=== PATIENT | female | born 1935 | race Caucasian/White ===

== ENCOUNTER → 2017-06-12 12:50 | Outpatient (CLI) | payer MEDICARE, SELFPAY ==
--- NOTE | 2017-06-12 12:57 | RAD_ITS ---
STUDY: X-RAY CHEST REASON FOR EXAM: Female, 81 years old. Right-sided chest pain TECHNIQUE: PA and lateral views of the chest. COMPARISON: 08/09/2016 FINDINGS: Stable hiatal hernia. There is hyperinflation of the lungs consistent with chronic obstructive lung disease (COPD). Scarring in the bases without change. There is no demonstrated pleural abnormality. Normal size heart. Normal mediastinum and jimmie. Normal visualized pulmonary arteries. There is atherosclerotic calcification of the aortic arch with tortuosity. There is demineralization of the osseous structures. There is degenerative osteoarthritis of the bilateral shoulders. There is no demonstrated abnormality of the visualized soft tissue structures of the upper abdomen. 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 No pulmonary edema, congestive heart failure or confluent pneumonia. Electronically Signed: Hawa Humphries MD at 7:58 EDT , Service support ,
[2017-06-12 15:46] LABS: Absolute Lymphocyte Count 2.13 X10^3/ul (0.83-4.51); Absolute Neutrophil Count 5.7 X10^3/uL (2.0-7.7); Basophil# 0.06 X10^3/uL; Basophil% 0.7 % (0-1); Eosinophil# 0.11 X10^3/uL; Eosinophils% 1.3 % (0-5); Hematocrit 41.4 % (37-47); Hemoglobin 13.7 g/dl (12.0-15.0); Lymphocyte # 2.13 X10^3/ul (4.0); Lymphocyte % 25.3 % (19-41); Mean Corp Hgb Conc 33.1 g/gl (32-36); Mean Corpuscular Hgb 28.4 pg (27.0-32.0); Mean Corpuscular Volume 85.9 fL (81-99); Mean Platelet Vol. 11.9 fl (6.2-12.0); Monocyte# 0.39 X10^3/uL; Monocyte% 4.6 % (0-10); Neutrophil # 5.72 X10^3/uL (2.7-7.7); Neutrophil % 67.9 % (47-70); Platelet Count 212 K/mm3 (150-450); RBC Distribution Width CV 13.3 % (11.6-14.6); RBC Distribution Width SD 41.6 fl (35.1-43.9); Red Blood Count 4.82 M/mm3 (4.2-5.4); White Blood Count 8.4 K/mm3 (4.4-11.0)
[2017-06-12 16:09] LABS: T4 Free Direct 1.17 ng/dL (0.76-1.46); Thyroid Stim Hormone (TSH) 0.83 uIU/mL (0.358-3.74)
[2017-06-12 16:12] LABS: POSITIVE COUNT NO; POSITIVE DIFFERENTIAL NO; POSITIVE MORPHOLOGY NO
[2017-06-12 16:13] LABS: D-Dimer Quantitative (DVT/PE) < 0.27 FEU/ug/m (0.27-0.49)
== END ==
PROVIDERS: Family Provider Family Medicine; PCP Family Medicine; Visit Provider Family Medicine
DX: E03.2 Hypothyroidism due to medicaments and other exogenous substances (principal); R07.9 Chest pain, unspecified
CPT/HCPCS: 36415; 71046; 84439; 84443; 85025; 85379

== ENCOUNTER → 2017-08-15 10:44 | Outpatient (CLI) | payer MEDICARE, SELFPAY ==
--- NOTE | 2017-08-15 10:44 | DT_ITS ---
This patient was seen during an EMR downtime August 13, 2017 - August 20, 2017. This patient may have a combination of paper and electronic documentation or all paper documentation. All documentation is viewable within the e-chart portion of [employer] for each patient visit.
--- NOTE | 2017-08-15 10:44 | DT_ITS ---
This patient was seen during an EMR downtime August 13, 2017 - August 20, 2017. This patient may have a combination of paper and electronic documentation or all paper documentation. All documentation is viewable within the e-chart portion of [facility] for each patient visit.
[2017-08-20 08:24] LABS: T4 Free Direct 1.09 ng/dL (0.76-1.46); Thyroid Stim Hormone (TSH) 1.26 uIU/mL (0.358-3.74)
== END ==
PROVIDERS: Family Provider Family Medicine; PCP Family Medicine; Visit Provider Family Medicine
DX: E03.2 Hypothyroidism due to medicaments and other exogenous substances (principal); Z85.850 Personal history of malignant neoplasm of thyroid
CPT/HCPCS: 36415; 84432; 84439; 84443; 86800

== ENCOUNTER → 2017-08-20 11:30 | Outpatient (CLI) | payer MEDICARE, SELFPAY ==
--- NOTE | 2017-08-20 11:30 | DT_ITS ---
This patient was seen during an EMR downtime August 13, 2017 - August 20, 2017. This patient may have a combination of paper and electronic documentation or all paper documentation. All documentation is viewable within the e-chart portion of [employer] for each patient visit.
--- NOTE | 2017-08-20 11:30 | DT_ITS ---
This patient was seen during an EMR downtime August 13, 2017 - August 20, 2017. This patient may have a combination of paper and electronic documentation or all paper documentation. All documentation is viewable within the e-chart portion of [facility] for each patient visit.
[2017-08-20 16:05] LABS: CPK Total, Creatine Kinase 38 U/L (26-192); CRP 5.71 mg/L (0.0-3.0)
[2017-08-20 16:07] LABS: Erythrocyte Sedimentation Rate 14 mm/hr (0-30)
[2017-08-20 16:08] LABS: Vitamin B12 329 pg/mL (211-911)
[2017-08-24 16:11] LABS: Anti-Centromere B Ab <0.2 AI (0.0-0.9); Anti-Chromatin <0.2 AI (0.0-0.9); Anti-Jo <0.2 AI (0.0-0.9); Anti-Scleroderma-70 AB 0.3 AI (0.0-0.9); RNP Ab <0.2 AI (0.0-0.9); SJOGREN'S Anti-SS-A test < 0.2 AI (0.0-0.9); SJOGREN'S Anti-SS-B test < 0.2 AI (0.0-0.9); Smith Ab <0.2 AI (0.0-0.9)
[2017-08-24 18:10] LABS: ANTINUCLEAR ANTIBODIES DIRECT Negative (Negative); Anti-dsDNA Ab <1 IU/mL (0-9)
== END ==
PROVIDERS: Family Provider Family Medicine; PCP Family Medicine; Visit Provider Family Medicine
DX: E03.2 Hypothyroidism due to medicaments and other exogenous substances (principal); R53.83 Other fatigue; M79.1 Myalgia; M19.90 Unspecified osteoarthritis, unspecified site; Z85.850 Personal history of malignant neoplasm of thyroid
CPT/HCPCS: 36415; 82550; 82607; 85652; 86038; 86140; 86225; 86235

== ENCOUNTER → 2018-01-29 15:48 | Outpatient (CLI) | payer MEDICARE, SELFPAY ==
[2018-01-29 14:20] VITALS: BMI 45.6
[2018-01-29 16:24] LABS: Bacteria 0 SEEN /hpf (None Seen); Mucous, Urine 0 SEEN /hpf (<or=2+); Red Blood Cells-Urine 0 SEEN /hpf (0-5)
[2018-01-29 17:46] LABS: Color, Urine Straw (Yellow); Glucose, Dipstick Normal (Normal); Ketone-Dipstick Negative (Negative); Leukocyte Esterase-Dipstick Negative /ul (Negative); Nitrite-Dipstick Negative (Negative); Occult Blood-Urine Negative /ul (Negative); Protein-Dipstick Negative (Negative); Urine Bilirubin Dipstick Negative (Negative); Urine Clarity Clear (Clear); Urine Urobilinogen Normal (Normal); Urine pH 6.5 (5.0 - 8.0)
[2018-01-29 18:31] LABS: Squamous Epithelial Cells - UA 0-5 SEEN /hpf (5-10)
[2018-01-29 18:32] LABS: Transitional Epithelial - Ur 0-5 SEEN /hpf (0-5)
[2018-01-29 18:33] LABS: White Blood Cells 0-5 SEEN /hpf (0-5)
== END ==
PROVIDERS: Family Provider Family Medicine; PCP Family Medicine; Referring Provider Physician Assistant Surgical; Visit Provider Physician Assistant Surgical
DX: R30.0 Dysuria (principal)
CPT/HCPCS: 81001; 87086; 87088

== ENCOUNTER → 2018-02-07 09:16 | Outpatient (CLI) | payer MEDICARE, SELFPAY ==
[2018-01-29 14:20] VITALS: BMI 45.6
[2018-02-07 12:00] LABS: Absolute Lymphocyte Count 2.65 X10^3/ul (0.83-4.51); Absolute Neutrophil Count 5.2 X10^3/uL (2.0-7.7); Basophil# 0.08 X10^3/uL; Basophil% 0.9 % (0-1); Eosinophil# 0.36 X10^3/uL; Eosinophils% 4.1 % (0-5); Hematocrit 41.9 % (37-47); Hemoglobin 13.6 g/dl (12.0-15.0); Lymphocyte # 2.65 X10^3/ul (4.0); Lymphocyte % 30.3 % (19-41); Mean Corp Hgb Conc 32.5 g/gl (32-36); Mean Corpuscular Hgb 28.3 pg (27.0-32.0); Mean Corpuscular Volume 87.3 fL (81-99); Mean Platelet Vol. 11.8 fl (6.2-12.0); Monocyte# 0.42 X10^3/uL; Monocyte% 4.8 % (0-10); Neutrophil # 5.21 X10^3/uL (2.7-7.7); Neutrophil % 59.7 % (47-70); Platelet Count 229 K/mm3 (150-450); RBC Distribution Width CV 14.1 % (11.6-14.6); RBC Distribution Width SD 44.7 fl (35.1-43.9); White Blood Count 8.7 K/mm3 (4.4-11.0)
[2018-02-07 12:01] LABS: POSITIVE COUNT NO; POSITIVE DIFFERENTIAL NO; POSITIVE MORPHOLOGY NO
[2018-02-07 12:15] LABS: Vitamin B12 675 pg/mL (211-911); Vitamin D,25 Hydroxy 21.4 ng/mL (29.95-100.01)
[2018-02-07 12:59] LABS: ALB/GLOB Ratio 0.8 RATIO (0.9-2.4); AST(SGOT) 14 U/L (15-37); Alanine Aminotransfer ALT/SGPT 22 U/L (13-56); Albumin, Serum 3.6 g/dL (3.2-5.0); Alkaline Phosphatase 95 U/L (45-117); Amylase 53 U/L (25-115); Anion Gap 8 (5-15); BUN 26 mg/dL (7-18); BUN/Creat Ratio 22.6 RATIO (10-20); CRP < 2.90 mg/L (0.0-3.0); Calcium,Total 9.3 mg/dL (8.5-10.1); Chloride 102 mmol/L (98-107); Creatinine, Serum 1.15 mg/dL (0.55-1.02); EST Glomerular Filtration Rate 48 mL/min (>60); Est Glom Filt Rate - Afr Amer 58 mL/min (>60); Globulin 4.5 g/dL (2.2-4.2); Glucose 84 mg/dL (74-106); Lipase 101 U/L (73-393); Potassium 4.6 mmol/L (3.5-5.1); Protein, Total 8.1 g/dL (6.4-8.2); Sodium Level 135 mmol/L (136-145); T4 Free Direct 1.02 ng/dL (0.76-1.46); Thyroid Stim Hormone (TSH) 1.79 uIU/mL (0.358-3.74)
[2018-02-09 09:21] LABS: Anti-Thyroglobulin AB < 1.0 IU/mL (0.0-0.9); Thyroglobulin, Serum Qt. < 0.1 ng/mL (1.5-38.5)
--- OUTSIDE RECORDS SUMMARY | 2018-04-04 10:16 | XMS RPT_ITS ---
:1935 Author Organization OHIP Support Name Relationship Address Phone SHANKAR WALI Unavailable [address] + [place] [address] R Unavailable Unavailable Unavailable RAIFSNIDER, MUSTAPHA Unavailable [address] + [place] [address] WALI SHANKAR Unavailable [address] + [place] [address] R Unavailable Unavailable Unavailable RAIFSNIDER, MUSTAPHA Unavailable [address] + [place] [address] WALI SHANKAR Unavailable [address] + [place] [address] R Unavailable Unavailable Unavailable RAIFSNIDER, MUSTAPHA Unavailable [address] + [place] [address] WALI SHANKAR Unavailable [address] + [place] [address] R Unavailable Unavailable Unavailable RAIFSNIDER, MUSTAPHA Unavailable [address] + [place] [address] WALI SHANKAR Unavailable [address] + [place] [address] R Unavailable Unavailable Unavailable RAIFSNIDER, MUSTAPHA Unavailable [address] + [place] [address] WALI SHANKAR Unavailable [address] + [place] [address] R Unavailable Unavailable Unavailable RAIFSNIDER, MUSTAPHA Unavailable [address] + [place] [address] WALI SHANKAR Unavailable [address] + [place] [address] R Unavailable Unavailable Unavailable RAIFSNIDER, MUSTAPHA Unavailable [address] + [place] [address] [facility] Unavailable [address] + [place] [address] R Unavailable Unavailable Unavailable RAIFSNIDER, MUSTAPHA Unavailable [address] + [place] [address] [facility] Unavailable [address] + [place] [address] R Unavailable Unavailable Unavailable RAIFSNIDER, MUSTAPHA Unavailable [address] + [place] [address] [facility] Unavailable [address] + [place] [address] R Unavailable Unavailable Unavailable RAIFSNIDER, MUSTAPHA Unavailable [address] + [place] [address] [facility] Unavailable [address] + [place] [address] R Unavailable Unavailable Unavailable RAIFSNIDER, MUSTAPHA Unavailable [address] + [place] [address] [facility] Unavailable [address] + [place] [address] R Unavailable Unavailable Unavailable RAIFSNIDER, MUSTAPHA Unavailable [address] + [place] [address] [facility] Unavailable [address] + [place] [address] R Unavailable Unavailable Unavailable RAIFSNIDER, MUSTAPHA Unavailable [address] + [place] [address] [facility] Unavailable [address] + [place] [address] R Unavailable Unavailable Unavailable RAIFSNIDER, MUSTAPHA Unavailable [address] + [place] [address] [facility] Unavailable [address] + [place] [address] R Unavailable Unavailable Unavailable RAIFSNIDER, MUSTAPHA Unavailable [address] + [place] [address] Care Team Providers Name Role Phone FOREST VILLANUEVA Referring Unavailable KAYFOREST MARTINEZ A Referring Unavailable Kay, Forest Attending Unavailable Kay, Forest Referring Unavailable Kay, Forest Primary Care Unavailable Kay, Forest Attending Unavailable Kay, Forest Referring Unavailable Kay, Forest Primary Care Unavailable Kay, Forest Attending Unavailable Kay, Forest Primary Care Unavailable Kay, Forest Referring Unavailable Kay, Forest Primary Care Unavailable Rinku Brito Attending Unavailable Grace Millan Attending Unavailable Vicky Jones Referring Unavailable Patricio, Isidro Hallman Attending Unavailable Kay, Forest Referring Unavailable Sienna Marshall Attending Unavailable Lorraine Gonzalez Attending Unavailable Patricio, Isidro H Attending Unavailable Kay, Forest Attending Unavailable Kay, Forest Primary Care Unavailable Kay, Forest Attending Unavailable Kay, Forest Referring Unavailable Kay, Forest Primary Care Unavailable Yana, Grace [place] Attending Unavailable Kay, Forest Referring Unavailable Kay, Forest Primary Care Unavailable Lavell Matthews Attending Unavailable Kay, Forest Referring Unavailable Lavell Matthews Attending Unavailable Lavell Matthews Referring Unavailable Kay, Forest Primary Care Unavailable Kay, Forest Attending Unavailable Kay, Forest Primary Care Unavailable PROBLEMS PROBLEMS DATE TYPE CONDITION / CODE ATTENDING STATUS SOURCE 02/07/2018 Unknown 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 / E03.2(ICD-10) 02/07/2018 Unknown R10.9 - Unspecified Forest Villanueva Active [place] abdominal pain / Community R10.9(ICD-10) Hospital Repository 02/07/2018 Unknown R11.0 - Nausea / Forest Villanueva Active [place] R11.0(ICD-10) Community Hospital Repository 02/07/2018 Unknown K57.90 - KayForest roth Active [place] Diverticulosis of Community intestine, part Hospital unspecified, without Repository perforation or abscess without bleeding / K57.90(ICD-10) 02/07/2018 Unknown Z85.850 - Personal Forest Villanueva Active [place] history of malignant Community neoplasm of thyroid Hospital / Z85.850(ICD-10) Repository 02/07/2018 Unknown E55.9 - Vitamin D Forest Villanueva Active [place] deficiency, Community unspecified / Hospital E55.9(ICD-10) Repository 02/07/2018 Unknown E53.8 - Deficiency Forest Villanueva Active [place] of other specified B Community group vitamins / Hospital E53.8(ICD-10) Repository 01/29/2018 Unknown R30.0 - Dysuria / Lavell Matthews Active [place] R30.0(ICD-10) Counts Include [facility] Hospital Repository 12/10/2017 [facility] / [facility] [place] Repository 06/12/2017 Unknown R07.9 - Chest pain, Forest Villanueva Active [place] unspecified / Community R07.9(ICD-10) Hospital Repository 03/14/2017 Unknown R42 - Dizziness and Lowe, Rinku Active [place] giddiness / Community R42(ICD-10) Hospital Repository PROCEDURES PROCEDURES No Procedure Records FoundRESULTS RESULTS BREAST LIMITED Observed: 02/25/2018 Status: F Source: [place] UNILATERAL 8:58 AM [facility] REPOSITORY [facility] Imaging Services [address] [place] [address] Breast Limited Unilateral MR#: [id number] Acct: [id number] Name: BALBINA KERN Rep #: [id number] : 1935 F 82 From: Andrei Vences MD PCP: Forest Villanueva DO Status: REG CLI Study: Breast Limited Unilateral Date of Exam: 02/25/18 Exam# [id number] Ordering Dr: Forest Villanueva DO STUDY: ULTRASOUND BREAST - LEFT REASON FOR EXAM: Female, 82 years old. Abnormal screening mammogram. TECHNIQUE: Axial and longitudinal images of the LEFT breast were performed with a high resolution ultrasound transducer. COMPARISON: Comparison is made with prior mammogram dated February 21, 2018. FINDINGS: LEFT Breast: The mammographic abnormality corresponds to a 2 mm x 3 mm x 2 mm cyst at the 4:00 position of breast 4 cm from nipple. US/Breast Limited Unilateral IMPRESSION: The mammographic findings corresponds to a 2 mm x 3 mm x 2 mm cyst. ASSESSMENT CATEGORY: BIRADS Category 2: Benign. A letter regarding these results will be sent to the patient by the facility within 30 days. Electronically Signed: Andrei Vences MD at 11:01 EST Tel [phone], Service support , CC: Forest Villanueva DO Scada Operator: Signed ABDOMEN/PELVIS WITH Observed: 02/21/2018 Status: F Source: [place] CONTRAST 1:00 PM [facility] REPOSITORY [facility] Imaging Services [address] [place] [address] Abdomen/Pelvis WITH Contrast MR#: [id number] Acct: [id number] Name: BALBINA KERN Rep #: [id number] : 1935 F 82 From: Mike Lake MD PCP: Forest Villanueva DO Status: REG CLI Study: Abdomen/Pelvis WITH Contrast Date of Exam: 02/21/18 Exam# [id number] Ordering Dr: Forest Villanueva DO STUDY: CT ABDOMEN AND PELVIS WITH CONTRAST REASON FOR EXAM: Female, 82 years old. Abdominal pain, weight loss, nausea. History of breast cancer and right mastectomy, diverticulitis treated with partial colectomy, JENNIFER/BSO, cholecystectomy, and bilateral hip replacements. RADIATION DOSAGE (If Supplied By Facility): CTDIvol = ( 32.93 ) mGy, DLP = ( 2429.91 ) mGycm TECHNIQUE: Transaxial images were obtained from the dome of the diaphragm to the symphysis pubis without oral contrast. 100mL ml of Isovue 300 contrast was administered. Sagittal and coronal images were reconstructed. Individualized dose optimization techniques were used for this CT. COMPARISON: CT abdomen and pelvis July 19, 2016. FINDINGS: Small calcified granuloma in the right lung base. The visualized portions of the heart are within normal limits. Normal liver. The patent portal vein diameter is 14 mm. There are surgical clips in the gallbladder fossa consistent with a prior cholecystectomy. The diameter of the common bile duct is 12 mm. There is borderline to mild splenomegaly, measuring 13.5 x 5.5 x 10.4 cm. Normal pancreas. Normal bilateral adrenal glands. 1.3 cm cortical cyst suggested in the anterolateral midpole right kidney. There is an exophytic 2.6 x 2.3 x 2.4 cm cortical cyst projecting from the posterolateral margin of the lower pole of the left kidney. Mildly prominent left extra renal pelvis. Borderline ectasia of the right ureter down to the pelvic inlet. There is a moderate to large hiatal hernia composed mostly of the fundus of the stomach, not fully included in the [id number]. There is a partially gas-filled 2.5 x 2.5 x 1.8 cm periampullary diverticulum of the second duodenum. Normal small intestine. There are multiple colonic diverticula consistent with diverticulosis. There is non-visualization of the appendix. There is fxre-gn-tgargemn diffuse atherosclerotic calcification of the abdominal aorta and proximal iliac arteries, without a demonstrated aneurysm. Normal inferior vena cava. Normal retroperitoneum. Pelvic detail degraded by artifact. Normal urinary bladder. There is absence of the uterus consistent with a prior hysterectomy. There is a healed midline incision of the anterior abdominal wall. There is a small umbilical hernia containing fat. There are multilevel degenerative changes of the visualized spine. There is minor rightward subluxation of L3 on L4, and a 17.5 degree levoscoliosis centered at L4. The patient has undergone prior bilateral total hip replacements CT/Abdomen/Pelvis WITH Contrast IMPRESSION: 1. Healed midline incision of the anterior abdominal wall with stable fat-containing umbilical hernia. 2. Stable moderate-sized hiatal hernia. 3. Colonic diverticulosis without acute diverticulitis. Stable periampullary duodenal diverticulum. No sign of bowel obstruction. The appendix is not visualized. 4. Stable bilateral renal cortical cysts. No hydronephrosis. 5. Prior cholecystectomy. Stable intrahepatic bile duct ectasia. 6. Borderline to mild splenomegaly. 7. Prior hysterectomy. 8. Aortoiliac atherosclerotic calcific plaquing again noted. No demonstrated aneurysm. 9. Prior bilateral total hip replacements. 10. Stable degenerative changes of the spine, including mild rightward subluxation of L3 on L4 and lower lumbar levoscoliosis. Electronically Signed: Roberto Lake MD at 16:58 EST , Service support , CC: Forest Villanueva DO Scada Operator: Signed UNILHORACE SCRN Observed: 02/21/2018 Status: F Source: [place] W/CAD 11:50 AM [facility] REPOSITORY [facility] Imaging Services [address] [place] [address] UNILAT SCRN W/CAD MR#: [id number] Acct: [id number] Name: BALBINA KERN Rep #: [id number] : 1935 F 82 From: Andrei Vences MD PCP: Forest Villanueva DO Status: REG CLI Study: UNILAT SCRN W/CAD Date of Exam: 02/21/18 Exam# [id number] Ordering Dr: Forest Villanueva DO ADDENDUM by Andrei Vences MD on 02/22/18 at 0816 ADDENDUM This is an abdomen report for laterality. The impression should read that there is a 5.7 mm x 6.7 mm well-defined nodule in the left breast as described. Electronically Signed: Andrei Vences MD at 8:16 EST Tel [phone], Service support , 02/22/18 0816 Date cc: Forest Kay DO * Signed ADDENDUM by Andrei Vences MD on 02/22/18 at 0816 BI/UNILAT LT SCRN W/CAD 02/22/18 0823 Date cc: Forest Villanueva DO * Signed MAMMOGRAPHY - UNILATERAL SCREENING: LEFT BREAST REASON FOR EXAM: Female, 82 years old. Routine annual screening examination (unilateral). PERTINENT HISTORY: Personal history of breast cancer. Prior right mastectomy and chemotherapy. Remote left stereotactic breast biopsy. TECHNIQUE: Digital unilateral breast rafi (3D mammographic acquisition) in the CC and MLO projections. 2-D mediolateral oblique (MLO) and craniocaudad (CC) views of both breasts were obtained. CAD: Full Field Digital Mammography with Computer Added Detection was performed. COMPARISON: Comparison is made with prior study dated December 16, 2016 and November 19, 2015. FINDINGS: Breast Composition: The breasts are almost entirely fatty. There are no dominant masses or suspicious calcifications. There is a new 5.7 mm x 6.6 mm well-defined nodular density in the central lateral portion of the left breast at approximately the 3:00 position. Correlation with ultrasound is recommended. No other significant abnormalities are identified. BI/UNILAT LT SCRN W/CAD IMPRESSION: 5.7 mm x 6.7 mm well-defined nodule in the right breast as described. Correlation with ultrasound is recommended. ASSESSMENT CATEGORY: BIRADS Category 0: Incomplete. Need additional imaging evaluation. A letter regarding these results will be sent to the patient by the facility within 30 days. Approximately 10% of breast cancers are not detected by mammography. A normal mammogram should not delay biopsy of a clinically suspicious abnormality. [id number] Electronically Signed: Andrei Vences MD at 13:17 EST Tel [phone], Service support , CC: Forest Villanueva DO Scada Operator: Signed CBC W/DIFF, AUTOMATED Collected: 02/07/2018 Status: F Source: [place] 9:23 AM [facility] REPOSITORY TYPE CODE TESTS RESULT OUT OF RANGE REFERENCE UNITS LAB L100.1000 4.4-11.0 K/mm3 Normal WBC 8.7 LAB L100.1200 4.2-5.4 M/mm3 Normal RBC 4.80 LAB L100.1300 12.0-15.0 g/dl Normal HGB 13.6 LAB L100.1400 37-47 % Normal HCT 41.9 LAB L100.1500 81-99 fL Normal MCV 87.3 LAB L100.1600 27.0-32.0 pg Normal MCH 28.3 LAB L100.1700 32-36 g/gl Normal MCHC 32.5 LAB L100.1810 11.6-14.6 % Normal RDW CV 14.1 LAB L100.1820 35.1-43.9 fl High RDW SD 44.7 LAB L100.1900 150-450 K/mm3 Normal PLT 229 LAB L100.2000 6.2-12.0 fl Normal MPV 11.8 LAB L100.2100 47-70 % Normal NEUT% 59.7 LAB L100.2200 19-41 % Normal LY% 30.3 LAB L100.2300 0-10 % Normal MONO% 4.8 LAB L100.2400 0-5 % Normal EO% 4.1 LAB L100.2500 0-1 % Normal BASO% 0.9 LAB L100.2550 0.0-0.9 % Normal IM GRAN % 0.200 Result Comment: IG% - Immature Granulocytes (promyelocytes, myelocytes and metamyelocytes) > 1% indicates that a LEFT SHIFT is Present. LAB L100.2620 2.0-7.7 X10 3/uL Normal Absolute Neut 5.2 LAB L100.2720 0.83-4.51 X10 3/ul Normal Absolute Lymph 2.65 Performed By: #### L100.0100 #### [place] [facility] [place], [address] VITAMIN B12 Collected: 02/07/2018 Status: F Source: [place] 9:23 AM [facility] REPOSITORY TYPE CODE TESTS RESULT OUT OF RANGE REFERENCE UNITS LAB L503.0105 211-911 pg/mL Normal Vitamin B12 675 Performed By: #### L503.0105, L506.1000 #### [facility] [address] [place], [address] VITAMIN D,25 HYDROXY Collected: 02/07/2018 Status: F Source: [place] 9:23 AM [facility] REPOSITORY TYPE CODE TESTS RESULT OUT OF REFERENCE UNITS RANGE LAB L506.1000 29.95-100.01 ng/mL Low Vitamin D 21.4 25-OH Result Comment: Vitamin D 25(OH) Status Range Deficiency <20 ng/mL (50nmol/L) Insuffciency 20 - 30 ng/mL (50 - 75 nmol/L) Sufficiency 30 - 100 ng/mL (75 - 250 nmol/L) Toxicity >100 ng/mL (>250 nmol/L) Performed By: #### L503.0105, L506.1000 #### [facility] [address] [place], [address] COMPREHENSIVE METABOLIC Collected: 02/07/2018 Status: F Source: [place] [facility] 9:23 AM [facility] REPOSITORY TYPE CODE TESTS RESULT OUT OF RANGE REFERENCE UNITS LAB L501.0100 74-106 mg/dL Normal GLU 84 Result Comment: Please note revised GLUCOSE reference range effective 2017. LAB L501.1000 7-18 mg/dL High BUN 26 LAB L501.1100 0.55-1.02 mg/dL High CREAT,SERUM 1.15 Result Comment: The validity of the calculated GFR AND GFRAA in patients over 70 years has not been determined. Clinical correlation is essential. LAB L501.1110 >60 mL/min Low EST GFR 48 Result Comment: Non- GFR Calc LAB L501.1115 >60 mL/min Low EST GFR - AA 58 Result Comment: GFR Calc LAB L501.1300 10-20 RATIO High BUN/CRE 22.6 LAB L501.1500 6.4-8.2 g/dL T Normal PROT 8.1 LAB L501.1800 3.2-5.0 g/dL Normal ALB 3.6 LAB L501.1950 2.2-4.2 g/dL High GLOB 4.5 LAB L501.2000 0.9-2.4 RATIO Low A/G 0.8 LAB L501.2200 8.5-10.1 mg/dL CA Normal 9.3 LAB L501.4100 15-37 U/L Low AST 14 LAB L501.4305 45-117 U/L Normal ALK P 95 LAB L501.4405 13-56 U/L Normal ALT 22 LAB L501.4600 0.20-1.00 mg/dL T Normal BILI 0.30 LAB L501.5300 136-145 mmol/L Low NA 135 LAB L501.5600 3.5-5.1 mmol/L K Normal 4.6 LAB L501.5900 98-107 mmol/L CL Normal 102 LAB L501.6100 21.0-32.0 mmol/L Normal CO2 25.0 LAB L501.6200 5-15 Normal GAP 8 Performed By: #### L500.4050, L501.2400, L501.2450, L501.6710, L501.9520, L506.0400 #### [facility] [address] [facility] [place], [place], [id number] AMYLASE Collected: 02/07/2018 Status: F Source: [place] 9:23 AM [facility] REPOSITORY TYPE CODE TESTS RESULT OUT OF RANGE REFERENCE UNITS LAB L501.2400 25-115 U/L Normal CLOVIS 53 Performed By: #### L500.4050, L501.2400, L501.2450, L501.6710, L501.9520, L506.0400 #### [facility] [address] [facility] [place], [place], [address] LIPASE Collected: 02/07/2018 Status: F Source: [place] 9:23 AM [facility] REPOSITORY TYPE CODE TESTS RESULT OUT OF RANGE REFERENCE UNITS LAB L501.2450 73-393 U/L Normal LIPASE 101 Performed By: #### L500.4050, L501.2400, L501.2450, L501.6710, L501.9520, L506.0400 #### [facility] [address] [place], [address] CRP Collected: 02/07/2018 Status: F Source: [place] 9:23 AM [facility] REPOSITORY TYPE CODE TESTS RESULT OUT OF RANGE REFERENCE UNITS LAB L501.6710 0.0-3.0 mg/L Normal < 2.90 C-REACTIVE PROT Result Comment: C-Reactive Protein (CRP) provides useful information for the diagnosis, therapy and monitoring of inflammatory processes and associated diseases. For the evaluation of Relative Risk for Cardiovascular Disease, a High Sensitivity CRP (HSCRP) should be ordered. Performed By: #### L500.4050, L501.2400, L501.2450, L501.6710, L501.9520, L506.0400 #### [facility] [address] [facility] [place], [address] THYROID STIM HORMONE Collected: 02/07/2018 Status: F Source: [place] (TSH) 9:23 AM [facility] REPOSITORY TYPE CODE TESTS RESULT OUT OF RANGE REFERENCE UNITS LAB L501.9520 0.358-3.74 uIU/mL Normal TSH 1.79 Performed By: #### L500.4050, L501.2400, L501.2450, L501.6710, L501.9520, L506.0400 #### [facility] [address] [place], [address] T4 FREE DIRECT Collected: 02/07/2018 Status: F Source: [place] 9:23 AM [facility] REPOSITORY TYPE CODE TESTS RESULT OUT OF RANGE REFERENCE UNITS LAB L506.0400 0.76-1.46 ng/dL Normal T4 FREE 1.02 DIRECT Performed By: #### L500.4050, L501.2400, L501.2450, L501.6710, L501.9520, L506.0400 #### [facility] [address] [place], [address] THYROGLOBULIN W/ANTI-TG Collected: 02/07/2018 Status: F Source: [place] AB 9:23 AM [facility] REPOSITORY TYPE CODE TESTS RESULT OUT OF RANGE REFERENCE UNITS LAB L3300.7025 0.0-0.9 IU/mL Normal ANTI-TG < 1.0 AB Result Comment: Thyroglobulin Antibody measured by [facility] [employer] LAB L3400.1030 1.5-38.5 ng/mL Low THYROGLOB < 0.1 Result Comment: According to the National Academy of Clinical Biochemistry, the reference interval for Thyroglobulin (TG) should be related to euthyroid patients and not for patients who underwent thyroidectomy. TG reference intervals for these patients depend on the residual mass of the thyroid tissue left after surgery. Establishing a post-operative baseline is recommended. The assay limit of quantitation is 0.1 ng/mL Thyroglobulin measured by [employer] Performed at: [facility] [address] [id number] Flight Controls Engineer: Bobby Sahu PhD, Phone: [phone] Performed By: #### L3300.6820 #### [facility] (refer to report for specific site) refer to report for address and phone number URGENT CARE VISIT Observed: 01/29/2018 Status: F Source: [place] REPORT 5:31 PM [facility] REPOSITORY [facility] [address] [place] [address] [address] [place] [address] OFFICE VISIT Date of Service: 01/29/18 MR#: [id number] Acct: [id number] Name: BALBINA KERN Rep #: [id number] : 1935 Provider: Lavell FERNANDEZ Age/Sex: 82/F Location: [facility] Status: Signed Intake Vital Signs01/29/18 Height 5 ft 4 in 01/29/18 Weight: 266 lb 01/29/18 Body Mass Index (BMI) 45.6 01/29/18 Blood Pressure 124/86 H Intake Visit Reasons: Urinary tract infection Allergies nitrofurantoin [From Macrobid] Allergy (Intermediate, Verified 01/29/18 14:22) hives latex Allergy (Verified 01/29/18 14:22) Rash Penicillins Allergy (Verified 01/29/18 14:22) Swelling Medications Sertraline HCl [Zoloft] 50 mg PO BID 01/08/13 [History Confirmed 01/29/18] Acetaminophen [Pain Reliever] 2 tab PO BID 08/15/13 [History Confirmed 01/29/18] Cholecalciferol (VIT D3) [Vitamin D] 1,000 unit PO DAILY 09/20/14 [History Confirmed 01/29/18] Levothyroxine [Synthroid] 100 mcg PO DAILY 09/20/14 [History Confirmed 01/29/18] Lorazepam [Ativan] 1 mg PO QHS 09/20/14 [History Confirmed 01/29/18] Senna/Docusate Sodium [Senokot-S, Court-Colace] 1 tab PO BID 09/20/14 [History Confirmed 01/29/18] Ropinirole HCl [Requip] 2 mg PO QHS 08/09/16 [History Confirmed 01/29/18] busPIRone [Buspar] 5 mg PO DAILY 08/09/16 [History Confirmed 01/29/18] traMADol [Ultram] 50 mg PO QHS 08/09/16 [History Confirmed 01/29/18] Meclizine HCl [Antivert] 25 mg PO 4X/DAY PRN PRN #20 tab 03/14/17 [Rx Confirmed 01/29/18] ondansetron 4 mg disintegrating tablet 4 mg PO BID-TID PRN 01/29/18 [History Confirmed 01/29/18] sulfamethoxazole 800 mg-trimethoprim 160 mg tablet 1 tab PO Q12H 7 Days #14 tab 01/29/18 [Rx Confirmed 01/29/18] PFSH Medical History H/O: hysterectomy (Resolved) Hyperlipidemia (Chronic) At risk for falls (Acute) Precordial chest pain (Acute) Restless legs (Acute) Shortness of breath (Acute) Surgical History H/O hemicolectomy (Resolved) H/O thyroidectomy (Resolved) H/O mastectomy (Resolved) History of knee replacement (Resolved) Hx of cholecystectomy (Resolved) H/O colonoscopy (Resolved) History of bladder suspension procedure (Resolved) History of carpal tunnel surgery of right wrist (Resolved) History of hip replacement, total (Resolved) History of tonsillectomy and adenoidectomy (Resolved) Family History Father , Age 89 CVA (cerebral vascular accident) Cancer Hypertension Myocardial infarction Mother , Age 90 Cancer Brother Hypertension Diabetes Brother Diabetes Brother Hypertension Social History Smoking Status: Former smoker how long ago did patient quit smoking: in the 's alcohol intake: current alcohol intake frequency: holidays/special occasions only Alcohol type: wine caffeine: Yes Type: tea HPI HPI Details: BALBINA KERN, is a 82 F who presents to the office today for dysuria, urinary urgency and increased frequency as well as pelvic discomfort. Patient is concerned for UTI as she has had multiple UTIs in the past. She denies loss of bowel or bladder control as well as hematuria. She has had no fever, chills, sweats. No nausea, vomiting, diarrhea. No other associated symptoms or alleviating/aggravating factors. ROS Const Constitutional: No body ache, chills or fever(s) Resp Respiratory: No shortness of breath Cardio Cardiology: No lightheadedness, palpitations or irregular heart rhythm Gastro GI: No abdominal pain Genitourinary-Female: Positive for burning urination, painful urination and urinary frequency; no pelvic pain, painful intercourse or blood in urine Neuro Neurology: No confusion or behavioral changes Psych Psychiatric: No confusion, No behavioral changes Exam Const General: cooperative, healthy appearing Resp Effort AND Inspection: normal respiratory effort Auscultation: Bilateral: Clear to Auscultation Cardio Rate: regular rate Rhythm: regular rhythm GI Auscultation: normal bowel sounds General: No CVA tenderness Psych Appearance: grossly normal Mental Status: mental status grossly normal Results [facility] Office Urine Color Yellow Last Edit by Ana M Thurston on 01/29/18 14:31 Office Urine Clarity Clear Last Edit by Ana M Thurston on 01/29/18 14:31 Assessment AND Plan 1. Dysuria R30.0 Status Acute Plan Bactrim as prescribed today. Encouraged to get plenty of rest, drink lots of clear liquids, and use Tylenol or Ibuprofen (unless contraindicated) for fever and comfort. Patient also educated on other symptomatic management techniques. To be seen in 7-10 days if no improvement; sooner if worsening of symptoms. Patient advised of potential red flags and when appropriate to report to the ED. Patient verbalized understanding and agreement with all the above. Orders Orders: Medications New: Coding Level of Care Code Off vis,est,level 3 Diagnoses Dysuria R30.0 01/29/18 0779 <Electronically signed by Lavell FERNANDEZ> Date Lavell Bonds Signature: Date (if applicable) CC: URINALYSIS, COMPLETE Collected: 01/29/2018 Status: F Source: [place] 2:30 PM [facility] REPOSITORY Order Comment: How was Urine Obtained? CLEAN CATCH TYPE CODE TESTS RESULT OUT OF REFERENCE UNITS RANGE LAB L400.3000 Yellow COLOR Normal Straw LAB L400.3050 Clear CLARITY Normal Clear LAB L400.3200 Normal mg/dl GLUCOSE, UR Normal Normal LAB L400.3300 Negative mg/dL BILIRUBIN Normal URINE Negative LAB L400.3400 Negative mg/dl KETONE UR Normal Negative LAB L400.3465 1.002-1.030 SP.GR. Normal DIPSTX 1.010 LAB L400.3550 5.0 - 8.0 pH UR Normal 6.5 LAB L400.3600 Negative mg/dl PROT DIPSTX Normal Negative LAB L400.3700 Normal mg/dl UROBILI Normal Normal LAB L400.3750 Negative NITRITE UR Normal Negative LAB L400.3780 Negative /ul OCCULT Normal BLOOD-UR Negative LAB L400.3800 Negative /ul LEUK Normal ESTERASE Negative LAB L400.4050 0-5 /hpf WBC Normal 0-5 SEEN LAB L400.4100 0-5 /hpf RBC-UA Normal 0 SEEN LAB L400.4150 5-10 /hpf SQUAM EPI Normal 0-5 SEEN LAB L400.4300 None Seen /hpf BACTERIA Normal 0 SEEN LAB L400.4350 <or=2+ /hpf MUCUS, Normal URINE 0 SEEN LAB L400.4200 0-5 /hpf Normal TRANSITIONAL EP 0-5 SEEN Performed By: #### L400.0001 #### [facility] [address] [place], [address] Observed: 01/29/2018 Status: F Source: [place] CULTURE, URINE 2:30 PM [facility] REPOSITORY Urine Culture ORGANISM 1: Mixed Gram Pos AND Gram Neg Org [place] Count <1000 MIX CULTURE Mixed contaminants. Submit a new specimen if indicated. Performed By: #### M100.0650 #### [facility] [place], [address] XR LUMBAR 2V AP/LAT Observed: 12/10/2017 Status: F Source: [place] 11:19 AM [facility] REPOSITORY * * *Final Report* * * DATE OF EXAM: Dec 10 2017 11:19AM WRX 5229 - XR LUMBAR 2V AP/LAT / PROCEDURE REASON: back pain * * * * Physician Interpretation * * * * EXAM: LUMBAR SPINE, 2 VIEWS CLINICAL: 81-year-old female with back pain TECHNIQUE: AP, lateral COMPARISON: None RESULTS: Counting reference: Anatomic Variant: None. L4-5 is considered the level of the iliac crest and assume there are 5 lumbar-type vertebrae. There is tilting of the lumbar spine to the right related to a long segment curvature of the thoracolumbar spine. Straightening of the normal lumbar lordosis. Severe narrowing of L2/L3 through L4/L5 and 6 moderate to severe narrowing of L5/S1 disc space. Osteophytes anteriorly at all lumbar levels. Vertebral bodies and pedicles are intact. 6.5 mm grade 1 anterolisthesis of L2 in relation L3. 4 mm grade 1 anterolisthesis of L4 relation L5. Facet degenerative changes throughout the lumbar spine with mild hypertrophic changes at L3/L4 through L5/S1. Abdominal aortic calcifications are present. Surgical clips in the right upper quadrant. IMPRESSION: DEXTROCURVATURE RELATED TO A THORACOLUMBAR CURVATURE. ADVANCED DEGENERATIVE DISC AND FACET DISEASE. Scada Operator: PSCB Transcribe Date/Time: Dec 11 2017 11:20A Dictated by : ROBERTO BARAJAS MD This examination was interpreted and the report reviewed and electronically signed by: ROBERTO BARAJAS MD on Dec 11 2017 11:25AM EST [id number] Observed: 12/10/2017 Status: COMPLETED Source: [place] 11:07 AM [facility] REPOSITORY HNO ID: [id number] Author: Galina Osullivan (Rt) Dedra Plascencia Service: (none) Author Type: University Extension Specialist Type: Progress Notes Filed: 12/10/2017 11:19 AM Note Text: Radiology Service Progress Note PATIENT NAME: Balbina Kern DATE OF SERVICE: December 10, 2017 TIME: 11:07 AM PATIENT IDENTITY VERIFICATION COMPLETED USING TWO (2) METHODS: Patient confirmed name verbally and Date of . PATIENT GENDER DATA: Female. status: : No status: NO. PATIENT RELEVANT IMPLANT DATA REVIEWED: Not Applicable RADIOLOGY DEPARTMENT: General X-ray: Exam(s) Completed: Spine X-Ray(s): Lumbar AP / LAT / L5-S1 PERIPHERAL IV DATA: Not applicable SIGNED BY: RT Weston December 10, 2017 11:07 AM CARDIOLOGY VISIT Observed: 10/24/2017 Status: F Source: [place] REPORT 11:48 AM [facility] REPOSITORY [facility] [address] [place] [address] OFFICE VISIT Date of Service: 10/23/17 MR#: [id number] Acct: [id number] Name: BALBINA KERN Rep #: [id number] : 1935 Provider: Grace Millan Age/Sex: 81/F Location: [facility] Status: Signed HPI HPI Details: BALBINA KERN, is a 81 F who presents to the office today for a cardiovascular follow-up. She has a history of mild coronary artery disease, hypertension which she is not on any medications for. Pt is concerned about her discoloration in her lower legs. She sts that this has been ongoing for several months. She discussed this with her PCP. She sts that she does occasionally have short lasting episodes of chest pain. She sts that this is not any different than before. She does have SOB but feels that this is related to age and weight. She does not feel that this is any worse than before. She has not had any palpitations. She does not have any lightheadedness/dizziness. She does have restlessleg. Intake Vital Signs10/23/17 Height 5 ft 4 in 10/23/17 Weight: 259 lb 10/23/17 Body Mass Index (BMI) 44.4 10/23/17 Blood Pressure 116/82 10/23/17 Blood Pressure Location Lt brachial Intake Visit Reasons: overdue for f/up, bilateral edema Derrick Boat Runner Required: No Accompanied by: none Is patient in pain?: No Allergies nitrofurantoin [From Macrobid] Allergy (Intermediate, Verified 10/23/17 10:11) hives latex Allergy (Verified 10/23/17 10:11) Rash Penicillins Allergy (Verified 10/23/17 10:11) Swelling Medications Sertraline HCl [Zoloft] 50 mg PO BID 01/08/13 [History Confirmed 05/29/17] Acetaminophen [Pain Reliever] 2 tab PO BID 08/15/13 [History Confirmed 03/14/17] Cholecalciferol (VIT D3) [Vitamin D] 1,000 unit PO DAILY 09/20/14 [History Confirmed 03/14/17] Levothyroxine [Synthroid] 100 mcg PO DAILY 09/20/14 [History Confirmed 05/29/17] Lorazepam [Ativan] 1 mg PO QHS 09/20/14 [History Confirmed 03/14/17] Senna/Docusate Sodium [Senokot-S, Court-Colace] 1 tab PO BID 09/20/14 [History Confirmed 03/14/17] Ropinirole HCl [Requip] 2 mg PO QHS 08/09/16 [History Confirmed 03/14/17] busPIRone [Buspar] 5 mg PO DAILY 08/09/16 [History Confirmed 03/14/17] traMADol [Ultram] 50 mg PO QHS 08/09/16 [History Confirmed 05/29/17] Meclizine HCl [Antivert] 25 mg PO 4X/DAY PRN PRN #20 tab 03/14/17 [Rx] Ejection fraction %: 60 to 64 PFSH Medical History Hyperlipidemia (Chronic) At risk for falls (Acute) Precordial chest pain (Acute) Restless legs (Acute) Shortness of breath (Acute) Surgical History H/O hemicolectomy (Resolved) H/O thyroidectomy (Resolved) H/O mastectomy (Resolved) History of knee replacement (Resolved) H/O: hysterectomy (Resolved) Hx of cholecystectomy (Resolved) H/O colonoscopy (Resolved) History of bladder suspension procedure (Resolved) History of carpal tunnel surgery of right wrist (Resolved) History of hip replacement, total (Resolved) History of tonsillectomy and adenoidectomy (Resolved) Family History Father , Age 89 CVA (cerebral vascular accident) Cancer Hypertension Myocardial infarction Mother , Age 90 Cancer Brother Hypertension Diabetes Brother Diabetes Brother Hypertension Social History Smoking Status: Former smoker how long ago did patient quit smoking: in the 80's alcohol intake: current alcohol intake frequency: holidays/special occasions only Alcohol type: wine caffeine: Yes Type: tea ROS Const Const: Negative for weakness, fatigue, fever(s) or headache(s) Eyes Eyes: Negative for blind spots, loss of peripheral vision or transient loss of vision ENT ENT: Negative for headache(s), dizziness, tinnitus or Nosebleed/epistaxis Cardio Chest Pain: Yes Palpitations: No Edema: Bilateral Muscle aches with walking: None Resp Respiratory: Negative for SOB with activity, SOB at rest, SOB orthopnea\SOB lying down or Cough GI GI: Negative nausea, vomiting, heartburn or vomiting blood/hematemesis : Negative for hematuria Musc Musc: Negative for muscle aches/ myalgia Neuro Neuro: Negative for weakness, headache(s), dizziness, near syncope, syncope, lightheadedness or orthostatic symptoms David Hematologic/Lymphatic: Negative for easy bleeding Endo Endo: Negative for fatigue Cardiology Exam Const Appearance: cooperative, no acute distress and well developed Orientation: alert, awake and oriented x3 Head Head: normocephalic and atraumatic Mouth: moist mucous membranes Eyes General: appearance normal, both eyes and all related structures Conjunctivae: conjunctivae normal Pupils: PERRL EOM: EOM intact bilaterally Neck Neck: normal visual inspection, no lymphadenopathy and no JVD Carotids: Negative bruit Neck Mass: Negative Neck mass Chest Chest inspection: normal inspection of the chest and symmetric chest movement Auscultation: Bilateral: Clear to Auscultation Cardio Palpation: normal PMI Rate: regular rate Rhythm: regular rhythm Heart sounds: S1 normal and S2 normal; negative rub, gallop or murmur GI GI: normal to inspection, soft, no hepatosplenomegaly and bowel sounds present; negative tender Neuro General: alert, awake, oriented x3, CN's II-XI intact bilaterally and moves all extremities Extremities Pulses: Normal: Right Posterior Tibial Pulse, Left Posterior Tibial Pulse, Right Radial Pulse, Left Radial Pulse Lower Extremity Edema: None: Bilateral, Color Changes: Bilateral Psych Psychological: normal affect Assessment AND Plan 1. Other chest pain R07.89; R07.8 Plan - REBECCA Mishra Patient's chest discomfort has not changed. It does not appear that she has any symptoms of coronary artery disease. We will continue to monitor. 2. Localized edema R60.0 Plan - REBECCA Mishra Patient is concerned about the discoloration and edema in her lower extremities. Her lower extremities are not edematous today. She does have some slight discoloration. Encouraged use of compression stocking and leg elevation as feel that this is likely related to venous insufficiency. Plan Detail Additional Comments - REBECCA Mishra The above patient was discussed with Dr. Hill, he agrees with plan of care. Thank you for allowing us to participate in patient's plan of care, if you have any questions please do not hesitate to call. This note was generated using a voice recognition system and there may be incorrect words, spelling or punctuation errors that were not noted when reviewing the office note prior to saving. 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) Coding Level of Care Code Off vis,est,level 3 Diagnoses Other chest pain R07.89; R07.8 Chest pain type: other chest pain Localized edema R60.0 Edema type: localized Coding Level of Care Code Off vis,est,level 3 Diagnoses Other chest pain R07.89; R07.8 Chest pain type: other chest pain Localized edema R60.0 Edema type: localized 10/23/17 1105 <Electronically signed by Grace FERNANDEZ> Date Grace FERNANDEZ 10/24/17 1148<Electronically signed by Rodriguez Hill MD> Cosigner Signature: Date (if applicable) Rodriguez Hill MD CC: Forest Villanueva DO XR CERVICAL 4V Observed: 09/05/2017 Status: F Source: [place] AP/LAT/OBL 10:14 AM [facility] * * *Final Report* * * DATE OF EXAM: Sep 05 2017 10:14AM WRX 5311 - XR CERVICAL 4V AP/LAT/OBL / PROCEDURE REASON: spine * * * * Physician Interpretation * * * * 2 studies discussed below: Cervical spine / thoracic spine HISTORY: 81 years old Clinical information: spine pain - patient fell onto cane TECHNIQUE: Images: XR THORACIC 2V AP/LAT, XR CERVICAL 4V AP/LAT/OBL Comparison: 08/17/2014. RESULT: Findings: Cervical spine: Marked disc space narrowing posteriorly at C3-4 C4-5 C5-C6 C6-7. Severe degenerative changes in the facet joints C2-C7. Marked narrowing of the C5-C6 C6-7 foramina on the RIGHT side due to bony spurring also noted. Narrowing of the C2-3 C3-4 C4-5 foramina on the LEFT side due to bony spurring No fractures or dislocations are seen. Thoracic spine: Marked disc space narrowing mid and upper thoracic vertebral levels. Mild S-shaped scoliosis. No fractures or dislocations are seen. IMPRESSION: Degenerative changes as discussed. Scada Operator: MELANIE Transcribe Date/Time: Sep 06 2017 1:35P Dictated by : RAYMUNDO DAVID DO This examination was interpreted and the report reviewed and electronically signed by: RAYMUNDO DAVID DO on Sep 06 2017 1:38PM EST [id number] XR THORACIC 2V AP/LAT Observed: 09/05/2017 Status: F Source: [place] 10:14 AM [facility] REPOSITORY * * *Final Report* * * DATE OF EXAM: Sep 05 2017 10:14AM WRX [id number] - XR THORACIC 2V AP/LAT / PROCEDURE REASON: spine * * * * Physician Interpretation * * * * 2 studies discussed below: Cervical spine / thoracic spine HISTORY: 81 years old Clinical information: spine pain - patient fell onto cane TECHNIQUE: Images: XR THORACIC 2V AP/LAT, XR CERVICAL 4V AP/LAT/OBL Comparison: 08/17/2014. RESULT: Findings: Cervical spine: Marked disc space narrowing posteriorly at C3-4 C4-5 C5-C6 C6-7. Severe degenerative changes in the facet joints C2-C7. Marked narrowing of the C5-C6 C6-7 foramina on the RIGHT side due to bony spurring also noted. Narrowing of the C2-3 C3-4 C4-5 foramina on the LEFT side due to bony spurring No fractures or dislocations are seen. Thoracic spine: Marked disc space narrowing mid and upper thoracic vertebral levels. Mild S-shaped scoliosis. No fractures or dislocations are seen. IMPRESSION: Degenerative changes as discussed. Scada Operator: MELANIE Transcribe Date/Time: Sep 06 2017 1:35P Dictated by : RAYMUNDO DAVID DO This examination was interpreted and the report reviewed and electronically signed by: RAYMUNDO DAVID DO on Sep 06 2017 1:38PM EST [id number] Observed: 09/05/2017 Status: COMPLETED Source: [place] 10:12 AM [facility] [place] REPOSITORY O ID: [id number] Author: Sol He) VIVIEN Rivera Service: (none) Author Type: Clinical University Extension Specialist Type: Progress Notes Filed: 09/05/2017 10:12 AM Note Text: Radiology Service Progress Note PATIENT NAME: Balbina Kenr DATE OF SERVICE: September 05, 2017 TIME: 10:12 AM PATIENT IDENTITY VERIFICATION COMPLETED USING TWO (2) METHODS: Patient confirmed name verbally and Date of . PATIENT GENDER DATA: Female. status: : No status: NO. PATIENT RELEVANT IMPLANT DATA REVIEWED: Not Applicable RADIOLOGY DEPARTMENT: General X-ray: Exam(s) Completed: Spine X-Ray(s): Cervical AP / LAT / OBL and Thoracic PERIPHERAL IV DATA: Not applicable SIGNED BY: VIVIEN Trinidad September 05, 2017 10:12 AM DOWNTIME REPORT Observed: 08/30/2017 Status: F Source: [place] 2:47 PM [facility] REPOSITORY [facility] Medical Records Department [address] [place] [address] Downtime Report MR#: [id number] Acct: [id number] Name: BALBINA KERN Rep #: [id number] : 1935 81 From: Pedro Damon PCP: Forest Villanueva DO Status: REG CLI This patient was seen during an EMR downtime August 13, 2017 - August 20, 2017. This patient may have a combination of paper and electronic documentation or all paper documentation. All documentation is viewable within the e-chart portion of [facility] for each patient visit. DOWNTIME REPORT Observed: 08/30/2017 Status: F Source: [place] 2:45 PM [facility] REPOSITORY [facility] Medical Records Department [address] [place] [address] Downtime Report MR#: [id number] Acct: [id number] Name: BALBINA KERN Rep #: [id number] : 1935 81 From: Pedro Damon PCP: Forest Villanueva DO Status: REG CLI This patient was seen during an EMR downtime August 13, 2017 - August 20, 2017. This patient may have a combination of paper and electronic documentation or all paper documentation. All documentation is viewable within the e-chart portion of [facility] for each patient visit. DOWNTIME REPORT Observed: 08/30/2017 Status: F Source: [place] 2:[address] [facility] Medical Records Department [address] [place] [address] Downtime Report MR#: [id number] Acct: [id number] Name: BALBINA KERN Rep #: [id number] : 1935 81 From: Pedro Damon PCP: Forest Villanueva DO Status: REG CLI This patient was seen during an EMR downtime August 13, 2017 - August 20, 2017. This patient may have a combination of paper and electronic documentation or all paper documentation. All documentation is viewable within the e-chart portion of [facility] for each patient visit. DOWNTIME REPORT Observed: 08/30/2017 Status: F Source: [place] 2:[address] [facility] Medical Records Department [address] [place] [address] Downtime Report MR#: [id number] Acct: [id number] Name: BALBINA KERN Rep #: [id number] : 1935 81 From: Pedro Damon PCP: Forest Villanueva DO Status: REG CLI This patient was seen during an EMR downtime August 13, 2017 - August 20, 2017. This patient may have a combination of paper and electronic documentation or all paper documentation. All documentation is viewable within the e-chart portion of [facility] for each patient visit. CPK TOTAL, CREATINE Collected: 08/20/2017 Status: F Source: [place]IN[place] 11:32 AM [facility] REPOSITORY TYPE CODE TESTS RESULT OUT OF RANGE REFERENCE UNITS LAB L501.3620 26-192 U/L Normal CPK TOTAL 38 Performed By: #### L501.3620, L501.6710 #### [facility] [address] [place], [address] CRP Collected: 08/20/2017 Status: F Source: [place] 11:32 AM [facility] REPOSITORY TYPE CODE TESTS RESULT OUT OF RANGE REFERENCE UNITS LAB L501.6710 0.0-3.0 mg/L High 5.71 C-REACTIVE PROT Result Comment: C-Reactive Protein (CRP) provides useful information for the diagnosis, therapy and monitoring of inflammatory processes and associated diseases. For the evaluation of Relative Risk for Cardiovascular Disease, a High Sensitivity CRP (HSCRP) should be ordered. Performed By: #### L501.3620, L501.6710 #### [facility] [address] [place], [address] ERYTHROCYTE SED RATE Collected: 08/20/2017 Status: F Source: [place] 11:32 AM [facility] REPOSITORY TYPE CODE TESTS RESULT OUT OF RANGE REFERENCE UNITS LAB L102.0000 0-30 mm/hr Normal SED RATE 14 Performed By: #### L101.9900 #### [facility] [address] [place], [address] VITAMIN B12 Collected: 08/20/2017 Status: F Source: [place] 11:32 AM [facility] REPOSITORY TYPE CODE TESTS RESULT OUT OF RANGE REFERENCE UNITS LAB L503.0105 211-911 pg/mL Normal Vitamin B12 329 Performed By: #### L503.0105 #### [facility] [address] [place], [address] JULIO W/ REFLEX MULT Collected: 08/20/2017 Status: F Source: [place] CONFIRM 11:32 AM [facility] REPOSITORY Order Comment: Specimen Comment: A duplicate report has been generated due to demographic Specimen Comment: updates. TYPE CODE TESTS RESULT OUT OF RANGE REFERENCE UNITS LAB L3100.5475 Negative Normal Negative JULIO-DIRECT Result Comment: Performed at: [address], [place], [place] [id number] Flight Controls Engineer: Bobby Sahu PhD, Phone: [phone] LAB L3100.5500 0-9 IU/mL Normal dsDNA AB <1 Result Comment: Negative <5 Equivocal 5 - 9 Positive >9 LAB L3100.9200 0.0-0.9 AI Anti-SS-A Normal < 0.2 LAB L3100.9300 0.0-0.9 AI Anti-SS-B Normal < 0.2 LAB L3410.0427 0.0-0.9 AI ANTICHROMATIN Normal <0.2 LAB L3410.0500 0.0-0.9 AI ANTI-WILLIE Normal <0.2 LAB L3410.0700 0.0-0.9 AI ANTISCLER Normal 0.3 LAB L3410.1200 0.0-0.9 AI WATER METER READER Ab Normal <0.2 LAB L3410.1300 0.0-0.9 AI DUPONT Ab Normal <0.2 LAB L3410.4010 0.0-0.9 AI ANTI-CENT B Normal <0.2 Performed By: #### L3100.5450 #### [facility] (refer to report for specific site) refer to report for address and phone number THYROID STIM HORMONE Collected: 08/15/2017 Status: F Source: [place] (TSH) 10:44 AM [facility] REPOSITORY Order Comment: RESULT(S) PREVIOUSLY REPORTED ON MANUAL REQUISITION DURING DOWNTIME. TYPE CODE TESTS RESULT OUT OF RANGE REFERENCE UNITS LAB L501.9520 0.358-3.74 uIU/mL Normal TSH 1.26 Performed By: #### L501.9520, L506.0400 #### [facility] [address] [place], [place], [address] T4 FREE DIRECT Collected: 08/15/2017 Status: F Source: [place] 10:44 AM [facility] REPOSITORY Order Comment: RESULT(S) PREVIOUSLY REPORTED ON MANUAL REQUISITION DURING DOWNTIME. TYPE CODE TESTS RESULT OUT OF RANGE REFERENCE UNITS LAB L506.0400 0.76-1.46 ng/dL Normal T4 FREE 1.09 DIRECT Performed By: #### L501.9520, L506.0400 #### [facility] [address] [place], [address] THYROGLOBULIN W/ANTI-TG Collected: 08/15/2017 Status: F Source: [place] AB 10:44 AM [facility] REPOSITORY TYPE CODE TESTS RESULT OUT OF RANGE REFERENCE UNITS LAB L3300.7025 Normal ANTI-TG AB Result Comment: TEST RESULT LIMITS TgAb+Thyroglobulin,LACHO or SANGITA Thyroglobulin Antibody <1.0 IU/mL 0.0 - 0.9 Thyroglobulin Antibody measured by Анна Shanell Methodology Thyroglobulin by LACHO <0.1 Low ng/mL 1.5 - 38.5 Comment: According to the National Academy of Clinical Biochemistry, the reference interval for Thyroglobulin (TG) should be related to euthyroid patients and not for patients who underwent thyroidectomy. TG reference intervals for these patients depend on the residual mass of the thyroid tissue left after surgery. Establishing a post-operative baseline is recommended. The assay limit of quantitation is 0.1 ng/mL Thyroglobulin measured by Анна Shanell Immunometric Assay [facility]. ORIGINAL REPORT ON FILE IN LAB CONTAINS ADDITIONAL TEST SITE INFORMATION. Performed By: #### L3300.6820 #### [facility] ([facility]er [facility] for specific [facility] refer to report for address and phone number THYROID STIM HORMONE Collected: 06/12/2017 Status: F Source: [place] (TSH) 12:57 PM [facility] REPOSITORY TYPE CODE TESTS RESULT OUT OF RANGE REFERENCE UNITS LAB L501.9520 0.358-3.74 uIU/mL Normal TSH 0.83 Performed By: #### L501.9520, L506.0400 #### [facility] [address] [place], [address] T4 FREE DIRECT Collected: 06/12/2017 Status: F Source: [place] 12:57 PM [facility] REPOSITORY TYPE CODE TESTS RESULT OUT OF RANGE REFERENCE UNITS LAB L506.0400 0.76-1.46 ng/dL Normal T4 FREE 1.17 DIRECT Performed By: #### L501.9520, L506.0400 #### [facility] Jeffery Rogers [place], [place], [id number] CBC W/DIFF, AUTOMATED Collected: 06/12/2017 Status: F Source: [place] 12:57 PM [facility] REPOSITORY TYPE CODE TESTS RESULT OUT OF RANGE REFERENCE UNITS LAB L100.1000 4.4-11.0 K/mm3 Normal WBC 8.4 LAB L100.1200 4.2-5.4 M/mm3 Normal RBC 4.82 LAB L100.1300 12.0-15.0 g/dl Normal HGB 13.7 LAB L100.1400 37-47 % Normal HCT 41.4 LAB L100.1500 81-99 fL Normal MCV 85.9 LAB L100.1600 27.0-32.0 pg Normal MCH 28.4 LAB L100.1700 32-36 g/gl Normal MCHC 33.1 LAB L100.1810 11.6-14.6 % Normal RDW CV 13.3 LAB L100.1820 35.1-43.9 fl Normal RDW SD 41.6 LAB L100.1900 150-450 K/mm3 Normal PLT 212 LAB L100.2000 6.2-12.0 fl Normal MPV 11.9 LAB L100.2100 47-70 % Normal NEUT% 67.9 LAB L100.2200 19-41 % Normal LY% 25.3 LAB L100.2300 0-10 % Normal MONO% 4.6 LAB L100.2400 0-5 % Normal EO% 1.3 LAB L100.2500 0-1 % Normal BASO% 0.7 LAB L100.2550 0.0-0.9 % Normal IM GRAN % 0.200 Result Comment: IG% - Immature Granulocytes (promyelocytes, myelocytes and metamyelocytes) > 1% indicates that a LEFT SHIFT is Present. LAB L100.2620 2.0-7.7 X10 3/uL Normal Absolute Neut 5.7 LAB L100.2720 0.83-4.51 X10 3/ul Normal Absolute Lymph 2.13 Performed By: #### L100.0100 #### [facility] [address] [place], [address] D-DIMER QUANTITATIVE Collected: 06/12/2017 Status: F Source: VANDALIA (DVT/PE) 12:57 PM [facility] REPOSITORY TYPE CODE TESTS RESULT OUT OF RANGE REFERENCE UNITS LAB L300.8000 0.27-0.49 FEU/ug/m Low D-DIMER < 0.27 QUANT Result Comment: NORMAL D-Dimer level (<0.50) indicates no DVT or PE. Performed By: #### L300.8000 #### [facility] [address] [place], [address] CHEST PA AND LATERAL Observed: 06/12/2017 Status: F Source: VANDALIA 12:57 PM [facility] REPOSITORY [facility] Imaging Services [address] [place] [address] [place] [address] Chest PA and Lateral MR#: [id number] Acct: [id number] Name: BALBINA KERN Rep #: [id number] : 1935 F 81 From: Hawa Humphries MD PCP: Forest Villanueva DO Status: REG CLI Study: Chest PA and Lateral Date of Exam: 06/12/17 Exam# [id number] Ordering Dr: Forest Villanueva DO STUDY: X-RAY CHEST REASON FOR EXAM: Female, 81 years old. Right-sided chest pain TECHNIQUE: PA and lateral views of the chest. COMPARISON: 08/09/2016 FINDINGS: Stable hiatal hernia. There is hyperinflation of the lungs consistent with chronic obstructive lung disease (COPD). Scarring in the bases without change. There is no demonstrated pleural abnormality. Normal size heart. Normal mediastinum and jimmie. Normal visualized pulmonary arteries. There is atherosclerotic calcification of the aortic arch with tortuosity. There is demineralization of the osseous structures. There is degenerative osteoarthritis of the bilateral shoulders. There is no demonstrated abnormality of the visualized soft tissue structures of the upper abdomen. 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 No pulmonary edema, congestive heart failure or confluent pneumonia. Electronically Signed: Hawa Humphries MD at 7:58 EDT , Service support , CC: Forest Villanueva DO Scada Operator: Signed 12 LEAD ELECTROCARDIOGRAM Observed: 03/16/2017 Status: F Source: [place] 11:50 AM [facility] REPOSITORY [facility] Cardiovascular Services [address] [place], [place] [address] [address] 12 Lead EKG 03/14/17 1214 MR#: [id number] Acct: [id number] Name: BALBINA KERN Rep #: [id number] : 1935 81 From: Rodriguez Hill MD Attending Dr: Status: DEP ER Ordering Dr: Rinku Brito MD Date: 03/14/17 Location: ED Sex: F C Admitted: Test Reason : DIZZINESS Blood Pressure : / mmHG Vent. Rate : 069 BPM Atrial Rate : 069 BPM P-R Int : 196 ms QRS Dur : 076 ms QT Int : 390 ms P-R-T Axes : -07 014 037 degrees QTc Int : 417 ms Normal sinus rhythm Normal ECG Confirmed by RODRIGUEZ HILL MD ([id number]), technical editor RIMA DAMON ([id number]) on 03/16/2017 11:50:08 AM Referred By: MARCE Confirmed By:RODRIGUEZ HILL MD 03/16/17 5400 Date Rodriguez Hill MD CC: Forest Villanueva DO Signed DISCHARGE INSTRUCTION Observed: 03/14/2017 Status: F Source: [place] 2:[address] [facility] Medical Records Department [address] [place] [address] Discharge Instruction 03/14/17 1432 MR#: [id number] Acct: [id number] Name: BALBINA KERN Rep #: [id number] : 1935 81 From: Rinku Brito MD PCP: Forest Villanueva DO Status: REG ER ED Disposition - Plan for ED Patient: Disposition: Home or Assisted Living Chief Complaint: Dizziness Instructions: ED BPV Vertigo Prescriptions: Meclizine HCl [Antivert] 25 mg PO 4X/DAY PRN PRN #20 tab PRN Reason: Dizziness Referrals: Forest Villanueva DO [Primary Care Provider] - What to do if you have Problems For any increased pain, shortness of breath, bleeding, nausea or vomiting, chest pain, or any unexpected problems, contact your Primary Care Provider. Call [facility] ([phone]) or report to the closest Emergency Room. Call 911 if necessary. 03/14/17 1433 <Electronically signed by Rinku Brito MD> Date Rinku Brito MD Cosigner Signature (If Indicated): Date CC: Forest Villanueva DO EMERGENCY DEPARTMENT Observed: 03/14/2017 Status: F Source: [place]ANDALIA SUMMARY 2:[address] [facility] Medical Records Department [address] [place] [address] Emergency Department Summary 03/14/17 1205 MR#: [id number] Acct: [id number] Name: BALBINA KERN Rep #: [id number] : 1935 81 From: Rinku Brito MD PCP: Forest Villanueva DO Status: REG ER - ER Visit Summary Date of Service: 03/14/17 Chief Complaint: Dizziness History of Present Illness: The patient is a 81 F who states that she has dizziness. It started this morning when she woke up. She describes as room spinning. Her brother brought her to Antivert tablets and she took it. This made her feel better. She did have nausea with vomiting. She did fall once and landed on her cane. She sustained a hematoma to the right thoracic area. She has a history of vertigo many years ago. She denies any head trauma. Physical Examination: Vital signs reviewed. HEENT exam is nystagmus to the left. Symptoms are worse with eye movement.. Heart is regular rate and rhythm without murmurs. Lungs are clear to auscultation. Abdomen is soft and nontender. Back exam reveals a hematoma to the right thoracic area. Extremities reveal no edema. Skin exam normal. Neurologic exam normal. Test Results: EKG is normal sinus rhythm. Thoracic x-rays reveal no fractures. CT scan of the head reveals chronic changes. Laboratory studies are normal except for glucose of 112. Urinalysis normal. Emergency Department Course and Treatment: Patient was hydrated with normal saline. She took some Antivert before she came in and was feeling better. Treatment Plan: Her symptoms are likely due to vertigo. She wants to go home. She ambulated on the bed. She states that she was mildly dizzy but does not want to stay in the hospital. I will give her Antivert for home. She will follow-up with her PCP Disposition: Discharge Impression: Vertigo, thoracic contusion This note was generated with Helixbind dictation software. It may contain incorrect words, spelling, and punctuation that were not noted in review of the chart prior to signing ED Disposition - Plan for ED Patient: Chief Complaint: Dizziness Referrals: Forest Villanueva, DO [Primary Care Provider] - What to do if you have Problems For any increased pain, shortness of breath, bleeding, nausea or vomiting, chest pain, or any unexpected problems, contact your Primary Care Provider. Call [facility] ([phone]) or report to the closest Emergency Room. Call 911 if necessary. 03/14/17 1432 <Electronically signed by Rinku Brito MD> Date Rinku Bonds Signature (If Indicated): Date CC: Forest Villanueva DO URINALYSIS, COMPLETE Collected: 03/14/2017 Status: F Source: [place] 1:35 PM [facility] REPOSITORY Order Comment: Order Date: 03/14/17 How was Urine Obtained? SEAMER ELASTIC BAND TO SPECIFY TYPE CODE TESTS RESULT OUT OF RANGE REFERENCE UNITS LAB L400.3000 Yellow COLOR Normal Yellow LAB L400.3050 Clear Normal CLARITY Clear LAB L400.3200 Normal mg/dl Normal GLUCOSE, UR Normal LAB L400.3300 Negative mg/dL Normal BILIRUBIN URINE Negative LAB L400.3400 Negative mg/dl Normal KETONE UR Negative LAB L400.3465 1.002-1.030 Normal SP.GR. DIPSTX 1.010 LAB L400.3550 5.0 - 8.0 pH UR Normal 7.0 LAB L400.3600 Negative mg/dl PROT Normal DIPSTX Negative LAB L400.3700 Normal mg/dl Normal UROBILI Normal LAB L400.3750 Negative Normal NITRITE UR Negative LAB L400.3780 Negative /ul Normal OCCULT BLOOD-UR Negative LAB L400.3800 Negative /ul LEUK Normal ESTERASE Negative LAB L400.4050 0-5 /hpf WBC 0 Normal SEEN LAB L400.4100 0-5 /hpf 0 Normal RBC-UA SEEN LAB L400.4150 5-10 /hpf SQUAM Normal EPI 0-5 SEEN LAB L400.4300 None Seen /hpf 0 Normal BACTERIA SEEN LAB L400.4350 <or=2+ /hpf 0 Normal MUCUS, URINE SEEN Performed By: #### L400.0001 #### [facility] [address] [place], [place], [address] CBC W/DIFF, AUTOMATED Collected: 03/14/2017 Status: F Source: [place] 12:35 PM [facility] REPOSITORY TYPE CODE TESTS RESULT OUT OF RANGE REFERENCE UNITS LAB L100.1000 4.4-11.0 K/mm3 Normal WBC 8.2 LAB L100.1200 4.2-5.4 M/mm3 Normal RBC 4.63 LAB L100.1300 12.0-15.0 g/dl Normal HGB 13.0 LAB L100.1400 37-47 % Normal HCT 40.0 LAB L100.1500 81-99 fL Normal MCV 86.4 LAB L100.1600 27.0-32.0 pg Normal MCH 28.1 LAB L100.1700 32-36 g/gl Normal MCHC 32.5 LAB L100.1810 11.6-14.6 % Normal RDW CV 13.6 LAB L100.1820 35.1-43.9 fl Normal RDW SD 42.7 LAB L100.1900 150-450 K/mm3 Normal PLT 163 LAB L100.2000 6.2-12.0 fl Normal MPV 10.5 LAB L100.2100 47-70 % High NEUT% 85.2 LAB L100.2200 19-41 % Low LY% 11.5 LAB L100.2300 0-10 % Normal MONO% 2.2 LAB L100.2400 0-5 % Normal EO% 0.4 LAB L100.2500 0-1 % Normal BASO% 0.5 LAB L100.2550 0.0-0.9 % Normal IM GRAN % 0.200 Result Comment: IG% - Immature Granulocytes (promyelocytes, myelocytes and metamyelocytes) > 1% indicates that a LEFT SHIFT is Present. LAB L100.2620 2.0-7.7 X10 3/uL Normal Absolute Neut 7.0 LAB L100.2720 0.83-4.51 X10 3/ul Normal Absolute Lymph 0.94 Performed By: #### L100.0100 #### [facility] [address] [place], [address] BASIC METABOLIC Collected: 03/14/2017 Status: F Source: [place] PROFILE ([facility]) 12:35 PM [facility] REPOSITORY Order Comment: 'TROP' Serial specimen #1, #2, #3, or #4: 1 TYPE CODE TESTS RESULT OUT OF RANGE REFERENCE UNITS LAB L501.0100 70-110 mg/dL High GLU 112 Result Comment: Fasting Glucose result from 110 to <126 mg/dL suggests IMPAIRED HOMEOSTASIS per A.D.A. criteria. LAB L501.1000 7-18 mg/dL High BUN 20 LAB L501.1100 0.55-1.02 mg/dL Normal CREAT,SERUM 0.91 Result Comment: The validity of the calculated GFR AND GFRAA in patients over 70 years has not been determined. Clinical correlation is essential. LAB L501.1110 >60 mL/min Normal EST GFR 63 Result Comment: Non- GFR Calc LAB L501.1115 >60 mL/min Normal EST GFR - AA 77 Result Comment: GFR Calc LAB L501.1255 ml/min Normal Estimated CRCL 42.58 LAB L501.1300 10-20 RATIO High BUN/CRE 22.1 LAB L501.2200 8.5-10 mg/dL Normal .1 CA 9.1 LAB L501.5300 136-14 mmol/L Normal 5 NA 138 LAB L501.5600 3.5-5. mmol/L Normal 1 K 4.1 LAB L501.5900 98-107 mmol/L Normal CL 104 LAB L501.6100 21.0-3 mmol/L Normal 2.0 CO2 29.0 LAB L501.6200 5-15 Normal GAP 5 Performed By: #### L500.2500, L501.4010 #### [facility] [address] [facility] [place], [place], [address] TROPONIN-I Collected: 03/14/2017 Status: F Source: [place] 12:35 PM [facility] REPOSITORY Order Comment: 'TROP' Serial specimen #1, #2, #3, or #4: 1 TYPE CODE TESTS RESULT OUT OF RANGE REFERENCE UNITS LAB L501.4010 <0.06 ng/mL Normal < 0.02 TROPONIN-I Result Comment: TROPONIN-I EXPECTED VALUES <0.05 NEGATIVE 0.06 - 0.59 AT RISK OF WA > OR = 0.60 SUGGEST WA Performed By: #### L500.2500, L501.4010 #### [facility] [address] [facility] [place], [place], [address] THORACIC SPINE 2 Observed: 03/14/2017 Status: F Source: [facility] 12:06 PM [facility] REPOSITORY [facility] Imaging Services [address] [place] [address] Thoracic Spine 2 Views MR#: [id number] Acct: [id number] Name: BALBINA KERN Rep #: [id number] : 1935 F 81 From: Donald King MD PCP: Forest Villanueva DO Status: REG ER Study: Thoracic Spine 2 Views Date of Exam: 03/14/17 Exam# [id number] Ordering Dr: Rinku Brito MD STUDY: X-RAY - THORACIC SPINE REASON FOR EXAM: Female, 81 years old. Fall. Mid back pain and bruising. TECHNIQUE: 3 view(s) of the thoracic spine were obtained. COMPARISON: None. FINDINGS: Normal kyphosis of the thoracic spine. There is no substantial scoliosis. No suspicious acute fractures of the thoracic spine. Anterior marginal spurs at T4-T5, T5-T6, T6-T7, T8-T9, T10 and T11, T11-T12 disc levels. No lytic or blastic lesions. Normal disc space heights. The soft tissue structures are unremarkable. RAD/Thoracic Spine 2 Views IMPRESSION: No suspicious acute fracture or malalignment of the thoracic spine. COMMENT: MRI of the thoracic spine will be very helpful in detecting subtle bone edema related to bone contusion if patient has debilitating back pain and kyphoplasty is a therapeutic consideration. Electronically Signed: Donald King MD at 13:55 EST , Service support , CC: Rinku Brito MD; Forest Villanueva DO Scada Operator: Signed BRAIN/HEAD WITHOUT Observed: 03/14/2017 Status: F Source: [place] CONTRAST 12:04 PM [facility] REPOSITORY [facility] Imaging Services [facility] [place] [address] Brain/Head without Contrast MR#: [id number] Acct: [id number] Name: BALBINA KERN Rep #: [id number] : 1935 F 81 From: Andrei Vences MD PCP: Forest Villanueva DO Status: REG ER Study: Brain/Head without Contrast Date of Exam: 03/14/17 Exam# [id number] Ordering Dr: Rinku Brito MD STUDY: CT BRAIN WITHOUT CONTRAST REASON FOR EXAM: Female, 81 years old. Dizziness following a fall. History of breast cancer. RADIATION DOSAGE (If Supplied By Facility): CTDIvol = ( 44.99 ) mGy, DLP = ( 779.24 ) mGycm TECHNIQUE: Transaxial CT imaging of the brain was performed without administration of intravenous contrast material. Individualized dose optimization techniques were used for this CT. COMPARISON: Comparison is made with prior study dated August 05, 2012. FINDINGS: Normal soft tissue structures. There is hyperostosis frontalis internus. There is mild cerebral atrophy with widening of the extra- axial spaces and ventricular dilatation. Normal white matter tracts of the cerebral hemispheres. Normal basal ganglia and thalami. Normal brainstem. Normal cerebellum. There is no intracranial hemorrhage. There are no findings of an acute ischemic infarction. Atherosclerotic calcification of the cavernous portions of the internal carotid arteries bilaterally. Normal visualized paranasal sinuses. Nasal septal deviation towards the right side of the midline. CT/Brain/Head without Contrast IMPRESSION: Chronic involutional changes of the brain. Electronically Signed: Andrei Vences MD at 13:10 EST Tel [phone], Service support , CC: Rinku Brito MD; Forest Villanueva DO Scada Operator: Signed ALLERGIES ALLERGIES DATE TYPE / CODE NAME / CODE REACTION SEVERITY SOURCE Drug Penicillins/D80157 Swelling Unknown [place] 8 Allergy/805542724 0476(RXNORM) Counts Include [facility] (SNOMED CT) Hospital Repository Drug nitrofurantoin/F00 Hives MO [place] 8 Allergy/377616713 8880230(RXNORM) Counts Include [facility] (SNOMED CT) Hospital Repository Drug latex/G740033194(R Rash Unknown [place] 8 Allergy/048214268 XNORM) Counts Include [facility] (SNOMED CT) Hospital Repository Miscellaneous sulfites Anaphylaxis SV [place] 8 Allergy/755804167 Counts Include [facility] (SNOMED CT) Hospital Repository Drug nitrofurantoin Hives Unknown [place] 8 Allergy/006042219 macrocrystalline/F Counts Include [facility] (SNOMED CT) 472517512(RXNORM) Hospital Repository DRUG LANSOPRAZOLE DIARRHEA D[place] 5 INGREDI/624865400 [facility] (SNOMED CT) [place] Repository DRUG PANTOPRAZOLE OTHER: SEE C Doss 4 INGREDI/603343319 [facility] (SNOMED CT) [place] Repository DRUG NAPROXEN GI UPSET Capac 1 INGREDI/922124705 [facility] (SNOMED CT) [place] Rep[facility] DRUG LATEX RASH Doss 1 INGREDI/747731540 [facility] (SNOMED CT) [place] Repository DRUG/604420212(SN NITROFURANTOIN RASH Capac [address]) MONOHYD/M-CRYST [facility] [place] Repository Drug PENICILLINS SWELLING Capac 6 Class/481050803(S [facility] Main NOMED CT) [place] Repository ENCOUNTERS ENCOUNTERS ADMIT/DISCHARGE ACCOUNT ADMITTING ENCOUNTER LOCATION SOURCE NUMBER CLASS 02/25/2018 [id number] [facility] ing:OPUS Repository 02/21/2018 [id number] Ambulatory [facility] ing:OPBI Repository 02/07/2018 [id number] Ambulatory [facility] ing:BFHLAB Repository 01/29/2018 [id number] Ambulatory [facility] ing:LABSPEC Repository 01/29/2018/01/30/20 [id number] Ambulatory BMSBuilding:Mavis [place] [facility] Repository 12/10/2017/12/11/19 [id number] Ambulatory [place] [facility] [place] Repository 10/23/2017/10/24/19 [id number] Ambulatory BMSBuilding:B [place] [facility] Repository 09/05/2017/09/06/19 [id number] Ambulatory [address] Repository 08/20/2017 [id number] Ambulatory [facility] ing:LAB.FUTUR Repository E 08/15/2017 [id number] Ambulatory [facility] ing:BFHLAB Repository 07/24/2017 [id number] Ambulatory BMSBuilding:B [place] [facility] Repository 07/18/2017 [id number] Ambulatory [facility] Repository 07/12/2017 [id number] Ambulatory BMSBuilding:B [place] [facility] Repository 07/11/2017 [id number] Ambulatory BMSBuilding:B [place] [facility] Repository 06/12/2017 [id number] Ambulatory [facility] ing:LAB.FUTUR Repository E 06/01/2017 [id number] Ambulatory BMSBuilding:B [place]yer [facility] Repository 03/14/2017/03/14/19 [id number] Emergency [address] ing:ED Repository PAYERS PAYERS ENCOUNTER GUARANTOR PAYER SUBSCRIBER SOURCE 02/25/2018 BALBINA Med Primary Insurance:MMO BALBINA Med [place] [id number] MEDICAREPolicy RAIFSNIDERDOB: Critical access hospital DRAPT Number: [id number] [id number] Repository [address]: 330) Date:9207-85-13XI [phone] (HG) [address] [address]WW: 02/25/2018 Secondary NOT GIVENUNK [place] Insurance:SELF PAY [facility] Number: Effective Repository Date:2018-02-22 02/21/2018 BALBINA F Primary Insurance:MMO BALBINA Med [place] [id number] MEDICAREPolicy RAIFSNIDERDOB: Critical access hospital DRAPT Number: [id number] [id number] Repository [address]Wmp: (330) Date:8941-51-39IM [phone] (HP) [address], [place] [address]RJ: 02/21/2018 Secondary NOT GIVENUNK [place] Insurance:SELF PAY Counts Include [facility] Effective Repository Date:2018-01-08 02/07/2018 BALBINA Jovel Primary Insurance:MMO BALBINA Jovel [place] [id number] MEDICAREPolicy RAIFSNIDERDOB: Community STEF DRAPT Number: [id number] [id number] Repository [address]Ysh: (330) Date:0324-90-95SG [phone] (HP) [address] [place] [phone]: 02/07/2018 Secondary NOT GIVENUNK [place] Insurance:SELF PAY Counts Include [facility] Number: Effective Repository Date:2018-02-07 01/29/2018 BALBINA F Primary Insurance:MMO BALBINA Jovel [place] [id number] MEDICAREPolicy RAIFSNIDERDOB: Community STEF DRAPT Number: [id number] [id number] Repository [address]Cdb: (330) Date:4513-26-35HN [phone] (HP) [address] [address]JN: 01/29/2018 Secondary NOT GIVENUNK [place] Insurance:SELF PAY Counts Include [facility] Number: Effective Repository Date:2018-01-29 01/29/2018 BALBINA Primary Insurance:MMO BALBINA Nievesoster [id number] MEDICAREPolicy RAIFSNIDERDOB: Community STEF DRAPT Number: [id number] [id number] Repository [address]Stt: (330) Date:2018-05-21LN [phone] (HP) [address] [address]PE: 01/29/2018 Secondary NOT GIVENUNK [place] Insurance:SELF PAY [facility] Number: Effective Repository Date:2018-01-29 10/23/2017 BALBINA Primary Insurance:MMO BALBINA [place]cia [id number] MEDICAREPolicy RAIFSNIDERDOB: Community STEF DRAPT Number: [id number] [id number] Repository [address]Vyb: (330) Date:4729-40-27UV [phone] () [address] [phone]: 10/23/2017 Secondary NOT GIVENUNK [place] Insurance:SELF PAY Counts Include [facility] Number: Effective Repository Date:2017-10-23 08/20/2017 Balbina Primary Insurance:MMO Balbina Lu[place]cia [id number] MEDICAREPolicy RaifsniderDOB: Community [address] Number: [id number] [id number] Repository [address]Mpd: (330) Date:4554-84-98MJ [phone] (HP) [address] [phone]: 08/20/2017 Secondary NOT GIVENUNK [place] Insurance:SELF PAY Counts Include [facility] Number: Effective Repository Date:2017-08-17 08/15/2017 Balbina Primary Insurance:MMO Balbina [place]cia [id number] MEDICAREPolicy RaifsniderDOB: Community Ste[address] Number: [id number] [id number] Repository [address]Vmt: (330) Date:9858-08-96CV [phone] (HP) [address] [address]OU: 08/15/2017 Secondary NOT GIVENUNK [place] Insurance:SELF PAY Counts Include [facility] Number: Effective Repository Date:2017-08-15 07/24/2017 Balbina Primary Insurance:MMO Balbina Dyer [id number] MEDICAREPolicy RaifsniderDOB: Community [address] Number: [id number] [id number] Repository [address]Ece: (330) Date:0381-74-06KC [phone] (HP) [address] [place] [address]OV: 07/24/2017 Secondary NOT GIVENUNK D[place] Insurance:SELF PAY Counts Include [facility] Number: Effective Repository Date:2017-06-26 07/18/2017 Balbina Primary Insurance:MMO Balbina Dyer [id number] MEDICAREPolicy RaifsniderDOB: Community [address] Number: [id number] [id number] Repository [address]Sbx: (330) Date:7790-32-94QN [phone] (HP) [address] [place] [address]ZA: 07/18/2017 Secondary NOT GIVENUNK [place] Insurance:SELF PAY Counts Include [facility] [facility] Number: Effective Repository Date:2017-07-18 07/12/2017 [place] Primary Insurance:MMO Balbina Dyer [id number] MEDICAREPolicy RaifsniderDOB: Community Dingess DrApt Number: [id number] [id number] Repository [address]350[address]Qxu: ([phone]) Date:5709-22-14TH [id number] (HP) [address] [place] [phone]: 07/12/2017 Secondary NOT GIVENUNK Lucrecia Insurance:SELF PAY Counts Include [facility] Number: Effective Repository Date:2017-06-13 07/11/2017 Balb[place] Primary Insurance:MMO Balbina Lucrecia [id number] MEDICAREPolicy RaifsniderDOB: Community Stef DrApt Number: [id number] [id number] Repository [address]Yki: ([phone]) Date:[id number] [address] (HP) [address] [place] [phone]: 07/11/2017 Secondary NOT GIVENUNK Dyer Insurance:SELF PAY Counts Include [facility] Number: Effective Repository Date:2017-07-11 06/12/2017 Balb[place] Primary Insurance:MMO Balbina Dyer [id number] MEDICAREPolicy RaifsniderDOB: Community Dingess DrApt Number: [id number] [id number] Repository [address]Hfz: ([phone]) Date:[id number] [id number] (HP) [address] [place] [phone]: 06/12/2017 Secondary NOT GIVENUNK Lucrecia Insurance:SELF PAY Counts Include 234 [facility] Number: Effective Repository Date:2017-02-21 06/01/2017 Balb[place] Primary Insurance:MMO Balbina Lucrecia [id number] MEDICAREPolicy RaifsniderDOB: Community Dingess DrApt Number: [id number] [id number] Repository [address]Rfz: ([phone]) Date:8503-83-53SD [phone] (HP) [address] [place] [phone]: 06/01/2017 Secondary NOT GIVENUNK Lu[place]cia Insurance:SELF PAY Counts Include 234 Beds [facility] Effective Rep[facility] Date:2017-02-16 03/14/2017 Balb[place] Primary Insurance:MMO Balbina Dyer [id number] MEDICAREPolicy RaifsniderDOB: Community Dingess DrApt Number: [id number] [id number] Repository [address]Fqb: ([phone]) Date:[id number] [id number] (HP) [address] [place] [phone]: 03/14/2017 Secondary NOT GIVENUNK Lucrecia Insurance:SELF PAY Counts Include 234 Beds [facility] Number: Effective Repository Date:2017-03-14
== END ==
PROVIDERS: Family Provider Family Medicine; PCP Family Medicine; Visit Provider Family Medicine
DX: R10.9 Unspecified abdominal pain (principal); R11.0 Nausea; K57.90 Diverticulosis of intestine, part unspecified, without perforation or abscess without bleeding; E03.2 Hypothyroidism due to medicaments and other exogenous substances; E55.9 Vitamin D deficiency, unspecified; E53.8 Deficiency of other specified B group vitamins; Z85.850 Personal history of malignant neoplasm of thyroid
CPT/HCPCS: 36415; 80053; 82150; 82306; 82607; 83690; 84432; 84439; 84443; 85025; 86140; 86800

== ENCOUNTER → 2018-02-21 11:48 | Outpatient (CLI) | payer MEDICARE, SELFPAY ==
[2018-01-29 14:20] VITALS: BMI 45.6
--- NOTE | 2018-02-21 11:50 | BI_ITS ---
MAMMOGRAPHY - UNILATERAL SCREENING: LEFT BREAST REASON FOR EXAM: Female, 82 years old. Routine annual screening examination (unilateral). PERTINENT HISTORY: Personal history of breast cancer. Prior right mastectomy and chemotherapy. Remote left stereotactic breast biopsy. TECHNIQUE: Digital unilateral breast rafi (3D mammographic acquisition) in the CC and MLO projections. 2-D mediolateral oblique (MLO) and craniocaudad (CC) views of both breasts were obtained. CAD: Full Field Digital Mammography with Computer Added Detection was performed. COMPARISON: Comparison is made with prior study dated December 16, 2016 and November 19, 2015. FINDINGS: Breast Composition: The breasts are almost entirely fatty. There are no dominant masses or suspicious calcifications. There is a new 5.7 mm x 6.6 mm well-defined nodular density in the central lateral portion of the left breast at approximately the 3:00 position. Correlation with ultrasound is recommended. No other significant abnormalities are identified. BI/UNILAT LT SCRN W/CAD IMPRESSION: 5.7 mm x 6.7 mm well-defined nodule in the right breast as described. Correlation with ultrasound is recommended. ASSESSMENT CATEGORY: BIRADS Category 0: Incomplete. Need additional imaging evaluation. A letter regarding these results will be sent to the patient by the facility within 30 days. Approximately 10% of breast cancers are not detected by mammography. A normal mammogram should not delay biopsy of a clinically suspicious abnormality. [id number] Electronically Signed: Andrei Vences MD at 13:17 EST Tel [phone], Service support ,
--- NOTE | 2018-02-21 13:00 | CT_ITS ---
STUDY: CT ABDOMEN AND PELVIS WITH CONTRAST REASON FOR EXAM: Female, 82 years old. Abdominal pain, weight loss, nausea. History of breast cancer and right mastectomy, diverticulitis treated with partial colectomy, JENNIFER/BSO, cholecystectomy, and bilateral hip replacements. RADIATION DOSAGE (If Supplied By Facility): CTDIvol = ( 32.93 ) mGy, DLP = ( 2429.91 ) mGycm TECHNIQUE: Transaxial images were obtained from the dome of the diaphragm to the symphysis pubis without oral contrast. 100mL ml of Isovue 300 contrast was administered. Sagittal and coronal images were reconstructed. Individualized dose optimization techniques were used for this CT. COMPARISON: CT abdomen and pelvis July 19, 2016. FINDINGS: Small calcified granuloma in the right lung base. The visualized portions of the heart are within normal limits. Normal liver. The patent portal vein diameter is 14 mm. There are surgical clips in the gallbladder fossa consistent with a prior cholecystectomy. The diameter of the common bile duct is 12 mm. There is borderline to mild splenomegaly, measuring 13.5 x 5.5 x 10.4 cm. Normal pancreas. Normal bilateral adrenal glands. 1.3 cm cortical cyst suggested in the anterolateral midpole right kidney. There is an exophytic 2.6 x 2.3 x 2.4 cm cortical cyst projecting from the posterolateral margin of the lower pole of the left kidney. Mildly prominent left extra renal pelvis. Borderline ectasia of the right ureter down to the pelvic inlet. There is a moderate to large hiatal hernia composed mostly of the fundus of the stomach, not fully included in the [id number]. There is a partially gas-filled 2.5 x 2.5 x 1.8 cm periampullary diverticulum of the second duodenum. Normal small intestine. There are multiple colonic diverticula consistent with diverticulosis. There is non-visualization of the appendix. There is [id number] diffuse atherosclerotic calcification of the abdominal aorta and proximal iliac arteries, without a demonstrated aneurysm. Normal inferior vena cava. Normal retroperitoneum. Pelvic detail degraded by artifact. Normal urinary bladder. There is absence of the uterus consistent with a prior hysterectomy. There is a healed midline incision of the anterior abdominal wall. There is a small umbilical hernia containing fat. There are multilevel degenerative changes of the visualized spine. There is minor rightward subluxation of L3 on L4, and a 17.5 degree levoscoliosis centered at L4. The patient has undergone prior bilateral total hip replacements CT/Abdomen/Pelvis WITH Contrast IMPRESSION: 1. Healed midline incision of the anterior abdominal wall with stable fat-containing umbilical hernia. 2. Stable moderate-sized hiatal hernia. 3. Colonic diverticulosis without acute diverticulitis. Stable periampullary duodenal diverticulum. No sign of bowel obstruction. The appendix is not visualized. 4. Stable bilateral renal cortical cysts. No hydronephrosis. 5. Prior cholecystectomy. Stable intrahepatic bile duct ectasia. 6. Borderline to mild splenomegaly. 7. Prior hysterectomy. 8. Aortoiliac atherosclerotic calcific plaquing again noted. No demonstrated aneurysm. 9. Prior bilateral total hip replacements. 10. Stable degenerative changes of the spine, including mild rightward subluxation of L3 on L4 and lower lumbar levoscoliosis. Electronically Signed: [place] MD at 16:58 EST , Service support ,
--- OUTSIDE RECORDS SUMMARY | 2018-04-09 07:10 | XMS RPT_ITS ---
:1935 Author Organization [place] Support Name Relationship Address Phone WALI SHANKAR Unavailable [address] + [place] [address] R Unavailable Unavailable Unavailable RAIFSNIDER, MUSTAPHA Unavailable [address] + [place] [address] WALI SHANKAR Unavailable [address] + [place] [address] R Unavailable Unavailable Unavailable RAIFSNIDER, MUSTAPHA Unavailable [address] + [place] [address] WALI SHANKAR Unavailable [address] + [place] [address] R Unavailable Unavailable Unavailable RAIFSNIDER, MUSTAPHA Unavailable [address] + [place] [address] WALI SHANKAR Unavailable [address] + [place] [address] R Unavailable Unavailable Unavailable RAIFSNIDER, MUSTAPHA Unavailable [address] + [place] [address] WALI SHANKAR Unavailable [address] + [place] [address] R Unavailable Unavailable Unavailable RAIFSNIDER, MUSTAPHA Unavailable [address] + [place] [address] WALI SHANKAR Unavailable [address] + [place] [address] R Unavailable Unavailable Unavailable RAIFSNIDER, MUSTAPHA Unavailable [address] + [place] [address] WALI SHANKAR Unavailable [address] + [place] [address] R Unavailable Unavailable Unavailable RAIFSNIDER, MUSTAPHA Unavailable [address] + [place] [address] RANDOLPH, WALI Unavailable [address] + [place] [address] R Unavailable Unavailable Unavailable RAIFSNIDER, MUSTAPHA Unavailable [address] + [place] [address] RANDOLPH, WALI Unavailable [address] + [place] [address] R Unavailable Unavailable Unavailable RAIFSNIDER, MUSTAPHA Unavailable [address] + [place] [address] [facility] WALI Unavailable [address] + [place] [address] R Unavailable Unavailable Unavailable RAIFSNIDER, MUSTAPHA Unavailable [address] + [place] [address] [facility] Unavailable [address] + [place] [address] R Unavailable Unavailable Unavailable RAIFSNIDER, MUSTAPHA Unavailable [address] + [place] [address] [facility] Unavailable [address] + [place] [address] R Unavailable Unavailable Unavailable RAIFSNIDER, MUSTAPHA Unavailable [address] + [place] [address] [facility] Unavailable [address] + [place] [address] R Unavailable Unavailable Unavailable RAIFSNIDER, MUSTAPHA Unavailable [address] + [place] [address] [facility] Unavailable [address] + [place] [address] R Unavailable Unavailable Unavailable RAIFSNIDER, MUSTAPHA Unavailable [address] + [place] [address] Care Team Providers Name Role Phone FOREST VILLANUEVA Referring Unavailable FOREST VILLANUEVA Referring Unavailable Forest Villanueva Attending Unavailable Forest Villanueva Referring Unavailable Forest Villanueva Primary Care Unavailable Forest Villanueva Attending Unavailable Forest Villanueva Referring Unavailable Kay, Forest Primary Care Unavailable Kay, Forest Attending Unavailable Kay, Forest Primary Care Unavailable Kay, Forest Referring Unavailable Grace Millan Attending Unavailable Vicky Jones Referring Unavailable Roof, Isidro H Attending Unavailable Kay, Forest Referring Unavailable Sienna Marshall Attending Unavailable Lorraine Gonzalez Attending Unavailable Roof, Isidro H Attending Unavailable Kay, Forest Attending Unavailable Kay, Forest Primary Care Unavailable Kay, Forest Attending Unavailable Kay, Forest Referring Unavailable Kay, Forest Primary Care Unavailable Grace Millan Attending Unavailable Kay, Forest Referring Unavailable Kay, Forest Primary Care Unavailable Byron, Lavell Attending Unavailable Kay, Forest Referring Unavailable Byron, Lavell Attending Unavailable Byron, Lavell Referring Unavailable Kay, Forest Primary Care Unavailable Kay, Forest Attending Unavailable Kay, Forest Primary Care Unavailable PROBLEMS PROBLEMS DATE TYPE CONDITION / CODE ATTENDING STATUS SOURCE 02/07/2018 Unknown 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 [place] 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 / E03.2(ICD-10) 02/07/2018 Unknown R10.9 - Unspecified Forest Villanueva Active [facility] abdominal pain / Community R10.9(ICD-10) Hospital Repository 02/07/2018 Unknown R11.0 - Nausea / Forest Villanueva Active [place] R11.0(ICD-10) [facility] Hospital Repository 02/07/2018 Unknown K57.90 - Forest Villanueva Active [place] Diverticulosis of Community intestine, part Hospital unspecified, without Repository perforation or abscess without bleeding / K57.90(ICD-10) 02/07/2018 Unknown Z85.850 - Personal Forest Villanueva Active [facility] history of malignant Community neoplasm of thyroid Hospital / Z85.850(ICD-10) Repository 02/07/2018 Unknown E55.9 - Vitamin D Forest Villanueva Active [place] deficiency, Community unspecified / Hospital E55.9(ICD-10) Repository 02/07/2018 Unknown E53.8 - Deficiency Forest Villanueva Active [place] of other specified B Community group vitamins / Hospital E53.8(ICD-10) Repository 01/29/2018 Unknown R30.0 - Dysuria / Lavell Matthwes Active [facility] R30.0(ICD-10) [facility] Hospital Repository 12/10/2017 Active Unknown / NA Active [facility](Unknown[facility] [place] Repository 06/12/2017 Unknown R07.9 - Chest pain, Forest Villanueva Active [place] unspecified / Community R07.9(ICD-10) Hospital Repository PROCEDURES PROCEDURES No Procedure Records FoundRESULTS RESULTS BREAST LIMITED Observed: 02/25/2018 Status: F Source: [place] UNILATERAL 8:[address] [facility] REPOSITORY [facility] Imaging Services [address] [place] [address] Breast Limited Unilateral MR#: [id number] Acct: [id number] Name: BALBINA KERN Rep #: [id number] : 1935 F 82 From: Andrei Vences MD PCP: Forest Villanueva DO Status: REG CLI Study: Breast Limited Unilateral Date of Exam: 02/25/18 Exam# [id number] Ordering Dr: Forest Villanueva DO STUDY: ULTRASOUND [...] Andrei Vences MD at 11:01 EST Tel [phone], Service support , CC: Forest Villanueva DO Lockstitch Zipper Setter: Signed ABDOMEN/PELVIS WITH Observed: 02/21/2018 Status: F Source: [place] CONTRAST 1:[address] [facility] REPOSITORY [facility] Imaging Services [address] [place] [address] Abdomen/Pelvis WITH Contrast MR#: [id number] Acct: [id number] Name: BALBINA KERN Rep #: [id number] : 1935 F 82 From: Mike Lake MD PCP: Forest Villanueva DO Status: REG CLI Study: Abdomen/Pelvis WITH Contrast Date of Exam: 02/21/18 Exam# [id number] Ordering Dr: Forest Villanueva DO STUDY: CT [...] the stomach, not fully included in the [id number]-ew-cgvv. There is a partially gas-filled 2.5 x 2.5 x 1.8 cm periampullary diverticulum of the second duodenum. Normal small intestine. There are multiple colonic diverticula consistent with diverticulosis. There is non-visualization of the appendix. There is esja-nx-jxtwefqg diffuse atherosclerotic calcification of the abdominal aorta [...] Service support , CC: Forest Villanueva DO Lockstitch Zipper Setter: Signed UNILAT LT SCRN Observed: 02/21/2018 Status: F Source: [place] W/CAD 11:[address] [facility] REPOSITORY [facility] Imaging Services [address] [place] [address] UNILAT LT SCRN W/CAD MR#: [id number] Acct: [id number] Name: BALBINA KERN Rep #: [id number] : 1935 F 82 From: Andrei Vences MD PCP: Forest Villanueva DO Status: REG CLI Study: UNILAT LT SCRN W/CAD Date of Exam: 02/21/18 Exam# [id number] Ordering Dr: Forest Villanueva DO ADDENDUM by Andrei Vences MD on 02/22/18 at 0816 ADDENDUM This is an abdomen report for laterality. The impression should read that there is a 5.7 mm x 6.7 mm well-defined nodule in the left breast as described. Electronically Signed: Andrei Vences MD at 8:16 EST Tel [phone], Service support , 02/22/18 08 Date cc: Forest Villanueva DO * Signed ADDENDUM by Andrei Vences MD on 02/22/18 at 0816 BI/UNILAT LT SCRN W/CAD 02/22/18 08 Date cc: Forest Villanueva DO * Signed [...] delay biopsy of a clinically suspicious abnormality. [id number] Electronically Signed: Andrei Vences MD at 13:17 EST Tel [phone], Service support , CC: Forest Villanueva DO Lockstitch Zipper Setter: Signed CBC W/DIFF, AUTOMATED Collected: 02/07/2018 Status: F Source: [place] 9:[address] [facility] REPOSITORY TYPE CODE TESTS RESULT OUT OF [...] Lymph 2.65 Performed By: #### L100.0100 #### [facility] [address] [place], [address] VITAMIN B12 Collected: 02/07/2018 Status: F Source: [place] 9:[address] [facility] REPOSITORY TYPE CODE TESTS RESULT OUT OF RANGE REFERENCE UNITS LAB L503.0105 211-911 pg/mL Normal Vitamin B12 675 Performed By: #### L503.0105, L506.1000 #### [facility] [address] [place], [address] VITAMIN D,25 HYDROXY Collected: 02/07/2018 Status: F Source: [place] 9:[address] [facility] REPOSITORY TYPE CODE TESTS RESULT OUT OF REFERENCE UNITS RANGE LAB L506.1000 29.95-100.01 ng/mL Low Vitamin D 21.4 25-OH Result Comment: Vitamin D 25(OH) Status Range Deficiency <20 ng/mL (50nmol/L) Insuffciency 20 - 30 ng/mL (50 - 75 nmol/L) Sufficiency 30 - 100 ng/mL (75 - 250 nmol/L) Toxicity >100 ng/mL (>250 nmol/L) Performed By: #### L503.0105, L506.1000 #### [facility] [address] [place], [place], [id number] COMPREHENSIVE METABOLIC Collected: 02/07/2018 Status: F Source: [place] [facility] 9:[address] [facility] REPOSITORY TYPE CODE TESTS RESULT OUT OF [...] L500.4050, L501.2400, L501.2450, L501.6710, L501.9520, L506.0400 #### [facility] [address] [place], [place], [address] AMYLASE Collected: 02/07/2018 Status: F Source: [place] 9:[address] [facility] REPOSITORY TYPE CODE TESTS RESULT OUT OF RANGE REFERENCE UNITS LAB L501.2400 25-115 U/L Normal CLOVIS 53 Performed By: #### L500.4050, L501.2400, L501.2450, L501.6710, L501.9520, L506.0400 #### [facility] [address] [place], [place], [address] LIPASE Collected: 02/07/2018 Status: F Source: [place] 9:[address] [facility] REPOSITORY TYPE CODE TESTS RESULT OUT OF RANGE REFERENCE UNITS LAB L501.2450 73-393 U/L Normal LIPASE 101 Performed By: #### L500.4050, L501.2400, L501.2450, L501.6710, L501.9520, L506.0400 #### [facility] [address] [place], [place], [address] CRP Collected: 02/07/2018 Status: F Source: [place] 9:[address] [facility] REPOSITORY TYPE CODE TESTS RESULT OUT OF [...] L500.4050, L501.2400, L501.2450, L501.6710, L501.9520, L506.0400 #### [facility] [address] [place], [address] THYROID STIM HORMONE Collected: 02/07/2018 Status: F Source: [place] (TSH) 9:[address] [facility] REPOSITORY TYPE CODE TESTS RESULT OUT OF RANGE REFERENCE UNITS LAB L501.9520 0.358-3.74 uIU/mL Normal TSH 1.79 Performed By: #### L500.4050, L501.2400, L501.2450, L501.6710, L501.9520, L506.0400 #### [facility] [address] [place], [address] T4 FREE DIRECT Collected: 02/07/2018 Status: F Source: [place] 9:[address] [facility] REPOSITORY TYPE CODE TESTS RESULT OUT OF RANGE REFERENCE UNITS LAB L506.0400 0.76-1.46 ng/dL Normal T4 FREE 1.02 DIRECT Performed By: #### L500.4050, L501.2400, L501.2450, L501.6710, L501.9520, L506.0400 #### [facility] [address] [place], [place], [address] THYROGLOBULIN W/ANTI-TG Collected: 02/07/2018 Status: F Source: [place] AB 9:[address] [facility] REPOSITORY TYPE CODE TESTS RESULT OUT OF [...] is 0.1 ng/mL Thyroglobulin measured by Анна [place] Immunometric Assay Performed at: - [facility] [address] [id number] Field Crew Chief: Bobby Sahu PhD, Phone: [phone] Performed By: #### L3300.6820 #### [facility] (refer to report for specific site) refer to report for address and phone number URGENT CARE VISIT Observed: 01/29/2018 Status: F Source: [place] REPORT 5:[address] [facility] REPOSITORY [facility] [place] [address] OFFICE VISIT Date of Service: 01/29/18 MR#: [id number] Acct: [id number] Name: BALBINA KERN Rep #: [id number] : 1935 Provider: Lavell FERNANDEZ Age/Sex: 82/F Location: [facility] Status: Signed Intake Vital Signs01/29/18 Height 5 [...] Off vis,est,level 3 Diagnoses Dysuria R30.0 01/29/18 6869 <Electronically signed by Lavell FERNANDEZ> Date Lavell FERNANDEZ Cosigner Signature: Date (if applicable) CC: URINALYSIS, COMPLETE Collected: 01/29/2018 Status: F Source: [place] 2:[address] [facility] REPOSITORY Order Comment: How was Urine Obtained? [...] 0-5 SEEN Performed By: #### L400.0001 #### [facility] [address] [place], [place], [address] Observed: 01/29/2018 Status: F Source: [place] CULTURE, URINE 2:[address] [facility] REPOSITORY Urine Culture ORGANISM 1: Mixed Gram Pos AND Gram Neg Org Alvin Count <1000 MIX CULTURE Mixed contaminants. Submit a new specimen if indicated. Performed By: #### M100.0650 #### [facility] [address] [place], [address] XR LUMBAR 2V AP/LAT Observed: 12/10/2017 Status: F Source: [place] 11:19 AM [facility] REPOSITORY * * *Final Report* [...] CURVATURE. ADVANCED DEGENERATIVE DISC AND FACET DISEASE. Lockstitch Zipper Setter: PSCB Transcribe Date/Time: Dec 11 2017 11:20A Dictated by : ROBERTO BARAJAS MD This examination was interpreted and the report reviewed and electronically signed by: ROBERTO BARAJAS MD on Dec 11 2017 11:25AM EST [id number] Observed: 12/10/2017 Status: COMPLETED Source: [place] 11:07 AM [facility] REPOSITORY O ID: [id number] Author: Galina Osullivan (Rt) Dedra Plascencia Service: (none) Author Type: Tax Appraiser Type: Progress Notes Filed: 12/10/2017 11:19 AM [...] CARDIOLOGY VISIT Observed: 10/24/2017 Status: F Source: [place] REPORT 11:[address] [facility] REPOSITORY [facility] [address] [place] [address] OFFICE VISIT Date of Service: 10/23/17 MR#: [id number] Acct: [id number] Name: BALBINA KERN Rep #: [id number] : 1935 Provider: Grace Millan Age/Sex: 81/F Location: [facility] Status: Signed HPI HPI Details: BALBINA KERN, [...] Visit Reasons: overdue for f/up, bilateral edema First Aid Instructor Required: No Accompanied by: none Is patient in pain?: No Allergies nitrofurantoin [From Macrobid] Allergy (Intermediate, Verified 10/23/17 10:11) hives latex Allergy (Verified 10/23/17 10:11) Rash Penicillins Allergy (Verified 10/23/17 10:11) Swelling Medications Sertraline HCl [Zoloft] 50 mg PO BID 01/08/13 [History Confirmed 05/29/17] Acetaminophen [Pain Reliever] 2 tab PO BID 06/06/14 [History Confirmed 03/14/17] Cholecalciferol (VIT D3) [Vitamin [...] prior to saving. 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) Coding Level of Care Code Off vis,est,level 3 Diagnoses Other chest pain R07.89; R07.8 Chest pain type: other chest pain Localized edema R60.0 Edema type: localized Coding Level of Care Code Off vis,est,level 3 Diagnoses Other chest pain R07.89; R07.8 Chest pain type: other chest pain Localized edema R60.0 Edema type: localized 10/23/17 1105 <Electronically signed by Grace Millan PA> Date Grace FERNANDEZ 10/24/17 1148<Electronically signed by Rodriguez Hill MD> Cosigner Signature: Date (if applicable) Rodriguez Hill MD CC: Forest Villanueva DO XR CERVICAL 4V Observed: 09/05/2017 Status: F Source: [place] AP/LAT/OBL 10:14 AM [facility] REPOSITORY * * *Final Report* * [...] are seen. IMPRESSION: Degenerative changes as discussed. Lockstitch Zipper Setter: MELANIE Transcribe Date/Time: Sep 06 2017 1:35P Dictated by : RAYMUNDO DAVID DO This examination was interpreted and the report reviewed and electronically signed by: RAYMUNDO DAVID DO on Sep 06 2017 1:38PM EST [id number] XR THORACIC 2V AP/LAT Observed: 09/05/2017 Status: F Source: [place] 10:14 AM [facility] REPOSITORY * * *Final Report* * [...] are seen. IMPRESSION: Degenerative changes as discussed. Lockstitch Zipper Setter: My Ad Box Transcribe Date/Time: Sep 06 2017 1:35P Dictated by : RAYMUNDO DAVID DO This examination was interpreted and the report reviewed and electronically signed by: RAYMUNDO DAVID DO on Sep 06 2017 1:38PM EST [id number] Observed: 09/05/2017 Status: COMPLETED Source: [place] 10:12 AM [facility] REPOSITORY O ID: [id number] Author: VIVIEN Trinidad (Ct) Service: (none) Author Type: Clinical Tax Appraiser Type: Progress Notes Filed: 09/05/2017 10:12 AM [...] DOWNTIME REPORT Observed: 08/30/2017 Status: F Source: [place] 2:47 PM [facility] Medical Records Department [address] [place] [address] Downtime Report MR#: [id number] Acct: [id number] Name: BALBINA KERN Rep #: [id number] : 1935 81 From: Pedro Steiner PCP: Forest Villanueva DO Status: REG CLI This patient was seen during an EMR downtime August 13, 2017 - August 20, 2017. This patient may have a combination of paper and electronic documentation or all paper documentation. All documentation is viewable within the e-chart portion of [facility] for each patient visit. DOWNTIME REPORT Observed: 08/30/2017 Status: F Source: [place] 2:45 PM [facility] Medical Records Department [address] [place] [address] Downtime Report MR#: [id number] Acct: [id number] Name: BALBINA KERN Rep #: [id number] : 1935 81 From: Pedro Steiner PCP: Forest Villanueva DO Status: REG CLI This patient was seen during an EMR downtime August 13, 2017 - August 20, 2017. This patient may have a combination of paper and electronic documentation or all paper documentation. All documentation is viewable within the e-chart portion of [facility] for each patient visit. DOWNTIME REPORT Observed: 08/30/2017 Status: F Source: [place] 2:41 PM [facility] Medical Records Department [address] [place] [address] Downtime Report MR#: [id number] Acct: [id number] Name: BALBINA KERN Rep #: [id number] : 1935 81 From: Pedro Steiner PCP: Forest Villanueva DO Status: REG CLI This patient was seen during an EMR downtime August 13, 2017 - August 20, 2017. This patient may have a combination of paper and electronic documentation or all paper documentation. All documentation is viewable within the e-chart portion of [facility] for each patient visit. DOWNTIME REPORT Observed: 08/30/2017 Status: F Source: [place] 2:31 PM [facility] Medical Records Department [address] [facility] [address] Downtime Report MR#: [id number] Acct: [id number] Name: BALBINA KERN Rep #: [id number] : 1935 81 From: Pedro Steiner PCP: Forest Villanueva DO Status: REG CLI This patient was seen during an EMR downtime August 13, 2017 - August 20, 2017. This patient may have a combination of paper and electronic documentation or all paper documentation. All documentation is viewable within the e-chart portion of [facility] for each patient visit. CPK TOTAL, CREATINE Collected: 08/20/2017 Status: F Source: [place] KINASE 11:[address] [facility] REPOSITORY TYPE CODE TESTS RESULT OUT OF RANGE REFERENCE UNITS LAB L501.3620 26-192 U/L Normal CPK TOTAL 38 Performed By: #### L501.3620, L501.6710 #### [facility] [address] [place], [address] CRP Collected: 08/20/2017 Status: F Source: [place] 11:[address] [facility] REPOSITORY TYPE CODE TESTS RESULT OUT OF RANGE REFERENCE UNITS LAB L501.6710 0.0-3.0 mg/L High 5.71 C-REACTIVE PROT Result Comment: C-Reactive Protein (CRP) provides useful information for the diagnosis, therapy and monitoring of inflammatory processes and associated diseases. For the evaluation of Relative Risk for Cardiovascular Disease, a High Sensitivity CRP (HSCRP) should be ordered. Performed By: #### L501.3620, L501.6710 #### [facility] [address] [place], [address] ERYTHROCYTE SED RATE Collected: 08/20/2017 Status: F Source: [place] 11:[address] [facility] REPOSITORY TYPE CODE TESTS RESULT OUT OF RANGE REFERENCE UNITS LAB L102.0000 0-30 mm/hr Normal SED RATE 14 Performed By: #### L101.9900 #### [facility] [address] [place], [address] VITAMIN B12 Collected: 08/20/2017 Status: F Source: [place] 11:[address] [facility] REPOSITORY TYPE CODE TESTS RESULT OUT OF RANGE REFERENCE UNITS LAB L503.0105 211-911 pg/mL Normal Vitamin B12 329 Performed By: #### L503.0105 #### [facility] [address] [place], [address] JULIO W/ REFLEX MULT Collected: 08/20/2017 Status: F Source: [facility] 11:[address] [facility] REPOSITORY Order Comment: Specimen Comment: A duplicate report has been generated due to demographic Specimen Comment: updates. TYPE CODE TESTS RESULT OUT OF RANGE REFERENCE UNITS LAB L3100.5475 Negative Normal Negative JULIO-DIRECT Result Comment: Performed at: [facility] Lab[address] [id number] Field Crew Chief: Bobby Sahu PhD, Phone: [phone] LAB L3100.5500 0-9 IU/mL Normal dsDNA AB <1 Result Comment: Negative <5 Equivocal 5 - 9 Positive >9 LAB L3100.9200 0.0-0.9 AI Anti-SS-A Normal < 0.2 LAB L3100.9300 0.0-0.9 AI Anti-SS-B Normal < 0.2 LAB L3410.0427 0.0-0.9 AI ANTICHROMATIN Normal <0.2 LAB L3410.0500 0.0-0.9 AI ANTI-WILLIE Normal <0.2 LAB L3410.0700 0.0-0.9 AI ANTISCLER Normal 0.3 LAB L3410.1200 0.0-0.9 AI GAS COMPRESSOR TURBINE OPERATOR Ab Normal <0.2 LAB L3410.1300 0.0-0.9 AI DUPONT Ab Normal <0.2 LAB L3410.4010 0.0-0.9 AI ANTI-CENT B Normal <0.2 Performed By: #### L3100.5450 #### [facility] (refer to report for specific site) refer to report for address and phone number THYROID STIM HORMONE Collected: 08/15/2017 Status: F Source: [place] (TSH) 10:[address] [facility] REPOSITORY Order Comment: RESULT(S) PREVIOUSLY REPORTED ON MANUAL REQUISITION DURING DOWNTIME. TYPE CODE TESTS RESULT OUT OF RANGE REFERENCE UNITS LAB L501.9520 0.358-3.74 uIU/mL Normal TSH 1.26 Performed By: #### L501.9520, L506.0400 #### [facility] [address] [place], [place], [address] T4 FREE DIRECT Collected: 08/15/2017 Status: F Source: [place] 10:[address] [facility] REPOSITORY Order Comment: RESULT(S) PREVIOUSLY REPORTED ON MANUAL REQUISITION DURING DOWNTIME. TYPE CODE TESTS RESULT OUT OF RANGE REFERENCE UNITS LAB L506.0400 0.76-1.46 ng/dL Normal T4 FREE 1.09 DIRECT Performed By: #### L501.9520, L506.0400 #### [facility] [address] [place], [place], [address] THYROGLOBULIN W/ANTI-TG Collected: 08/15/2017 Status: F Source: [place] 10:[address] [facility] REPOSITORY TYPE CODE TESTS RESULT OUT OF RANGE REFERENCE UNITS LAB L3300.7025 Normal ANTI-TG AB Result Comment: TEST RESULT LIMITS TgAb+Thyroglobulin,[place]ACH[place] or [place] Thyroglobulin Antibody <1.0 IU/mL 0.0 - 0.9 [...] Анна Shanell Immunometric Assay [facility] AT [facility]. ORIGINAL REPORT ON FILE IN LAB CONTAINS ADDITIONAL TEST SITE INFORMATION. Performed By: #### L3300.6820 #### [facility] (refer to report for specific site) refer to report for address and phone number THYROID STIM HORMONE Collected: 06/12/2017 Status: F Source: [place] (TSH) 12:[address] [facility] REPOSITORY TYPE CODE TESTS RESULT OUT OF RANGE REFERENCE UNITS LAB L501.9520 0.358-3.74 uIU/mL Normal TSH 0.83 Performed By: #### L501.9520, L506.0400 #### [facility] [address] [place], [place], [address] T4 FREE DIRECT Collected: 06/12/2017 Status: F Source: [place] 12:[address] [facility] REPOSITORY TYPE CODE TESTS RESULT OUT OF RANGE REFERENCE UNITS LAB L506.0400 0.76-1.46 ng/dL Normal T4 FREE 1.17 DIRECT Performed By: #### L501.9520, L506.0400 #### [facility] [address] [place], [place], [address] CBC W/DIFF, AUTOMATED Collected: 06/12/2017 Status: F Source: [place] 12:[address] [facility] REPOSITORY TYPE CODE TESTS RESULT OUT OF [...] Lymph 2.13 Performed By: #### L100.0100 #### [facility] [place], [address] D-DIMER QUANTITATIVE Collected: 06/12/2017 Status: F Source: [place] (DVT/PE) 12:[address] [facility] REPOSITORY TYPE CODE TESTS RESULT OUT OF RANGE REFERENCE UNITS LAB L300.8000 0.27-0.49 FEU/ug/m Low D-DIMER < 0.27 QUANT Result Comment: NORMAL D-Dimer level (<0.50) indicates no DVT or PE. Performed By: #### L300.8000 #### [facility] [address] [place], [address] CHEST PA AND LATERAL Observed: 06/12/2017 Status: F Source: [place] [facility] 12:[address] [facility] REPOSITORY [facility] Imaging Services [address] [place] [address] Chest PA and Lateral MR#: [id number] Acct: [id number] Name: BALBINA KERN Rep #: [id number] : 1935 F 81 From: Hawa Humphries MD PCP: Forest Villanueva DO Status: REG CLI Study: Chest PA and Lateral Date of Exam: 06/12/17 Exam# [id number] Ordering Dr: Forest Villanueva DO STUDY: X-RAY [...] Service support , CC: Forest Villanueva DO Lockstitch Zipper Setter: Signed ALLERGIES ALLERGIES DATE TYPE / CODE NAME / CODE REACTION SEVERITY SOURCE Drug Penicillins/Z18341 Swelling Unknown [place] 8 Allergy/097544565 0476(RXNORM) [facility] (SNOMED CT) Hospital Repository Drug nitrofurantoin/F00 Hives [place] 8 Allergy/268332159 4573016(RXNORM) [facility] (SNOMED CT) Hospital Repository Drug latex/P548558415(R Rash Unknown [place] 8 Allergy/850044318 XNORM) [facility] (SNOMED CT) Hospital Repository Miscellaneous sulfites Anaphylaxis [place] 8 Allergy/817094275 [facility] (SNOMED CT) Hospital Repository Drug nitrofurantoin Hives Unknown [place] 8 Allergy/888675083 macrocrystalline/F [facility] (SNOMED CT) 940819933(RXNORM) Hospital Repository DRUG LANSOPRAZOLE DIARRHEA [place] 5 INGREDI/321913509 [facility] (SNOMED CT) [place] Repository DRUG PANTOPRAZOLE OTHER: SEE C [place] 4 INGREDI/806308420 [facility] (SNOMED CT) [place] Repository DRUG NAPROXEN GI UPSET [place] 1 INGREDI/859545287 [facility] (SNOMED CT) [place] Repository DRUG LATEX RASH [place] 1 INGREDI/526178140 [facility] (SNOMED CT) [place] Repository DRUG/561975699(SN NITROFURANTOIN RASH [place] [address]) MONOHYD/M-CRYST [facility] [place] Repository Drug PENICILLINS SWELLING [place] 6 Class/849654708(S [facility] NOMED CT) [place] Repository ENCOUNTERS ENCOUNTERS ADMIT/DISCHARGE ACCOUNT ADMITTING ENCOUNTER LOCATION SOURCE NUMBER CLASS 02/25/2018 [id number] [facility] ing:OPUS Repository 02/21/2018 [id number] [facility] ing:OPBI Repository 02/07/2018 [id number] [facility] ing:BFHLAB Repository 01/29/2018 [id number] [facility] ing:LABSPEC Repository 01/29/2018/01/30/20 [id number] Ambulatory BMSBuilding:B [place] 18 MS.[facility] Repository 12/10/2017/12/11/19 [id number] Ambulatory [address] Repository 10/23/2017/10/24/19 [id number] Ambulatory BMSBuilding:B [place] [address] [facility] Repository 09/05/2017/09/06/19 [id number] Ambulatory [address] Repository 08/20/2017 [id number] [facility]ulatory [facility] ing:LAB.FUTUR Repository E 08/15/2017 [id number] [facility] ing:BFHLAB Repository 07/24/2017 [id number] Ambulatory BMSBuilding:B [place] [facility] Repository 07/18/[id number] [facility] Repository 07/12/2017 [id number] Ambulatory BMSBuilding:[place] [facility] Repository 07/11/2017 [id number] Ambulatory BMSBuilding:B [place] [facility] Repository 06/12/2017 [id number] [facility] ing:LAB.FUTUR Repository E 06/01/2017 [id number] Ambulatory BMSBuilding:B [place] [facility] Repository PAYERS PAYERS ENCOUNTER GUARANTOR PAYER SUBSCRIBER SOURCE 02/25/2018 BALBINA Jovel Primary Insurance:MMO BALBINA F [place] [id number] MEDICAREPolicy RAIFSNIDERDOB: Critical access hospital DRAPT Number: [id number] [id number] Repository [address]Kpz: 330 Date:3944-91-28UQ [phone] () [address], [place] [address]VJ: 02/25/2018 Secondary NOT GIVENUNK [place] Insurance:SELF PAY [facility]: Effective Repository Date:2018-02-22 02/21/2018 BALBINA Jovel Primary Insurance:MMO BALBINA Jovel [place] [id number] MEDICAREPolicy RAIFSNIDERDOB: Community [address]EF [address]APT Number: [id number] [id number] Repository [address]Iax: (330) Date:1013-93-33JO [phone] () [address] [place] [address]AA: 02/21/2018 Secondary NOT GIVENUNK [place] Insurance:SELF PAY [facility] Number: Effective Repository Date:2018-01-08 02/07/2018 BALBINA F Primary Insurance:MMO BALBINA Jovel [place] [id number] MEDICAREPolicy RAIFSNIDERDOB: Community [address]EF [address]APT Number: [id number] [id number] Repository [address]Vvs: (330) Date:7117-03-94NU [phone] (HP) [address] [place], [place] [phone]: 02/07/2018 Secondary NOT GIVENUNK [place] Insurance:SELF PAY [facility] Number: Effective Repository Date:2018-02-07 01/29/2018 BALBINA F Primary Insurance:MMO BALBINA Jovel [place] [id number] MEDICAREPolicy RAIFSNIDERDOB: Community [address]EF [address]APT Number: [id number] [id number] Repository [address]Wbl: (330) Date:3054-76-92NB [phone] (HP) [address] [place], [place] [phone]: 01/29/2018 Secondary NOT GIVENUNK [place] Insurance:SELF PAY [facility] Number: Effective Repository Date:2018-01-29 01/29/2018 BALBINA Primary Insurance:MMO BALBINA [place] [id number] MEDICAREPolicy RAIFSNIDERDOB: Community [address]EF [address] Number: [id number] [id number] Repository [address]Lhi: (330) Date:5400-98-74EL [phone] () [address] [place] [address]AL: 01/29/2018 Secondary NOT GIVENUNK [place] Insurance:SELF PAY [facility] Number: Effective Repository Date:2018-01-29 10/23/2017 BALBINA Primary Insurance:MMO BALBINA [place] [id number] MEDICAREPolicy RAIFSNIDERDOB: Community [address]EF [address] Number: [id number] [id number] Repository [address]Amt: (330) Date:7928-51-77VQ [phone] (HP) [address] [place] [address]SG: 10/23/2017 Secondary NOT GIVENUNK [place] Insurance:SELF PAY [facility] Number: Effective Repository Date:2017-10-23 08/20/2017 Balbina Primary Insurance:MMO Bal[place] [id number] MEDICAREPolicy RaifsniderDOB: Community Ste[address] Number: [id number] [id number] Repository [address]Zve: (330) Date:9952-29-70VT [phone] (HP) [address] [place] [address]NP: 08/20/2017 Secondary NOT GIVENUNK [place] Insurance:SELF PAY [facility] Number: Effective Repository Date:2017-08-17 08/15/2017 Balbina Primary Insurance:MMO Balbina [place] [id number] MEDICAREPolicy RaifsniderDOB: Community Ste[address] Number: [id number] [id number] Repository [address]Epa: (330) Date:3052-17-58NC [phone] (HP) [address] [place] [address]YS: 08/15/2017 Secondary NOT GIVENUNK [place] Insurance:SELF PAY [facility] Number: Effective Repository Date:2017-08-15 07/24/2017 Balbina Primary Insurance:MMO Balbina [place] [id number] MEDICAREPolicy RaifsniderDOB: Community [address] Number: [id number] [id number] Repository [address]Ivq: (330) Date:5413-57-50AW [phone] (HP) [address] [place] [address]TB: 07/24/2017 Secondary NOT GIVENUNK [place] Insurance:SELF PAY [facility] Effective Repository Date:2017-06-26 07/18/2017 Balbina Primary Insurance:MMO Balbina [place] [id number] MEDICAREPolicy RaifsniderDOB: Community [address] Number: [id number] [id number] Repository [address]Ayn: (330) Date:1695-06-54KD [phone] () [address] [place] [address]GA: 07/18/2017 Secondary NOT GIVENUNK [place] Insurance:SELF PAY [facility] Number: Effective Repository Date:2017-07-18 07/12/2017 Balbina Primary Insurance:MMO Balbina [place] [id number] MEDICAREPolicy RaifsniderDOB: Community [address] Number: [id number] [id number] Repository [address]Qhy: (330) Date:7633-86-85BJ [phone] () [address] [place] [address]WV: 07/12/2017 Secondary NOT GIVENUNK [place] Insurance:SELF PAY [facility] Number: Effective Repository Date:2017-06-13 07/11/2017 Balbina Primary Insurance:MMO Bal[place]ina [place] [id number] MEDICAREPolicy RaifsniderDOB: Community Ste[address] DrA[address] Number: [id number] [id number] Repository [address]Ftr: (330) Date:1803-92-10WI [phone] (HP) [address] [place] [address]RZ: 07/11/2017 Secondary NOT GIVENUNK [place] Insurance:SELF PAY [facility] Number: Effective Repository Date:2017-07-11 06/12/2017 Balbina Primary Insurance:MMO Balbina [place]leoster [id number] MEDICAREPolicy RaifsniderDOB: Community [address] Number: [id number] [id number] Repository [address]Iln: (330) Date:2561-91-12JM [phone] () [address] [place], [place] [address]WP: 06/12/2017 Secondary NOT GIVENUNK [place] Insurance:SELF PAY [facility] Number: Effective Repository Date:2017-02-21 06/01/2017 Balbina Primary Insurance:MMO Balbina Singer [id number] MEDICAREPolicy RaifsniderDOB: Community Stef DrA[address] Number: [id number] [id number] Repository [address]Jvv: (330) Date:8303-53-19DS [phone] (HP) [address] [place] [address]UM: 06/01/2017 Secondary NOT GIVENUNK [place] Insurance:SELF PAY [facility] Number: Effective Repository Date:2017-02-16
== END ==
PROVIDERS: Family Provider Family Medicine; PCP Family Medicine; Referring Provider Family Medicine; Visit Provider Family Medicine
DX: Z12.31 Encounter for screening mammogram for malignant neoplasm of breast (principal); N63.20 Unspecified lump in the left breast, unspecified quadrant; R10.9 Unspecified abdominal pain; R63.4 Abnormal weight loss; R11.0 Nausea
CPT/HCPCS: 74177; 77061; 77067; Q9967; G0279

== ENCOUNTER → 2018-02-25 08:57 | Outpatient (CLI) | payer MEDICARE, SELFPAY ==
[2018-01-29 14:20] VITALS: BMI 45.6
--- NOTE | 2018-02-25 08:58 | US_ITS ---
STUDY: ULTRASOUND BREAST - LEFT REASON FOR EXAM: Female, 82 years old. Abnormal screening mammogram. TECHNIQUE: Axial and longitudinal images of the LEFT breast were performed with a high resolution ultrasound transducer. COMPARISON: Comparison is made with prior mammogram dated February 21, 2018. FINDINGS: LEFT Breast: The mammographic abnormality corresponds to a 2 mm x 3 mm x 2 mm cyst at the 4:00 position of breast 4 cm from nipple. US/Breast Limited Unilateral IMPRESSION: The mammographic findings corresponds to a 2 mm x 3 mm x 2 mm cyst. ASSESSMENT CATEGORY: BIRADS Category 2: Benign. A letter regarding these results will be sent to the patient by the facility within 30 days. Electronically Signed: Andrei Vences MD at 11:01 EST Tel [phone], Service support ,
--- OUTSIDE RECORDS SUMMARY | 2018-05-29 20:12 | XMS RPT_ITS ---
:1935 Author Organization [place] Support Name Relationship Address Phone WALI SHANKAR Unavailable [address] + [place] [address] R Unavailable Unavailable Unavailable RAIFSNIDER, MUSTAPHA Unavailable [address] + [place] [address] WALI SHANKAR Unavailable [address] + [place] [address] R Unavailable Unavailable Unavailable RAIFSNIDER, MUSTAPHA Unavailable [address] + [place] [address] WALI SHANKAR Unavailable [address] + [place] [address] R Unavailable Unavailable Unavailable RAIFSNIDER, MUSTAPHA Unavailable [address] + [place] [address] WALI SHANKAR Unavailable [address] + [place] [address] R Unavailable Unavailable Unavailable RAIFSNIDER, MUSTAPHA Unavailable [address] + [place] [address] WALI SHANKAR Unavailable [address] + [place] [address] R Unavailable Unavailable Unavailable RAIFSNIDER, MUSTAPHA Unavailable [address] + [place] [address] WALI SHANKAR Unavailable [address] + [place] [address] R Unavailable Unavailable Unavailable RAIFSNIDER, MUSTAPHA Unavailable [address] + [place] [address] WALI SHANKAR Unavailable [address] + [place] [address] R Unavailable Unavailable Unavailable RAIFSNIDER, MUSTAPHA Unavailable [address] + [place] [address] ARIMO, WALI Unavailable [address] + [place] [address] R Unavailable Unavailable Unavailable RAIFSNIDER, MUSTAPHA Unavailable [address] + [place] [address] ARIMO, WALI Unavailable [address] + [place] [address] R Unavailable Unavailable Unavailable RAIFSNIDER, MUSTAPHA Unavailable [address] + [place] [address] [facility] WALI Unavailable [address] + [place] [address] R Unavailable Unavailable Unavailable RAIFSNIDER, MUSTAPHA Unavailable [address] + [place] [address] [facility] Unavailable [address] + [place] [address] R Unavailable Unavailable Unavailable RAIFSNIDER, MUSTAPHA Unavailable [address] + [place] [address] [facility] Unavailable [address] + [place] [address] R Unavailable Unavailable Unavailable RAIFSNIDER, MUSTAPHA Unavailable [address] + [place] [address] [facility] Unavailable [address] + [place] [address] R Unavailable Unavailable Unavailable RAIFSNIDER, MUSTAPHA Unavailable [address] + [place] [address] [facility] Unavailable [address] + [place] [address] R Unavailable Unavailable Unavailable RAIFSNIDER, MUSTAPHA Unavailable [address] + [place] [address] Care Team Providers Name Role Phone FOREST [...] 02/07/2018 Unknown 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 [place] 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 / E03.2(ICD-10) 02/07/2018 Unknown R10.9 - Unspecified Forest Villanueva Active [place] abdominal pain / Community R10.9(ICD-10) Hospital Repository 02/07/2018 Unknown R11.0 - Nausea / Forest Villanueva Active [place] R11.0(ICD-10) [facility] Hospital Repository 02/07/2018 Unknown K57.90 - Forest Villanueva Active [place] Diverticulosis of Community intestine, part Hospital unspecified, [...] R30.0 - Dysuria / Lavell Matthews Active [place] R30.0(ICD-10) [facility] Hospital Repository 12/10/2017 Active Unknown / NA Active [facility](Unknown[facility] [place] Repository 06/12/2017 Unknown R07.9 - Chest pain, Forest Villanueva Active [place] unspecified / Community R07.9(ICD-10) Hospital Repository PROCEDURES PROCEDURES No Procedure Records FoundRESULTS RESULTS BREAST LIMITED Observed: 02/25/2018 Status: F Source: [place] UNILATERAL 8:58 AM [facility] Imaging Services [address] [place] [address] Breast Limited Unilateral MR#: [id number] Acct: [id number] Name: BALBINA KERN Rep #: [id number] : 1935 F 82 From: Andrei Vences MD PCP: Forest Villanueva DO Status: REG CLI Study: Breast Limited Unilateral Date of Exam: 02/25/18 Exam# [id number] Ordering Dr: Forest Villanueva DO STUDY: ULTRASOUND [...] Andrei Vences MD at 11:01 EST Tel [phone], Service support , CC: Forest Villanueva DO Electroencephalograph Technologist: Signed ABDOMEN/PELVIS WITH Observed: 02/21/2018 Status: F Source: [place] CONTRAST 1:00 PM [facility] Imaging Services [address] [place] [address] Abdomen/Pelvis WITH Contrast MR#: [id number] Acct: [id number] Name: BALBINA KERN Rep #: [id number] : 1935 F 82 From: Mike Lake MD PCP: Forest Villanueva DO Status: REG CLI Study: Abdomen/Pelvis WITH Contrast Date of Exam: 02/21/18 Exam# [id number] Ordering Dr: Forest Villanueva DO STUDY: CT [...] the stomach, not fully included in the hcahf-uj-ggie. There is a partially gas-filled 2.5 x 2.5 x 1.8 cm periampullary diverticulum of the second duodenum. Normal small intestine. There are multiple colonic diverticula consistent with diverticulosis. There is non-visualization of the appendix. There is gpbx-wf-hvshgtzq diffuse atherosclerotic calcification of the abdominal aorta [...] Service support , CC: Forest Villanueva DO Electroencephalograph Technologist: Signed UNILAT LT SCRN Observed: 02/21/2018 Status: F Source: [place] W/CAD 11:50 AM [facility] Imaging Services [address] [place] [address] UNILAT LT SCRN W/CAD MR#: [id number] Acct: [id number] Name: BALBINA KERN Rep #: [id number] : 1935 F 82 From: Andrei Vences MD PCP: Forest Villanueva DO Status: REG CLI Study: UNILAT LT SCRN W/CAD Date of Exam: 02/21/18 Exam# [id number] Ordering Dr: Forest Villanueva DO ADDENDUM by Andrei Vences MD on 02/22/18 at 0816 ADDENDUM This is an abdomen report for laterality. The impression should read that there is a 5.7 mm x 6.7 mm well-defined nodule in the left breast as described. Electronically Signed: Andrei Vences MD at 8:16 EST Tel [phone], Service support , 02/22/18 08 Date cc: [...] delay biopsy of a clinically suspicious abnormality. [id number] Electronically Signed: Andrei Vences MD at 13:17 EST Tel [phone], Service support , CC: Forest Villanueva DO Electroencephalograph Technologist: Signed CBC W/DIFF, AUTOMATED Collected: 02/07/2018 Status: F Source: [place] 9:23 AM [facility] TYPE CODE TESTS RESULT OUT OF [...] Lymph 2.65 Performed By: #### L100.0100 #### [facility] [address], [address] VITAMIN B12 Collected: 02/07/2018 Status: F Source: [place] 9:23 AM [facility] TYPE CODE TESTS RESULT OUT OF RANGE REFERENCE UNITS LAB L503.0105 211-911 pg/mL Normal Vitamin B12 675 Performed By: #### L503.0105, L506.1000 #### [facility] [address] [place], [address] VITAMIN D,25 HYDROXY Collected: 02/07/2018 Status: F Source: [place] 9:23 AM [facility] TYPE CODE TESTS RESULT OUT OF REFERENCE UNITS RANGE LAB L506.1000 29.95-100.01 ng/mL Low Vitamin D 21.4 25-[place] Result Comment: Vitamin D 25(OH) Status Range Deficiency <20 ng/mL (50nmol/L) Insuffciency 20 - 30 ng/mL (50 - 75 nmol/L) Sufficiency 30 - 100 ng/mL (75 - 250 nmol/L) Toxicity >100 ng/mL (>250 nmol/L) Performed By: #### L503.0105, L506.1000 #### [facility] [address] [place], [place], [address] COMPREHENSIVE METABOLIC Collected: 02/07/2018 Status: F Source: [place] [facility] 9:23 AM [facility] TYPE CODE TESTS RESULT OUT OF [...] L500.4050, L501.2400, L501.2450, L501.6710, L501.9520, L506.0400 #### [facility] [address] [place], [place], [address] AMYLASE Collected: 02/07/2018 Status: F Source: [place] 9:23 AM [facility] TYPE CODE TESTS RESULT OUT OF RANGE REFERENCE UNITS LAB L501.2400 25-115 U/L Normal [place]OV[place] 53 Performed By: #### L500.4050, L501.2400, L501.2450, L501.6710, L501.9520, L506.0400 #### [facility] [address] [place], [place], [address] LIPASE Collected: 02/07/2018 Status: F Source: [place] 9:23 AM [facility] TYPE CODE TESTS RESULT OUT OF RANGE REFERENCE UNITS LAB L501.2450 73-393 U/L Normal LIPASE 101 Performed By: #### L500.4050, L501.2400, L501.2450, L501.6710, L501.9520, L506.0400 #### [facility] [address] [place], [place], [address] CRP Collected: 02/07/2018 Status: F Source: [place] 9:23 AM [facility] TYPE CODE TESTS RESULT OUT OF [...] L500.4050, L501.2400, L501.2450, L501.6710, L501.9520, L506.0400 #### [facility] [address] [place], [address] THYROID STIM HORMONE Collected: 02/07/2018 Status: F Source: [place] (TSH) 9:23 AM [facility] TYPE CODE TESTS RESULT OUT OF RANGE REFERENCE UNITS LAB L501.9520 0.358-3.74 uIU/mL Normal TSH 1.79 Performed By: #### L500.4050, L501.2400, L501.2450, L501.6710, L501.9520, L506.0400 #### [facility] [address] [place], [address] T4 FREE DIRECT Collected: 02/07/2018 Status: F Source: [place] 9:23 AM [facility] TYPE CODE TESTS RESULT OUT OF RANGE REFERENCE UNITS LAB L506.0400 0.76-1.46 ng/dL Normal T4 FREE 1.02 DIRECT Performed By: #### L500.4050, L501.2400, L501.2450, L501.6710, L501.9520, L506.0400 #### [facility] [address] [place], [place], [address] THYROGLOBULIN W/ANTI-TG Collected: 02/07/2018 Status: F Source: [place] AB 9:23 AM [facility] TYPE CODE TESTS RESULT OUT OF [...] is 0.1 ng/mL Thyroglobulin measured by Анна Ledger Immunometric Assay Performed at: - [facility] [address] [id number] Military Cook: Bobby Sahu PhD, Phone: [phone] Performed By: #### L3300.6820 #### [facility] (refer to report for specific site) refer to report for address and phone number URGENT CARE VISIT Observed: 01/29/2018 Status: F Source: [place] REPORT 5:31 PM [facility] [facility] [address] [place] [address] OFFICE VISIT Date of Service: 01/29/18 MR#: [id number] Acct: [id number] Name: BALBINA KERN Rep #: [id number] : 1935 Provider: Lavell FERNANDEZ Age/Sex: 82/F Location: [facility] Status: Signed Intake Vital Signs01/29/18 Height 5 [...] Off vis,est,level 3 Diagnoses Dysuria R30.0 01/29/18 [id number] <Electronically signed by Lavell FERNANDEZ> Date Lavell FERNANDEZ Cosigner Signature: Date (if applicable) CC: URINALYSIS, COMPLETE Collected: 01/29/2018 Status: F Source: [place] 2:30 PM [facility] Order Comment: How was Urine Obtained? [...] 0-5 SEEN Performed By: #### L400.0001 #### [facility] [address] [place], [place], [address] Observed: 01/29/2018 Status: F Source: [place] CULTURE, URINE 2:30 PM [facility] Urine Culture ORGANISM 1: Mixed Gram Pos AND Gram Neg Org [place] Count <1000 MIX CULTURE Mixed contaminants. Submit a new specimen if indicated. Performed By: #### M100.0650 #### [facility] [address] [place], [address] XR LUMBAR 2V AP/LAT Observed: 12/10/2017 Status: F Source: [place] 11:19 AM [facility] REPOSITORY * * *Final Report* [...] CURVATURE. ADVANCED DEGENERATIVE DISC AND FACET DISEASE. Electroencephalograph Technologist: PSCB Transcribe Date/Time: Dec 11 2017 11:20A Dictated by : ROBERTO BARAJAS MD This examination was interpreted and the report reviewed and electronically signed by: ROBERTO BARAJAS MD on Dec 11 2017 11:25AM EST [id number] Observed: 12/10/2017 Status: COMPLETED Source: [place] 11:07 AM [facility] REPOSITORY O ID: [id number] Author: Galina Osullivan (Rt) Dedra Plascencia Service: (none) Author Type: Call Center Director Type: Progress Notes Filed: 12/10/2017 11:19 AM [...] Status: F Source: [place] REPORT 11:48 AM [facility] 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 IMPRESSION: Degenerative changes as discussed. Electroencephalograph Technologist: MELANIE Transcribe Date/Time: Sep 06 2017 1:35P Dictated by : RAYMUNDO DAVID DO This examination was interpreted and the report reviewed and electronically signed by: RAYMUNDO DAVID DO on Sep 06 2017 1:38PM EST [id number] XR THORACIC 2V AP/LAT Observed: 09/05/2017 Status: F Source: [place] 10:14 AM [facility] REPOSITORY * * *Final Report* * [...] are seen. IMPRESSION: Degenerative changes as discussed. Electroencephalograph Technologist: [employer] Transcribe Date/Time: Sep 06 2017 1:35P Dictated by : RAYMUNDO DAVID DO This examination was interpreted and the report reviewed and electronically signed by: RAYMUNDO DAVID DO on Sep 06 2017 1:38PM EST [id number] Observed: 09/05/2017 Status: COMPLETED Source: [place] 10:12 AM [facility] REPOSITORY O ID: [id number] Author: VIVIEN Trinidad (Ct) Service: (none) Author Type: Clinical Call Center Director Type: Progress Notes Filed: 09/05/2017 10:12 AM Note Text: Radiology Service Progress Note PATIENT NAME: Balbina Kern DATE OF SERVICE: September 05, 2017 TIME: [...] DOWNTIME REPORT Observed: 08/30/2017 Status: F Source: [place] 2:47 PM [facility] Medical Records Department [address] [place] [address] Downtime Report MR#: [id number] Acct: [id number] Name: BALBINA KERN Rep #: [id number] : 1935 81 From: Pedro Steiner PCP: Forest Villanueva DO Status: REG CLI This patient was seen during an EMR downtime August 13, 2017 - August 20, 2017. This patient may have a combination of paper and electronic documentation or all paper documentation. All documentation is viewable within the e-chart portion of [facility] for each patient visit. DOWNTIME REPORT Observed: 08/30/2017 Status: F Source: [place] 2:45 PM [facility] Medical Records Department [address] [place] [address] Downtime Report MR#: [id number] Acct: [id number] Name: BALBINA KERN Rep #: [id number] : 1935 81 From: Pedro Steiner PCP: Forest Villanueva DO Status: REG CLI This patient was seen during an EMR downtime August 13, 2017 - August 20, 2017. This patient may have a combination of paper and electronic documentation or all paper documentation. All documentation is viewable within the e-chart portion of [facility] for each patient visit. DOWNTIME REPORT Observed: 08/30/2017 Status: F Source: [place] 2:41 PM [facility] Medical Records Department [address] [place] [address] Downtime Report MR#: [id number] Acct: [id number] Name: BALBINA KERN Rep #: [id number] : 1935 81 From: Pedro Steiner PCP: Forest Villanueva DO Status: REG CLI This patient was seen during an EMR downtime August 13, 2017 - August 20, 2017. This patient may have a combination of paper and electronic documentation or all paper documentation. All documentation is viewable within the e-chart portion of [facility] for each patient visit. DOWNTIME REPORT Observed: 08/30/2017 Status: F Source: [place] 2:31 PM [facility] Medical Records Department [address] [facility] [place] [address] Downtime Report MR#: [id number] Acct: [id number] Name: BALBINA KERN Rep #: [id number] : 1935 81 From: Pedro Steiner PCP: Forest Villanueva DO Status: REG CLI This patient was seen during an EMR downtime August 13, 2017 - August 20, 2017. This patient may have a combination of paper and electronic documentation or all paper documentation. All documentation is viewable within the e-chart portion of [facility] for each patient visit. CPK TOTAL, CREATINE Collected: 08/20/2017 Status: F Source: [place]IN[place] 11:32 AM [facility] TYPE CODE TESTS RESULT OUT OF RANGE REFERENCE UNITS LAB L501.3620 26-192 U/L Normal CPK TOTAL 38 Performed By: #### L501.3620, L501.6710 #### [facility] [address] [place], [address] CRP Collected: 08/20/2017 Status: F Source: [place] 11:32 AM [facility] TYPE CODE TESTS RESULT OUT OF RANGE REFERENCE UNITS LAB L501.6710 0.0-3.0 mg/L High 5.71 C-REACTIVE PROT Result Comment: C-Reactive Protein (CRP) provides useful information for the diagnosis, therapy and monitoring of inflammatory processes and associated diseases. For the evaluation of Relative Risk for Cardiovascular Disease, a High Sensitivity CRP (HSCRP) should be ordered. Performed By: #### L501.3620, L501.6710 #### [facility] [address] [place], [address] ERYTHROCYTE SED RATE Collected: 08/20/2017 Status: F Source: [place] 11:32 AM [facility] TYPE CODE TESTS RESULT OUT OF RANGE REFERENCE UNITS LAB L102.0000 0-30 mm/hr Normal SED RATE 14 Performed By: #### L101.9900 #### [facility] [address] [place], [address] VITAMIN B12 Collected: 08/20/2017 Status: F Source: [place] 11:32 AM [facility] TYPE CODE TESTS RESULT OUT OF RANGE REFERENCE UNITS LAB L503.0105 211-911 pg/mL Normal Vitamin B12 329 Performed By: #### L503.0105 #### [facility] [address] [place], [address] JULIO W/ REFLEX MULT Collected: 08/20/2017 Status: F Source: [facility] 11:32 AM [facility] Order Comment: Specimen Comment: A duplicate report has been generated due to demographic Specimen Comment: updates. TYPE CODE TESTS RESULT OUT OF RANGE REFERENCE UNITS LAB L3100.5475 Negative Normal Negative JULIO-DIRECT Result Comment: Performed at: [facility] Lab[address] [id number] Military Cook: Bobby Sahu PhD, Phone: [phone] LAB L3100.5500 0-9 IU/mL Normal dsDNA AB <1 Result Comment: Negative <5 Equivocal 5 - 9 Positive >9 LAB L3100.9200 0.0-0.9 AI Anti-SS-A Normal < 0.2 LAB L3100.9300 0.0-0.9 AI Anti-SS-B Normal < 0.2 LAB L3410.0427 0.0-0.9 AI ANTICHROMATIN Normal <0.2 LAB L3410.0500 0.0-0.9 AI ANTI-WILLIE Normal <0.2 LAB L3410.0700 0.0-0.9 AI ANTISCLER Normal 0.3 LAB L3410.1200 0.0-0.9 AI LEVEL VIAL MARKER Ab Normal <0.2 LAB L3410.1300 0.0-0.9 AI DUPONT Ab Normal <0.2 LAB L3410.4010 0.0-0.9 AI ANTI-CENT B Normal <0.2 Performed By: #### L3100.5450 #### [facility] (refer to report for specific site) refer to report for address and phone number THYROID STIM HORMONE Collected: 08/15/2017 Status: F Source: [place] (TSH) 10:44 AM [facility] Order Comment: RESULT(S) PREVIOUSLY REPORTED ON MANUAL REQUISITION DURING DOWNTIME. TYPE CODE TESTS RESULT OUT OF RANGE REFERENCE UNITS LAB L501.9520 0.358-3.74 uIU/mL Normal TSH 1.26 Performed By: #### L501.9520, L506.0400 #### [facility] [address] [place], [place], [id number] T4 FREE DIRECT Collected: 08/15/2017 Status: F Source: [place] 10:44 AM [facility] Order Comment: RESULT(S) PREVIOUSLY REPORTED ON MANUAL REQUISITION DURING DOWNTIME. TYPE CODE TESTS RESULT OUT OF RANGE REFERENCE UNITS LAB L506.0400 0.76-1.46 ng/dL Normal T4 FREE 1.09 DIRECT Performed By: #### L501.9520, L506.0400 #### [facility] [address] [place], [place], [address] THYROGLOBULIN W/ANTI-TG Collected: 08/15/2017 Status: F Source: [place] AB 10:44 AM [facility] TYPE CODE TESTS RESULT OUT OF [...] Анна Shanell Immunometric Assay [facility]. ORIGINAL REPORT ON FILE IN LAB CONTAINS ADDITIONAL TEST SITE INFORMATION. Performed By: #### L3300.6820 #### [facility] (refer to report for specific site) refer to report for address and phone number THYROID STIM HORMONE Collected: 06/12/2017 Status: F Source: [place] (TSH) 12:57 PM [facility] TYPE CODE TESTS RESULT OUT OF RANGE REFERENCE UNITS LAB L501.9520 0.358-3.74 uIU/mL Normal TSH 0.83 Performed By: #### L501.9520, L506.0400 #### [facility] [address] [place], [place], [address] T4 FREE DIRECT Collected: 06/12/2017 Status: F Source: [place] 12:57 PM [facility] TYPE CODE TESTS RESULT OUT OF RANGE REFERENCE UNITS LAB L506.0400 0.76-1.46 ng/dL Normal T4 FREE 1.17 DIRECT Performed By: #### L501.9520, L506.0400 #### [facility] [address] [place], [place], [address] CBC W/DIFF, AUTOMATED Collected: 06/12/2017 Status: F Source: [place] 12:57 PM [facility] TYPE CODE TESTS RESULT OUT OF [...] Lymph 2.13 Performed By: #### L100.0100 #### [facility] [place], [address] D-DIMER QUANTITATIVE Collected: 06/12/2017 Status: F Source: [place] (DVT/PE) 12:57 PM [facility] TYPE CODE TESTS RESULT OUT OF RANGE REFERENCE UNITS LAB L300.8000 0.27-0.49 FEU/ug/m Low D-DIMER < 0.27 QUANT Result Comment: NORMAL D-Dimer level (<0.50) indicates no DVT or PE. Performed By: #### L300.8000 #### [facility] [address] [place], [address] CHEST PA AND LATERAL Observed: 06/12/2017 Status: F Source: [place] 12:57 PM [facility] Imaging Services [address] [place] [address] Chest PA and Lateral MR#: [id number] Acct: [id number] Name: BALBINA KERN Rep #: [id number] : 1935 F 81 From: Hawa Humphries MD PCP: Forest Villanueva DO Status: REG CLI Study: Chest PA and Lateral Date of Exam: 06/12/17 Exam# [id number] Ordering Dr: Forest Villanueva DO STUDY: X-RAY [...] Service support , CC: Forest Villanueva DO Electroencephalograph Technologist: Signed ALLERGIES ALLERGIES DATE TYPE / CODE NAME / CODE REACTION SEVERITY SOURCE Drug Penicillins/[id number] Swelling Unknown [place] 8 Allergy/[id number] 0476(RXNORM) [facility] (SNOMED CT) Hospital Repository Drug nitrofurantoin/F00 Hives [place] 8 Allergy/[id number](RXNORM) [facility] (SNOMED CT) Hospital Repository Drug latex/[id number](R Rash Unknown [place] 8 Allergy/[id number] XNORM) [facility] [facility] Repository Miscellaneous sulfites Anaphylaxis SV [place] 8 Allergy/[id number] [facility] (SNOMED CT) Hospital Repository Drug nitrofurantoin Hives Unknown [place] 8 Allergy/[id number] macrocrystalline/F [facility] (SNOMED CT) [id number](RXNORM) Hospital Repository DRUG LANSOPRAZOLE DIARRHEA [place] 5 INGREDI/[id number] Clinic Main (SNOMED CT) [place] Repository DRUG PANTOPRAZOLE OTHER: SEE C [place] 4 INGREDI/[id number] Clinic Main (SNOMED CT) [place] Repository DRUG NAPROXEN GI UPSET [place] 1 INGREDI/[id number] [facility] Main (SNOMED CT) [place] Repository DRUG LATEX RASH [place] 1 INGREDI/[id number] [facility] (SNOMED CT) [place] Repository DRUG/[id number](SN NITROFURANTOIN RASH [place] [address]) MONOHYD/M-CRYST Clinic Main [place] Repository Drug PENICILLINS SWELLING [place] 6 Class/[id number](S Clinic Main NOMED CT) [place] Repository ENCOUNTERS ENCOUNTERS ADMIT/DISCHARGE ACCOUNT ADMITTING ENCOUNTER LOCATION SOURCE NUMBER CLASS 02/25/2018 [id number] [facility] ing:OPUS Repository 02/21/2018 [id number] [facility] ing:OPBI Repository 02/07/2018 [id number] Ambulatory [facility] Hospital ing:BFHLAB Repository 01/29/2018 [id number] Ambulatory [facility] Hospital ing:LABSPEC Repository 01/29/2018/01/30/20 [id number] Ambulatory BMSBuilding:B [place] 18 [facility] Repository 12/10/2017/12/11/19 [id number] Ambulatory [address] Repository 10/23/2017/10/24/19 [id number] Ambulatory BMSBuilding:B [place] 18 [facility] Repository 09/05/2017/09/06/19 [id number] Ambulatory [address] Repository 08/20/2017 [id number] Ambulatory [facility] Hospital ing:LAB.FUTUR Repository E 08/15/2017 [id number] Ambulatory [facility] Hospital ing:BFHLAB Repository 07/24/2017 [id number] Ambulatory BMSBuilding:B [place] Repository 07/18/2017 [id number] Ambulatory [facility] Repository 07/12/2017 [id number] Ambulatory BMSBuilding:B [place] Repository 07/11/2017 [id number] Ambulatory BMSBuilding:B [place] [facility] Repository 06/12/2017 [id number] Ambulatory [facility] Hospital ing:LAB.FUTUR Repository E 06/01/2017 [id number] Ambulatory BMSBuilding:B [place] [facility] Repository PAYERS PAYERS ENCOUNTER GUARANTOR PAYER SUBSCRIBER SOURCE 02/25/2018 BALBINA Jovel Primary Insurance:MMO BALBINA F [place] [id number] MEDICAREPolicy RAIFSNIDERDOB: [facility] DRAPT Number: [id number] [id number] Repository [address]Oxr: 330 Date:9612-06-19CW [phone] () [address] [address]JL: 02/25/2018 Secondary NOT GIVENUNK [place] Insurance:SELF PAY [facility] Number: Effective Repository Date:2018-02-22 02/21/2018 BALBINA Jovel Primary Insurance:MMO BALBINA Jovel [place] [id number] MEDICAREPolicy RAIFSNIDERDOB: Community STEF DRAPT Number: [id number] [id number] Repository [address]Kof: (330) Date:4041-39-67NI [phone] () [address] [place] [phone]: 02/21/2018 Secondary NOT GIVENUNK [place] Insurance:SELF PAY [facility] Number: Effective Repository Date:2018-01-08 02/07/2018 BALBINA F Primary Insurance:MMO BALBINA Jovel [place] [id number] MEDICAREPolicy RAIFSNIDERDOB: Community [address] Number: [id number] [id number] Repository [address]Xfs: (330) Date:0596-34-67XX [phone] (HP) [address] [place], [place] [phone]: 02/07/2018 Secondary NOT GIVENUNK [place] Insurance:SELF PAY [facility] Number: Effective Repository Date:2018-02-07 01/29/2018 BALBINA F Primary Insurance:MMO BALBINA Jovel [place] [id number] MEDICAREPolicy RAIFSNIDERDOB: Community [address] Number: [id number] [id number] Repository [address]Zrk: (330) Date:0908-96-34WP [phone] (HP) [address] [place], [place] [phone]: 01/29/2018 Secondary NOT GIVENUNK [place] Insurance:SELF PAY [facility] Number: Effective Repository Date:2018-01-29 01/29/2018 BALBINA Primary Insurance:MMO BALBINA [place] [id number] MEDICAREPolicy RAIFSNIDERDOB: Community [address] Number: [id number] [id number] Repository [address]64[address]Zve: (330) Date:2528-01-79RC [phone] () [address] [place] [phone]: 01/29/2018 Secondary NOT GIVENUNK [place] Insurance:SELF PAY [facility] Number: Effective Repository Date:2018-01-29 10/23/2017 BALB[place] Primary Insurance:MMO BALBINA [place] [id number] MEDICAREPolicy RAIFSNIDERDOB: Community [address] Number: [id number] [id number] Repository [address]Mcw: (330) Date:0114-88-29BB [phone] (HP) [address] [place] [phone]: 10/23/2017 Secondary NOT GIVENUNK [place] Insurance:SELF PAY [facility] Number: Effective Repository Date:2017-10-23 08/20/2017 Balb[place] Primary Insurance:MMO Balbina [place] [id number] MEDICAREPolicy RaifsniderDOB: Community [address] Number: [id number] [id number] Repository [address]Apx: (330) Date:0037-19-86DT [phone] (HP) [address] [place] [phone]: 08/20/2017 Secondary NOT GIVENUNK [place] Insurance:SELF PAY [facility] Number: Effective Repository Date:2017-08-17 08/15/2017 Balb[place] Primary Insurance:MMO Balbina [place] [id number] MEDICAREPolicy RaifsniderDOB: Community [address] Number: [id number] [id number] Repository [address]Btl: (330) Date:3709-47-46ZC [phone] (HP) [address] [place] [phone]: 08/15/2017 Secondary NOT GIVENUNK [place] Insurance:SELF PAY [facility] Number: Effective Repository Date:2017-08-15 07/24/2017 Balbina Primary Insurance:MMO Balbina [place] [id number] MEDICAREPolicy RaifsniderDOB: Community [address] Number: [id number] [id number] Repository [address]Kda: (330) Date:2911-06-57GG [phone] (HP) [address] [place] [phone]: 07/24/2017 Secondary NOT GIVENUNK [place] Insurance:SELF PAY [facility]: Effective Repository Date:2017-06-26 07/18/2017 Balbina Primary Insurance:MMO Balbina [place] [id number] MEDICAREPolicy RaifsniderDOB: Community [address] Number: [id number] [id number] Repository [address]Sef: (330) Date:8132-11-38YZ [phone] () [address] [place] [phone]: 07/18/2017 Secondary NOT GIVENUNK [place] Insurance:SELF PAY [facility] Number: Effective Repository Date:2017-07-18 07/12/2017 Balbina Primary Insurance:MMO Balbina [place] [id number] MEDICAREPolicy RaifsniderDOB: Community [address] Number: [id number] [id number] Repository [address]Rrn: (330) Date:7953-75-10AH [phone] () [address] [place] [phone]: 07/12/2017 Secondary NOT GIVENUNK [place] Insurance:SELF PAY [facility] Number: Effective Repository Date:2017-06-13 07/11/2017 Balbina Primary Insurance:MMO Balbina [place] [id number] MEDICAREPolicy RaifsniderDOB: Community [address] Number: [id number] [id number] Repository [address]Yel: (330) Date:4878-17-43VI [phone] (HP) [address] [place] [phone]: 07/11/2017 Secondary NOT GIVENUNK [place] Insurance:SELF PAY [facility] Number: Effective Repository Date:2017-07-11 06/12/2017 Balbina Primary Insurance:MMO Balbina Daigleoster [id number] MEDICAREPolicy RaifsniderDOB: Community [address] Number: [id number] [id number] Repository [address]Fcq: (330) Date:8269-25-89AF [phone] () [address] [place], [place] [phone]: 06/12/2017 Secondary NOT GIVENUNK [place] Insurance:SELF PAY [facility] Number: Effective Repository Date:2017-02-21 06/01/2017 Balb[place] Primary Insurance:MMO Balbina [place] [id number] MEDICAREPolicy RaifsniderDOB: Community [address] Number: [id number] [id number] Repository [address]Juk: (330) Date:6142-46-70GF [phone] (HP) [address] [place] [phone]: 06/01/2017 Secondary NOT GIVENUNK [place] Insurance:SELF PAY [facility] Number: Effective Repository Date:2017-02-16
== END ==
PROVIDERS: Family Provider Family Medicine; PCP Family Medicine; Referring Provider Family Medicine; Visit Provider Family Medicine
DX: R92.2 Inconclusive mammogram (principal); R92.8 Other abnormal and inconclusive findings on diagnostic imaging of breast
CPT/HCPCS: 76642

== ENCOUNTER → 2018-05-24 14:23 | Outpatient (CLI) | payer MEDICARE, SELFPAY ==
[2018-01-29 14:20] VITALS: BMI 45.6
[2018-05-24 15:26] LABS: Absolute Lymphocyte Count 1.93 X10^3/ul (0.83-4.51); Absolute Neutrophil Count 4.4 X10^3/uL (2.0-7.7); Basophil# 0.04 X10^3/uL; Basophil% 0.6 % (0-1); Eosinophil# 0.15 X10^3/uL; Eosinophils% 2.2 % (0-5); Hematocrit 40.2 % (37-47); Hemoglobin 12.9 g/dl (12.0-15.0); Lymphocyte # 1.93 X10^3/ul (4.0); Lymphocyte % 28.7 % (19-41); Mean Corp Hgb Conc 32.1 g/gl (32-36); Mean Corpuscular Hgb 28.2 pg (27.0-32.0); Mean Platelet Vol. 11.6 fl (6.2-12.0); Monocyte# 0.19 X10^3/uL; Monocyte% 2.8 % (0-10); Neutrophil # 4.39 X10^3/uL (2.7-7.7); Neutrophil % 65.4 % (47-70); Platelet Count 203 K/mm3 (150-450); RBC Distribution Width CV 13.8 % (11.6-14.6); RBC Distribution Width SD 44.2 fl (35.1-43.9); Red Blood Count 4.57 M/mm3 (4.2-5.4); White Blood Count 6.7 K/mm3 (4.4-11.0)
[2018-05-24 15:32] LABS: POSITIVE COUNT NO; POSITIVE DIFFERENTIAL NO; POSITIVE MORPHOLOGY NO
[2018-05-24 15:44] LABS: Hemoglobin A1c 5.7 % (4.2-6.3)
[2018-05-24 15:50] LABS: D-Dimer Quantitative (DVT/PE) < 0.27 FEU/ug/m (0.27-0.49)
[2018-05-24 16:05] LABS: ALB/GLOB Ratio 0.9 RATIO (0.9-2.4); AST(SGOT) 10 U/L (15-37); Alanine Aminotransfer ALT/SGPT 17 U/L (13-56); Albumin, Serum 3.5 g/dL (3.2-5.0); Alkaline Phosphatase 88 U/L (45-117); Anion Gap 4 (5-15); BUN 20 mg/dL (7-18); BUN/Creat Ratio 20.9 RATIO (10-20); Calcium,Total 8.4 mg/dL (8.5-10.1); Chloride 106 mmol/L (98-107); Creatinine, Serum 0.96 mg/dL (0.55-1.02); EST Glomerular Filtration Rate 59 mL/min (>60); Est Glom Filt Rate - Afr Amer 72 mL/min (>60); Globulin 3.8 g/dL (2.2-4.2); Glucose 137 mg/dL (74-106); Potassium 3.9 mmol/L (3.5-5.1); Protein, Total 7.3 g/dL (6.4-8.2); Sodium Level 137 mmol/L (136-145); T4 Free Direct 1.01 ng/dL (0.76-1.46); Thyroid Stim Hormone (TSH) 0.66 uIU/mL (0.358-3.74)
[2018-05-24 16:06] LABS: BNP,B-Type NATRIURETIC PEPTIDE 34.5 pg/mL (0-100)
== END ==
PROVIDERS: Family Provider Family Medicine; PCP Family Medicine; Visit Provider Family Medicine
DX: R07.9 Chest pain, unspecified (principal); I50.9 Heart failure, unspecified; E03.2 Hypothyroidism due to medicaments and other exogenous substances; R63.5 Abnormal weight gain; R73.01 Impaired fasting glucose; R06.09 Other forms of dyspnea
CPT/HCPCS: 36415; 80053; 82533; 83036; 83880; 84439; 84443; 85025; 85379

== ENCOUNTER → 2018-08-08 14:34 | Outpatient (CLI) | payer MEDICARE, SELFPAY ==
[2018-01-29 14:20] VITALS: BMI 45.6
== END ==
PROVIDERS: Family Provider Family Medicine; PCP Family Medicine; Referring Provider Family Medicine; Visit Provider Family Medicine
DX: G47.33 Obstructive sleep apnea (adult) (pediatric) (principal)
CPT/HCPCS: 98960; G0463

== ENCOUNTER → 2018-08-15 09:37 | Outpatient (CLI) | payer MEDICARE, SELFPAY ==
[2018-01-29 14:20] VITALS: BMI 45.6
--- NOTE | 2018-08-15 13:34 | PFT ---
INTRODUCTION: The patient is an 82-year-old female that presents for pulmonary function studies secondary to a diagnosis of dyspnea on exertion. Respiratory therapy reports good patient effort. Bronchodilators were used during testing. INTERPRETATION: Forced expiration spirometry demonstrates no evidence of a large airways obstructive ventilatory defect. There was no significant response to aerosolized bronchodilators, based upon strict ATS criteria. Spirograms are of good quality and plateau normally. Body plethysmography was performed and reveals lung volumes to be within normal limits. Diffusing capacity by single breath CO is moderately reduced at 58% of predicted. IMPRESSION: Isolated moderate reduction in diffusing capacity, which could be related to an underlying pulmonary vascular disorder such as pulmonary hypertension.
== END ==
PROVIDERS: Family Provider Family Medicine; PCP Family Medicine; Referring Provider Family Medicine; Visit Provider Family Medicine
DX: R06.09 Other forms of dyspnea (principal); R06.2 Wheezing
CPT/HCPCS: 94060; 94726; 94729

== ENCOUNTER → 2018-08-21 11:03 | Outpatient (CLI) | payer MEDICARE, SELFPAY ==
[2018-01-29 14:20] VITALS: BMI 45.6
[2018-08-21 13:46] VITALS: PULSE 76; PULSE 82; PULSE 96; PULSE 97; PULSE 98; PULSE 99; O2SAT 95; O2SAT 96; O2SAT 97; O2SAT 98
--- NOTE | 2018-08-21 15:06 | PCM.PSN.6M ---
PSN 6 Minute Walk Test - 6 Minute Walk Test 6 Minute Walk Test: 6 Minute Walk Test PSN:6-Minute Walk Test Start: 08/21/18 13:46 Freq: Status: Active Protocol: RESP.6MINW Document 08/21/18 13:46 SMB (Rec: 08/21/18 13:49 SMB [id number]) 6 Minute Walk Test Date Performed 08/21/18 Time Performed 11:33 Height 5 ft 4 in Weight: 119.295 kg Weight in Pounds 263.[address]: Terrell Villanueva Assistive device used: Walker Pre-test Oxygen Delivery Method Room Air Pulse Ox (%) 95 Pulse Rate (60-100 beats/min) 76 Dyspnea Trish Scale (0-10) 0 Exertion Trish Scale (6-20) 11 1st minute Oxygen Delivery Method Room Air Pulse Ox (%) 97 Pulse Rate (60-100 beats/min) 96 2nd minute Oxygen Delivery Method Room Air Pulse Ox (%) 95 Pulse Rate (60-100 beats/min) 98 3rd minute Oxygen Delivery Method Room Air Pulse Ox (%) 97 Pulse Rate (60-100 beats/min) 97 4th minute Oxygen Delivery Method Room Air Pulse Ox (%) 96 Pulse Rate (60-100 beats/min) 98 5th minute Oxygen Delivery Method Room Air Pulse Ox (%) 96 Pulse Rate (60-100 beats/min) 99 6th minute Oxygen Delivery Method Room Air Pulse Ox (%) 97 Pulse Rate (60-100 beats/min) 99 Post-test Oxygen Delivery Method Room Air Pulse Ox (%) 98 Pulse Rate (60-100 beats/min) 82 Dyspnea Trish Scale (0-10) 4 Exertion Trish Scale (6-20) 13 Full Laps Walked 10 Partial Lap, Number of Tiles Walked 8 Total Distance Walked (ft) 598 - Interpretation Interpretation: The patient was able to ambulate only 598 feet over the course of 6 minutes on room air with the assistance of a cane and walker and no breaks. The patient experienced no significant desaturation or tachycardia. These findings are consistent with a musculoskeletal limitation exercise tolerance. - Recommendations Recommendations: No supplemental oxygen is indicated at this time.
== END ==
PROVIDERS: Family Provider Family Medicine; PCP Family Medicine; Referring Provider Family Medicine; Visit Provider Family Medicine
DX: R06.09 Other forms of dyspnea (principal)
CPT/HCPCS: 94618

== ENCOUNTER → 2018-10-09 20:19 | Outpatient (CLI) | payer MEDICARE, SELFPAY ==
[2018-01-29 14:20] VITALS: BMI 45.6
== END ==
PROVIDERS: Family Provider Family Medicine; PCP Family Medicine; Referring Provider Family Medicine; Visit Provider Family Medicine
DX: G47.33 Obstructive sleep apnea (adult) (pediatric) (principal)
CPT/HCPCS: 95811

== ENCOUNTER → 2018-11-12 13:35 | Outpatient (CLI) | payer MEDICARE, SELFPAY ==
[2018-01-29 14:20] VITALS: BMI 45.6
--- NOTE | 2018-11-12 13:38 | ART_ITS ---
Reason For Study: Claudication Procedure A bilateral lower extremity continuous wave Doppler with analog waveform analysis and ankle brachial indexes. Left Segmental Pressures Left brachial= 131mmHg. Left posterior tibial artery = 137mmHg. Left dorsalis pedis artery = 136mmHg. The left dorsalis pedis waveforms are triphasic. The left posterior tibial artery waveforms are triphasic. Right Segmental Pressures Right brachial= 134mmHg. Right posterior tibial artery = 137mmHg. Right dorsalis pedis artery = 136mmHg. The right dorsalis pedis waveforms are triphasic. The right posterior tibial artery waveforms are triphasic. Indices The right ankle brachial index by the dorsalis pedis is 1.01. The right ankle brachial index by the posterior tibial artery is 1.02. The left ankle brachial index by the dorsalis pedis is 1.01. The left ankle brachial index by the posterior tibial artery is 1.02. Interpretation Summary Triphasic Doppler waveforms are noted at ankle level bilaterally. Resting ankle-brachial indices are normal bilaterally. There is no evidence of significant arterial occlusive disease in the lower extremities bilaterally. Ordering Physician: Terrell Villanueva Referring Physician: Terrell Villanueva Performed By: Linda Kc RVT
== END ==
PROVIDERS: Family Provider Family Medicine; PCP Family Medicine; Referring Provider Family Medicine; Visit Provider Family Medicine
DX: I73.9 Peripheral vascular disease, unspecified (principal)
CPT/HCPCS: 93922

== ENCOUNTER → 2019-03-27 11:23 | Outpatient (CLI) | payer BC, SELFPAY ==
[2019-02-27 15:04] VITALS: BMI 45.1
[2019-03-27 15:38] LABS: Absolute Lymphocyte Count 1.91 X10^3/uL (0.83-4.51); Absolute Neutrophil Count 4.9 X10^3/uL (2.0-7.7); Basophil# 0.05 X10^3/uL; Basophil% 0.7 % (0-1); Eosinophil# 0.11 X10^3/uL; Eosinophils% 1.5 % (0-5); Hematocrit 40.7 % (37-47); Hemoglobin 12.7 g/dL (12.0-15.0); Lymphocyte # 1.91 X10^3/ul (4.0); Lymphocyte % 25.9 % (19-41); Mean Corp Hgb Conc 31.2 g/dL (32-36); Mean Corpuscular Hgb 27.1 pg (27.0-32.0); Mean Corpuscular Volume 86.8 fL (81-99); Mean Platelet Vol. 12.2 fl (6.2-12.0); Monocyte# 0.39 X10^3/uL; Monocyte% 5.3 % (0-10); NRBC Flagged by Analyzer 0 % (0-5); Neutrophil # 4.89 X10^3/uL (2.7-7.7); Neutrophil % 66.2 % (47-70); Platelet Count 205 K/mm3 (150-450); RBC Distribution Width CV 13.2 % (11.6-14.6); RBC Distribution Width SD 41.7 fl (35.1-43.9); Red Blood Count 4.69 M/mm3 (4.2-5.4); White Blood Count 7.4 K/mm3 (4.4-11.0)
[2019-03-27 16:00] LABS: Vitamin B12 414 pg/mL (211-911); Vitamin D,25 Hydroxy 29.7 ng/mL (29.95-100.01)
[2019-03-27 16:01] LABS: Ferritin 78 ng/mL (8-252); Iron 83 ug/dL (50-170); T4 Free Direct 1.28 ng/dL (0.76-1.46); Thyroid Stim Hormone (TSH) 0.73 uIU/mL (0.358-3.74)
[2019-04-01 16:18] LABS: Anti-Thyroglobulin AB < 1.0 IU/mL (0.0-0.9); Thyroglobulin, Serum Qt. < 0.1 ng/mL (1.5-38.5)
== END ==
PROVIDERS: PCP Family Medicine; Visit Provider Family Medicine
DX: E03.2 Hypothyroidism due to medicaments and other exogenous substances (principal); E55.9 Vitamin D deficiency, unspecified; D64.9 Anemia, unspecified; Z85.850 Personal history of malignant neoplasm of thyroid
CPT/HCPCS: 36415; 82306; 82533; 82607; 82728; 83540; 84432; 84439; 84443; 85025; 86800

== ENCOUNTER → 2019-04-09 08:34 | Outpatient (CLI) | payer BC, SELFPAY ==
[2019-02-27 15:04] VITALS: BMI 45.1
[2019-04-09 08:55] VITALS: BP 126/66; PULSE 77; RESP 18; TEMP 36.5; O2SAT 93; BMI 42.3
[2019-04-09] MEDS: Cosyntropin 0.25 MG Vial IM (09:13)
== END ==
LOC: MEDOUTP 08:38
PROVIDERS: PCP Family Medicine; Referring Provider Family Medicine; Visit Provider Family Medicine
DX: R53.83 Other fatigue (principal); E27.40 Unspecified adrenocortical insufficiency
CPT/HCPCS: 36415; 82533; 96372; J0834

== ENCOUNTER → 2019-05-01 11:26 | Outpatient (CLI) | payer BC, SELFPAY ==
[2019-04-09 08:55] VITALS: BMI 42.3
[2019-05-01 11:29] LABS: Bacteria 0 SEEN /hpf (None Seen); Mucous, Urine 0 SEEN /hpf (<or=2+)
[2019-05-01 12:20] LABS: Color, Urine Yellow (Yellow); Glucose, Dipstick Normal (Normal); Ketone-Dipstick Negative (Negative); Leukocyte Esterase-Dipstick 500 /ul (Negative); Nitrite-Dipstick Negative (Negative); Occult Blood-Urine 25 /ul (Negative); Protein-Dipstick Negative (Negative); Urine Bilirubin Dipstick Negative (Negative); Urine Clarity Sl. Cloudy (Clear); Urine Urobilinogen Normal (Normal)
[2019-05-01 12:33] LABS: Red Blood Cells-Urine 0-5 SEEN /hpf (0-5); Squamous Epithelial Cells - UA 0-5 SEEN /hpf (5-10); White Blood Cells 25-50 SEEN /hpf (0-5)
== END ==
PROVIDERS: PCP Family Medicine; Visit Provider Family Medicine
DX: R30.0 Dysuria (principal)
CPT/HCPCS: 36415; 81001; 87077; 87086; 87088; 87186

== ENCOUNTER 2019-07-07 11:28 | Emergency (ER) | payer MEDICARE, SELFPAY ==
[2019-07-07 11:02] VITALS: BMI 42.3
[2019-07-07 11:30] VITALS: BP 149/88; PULSE 76; RESP 18; TEMP 36.6; O2SAT 93; BMI 37.9
--- NOTE | 2019-07-07 11:49 | RAD_ITS ---
STUDY: X-RAY CHEST REASON FOR EXAM: Female, 83 years old. SOB TECHNIQUE: Single AP portable view of the chest. COMPARISON: Comparison is made with prior examination June 12, 2017. FINDINGS: EKG electrodes are seen. The lungs are clear and expanded. There is no demonstrated pleural abnormality. There is borderline cardiomegaly. Normal mediastinum and jimmie. Normal visualized pulmonary arteries. Normal visualized aortic arch and descending thoracic aorta. Normal visualized thoracic spine. There is degenerative osteoarthritis of the bilateral shoulders. Moderate sized hiatal hernia. RAD/Chest 1 View (Portable) IMPRESSION: Borderline cardiomegaly. Moderate sized hiatal hernia. Electronically Signed: Andrei Vences, at 13:29 EDT , Service support ,
--- NOTE | 2019-07-07 11:57 | EKG12_ITS ---
Test Reason : Blood Pressure : / mmHG Vent. Rate : 071 BPM Atrial Rate : 071 BPM P-R Int : 202 ms QRS Dur : 074 ms QT Int : 388 ms P-R-T Axes : -01 027 039 degrees QTc Int : 421 ms Normal sinus rhythm Normal ECG Confirmed by VIKY WEAVER ([id number]), slot editor RIMA DAMON ([id number]) on 07/14/2019 2:55:25 PM Referred By: YURI Confirmed By:VIKY WEAVER
--- NOTE | 2019-07-07 11:58 | CT_ITS ---
STUDY: CT ABDOMEN AND PELVIS WITHOUT CONTRAST REASON FOR EXAM: Female, 83 years old. ABD PAIN, CHILLS, NAUSEA, SHORTNESS OF BREATH W/ BILAT LE EDEMA X3 WKS -- SURG-GB,APPY, RIGHT mastectomy D/T CA -- THYROID CA RADIATION DOSAGE (If Supplied By Facility): CTDIvol = ( 34.10 ) mGy, DLP = ( 1533.46 ) mGycm TECHNIQUE: Transaxial images were obtained from the dome of the diaphragm to the symphysis pubis without oral contrast, and without intravenous contrast. Sagittal and coronal images were reconstructed. Individualized dose optimization techniques were used for this CT. COMPARISON: Comparison is made with prior examination dated February 21, 2018. FINDINGS: Prior right mastectomy. Calcified granuloma at the right lung base. The visualized portions of the heart are within normal limits. Normal liver. There are surgical clips in the gallbladder fossa consistent with a prior cholecystectomy. Normal spleen. Normal pancreas. Normal bilateral adrenal glands. 1.3 cm cyst in the anterior midportion of the right kidney. 2.3 cm cyst in the lateral inferior aspect of the left kidney. Minimal fullness of the left renal pelvis. There is a moderate-sized hiatal hernia. Stable diverticulum in the second portion of the duodenum. Normal colon. The appendix is visualized and appears normal. There is diffuse atherosclerotic calcification of the abdominal aorta and the major visceral branches., without a demonstrated aneurysm. Normal inferior vena cava. Normal retroperitoneum. Normal urinary bladder. There is absence of the uterus consistent with a prior hysterectomy. There is a small umbilical hernia containing fat. There are diffuse degenerative changes of the visualized lumbar spine. Levoscoliosis. The patient is status post bilateral hip replacement causing beam hardening artifact in the pelvis. CT/Abdomen/Pelvis without Cont IMPRESSION: Status post cholecystectomy. Stable diverticulum in the second portion of the duodenum. Stable bilateral renal cysts. Electronically Signed: Andrei Vences, at 13:26 EDT , Service support ,
--- NOTE | 2019-07-07 12:08 | ED.VIS.GEN ---
History of Present Illness Chief Complaint: General Illness Informant: Patient Current Severity: Moderate Maximum Severity: Moderate Narrative: Presents with 3-week history of abdominal pain in the left lower quadrant and suprapubic regions, she has seen her physician and was placed on antibiotics for presumed diverticulitis, she has a history of diverticulitis and this feels similar. She tells me her pain is no better. She also has some slight dyspnea since she has not been able to use her CPAP machine over the past 2 nights, since she has had to sleep in a recliner she also has increased lower extremity edema. She has no fevers, the chief complaints as chills, however the patient denies any chills at this time. There is no cough or congestion. She denies dysuria or pressure with urination. She has no flank pain. She has no back pain or tearing sensation she has no pleuritic component. Past Medical History - Allergies and Home Meds Allergies/Adverse Reactions: Allergies nitrofurantoin [From Macrobid] Allergy (Intermediate, Verified 07/07/19 11:30) hives latex Allergy (Verified 07/07/19 11:30) Rash Penicillins Allergy (Verified 07/07/19 11:30) Swelling Primary Care Physician: Terrell Villanueva DO [Primary Care Provider] - Past Medical History: - - Patient has multiple medical problems which were reviewed by me, hypertension hypercholesterolemia, morbid obesity Surgical History: appendectomy, cholecystectomy, colectomy - for diverticulosis, hysterectomy, mastectomy, total hip arthroplasty, total knee arthroplasty, - - Patient tells me that she has had her vagina sewed shut because of vaginal prolapse Smoking Status: Former smoker Review of Systems All systems negative except as indicated General: Denies: Fever ENT: Denies: Rhinorrhea Cardiovascular: Denies: Chest pain, Palpitations Respiratory: Reports: Dyspnea. Denies: Cough, Sputum Gastrointestinal: Reports: Abdominal pain, Nausea. Denies: Vomiting, Diarrhea, Constipation Genitourinary: Denies: Dysuria Musculoskeletal: Reports: Swelling Skin: Denies: Rash, Abrasions Neurological: Denies: Headache, Weakness Endocrine: Denies: Polyuria Physical Exam Vital Signs/Narrative: Vital Signs Temp Pulse Resp BP Pulse Ox 07/07/19 11:30 97.8 F 76 18 149/88 H 93 General: Well nourished, Obese Head: Normocephalic Eyes: Negative for: Pale conjunctiva, Scleral icterus ENT: Moist mucous membranes Neck: Supple Cardiovascular: Regular rate, Regular rhythm, No murmurs Respiratory: No distress, CTA bilaterally, - - Speaks in full sentences Abdomen: Soft, - - There is suprapubic and some left lower quadrant abdominal pain. No guarding or rebound. Rectal: Deferred Back: Nontender. Negative for: CVA tenderness Extremities: - - Bilateral lower extremity edema which is symmetric, slight erythema but no calor, the erythema disappears when I elevate the leg. Skin: Normal color, - - As above Neurological: Normal Strength, Normal Sensation Psychological: Normal affect Diagnostic/Tx/Re-eval - Rhythm Strip Rhythm Strip: Sinus Rhythm Rate: 71 Ectopy: None - EKG Initial EKG Interpretation: Sinus Rhythm - Normal sinus rhythm with a rate of 71. Normal NC and QTc intervals. No ischemic changes. Interpreted by emergency doctor. - Medical Decision Making She has an unremarkable emergency department work-up. She has an unremarkable CAT scan, normal urinalysis and blood work. I did specifically tell her she needs a GI referral if she will need an outpatient colonoscopy. She agrees she will follow-up for this and she will be referred I asked her she does not want any analgesia for home I told her if her pain worsens in any way she needs to return. As far as her lower extremity edema, this is dependent edema since she was sleeping in a recliner the last 2 nights she will get her CPAP fixed and sleep in her regular bed. She also has stockings but she has not been using them I encouraged her to do so. At this time there is no sign of cellulitis. Patient was seen by me during peak influenza as well as the coronavirus outbreak. It is an epidemic. It is in National state of emergency. There is quite a bit of a risk in all patients presenting to the emergency department. However per [facility] protocol all attempts were made by myself as well as the staff to keep the contamination level down. I was fully mask and gloved the entire time in the patient's presence. Patient may benefit from more testing however at this time it would be riskier to either get more testing or to get admitted to the hospital. The patient has normal vital signs appears well and can get the rest of the testing done in the outpatient environment which would be much safer for the patient. ED Disposition - Plan for ED Patient: Disposition: Home or Assisted Living Diagnosis: Abdominal pain, Edema Instructions: ED Acute Pain [facility], ED Lymphedema Referrals: Terrell Villanueva DO [Primary Care Provider] - 3-5 Days Bobby Ecehverria MD [NON-STAFF] - 1 Week
[2019-07-07 12:26] LABS: Absolute Lymphocyte Count 1.63 X10^3/uL (0.83-4.51); Absolute Neutrophil Count 4.2 X10^3/uL (2.0-7.7); Basophil# 0.06 X10^3/uL; Basophil% 0.9 % (0-1); Eosinophils% 3.1 % (0-5); Hematocrit 39.2 % (37-47); Hemoglobin 12.8 g/dL (12.0-15.0); Lymphocyte # 1.63 X10^3/ul (4.0); Lymphocyte % 25.3 % (19-41); Mean Corp Hgb Conc 32.7 g/dL (32-36); Mean Corpuscular Hgb 27.9 pg (27.0-32.0); Mean Corpuscular Volume 85.6 fL (81-99); Mean Platelet Vol. 10.2 fl (6.2-12.0); Monocyte# 0.37 X10^3/uL; Monocyte% 5.7 % (0-10); NRBC Flagged by Analyzer 0 % (0-5); Neutrophil # 4.17 X10^3/uL (2.7-7.7); Neutrophil % 64.7 % (47-70); Platelet Count 161 K/mm3 (150-450); RBC Distribution Width CV 14.3 % (11.6-14.6); RBC Distribution Width SD 44.1 fl (35.1-43.9); Red Blood Count 4.58 M/mm3 (4.2-5.4); White Blood Count 6.5 K/mm3 (4.4-11.0)
[2019-07-07 12:43] LABS: ALB/GLOB Ratio 0.8 RATIO (0.9-2.4); AST(SGOT) 15 U/L (15-37); Alanine Aminotransfer ALT/SGPT 21 U/L (13-56); Albumin, Serum 3.4 g/dL (3.2-5.0); Alkaline Phosphatase 80 U/L (45-117); Anion Gap 5 (5-15); BUN 12 mg/dL (7-18); BUN/Creat Ratio 15.5 RATIO (10-20); Calcium,Total 9.1 mg/dL (8.5-10.1); Chloride 106 mmol/L (98-107); Creatinine, Serum 0.78 mg/dL (0.55-1.02); EST Glomerular Filtration Rate 76 mL/min (>60); Est Glom Filt Rate - Afr Amer 91 mL/min (>60); Estimated Creatinine Clearance 42.18 ml/min; Glucose 93 mg/dL (74-106); Potassium 3.9 mmol/L (3.5-5.1); Protein, Total 7.4 g/dL (6.4-8.2); Sodium Level 140 mmol/L (136-145)
[2019-07-07 12:44] LABS: BNP,B-Type NATRIURETIC PEPTIDE 124.4 pg/mL (0-100)
[2019-07-07 13:09] LABS: Bacteria 0 SEEN /hpf (None Seen); Mucous, Urine 0 SEEN /hpf (<or=2+); Red Blood Cells-Urine 0 SEEN /hpf (0-5); White Blood Cells 0 SEEN /hpf (0-5)
[2019-07-07 13:11] LABS: Color, Urine Yellow (Yellow); Glucose, Dipstick Normal (Normal); Ketone-Dipstick Negative (Negative); Leukocyte Esterase-Dipstick Negative /ul (Negative); Nitrite-Dipstick Negative (Negative); Occult Blood-Urine Negative /ul (Negative); Protein-Dipstick Negative (Negative); Specific Gravity, Urine 1.005 (1.002-1.030); Urine Bilirubin Dipstick Negative (Negative); Urine Clarity Sl. Cloudy (Clear); Urine Urobilinogen Normal (Normal)
[2019-07-07 13:12] VITALS: BP 166/72; PULSE 72; RESP 15; O2SAT 99
[2019-07-07 13:17] LABS: Squamous Epithelial Cells - UA 0-5 SEEN /hpf (5-10)
[2019-07-07 14:16] VITALS: BP 166/72; PULSE 72; RESP 20; O2SAT 96
== END 2019-07-07 14:16 | disposition home or self-care (01) ==
PROVIDERS: Emergency Provider Emergency Medicine; PCP Family Medicine
DX: R10.32 Left lower quadrant pain (principal); R60.0 Localized edema; R06.00 Dyspnea, unspecified; I10 Essential (primary) hypertension; E78.00 Pure hypercholesterolemia, unspecified; E66.01 Morbid (severe) obesity due to excess calories; Z79.899 Other long term (current) drug therapy; Z88.0 Allergy status to penicillin; Z88.1 Allergy status to other antibiotic agents; Z91.040 Latex allergy status; Z87.19 Personal history of other diseases of the digestive system; Z87.891 Personal history of nicotine dependence; Z90.710 Acquired absence of both cervix and uterus; Z90.49 Acquired absence of other specified parts of digestive tract; Z90.11 Acquired absence of right breast and nipple
CPT/HCPCS: 71045; 74176; 80053; 81001; 83880; 84484; 85025; 93005; 99284; A4216

== ENCOUNTER → 2019-07-22 12:32 | Outpatient (CLI) | payer MEDICARE, SELFPAY ==
[2019-07-15 13:40] VITALS: BMI 41.5
[2019-07-22 15:21] LABS: Anion Gap 8 (5-15); BUN 26 mg/dL (7-18); BUN/Creat Ratio 28.4 RATIO (10-20); Calcium,Total 9.5 mg/dL (8.5-10.1); Chloride 96 mmol/L (98-107); Creatinine, Serum 0.92 mg/dL (0.55-1.02); EST Glomerular Filtration Rate 62 mL/min (>60); Est Glom Filt Rate - Afr Amer 75 mL/min (>60); Glucose 103 mg/dL (74-106); Potassium 4.6 mmol/L (3.5-5.1); Sodium Level 128 mmol/L (136-145)
== END ==
PROVIDERS: PCP Family Medicine; Referring Provider Internal Medicine Cardiovascular Disease; Visit Provider Internal Medicine Cardiovascular Disease
DX: I10 Essential (primary) hypertension (principal); C50.919 Malignant neoplasm of unspecified site of unspecified female breast; E78.5 Hyperlipidemia, unspecified; R00.2 Palpitations; R06.09 Other forms of dyspnea; R53.83 Other fatigue; R60.9 Edema, unspecified
CPT/HCPCS: 36415; 80048

== ENCOUNTER 2019-07-28 06:13 | Day surgery (SDC) | payer MEDICARE, SELFPAY ==
[2019-07-15 13:40] VITALS: BMI 41.5
[2019-07-28 06:41] VITALS: BP 147/57; PULSE 97; RESP 16; TEMP 36.1; O2SAT 99; BMI 44.7
[2019-07-28] MEDS: Lactated Ringers 1,000 ML 100 ML IV (06:48)
--- NOTE | 2019-07-28 07:45 | HP.PCM_ITS ---
History and Physical Date of Admission: 07/28/19 [facility] [address] [place] [address] OFFICE VISIT Date of Service: 07/14/19 MR#: [id number] Acct: [id number] Name: AMILCAR KERN Rep #: [id number] : 1935 Provider: Kirill humphreys MD Age/Sex: 83/F Location: [facility] Status: Signed Intake Vital Signs 07/14/19 BMI 37.9 07/14/19 Height 5 ft 4 in 07/14/19 Weight: 242 lb 07/14/19 BMI 41.5 07/14/19 BP 158/87 H 07/14/19 Blood Pressure Location Lt brachial 07/14/19 Position Sitting 07/14/19 Respiration 20 H 07/14/19 Pulse 77 07/14/19 Pulse Source Monitor 07/14/19 Temp 98.2 F 07/14/19 Temp Source Oral 07/14/19 Pulse Oximetry (%) 98 07/14/19 Oxygen Delivery Method room air Intake Visit Reasons: ER F/U 07/06 Abdominal Pain Chief Complaint: abdominal pain [employer] Required: No Is patient in pain?: Yes Allergies nitrofurantoin [From Macrobid] Allergy (Intermediate, Verified 07/14/19 13:00) hives latex Allergy (Verified 07/14/19 13:00) Rash Penicillins Allergy (Verified 07/14/19 13:00) Swelling Medications Sertraline HCl [Zoloft] 50 mg PO BID 01/08/13 [History Confirmed 07/14/19] Acetaminophen [Pain Reliever] 1 tab PO BID 08/15/13 [History Confirmed 07/14/19] Lorazepam [Ativan] 1 mg PO BID 09/20/14 [History Confirmed 07/14/19] Melatonin 10 mg PO QHS 04/09/19 [History Confirmed 07/14/19] Lactobacillus Acidophilus [Probiotic] 1 ea PO DAILY 07/07/19 [History Confirmed 07/14/19] Ropinirole HCl [Requip] 2 mg PO TID 07/07/19 [History Confirmed 07/14/19] cholecalciferol (vitamin D3) 1,250 mcg (50,000 unit) capsule 50,000 unit PO .twice/month cap 07/14/19 [History Confirmed 07/14/19] cyanocobalamin (vitamin B-12) 2,500 mcg tablet 1,000 mcg PO DAILY tab 07/14/19 [History Confirmed 07/14/19] levothyroxine 100 mcg capsule 100 mcg PO DAILY 07/14/19 [History] [facility] Medical History (Updated 07/14/19 @ 21:28 by Iman Johnson) Fatigue (Acute) Hyperlipidemia (Chronic) Breast cancer (Chronic) Abdominal pain (Chronic) At risk for falls (Chronic) Back pain (Chronic) Chronic low back pain (Chronic) Chronic osteoarthritis (Chronic) Difficulty balancing (Chronic) History of diverticulitis (Chronic) History of gout (Chronic) Knee pain (Chronic) Limb weakness (Chronic) Lower extremity edema (Chronic) Neck pain (Chronic) Obesity (Chronic) Obstructive sleep apnea (Chronic) Restless legs (Chronic) Shoulder pain (Chronic) Thyroid disease (Chronic) Precordial chest pain (Resolved) Shortness of breath (Resolved) SOB (shortness of breath) (Inactive) Surgical History H/O colonoscopy (Resolved) H/O hemicolectomy (Resolved) H/O mastectomy (Resolved) H/O thyroidectomy (Resolved) H/O: hysterectomy (Resolved) History of bladder suspension procedure (Resolved) History of carpal tunnel surgery of right wrist (Resolved) History of hip replacement, total (Resolved) History of knee replacement (Resolved) History of left heart catheterization (Resolved 06/2006) History of tonsillectomy and adenoidectomy (Resolved) Hx of cholecystectomy (Resolved) Family History Father , Age 89 CVA (cerebral vascular accident) Cancer Hypertension Myocardial infarction Mother , Age 90 Cancer Brother Hypertension Diabetes Brother Diabetes Brother Hypertension Social History (Updated 07/15/19 @ 10:[address] Kirill Nguyen MD) Smoking Status: Former smoker how long ago did patient quit smoking: in the 80's alcohol intake: current alcohol intake frequency: holidays/special occasions only Alcohol type: wine caffeine: Yes Type: tea HPI HPI HPI: AMILCAR KERN, is a 83 F who presents to the office today for Evaluation of abdominal pain. Patient was seen at [facility] emergency department on 07/07/2019. She had been complaining of some lower abdominal discomfort in the suprapubic region. She has it both on the left and right side. A CAT scan was obtained of her abdomen and pelvis which did not show any obvious pathology. She had been placed on antibiotics for presumptive diverticulitis and she states that this discomfort is similar to that. In addition the patient had difficulties and has had difficulties with lower extremity edema which has been increasing in nature over the last month. She has not been complaining of any cough she denies any dysuria with urination she has had no back or flank pain. Patient has had a sigmoid colon resection by me in 2005 and her most recent colonoscopy was in 2014 which showed a polyp on the left side of her colon. Patient has not noticed any dark or bloody stools. She states that she has been significantly constipated and is recently started MiraLAX. This is been ongoing for the last 2 weeks with the MiraLAX and she is just now noticing that her bowels are starting to move all slight bit better. ROS General General: Yes weight change, fatigue and breast cancer; no appetite, colon cancer or weakness HEENT HEENT: No difficulty swallowing, eye injury, eye surgery, swollen glands or hoarseness Endo Endocrine: Yes thyroid disease and thyroid cancer; no diabetes mellitus, Hair loss, heat intolerance or cold intolerance Skin Skin: Yes rash and changing moles Breast Breast: No left breast lump, right breast lump, nipple discharge, breast pain, abnormal mammogram, abnormal US or breast enlargement Musc Musculoskeletal: Yes back problems and arthritis; no rheumatoid arthritis, gout or joint pain Cardio Cardiovascular: Yes shortness of breat with exertion; no murmur, pacemaker, heart disease, atrial fibrillation, high blood pressure, heart attack, heart stent, palpitations or chest pain Additional Details: lower extremity edema Psych Psychiatric: Yes depression and anxiety; no hearing voices Resp Respiratory: Yes shortness of breath, Yes sleep apnea, No cough, No COPD, No asthma, No emphysema, No wheezing Gastro Gastrointestinal: Yes abdominal pain, Yes nausea or vomiting, Yes diarrhea, Yes constipation, No blood in stool, Yes acid reflux, Yes hemorrhoids, No ulcers, No gallbladder problem, No black,tarry stools David Hematologic: No blood thinners, No blood disorders, No bleeding, No anemia, No blood clots Neuro Neurologic: No system reviewed and no additional complaints, except as docu, No as per HPI, No abnormal walking, No abnormal hearing, No abnormal movements, No abnormal speech, No behavioral changes, No burning sensations, No confusion, No seizure-like activity, No unsteadiness, No dizziness, No localized weakness, No frequent falls, No headache(s), No lack of coordination, No loss of vision, No memory loss, Yes numbness, No other visual disturbances, No radiating pain, No restless legs, No sensory deficit, No fainting, Yes tingling, No tremor(s), No weakness, No other Exam Const General: no acute distress, well developed, well hydrated Orientation: oriented to person, oriented to place, oriented to time [facility] Head: normocephalic, atraumatic Ears: external ears normal Mouth: moist mucous membranes Eyes Sclera: sclerae normal Pupils: normal by confrontation Neck Neck: no lymphadenopathy noted Neck mass: No Thyroid: thyroid normal, symmetrical Chest Chest palpation & inspection: normal inspection of the chest Breast Palpation: No nipple discharge Resp Effort & Inspection: normal respiratory effort Auscultation: clear to auscultation bilaterally Percussion: percussion normal Cardio Rate: regular rate Rhythm: regular rhythm Heart Sounds: no murmurs GI Inspection: obesity Palpation: soft, no hepatosplenomegaly, no guarding, no masses, nontender Rectal Exam: other Other: Rectal exam deferred. Extrem General: normal to inspection, edema Other: Patient has some pitting edema and some beginnings of brawny edema. Assessment & Plan Problems 1. Lower abdominal pain R10.30 2. Personal history of colonic polyps Z86.010 Plan Going to first have this patient go and see Dr. Kearney to see if she needs to be started on any medication. I am worried that she may have the beginnings of some slight form of congestive heart failure. When she has been worked up by Dr. Kearney I would like to see her back and more likely we will do another colonoscopy on her. Coding Level of Care Code Off vis,new,level 3 Diagnoses Lower abdominal pain R10.30 ??Abdominal location: lower abdomen, unspecified Personal history of colonic polyps Z86.010 07/15/19 1059 <Electronically signed by Kriill crisostomo MD> Date _ Kirill Bonds Signature: Date (if applicable) CC: Rodriguez Hill MD; Terrell Villanueva DO ~ I have re-examined the patient. There are no clinical changes since date of exam.
[2019-07-28 08:01] VITALS: BP 147/57; BP 93/48; PULSE 75; RESP 16; TEMP 36.3; O2SAT 95
--- NOTE | 2019-07-28 08:03 | OP.COLON_ITS ---
Patient Name: Balbina Carmona Procedure Date: 07/28/2019 7:41 AM Date of : 1935 Age: 83 Procedure: Colonoscopy Indications: Abdominal pain in the left lower quadrant Providers: Kirill Nguyen MD Referring MD: Terrell Villanueva Medicines: See the Anesthesia note for documentation of the administered medications Patient Profile: This is an 83 year old female. Refer to note in patient chart for documentation of history and physical. Last Colonoscopy: 2014. Complications: No immediate complications. Procedure: Pre-Anesthesia Assessment: - Prior to the procedure, a History and Physical was performed, and patient medications and allergies were reviewed. The patient's tolerance of previous anesthesia was also reviewed. The risks and benefits of the procedure and the sedation options and risks were discussed with the patient. All questions were answered, and informed consent was obtained. Prior Anticoagulants: The patient has taken no previous anticoagulant or antiplatelet agents. ASA Grade Assessment: III - A patient with severe systemic disease. After reviewing the risks and benefits, the patient was deemed in satisfactory condition to undergo the procedure. After I obtained informed consent, the scope was passed under direct vision. Throughout the procedure, the patient's blood pressure, pulse, and oxygen saturations were monitored continuously. The adult colonoscope was introduced through the anus and advanced to the cecum, identified by appendiceal orifice and ileocecal valve. The colonoscopy was performed without difficulty. The patient tolerated the procedure well. The quality of the bowel preparation was good. Scope In: 7:50:15 AM Scope Withdrawal Time 0 hours 6 minutes 21 seconds Scope Out: 7:58:13 AM Total Procedure Duration Time 0 hours 7 minutes 58 seconds Findings: Multiple small and large-mouthed diverticula were found in the sigmoid colon and descending colon. No biopsies or other specimens were collected for this exam. Non-bleeding internal hemorrhoids were found during retroflexion. The hemorrhoids were mild and small. No biopsies or other specimens were collected for this exam. The exam was otherwise without abnormality. Impression: - Diverticulosis in the sigmoid colon and in the descending colon. No specimens collected. - Non-bleeding internal hemorrhoids. No specimens collected. - The examination was otherwise normal. Recommendation: - Discharge patient to home. - Resume previous diet. - Continue present medications. - Repeat colonoscopy in 10 years for screening purposes. - Return to primary care physician in 1 week. Procedure Code(s): --- Professional --- 43780, Colonoscopy, flexible; diagnostic, including collection of specimen(s) by brushing or washing, when performed (separate procedure) Diagnosis Code(s): --- Professional --- K64.8, Other hemorrhoids R10.32, Left lower quadrant pain K57.30, Diverticulosis of large intestine without perforation or abscess without bleeding CPT copyright 2017 [employer]. All rights reserved. The codes documented in this report are preliminary and upon counter tender review may be revised to meet current compliance requirements. MD Kirill Mahajan MD 07/28/2019 8:03:17 AM This report has been signed electronically. Number of Addenda: 0 Note Initiated On: 07/28/2019 7:41 AM
--- NOTE | 2019-07-28 08:04 | OP.CCLET_ITS ---
07/28/2019 Terrell Villanueva [address] [place] [address] Re : Colonoscopy procedure for Balbina Carmona Dear Dr. Villanueva This procedure was performed on Sunday, July 28, 2019. My impressions and recommendations are as follows: Impressions : - Diverticulosis in the sigmoid colon and in the descending colon. No specimens collected. - Non-bleeding internal hemorrhoids. No specimens collected. - The examination was otherwise normal. Recommendations : - Discharge patient to home. - Resume previous diet. - Continue present medications. - Repeat colonoscopy in 10 years for screening purposes. - Return to primary care physician in 1 week. My findings are described in the full procedure note, which is enclosed. If I can be of further assistance, please feel free to contact me at Doctor phone number(s): , Fax: [phone], Work: . Sincerely, MD Kirill Mahajan MD 07/28/2019 8:03:17 AM This report has been signed electronically.
[2019-07-28 08:05] VITALS: BP 119/71; BP 147/57; PULSE 75; RESP 18; O2SAT 94
[2019-07-28 08:10] VITALS: BP 108/65; BP 147/57; PULSE 73; RESP 18; O2SAT 95
[2019-07-28 08:15] VITALS: BP 117/78; BP 147/57; PULSE 74; RESP 18; TEMP 36.5; O2SAT 96
[2019-07-28 09:01] VITALS: BP 147/57
== END 2019-07-28 09:02 | disposition home or self-care (01) ==
LOC: EN 06:15 → AC 06:16
PROVIDERS: PCP Family Medicine; Referring Provider Family Medicine; Visit Provider Surgery
PROC: 0DJD8ZZ Inspection of Lower Intestinal Tract, Via Natural or Artificial Opening Endoscopic (ICD-10-PCS; CPT 45378; principal; 2019-07-28 07:25)
DX: K57.30 Diverticulosis of large intestine without perforation or abscess without bleeding (principal); R10.32 Left lower quadrant pain; K59.00 Constipation, unspecified; K64.8 Other hemorrhoids; K21.9 Gastro-esophageal reflux disease without esophagitis; I10 Essential (primary) hypertension; E78.5 Hyperlipidemia, unspecified; E07.9 Disorder of thyroid, unspecified; G47.33 Obstructive sleep apnea (adult) (pediatric); F32.9 Major depressive disorder, single episode, unspecified; F41.9 Anxiety disorder, unspecified; E66.9 Obesity, unspecified; Z68.41 Body mass index [BMI] 40.0-44.9, adult; Z78.0 Asymptomatic menopausal state; Z91.040 Latex allergy status; Z88.1 Allergy status to other antibiotic agents; Z88.0 Allergy status to penicillin; Z79.899 Other long term (current) drug therapy; Z87.19 Personal history of other diseases of the digestive system; Z87.891 Personal history of nicotine dependence; Z90.49 Acquired absence of other specified parts of digestive tract; Z86.010 Personal history of colon polyps; Z11.59 Encounter for screening for other viral diseases
CPT/HCPCS: 45378; 87635; G2023; J7120; U0002

== ENCOUNTER 2019-10-22 11:06 | Observation (INO) | payer MEDICARE, SELFPAY ==
[2019-10-22] VITALS (8 sets, daily range): BP systolic 112–136; BP diastolic 51–65; PULSE 71–85; RESP 13–19; TEMP 36.6–37.3; O2SAT 97–98; BMI 45.1; BMI 45.3
--- NOTE | 2019-10-22 11:22 | EKG12_ITS ---
Test Reason : CHEST PRESSURE Blood Pressure : / mmHG Vent. Rate : 083 BPM Atrial Rate : 083 BPM P-R Int : 188 ms QRS Dur : 074 ms QT Int : 352 ms P-R-T Axes : 000 042 030 degrees QTc Int : 413 ms Normal sinus rhythm Normal ECG Confirmed by VIKY WEAVER ([id number]), supervising editor trailer PANTERA HERNANDES ([id number]) on 10/27/2019 2:20:27 PM Referred By: PHU/ABY Confirmed By:VIKY WEAVER
--- NOTE | 2019-10-22 11:23 | ED.VISSUMM ---
- ER Visit Summary Date of Service: 10/22/19 Chief Complaint: [Chest pain] History of Present Illness: The patient is a 83 F [presents to the emergency department with complaint of chest discomfort that started initially yesterday around noon and described the pain as a deep ache underneath her right shoulder blade which caused her nausea. Patient states that the pain lasted for many hours and still had it before she went to bed. Today patient developed pressure and to both armpits and across her chest. The discomfort is currently resolved. She is not had symptoms like that before. She has no heart history. Patient states that her last heart catheterization was maybe about 15 years ago and was normal. Patient has history of high cholesterol and hypothyroidism. She denies recent travel or surgery. She has no history of PE or DVT.] Physical Examination: [HEENT-PERRLA, EOMI. Cranial nerves II through XII grossly intact. TMs clear. Mucous membranes moist. No adenopathy. Cardiovascular-regular rate and rhythm without murmur or ectopy Lungs-clear to auscultation, chest wall stable without crepitus or subcu emphysema Abdomen-normoactive bowel sounds, soft, nontender, no rebound or rigidity, no peritoneal signs. Extremities-intact ?4, normal range of motion, normal pulses, atraumatic. Patient has +1 edema both lower extremities that is symmetric.] Test Results: [EKG obtained arrival shows sinus rhythm with a ventricular rate of 83 bpm with no acute ST segment changes.] CBC with differential obtained showed a white count of 9.5, hemoglobin 12.9, hematocrit 39, placed 204. Chemistries unremarkable. Troponin was less than 0.015. D-dimer was 0.35. Chest x-ray showed some increased markings in the lingula lower segment consistent with lingular atelectasis. Emergency Department Course and Treatment: [ IV established on arrival. Patient placed on security monitor. Patient given 4 baby aspirin.] Treatment Plan: [Admit for further work-up and evaluation of her chest pain. Patient's heart score is a 4.] Disposition: [Admit] Impression: [Chest pain-rule out acute coronary syndrome] This note was generated with [employer] dictation software. It may contain incorrect words, spelling, and punctuation that were not noted in review of the chart prior to signing ED Disposition - Plan for ED Patient: Referrals: Terrell Villanueva DO [Primary Care Provider] -
[2019-10-22 11:28] LABS: Absolute Lymphocyte Count 2.63 X10^3/uL (0.83-4.51); Absolute Neutrophil Count 6.2 X10^3/uL (2.0-7.7); Basophil# 0.06 X10^3/uL; Basophil% 0.6 % (0-1); Eosinophil# 0.16 X10^3/uL; Eosinophils% 1.7 % (0-5); Hematocrit 39.1 % (37-47); Hemoglobin 12.9 g/dL (12.0-15.0); Lymphocyte # 2.63 X10^3/ul (4.0); Lymphocyte % 27.7 % (19-41); Mean Corpuscular Hgb 27.9 pg (27.0-32.0); Mean Corpuscular Volume 84.6 fL (81-99); Mean Platelet Vol. 10.7 fl (6.2-12.0); Monocyte% 4.2 % (0-10); NRBC Flagged by Analyzer 0 % (0-5); Neutrophil # 6.21 X10^3/uL (2.7-7.7); Neutrophil % 65.3 % (47-70); Platelet Count 204 K/mm3 (150-450); RBC Distribution Width CV 13.3 % (11.6-14.6); Red Blood Count 4.62 M/mm3 (4.2-5.4); White Blood Count 9.5 K/mm3 (4.4-11.0)
--- NOTE | 2019-10-22 11:35 | RAD_ITS ---
STUDY: X-RAY CHEST REASON FOR EXAM: Female, 83 years old. Chest pain TECHNIQUE: Single AP portable view of the chest. COMPARISON: Comparison is made with prior study dated 07/07/2019. FINDINGS: EKG electrodes are seen. A battery pack is seen overlying the right humeral head. Minimal increased markings at the left lung base suggestive of linear atelectasis. There is no demonstrated pleural abnormality. Normal size heart. Normal mediastinum and jimmie. Normal visualized pulmonary arteries. There is atherosclerotic calcification of the aortic arch with tortuosity. There are diffuse degenerative changes of the visualized thoracic spine. Normal visualized ribs, clavicles, and shoulders. Moderate sized hiatal hernia. RAD/Chest 1 View (Portable) IMPRESSION: Mild increased markings at the left lung base suggestive of lingular atelectasis. Electronically Signed: Andrei Vences, at 12:03 EDT , Service support ,
[2019-10-22 11:38] LABS: D-Dimer Quantitative (DVT/PE) 0.35 FEU/ug/m (0.27-0.49)
[2019-10-22 11:49] LABS: Anion Gap 6 (5-15); BUN 26 mg/dL (7-18); BUN/Creat Ratio 23.6 RATIO (10-20); Calcium,Total 9.2 mg/dL (8.5-10.1); Chloride 96 mmol/L (98-107); EST Glomerular Filtration Rate 50 mL/min (>60); Est Glom Filt Rate - Afr Amer 61 mL/min (>60); Estimated Creatinine Clearance 34.05 ml/min; Glucose 96 mg/dL (74-106); Potassium 4.2 mmol/L (3.5-5.1); Sodium Level 130 mmol/L (136-145)
[2019-10-22] MEDS: Aspirin 81 MG TAB.CHEW 324 MG PO (12:16)
[2019-10-22] MEDS: 0.9% Normal Saline 1,000 ML 150 ML IV (12:16)
--- NOTE | 2019-10-22 15:00 | HP.PCM_ITS ---
Problem List (1) Chest pain Status: Acute Qualifiers: Chest pain type: precordial pain Qualified Code(s): R07.2 - Precordial pain History of Present Illness Date of Admission: 10/22/19 Chief Complaint: Chest pain, mid upper back pain The patient is a 83 year old F seen in the emergency room at [facility] with a chief complaint of precordial chest pain which occurred this morning and moved across her chest causing chest tightness. She described the discomfort as dull in nature. Yesterday patient had pain in her upper thoracic back area between her shoulder blades and this pain ran across her entire upper back. She stated this morning, she also had the chest discomfort and she became concerned and went to the [facility] after talking with her doctor's office, the [facility] sent the patient to the ER for evaluation. Patient's chest discomfort was resolved by the time she was seen in the emergency room, patient stated that she had several episodes of the chest discomfort this morning each lasting approximately 30 to 45 minutes. Patient denied any radiation into her jaw or down her arms. Work-up in the emergency room included an EKG which showed a normal sinus rhythm without evidence of ischemic changes, troponin was less than 0.015, d-dimer was 0.35, chest x-ray showed no acute process and some increased markings in the left lung consistent with atelectasis. Patient CBC was unremarkable, patient's chemistry panel showed an elevated creatinine at 1.1 and an elevated BUN at 26, sodium was 130. Patient will be placed into observation status on PCU, serial isoenzymes will be obtained and if these remain normal she will undergo a resting pharmacological nuclear stress test tomorrow. Patient states she had a heart catheterization many years ago (? 15 years ago) that did not show any evidence of significant heart disease, she is also had a stress test since that time, again, several years ago that was negative-she does not know exactly when her last stress test was performed. Past Medical History Past Medical History (Chronic Problems): Chronic Problems (Last Reviewed 07/15/19 @ 15:[address] Rodriguez Hill MD) Elevated blood pressure reading in office with diagnosis of hypertension (Chronic) Edema (Chronic) Hyperlipidemia (Chronic) Breast cancer (Chronic) Medical History: Medical History (Last Reviewed 07/15/19 @ 15:[address] Rodriguez Hill MD) Fatigue (Inactive) R53.83 Hyperlipidemia (Chronic) E78.5 Breast cancer (Chronic) C50.919 Abdominal pain R10.9 At risk for falls Z91.81 Back pain M54.9 Chronic low back pain M54.5, G89.29 Chronic osteoarthritis M19.90 Difficulty balancing R29.818 History of diverticulitis Z87.19 History of gout Z87.39 Knee pain M25.569 Limb weakness R29.898 Lower extremity edema R60.0 Neck pain M54.2 Obesity E66.9 Obstructive sleep apnea G47.33 Restless legs G25.81 Shoulder pain M25.519 Thyroid disease E07.9 Precordial chest pain R07.2 Shortness of breath R06.02 SOB (shortness of breath) (Inactive) R06.02 Allergies nitrofurantoin [From Macrobid] Allergy (Intermediate, Verified 10/22/19 11:07) hives latex Allergy (Verified 10/22/19 11:07) Rash Penicillins Allergy (Verified 10/22/19 11:07) Swelling Home Medications: Ambulatory Orders Medication Instructions Recorded Sertraline HCl [Zoloft] 50 mg PO BID 01/08/13 Acetaminophen [Pain Reliever] 1 tab PO BID 08/15/13 Lorazepam [Ativan] 1 mg PO BID 09/20/14 Melatonin 10 mg PO QHS 04/09/19 Lactobacillus Acidophilus 1 ea PO DAILY 07/07/19 [Probiotic] Ropinirole HCl [Requip] 2 mg PO TID 07/07/19 cholecalciferol (vitamin D3) 1,250 50,000 unit PO .twice/month cap 07/14/19 mcg (50,000 unit) capsule cyanocobalamin (vitamin B-12) 1,000 mcg PO DAILY tab 07/14/19 2,500 mcg tablet levothyroxine 100 mcg capsule 100 mcg PO DAILY 07/14/19 hydrochlorothiazide 12.5 mg tablet 12.5 mg PO DAILY PRN #30 tab 09/23/19 Surgical History: Surgical History (Last Reviewed 07/15/19 @ 15:[address] Rodriguez Hill MD) H/O colonoscopy Z98.890 H/O hemicolectomy Z90.49 H/O mastectomy Z90.10 H/O thyroidectomy E89.0 H/O: hysterectomy Z90.710 History of bladder suspension procedure Z98.890, Z87.448 History of carpal tunnel surgery of right wrist Z98.890 History of hip replacement, total Z96.649 bilateral History of knee replacement Z96.659 History of left heart catheterization Onset Date: 06/2006 Z98.890 History of tonsillectomy and adenoidectomy Z98.890 Hx of cholecystectomy Z90.49 Surgical History: appendectomy, cholecystectomy, colectomy - for diverticulosis, hysterectomy, mastectomy - Right, total hip arthroplasty, total knee arthroplasty, - - Patient tells me that she has had her vagina sewed shut because of vaginal prolapse, thyroidectomy secondary to thyroid cancer Psychiatric History: Anxiety 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 Rodriguez Hill MD) Father CVA (cerebral vascular accident) Cancer Hypertension Myocardial infarction Mother Cancer Brother Hypertension Diabetes Brother Diabetes Brother Hypertension History Items: Hypertension, - - Leukemia Paternal Family History: Family History (Last Reviewed 07/15/19 @ 15:[address] Rodriguez Hill MD) Father CVA (cerebral vascular accident) Cancer Hypertension Myocardial infarction Mother Cancer Brother Hypertension Diabetes Brother Diabetes Brother Hypertension History Items: Hypertension Review of Systems Constitutional: Denies: Anorexia, Chills, Fever, Night Sweats, Malaise, Weakness, Weight Change, Fatigue Eyes: Denies: Conjunctivae Inflammation, Double vision, Drainage HEENT: Denies: Difficulty Swallowing, Dysphasia, Ear Pain, Eye Pain, Hearing Changes, Nasal bleeding, Nasal Congestion, Post Nasal Drip Cardiovascular: Reports: Chest Pain, Chest Tightness. Denies: Claudication, Chest Pressure, Orthopnea, Palpitations, Paroxysmal Noc. Dyspnea, Syncope Respiratory: Denies: Cough, Hemoptysis, Pleuritic Pain, Shortness of Breath, Shortness of breath at rest, Shortness of breath upon exertion, Sputum production Gastrointestinal: Denies: Abdominal Pain, Constipation, Diarrhea, Hematemesis, Hematochezia, Nausea, Melena, Vomiting Genitourinary: Denies: Dysuria, Frequency, Hematuria, Hesitancy, Urgency Musculoskeletal: Reports: Joint Pain - Bilateral knee pain, Joint stiffness - Bilateral knee stiffness. Denies: Foot Pain, Joint swelling, Joint Tenderness Skin: Denies: Dryness, Pruritis, Rash Neurological: Denies: Blurred vision, Double vision, Slurred speech, Difficulty swallowing, Focal weakness, Headaches, Numbness, Tingling Psychiatric: Denies: Anxiety, Depression, Homicidal Ideations, Suicidal Ideations Endocrine: Denies: Change in Body Habitus, Heat/ Cold Intolerance, Polydipsia, Polyuria Hematologic/ Lymphatic: Denies: Adenopathy, Anemia, Easy Bruising, Easy Bleeding, Petechiae, Purpura VTE Information - Inpt Only VTE Present on Admission: No VTE Mechan Device Prophylaxis: None VTE Pharm Prophylaxis ordered?: Yes Patient Problems: Active and Suspected Problems (Last Updated 10/22/19 @ 15:[address] Terrell Danielson, DO) Chest pain (Acute) - Physical Exam Vitals/I&O's: Vital Signs Temp Pulse Resp BP Pulse Ox 98.4 F 81 18 135/56 H 97 10/22/19 13:41 10/22/19 14:56 10/22/19 13:41 10/22/19 13:41 10/22/19 13:41 Oxygen Delivery Method Room Air Weight: 119.7 kg Body Mass Index (BMI) 45.3 Intake and Output for Last 24 Hours 10/20/19 10/21/19 10/22/19 23:59 23:59 23:59 Intake Total 225 / 225 Balance 225 / 225 General: Alert, Oriented x3, Cooperative, No apparent distress, Well developed, Well nourished HEENT: Atraumatic, PERRLA, EOMI, Normocephalic Oral: Moist Mucosa Neck: Supple, No JVD, Negative Carotid Bruits, Trachea Midline, Thyroid Normal Size and Texture Lungs: Clear to auscultation, Normal air movement, No rhonchi, No wheeze, No rales Cardiovascular: Regular rate, Regular Rhythm, Normal S1, Normal S2, No murmurs, PMI Normal, No rub noted, No Gallop Abdomen: Bowel Sounds Present, Soft, Non Tender, Non-Distended, Obese Extremities: No clubbing, No cyanosis, Capillary Refill Less than 3 Seconds, Edema - Mild lower leg edema is noted bilaterally Skin: No rashes, No breakdown Musculoskeletal: No Tenderness to Palpation of Joints or Extremities Neurological: Cranial nerves II-XII grossly intact, Neuro grossly intact, Sensory exam intact to light touch and pain Psych/Mental Status: Normal Affect, Appropriate, Alert and oriented to time, place, person, mood and affect Laboratory Results 10/22/19 11:18: WBC 9.5, RBC 4.62, Hgb 12.9, Hct 39.1, MCV 84.6, MCH 27.9, MCHC 33.0, RDW Std Deviation 41.0, RDW Coeff of Ania 13.3, Plt Count 204, MPV 10.7, Immature Gran % (Auto) 0.500, Neut % (Auto) 65.3, Lymph % (Auto) 27.7, Bartholomew % (Auto) 4.2, Eos % (Auto) 1.7, Baso % (Auto) 0.6, Absolute Neuts (auto) 6.2, Absolute Lymphs (auto) 2.63, Nucleated RBC % 0 10/22/19 11:18: D-Dimer Quant (PE/DVT) 0.35 10/22/19 11:18: Sodium 130 L, Potassium 4.2, Chloride 96 L, Carbon Dioxide 28.0, Anion Gap 6, BUN 26 H, Creatinine 1.10 H, Estim Creat Clear Calc 34.05, Est GFR (MDRD) Af Amer 61, Est GFR (MDRD) Non-Af 50 L, BUN/Creatinine Ratio 23.6 H, Glucose 96, Calcium 9.2, Troponin I < 0.015 10/22/19 14:45: Troponin I Pending Current Medications Acetaminophen (Tylenol) 500 mg PO BID [facility] Acetaminophen (Tylenol) 650 mg PO Q6H PRN PRN PRN Reason: Pain Score 1-10/Temp > 100.7 F Heparin Sodium (Porcine) (Heparin Na) 5,000 unit SC Q12 [facility] Hydrochlorothiazide () 12.5 mg PO DAILY PRN PRN Reason: edema Levothyroxine Sodium (Synthroid) 100 mcg PO DAILY@0600 [facility] Lorazepam (Ativan) 1 mg PO BID [facility] Melatonin (Melatonin) 10 mg PO QHS [facility] Morphine Sulfate () 2 mg IV Q3H PRN PRN PRN Reason: Pain Score 6-10/10 Pramipexole Dihydrochloride (Mirapex) 1 mg PO TID CASE Sertraline HCl (Zoloft) 50 mg PO BID CASE Sodium Chloride () 10 - 40 ml IV UD PRN PRN Reason: SALINE FLUSH Assessment/Plan All Active Problems (Last Updated 10/22/19 @ 15:[address] Terrell Danielson, DO) Chest pain (Acute) Rapid palpitations (Resolved) Dyspnea on exertion (Resolved) Chest pain (Resolved) Dysuria (Resolved) History of UTI (Resolved) History of nausea and vomiting (Resolved) #1 precordial chest pain-atypical for angina-patient will be placed in observation status on PCU, cardiac isoenzymes will be cycled, if these remain negative she will undergo a resting pharmacological nuclear stress test. #2 essential hypertension-patient will remain on her current medications #3 chronic anxiety-patient takes Ativan #4 morbid obesity #5 past history of breast cancer with right mastectomy #6 hypothyroidism secondary to thyroidectomy for thyroid cancer #7 hyponatremia probably secondary to diuretic usage #8 elevated creatinine-secondary to diuretic usage OBSV E&M: 72982 Initial observation care L3
[2019-10-22] MEDS: Pramipexole Di-HCl 1 MG Tablet PO ×2 (15:03→22:22)
[2019-10-22] MEDS: Sertraline 50 MG Tablet PO ×2 (15:03→22:23)
[2019-10-22] MEDS: LORazepam 1 MG Tablet PO ×2 (15:08→22:20)
[2019-10-22] MEDS: Mag Hydrox/Al Hydrox/Simeth 30 ML UDC 15 ML PO (20:04)
[2019-10-22] MEDS: Acetaminophen 500 MG Tablet PO (22:22)
[2019-10-22] MEDS: MELATONIN 10 MG TABLET PO (22:22)
[2019-10-22] MEDS: Nystatin Powder 15gm Bottle 1 APPLIC TOPICAL (22:22)
[2019-10-22] MEDS: Heparin Injection (Vial) 5,000 UNIT/ML VIAL 5000 UNIT SC (22:23)
[2019-10-23] MEDS: 0.9% Saline Lock 10 ML Syringe IV (02:29)
[2019-10-23 02:31] VITALS: BP 114/59; PULSE 68; RESP 16; TEMP 36.5; O2SAT 96
[2019-10-23 03:57] VITALS: PULSE 65
--- NOTE | 2019-10-23 04:42 | EKG12_ITS ---
Test Reason : AM EKG Blood Pressure : / mmHG Vent. Rate : 072 BPM Atrial Rate : 072 BPM P-R Int : 220 ms QRS Dur : 078 ms QT Int : 380 ms P-R-T Axes : -09 044 054 degrees QTc Int : 416 ms Sinus rhythm with 1st degree A-V block Otherwise normal ECG When compared with ECG of 22-OCT-2019 14:30, MANUAL COMPARISON REQUIRED, DATA IS UNCONFIRMED Confirmed by VIKY WEAVER ([id number]), television news video editor RIMA DAMON ([id number]) on 10/27/2019 4:06:09 PM Referred By: MONI Confirmed By:VIKY WEAVER
[2019-10-23] MEDS: Levothyroxine 100 MCG Tablet PO (05:25)
[2019-10-23] MEDS: Pramipexole Di-HCl 1 MG Tablet PO (05:26)
--- NOTE | 2019-10-23 05:55 | EKG12_ITS ---
Test Reason : CP Blood Pressure : / mmHG Vent. Rate : 073 BPM Atrial Rate : 073 BPM P-R Int : 190 ms QRS Dur : 072 ms QT Int : 378 ms P-R-T Axes : -15 026 056 degrees QTc Int : 416 ms Normal sinus rhythm Normal ECG When compared with ECG of 22-OCT-2019 11:15, MANUAL COMPARISON REQUIRED, DATA IS UNCONFIRMED Confirmed by VIKY WEAVER ([id number]), editorial writer PANTERA HERNANDES ([id number]) on 10/27/2019 2:24:56 PM Referred By: MONI Confirmed By:VIKY WEAVER
[2019-10-23 06:48] VITALS: PULSE 66
[2019-10-23 07:21] VITALS: BP 115/61; PULSE 66; RESP 16; TEMP 36.5; O2SAT 99
[2019-10-23] MEDS: LORazepam 1 MG Tablet PO (10:49)
[2019-10-23] MEDS: Acetaminophen 500 MG Tablet PO (10:49)
[2019-10-23] MEDS: Sertraline 50 MG Tablet PO (10:50)
[2019-10-23] MEDS: Nystatin Powder 15gm Bottle 1 APPLIC TOPICAL (10:51)
[2019-10-23 11:02] VITALS: PULSE 71
--- NOTE | 2019-10-23 11:54 | DCINST_ITS ---
- Discharge Diagnoses Current Active Problems: Current Active and Chronic Problems (Last Updated 10/22/19 @ 15:[address] Terrell Danielson DO) Chest pain (Acute) You will use the following diet at home:: No restrictions Your food should be the consistency of: Regular Your liquids should be the consistency of: Regular/Thin Discharge Activity: Return to Normal Activity Weight Bearing Status: Full weight bearing Allergies/Adverse Reactions: Allergies nitrofurantoin [From Macrobid] Allergy (Intermediate, Verified 10/22/19 11:07) hives latex Allergy (Verified 10/22/19 11:07) Rash Penicillins Allergy (Verified 10/22/19 11:07) Swelling Medications to take at Discharge Sertraline HCl [Zoloft] 50 mg PO BID 01/08/13 Acetaminophen [Pain Reliever] 1 tab PO BID 08/15/13 Lorazepam [Ativan] 1 mg PO BID 09/20/14 Melatonin 10 mg PO QHS 04/09/19 Lactobacillus Acidophilus [Probiotic] 1 ea PO DAILY 07/07/19 Ropinirole HCl [Requip] 2 mg PO TID 07/07/19 cholecalciferol (vitamin D3) 1,250 mcg (50,000 unit) capsule 50,000 unit PO .twice/month cap 07/14/19 cyanocobalamin (vitamin B-12) 2,500 mcg tablet 1,000 mcg PO DAILY tab 07/14/19 levothyroxine 100 mcg capsule 100 mcg PO DAILY 07/14/19 hydrochlorothiazide 12.5 mg tablet 12.5 mg PO DAILY PRN #30 tab 09/23/19 Primary Care Physician: Terrell Villanueva DO [Primary Care Provider] - Please follow up with your Primary Care Physician in: SCHEDULED Test Results: Test results from this visit will be discussed in further detail at your follow- up appointment, if applicable.
--- NOTE | 2019-10-23 11:55 | STRESSREP ---
Stress Test Report Pharmacologic myocardial perfusion stress test. 83-year-old lady with a history of chest pain. Stress protocol: Resting EKG demonstrates normal sinus rhythm with a rate of 69 bpm normal intervals are noted resting blood pressure is 140/84 mmHg. 0.4 mg of regadenoson was infused per usual protocol followed by rapid intravenous saline flush injection continuous EKG monitoring was performed. The maximum heart rate attained was 99 bpm. At rest there were no ST or T wave changes noted to suggest abnormal flow reserve at peak infusion nonspecific ST-T wave changes were noted with no meet the criteria for ischemia. No clinical angina was noted. Myocardial perfusion protocol. 14.8 mCi of technetium 99m sestamibi was injected at rest. 0.4 mg of regadenoson was infused per usual protocol. At peak infusion 44.7 mCi of technetium 99m sestamibi was injected stress images were obtained stress and rest images were reconstructed and compared in the short axis vertical long horizontal long axis. Gated images were also obtained per Perfusion SPECT analysis: Review of the stress images demonstrate normal uptake of tracer noted in all areas of the myocardium the resting images similarly demonstrate normal uptake of tracer noted in all areas of the myocardium. No reversibility is noted suggest ischemia no previous infarct is noted. Gated SPECT analysis: The gated ejection fraction is noted to be 82%. Conclusion: Normal pharmacologic myocardial perfusion stress test. Preserved ejection fraction.
--- NOTE | 2019-10-23 12:32 | PHA.DC.COU ---
Pharmacy Services has performed discharge medication counseling for this patient. The patient was counseled on the following discharge medications and changes in medications for homegoing review. The Reason for Use, instructions for use, and potential side effects were reviewed for all new medications. The patient's questions regarding all of their medications were answered. The patient was able to verbally demonstrate an understanding of their discharge medications. The patient demonstrated some understanding but would benefit from further education and reinforcement. The patient was not able to adequately demonstrate understanding.
--- NOTE | 2019-10-23 15:28 | DS.PCM_ITS ---
Discharge Date and Diagnosis Date of Admission: 10/22/19 Date of Discharge: 10/23/19 - Primary Discharge Diagnosis Acute Problems: #1 musculoskeletal chest pain #2 essential hypertension #3 chronic anxiety #4 morbid obesity - Secondary Discharge Diagnosis Chronic Problems: Chronic Problems (Last Updated 10/22/19 @ 15:[address] Terrell Danielson, DO) Elevated blood pressure reading in office with diagnosis of hypertension (Chronic) Edema (Chronic) Hyperlipidemia (Chronic) Breast cancer (Chronic) Hospital Course and Treatment Operations: None Procedures: Nuclear stress test Summary of Care Provided: The patient is a 83 year old F seen in the emergency room at [facility] with a chief complaint of chest pain with associated pain across her upper back area. Work-up in the emergency room included an EKG which showed no acute ischemic changes, chest x-ray was unremarkable, cardiac enzymes were normal. Patient was placed into observation status on PCU, serial cardiac enzymes were obtained and these remain normal, patient underwent a resting pharmacological nuclear stress test on 10/23/2019 which was negative for reversible ischemia. On 10/23/2019, patient was seen and examined: On examination she appeared in good health and spirits, she does not appear to be in any distress. Vital signs as documented. Skin warm and dry and without overt rashes. Neck without JVD, thyroid appears normal, trachea is midline, neck is supple. Lungs clear, normal air movement was noted. Heart exam notable for regular rhythm, normal sounds and absence of murmurs, rubs or gallops. Abdomen unremarkable and without evidence of organomegaly, masses, or abdominal aortic enlargement, bowel sounds are present in all 4 quadrants, no abdominal tenderness was noted. Extremities nonedematous, no cyanosis was noted, no clubbing was noted. Neuro: Cranial nerves II through XII are grossly intact, no focal motor deficits were noted, sensation to light touch and pinprick is intact, motor exam 5/5 throughout. Psych: Patient is alert and oriented x3, she does not appear anxious or depressed, she does not appear agitated. On 10/23/2019, patient appeared stable for discharge home. - Physical Exam Vitals/I&O's: Vital Signs Temp Pulse Resp BP Pulse Ox 97.7 F L 71 16 115/61 99 10/23/19 07:21 10/23/19 11:02 10/23/19 07:21 10/23/19 07:21 10/23/19 07:21 Oxygen Delivery Method Room Air Weight: 119.7 kg Body Mass Index (BMI) 45.3 Intake and Output for Last 24 Hours 10/21/19 10/22/19 10/23/19 23:59 23:59 23:59 Intake Total 625 / 625 Balance 625 / 625 Laboratory Results 10/22/19 17:10: Troponin I < 0.015 Discharge Activity: Return to Normal Activity Weight Bearing Status: Full weight bearing Home Medications: Medications to take at Discharge Sertraline HCl [Zoloft] 50 mg PO BID 01/08/13 Acetaminophen [Pain Reliever] 1 tab PO BID 08/15/13 Lorazepam [Ativan] 1 mg PO BID 09/20/14 Melatonin 10 mg PO QHS 04/09/19 Lactobacillus Acidophilus [Probiotic] 1 ea PO DAILY 07/07/19 Ropinirole HCl [Requip] 2 mg PO TID 07/07/19 cholecalciferol (vitamin D3) 1,250 mcg (50,000 unit) capsule 50,000 unit PO .twice/month cap 07/14/19 cyanocobalamin (vitamin B-12) 2,500 mcg tablet 1,000 mcg PO DAILY tab 07/14/19 levothyroxine 100 mcg capsule 100 mcg PO DAILY 07/14/19 hydrochlorothiazide 12.5 mg tablet 12.5 mg PO DAILY PRN #30 tab 09/23/19 Primary Care Physician: Terrell Villanueva DO [Primary Care Provider] - Please follow up with your Primary Care Physician in: SCHEDULED Disposition: Home Minutes spent on discharge:: 30 Patient Condition:: Stable Medical Necessity - Tobacco Use Smoking Status: Former smoker Tobacco Use: Non-smoker Meaningful Use Info Meaningful Use Diagnoses (Choose all that apply): None applicable OBSV E&M: 54314 Observation care discharge
== END 2019-10-23 11:55 | disposition home or self-care (01) ==
LOC: ED 11:48 → PCU 12:40
PROVIDERS: Admitting Provider Internal Medicine; Emergency Provider Emergency Medicine; PCP Family Medicine; Visit Provider Internal Medicine
DX: R07.89 Other chest pain (principal); E89.0 Postprocedural hypothyroidism; M54.6 Pain in thoracic spine; E78.5 Hyperlipidemia, unspecified; G25.81 Restless legs syndrome; G47.33 Obstructive sleep apnea (adult) (pediatric); M19.90 Unspecified osteoarthritis, unspecified site; F41.9 Anxiety disorder, unspecified; Z87.891 Personal history of nicotine dependence; Z85.3 Personal history of malignant neoplasm of breast; Z79.899 Other long term (current) drug therapy; I10 Essential (primary) hypertension; E66.01 Morbid (severe) obesity due to excess calories; Z68.42 Body mass index [BMI] 45.0-49.9, adult; R79.89 Other specified abnormal findings of blood chemistry; E87.1 Hypo-osmolality and hyponatremia; Z85.850 Personal history of malignant neoplasm of thyroid
CPT/HCPCS: 36415; 71045; 78452; 80048; 84484; 85025; 85379; 93005; 93017; 96360; 96372; 99218; 99284; A9500; J7030; A4216; G0378; J2785

== ENCOUNTER 2019-10-28 13:14 | Observation (INO) | payer MEDICARE, SELFPAY ==
[2019-10-22 13:24] VITALS: BMI 45.3
[2019-10-28] VITALS (9 sets, daily range): BP systolic 101–133; BP diastolic 55–99; PULSE 65–74; RESP 12–18; TEMP 36.4–37.1; O2SAT 93–100; BMI 45.1; BMI 44.6; BMI 44.7
--- NOTE | 2019-10-28 14:19 | CT_ITS ---
STUDY: CT BRAIN WITHOUT CONTRAST REASON FOR EXAM: Female, 83 years old. ACUTE NEURO DEFICIT, RLE WEAKNESS/NUMBNESS RADIATION DOSAGE (If Supplied By Facility): CTDIvol = ( 44.99 ) mGy, DLP = ( 812.98 ) mGycm TECHNIQUE: Transaxial CT imaging of the brain was performed without administration of intravenous contrast material. Individualized dose optimization techniques were used for this CT. COMPARISON: No relevant priors. FINDINGS: Normal soft tissue structures. Normal calvarium. Normal size ventricles and extra-axial spaces for the patient''s age. There are areas of decreased attenuation within the white matter tracts of the supratentorial brain, consistent with microvascular disease changes. Normal basal ganglia and thalami. Normal brainstem. Normal cerebellum. There is no intracranial hemorrhage. There are no findings of an acute ischemic infarction. Normal visualized paranasal sinuses. CT/Brain/Head without Contrast IMPRESSION: Chronic involutional changes of the brain. Electronically Signed: Sharyn Maya, at 15:15 EDT Tel , Service support ,
--- NOTE | 2019-10-28 14:19 | EKG12_ITS ---
Test Reason : NEURO SX Blood Pressure : / mmHG Vent. Rate : 070 BPM Atrial Rate : 070 BPM P-R Int : 202 ms QRS Dur : 074 ms QT Int : 390 ms P-R-T Axes : -25 028 042 degrees QTc Int : 421 ms Normal sinus rhythm Normal ECG Confirmed by VIKY WEAVER ([id number]), subeditor PANTERA HERNANDES ([id number]) on 11/03/2019 9:53:41 AM Referred By: WERNER Confirmed By:VIKY WEAVER
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
[2019-10-28 14:40] LABS: Absolute Lymphocyte Count 1.92 X10^3/uL (0.83-4.51); Absolute Neutrophil Count 5.7 X10^3/uL (2.0-7.7); Basophil# 0.07 X10^3/uL; Basophil% 0.8 % (0-1); Eosinophil# 0.11 X10^3/uL; Eosinophils% 1.3 % (0-5); Hematocrit 37.4 % (37-47); Hemoglobin 12.5 g/dL (12.0-15.0); Lymphocyte # 1.92 X10^3/ul (4.0); Lymphocyte % 23.2 % (19-41); Mean Corp Hgb Conc 33.4 g/dL (32-36); Mean Corpuscular Hgb 28.5 pg (27.0-32.0); Mean Corpuscular Volume 85.2 fL (81-99); Mean Platelet Vol. 11.4 fl (6.2-12.0); Monocyte# 0.48 X10^3/uL; Monocyte% 5.8 % (0-10); NRBC Flagged by Analyzer 0 % (0-5); Neutrophil # 5.67 X10^3/uL (2.7-7.7); Neutrophil % 68.5 % (47-70); Platelet Count 196 K/mm3 (150-450); RBC Distribution Width CV 13.4 % (11.6-14.6); RBC Distribution Width SD 42.1 fl (35.1-43.9); Red Blood Count 4.39 M/mm3 (4.2-5.4); White Blood Count 8.3 K/mm3 (4.4-11.0)
[2019-10-28 14:48] LABS: Partial Thromboplast Time 25.3 Seconds (24.1-36.2)
[2019-10-28 14:51] LABS: Bedside Glucose 81 mg/dL (70-110)
[2019-10-28 14:56] LABS: Anion Gap 3 (5-15); BUN 29 mg/dL (7-18); BUN/Creat Ratio 28.2 RATIO (10-20); Calcium,Total 9.2 mg/dL (8.5-10.1); Chloride 99 mmol/L (98-107); Creatinine, Serum 1.03 mg/dL (0.55-1.02); EST Glomerular Filtration Rate 54 mL/min (>60); Est Glom Filt Rate - Afr Amer 66 mL/min (>60); Estimated Creatinine Clearance 36.36 ml/min; Glucose 96 mg/dL (74-106); Potassium 4.4 mmol/L (3.5-5.1); Sodium Level 131 mmol/L (136-145)
--- NOTE | 2019-10-28 15:00 | RAD_ITS ---
STUDY: X-RAY CHEST REASON FOR EXAM: Female, 83 years old. mediastinal eval, foot keeps falling asleep TECHNIQUE: Frontal and lateral views of the chest. COMPARISON: None. FINDINGS: There is an ill-defined nodule in the left leg upper lobe measures 2 cm was not present on the previous study may represent a neoplastic process. Further evaluation by CT scan would be helpful. There is no demonstrated pleural abnormality. Normal size heart. Normal mediastinum and jimmie. Normal visualized pulmonary arteries. Normal visualized aortic arch and descending thoracic aorta. Normal visualized thoracic spine. There is degenerative osteoarthritis of the bilateral shoulders. There is small hiatal hernia. RAD/Chest 1 View IMPRESSION: There is an ill-defined nodule in the left leg upper lobe measures 2 cm was not present on the previous study may represent a neoplastic process. Further evaluation by CT scan would be helpful. Electronically Signed: Sharyn Maya, at 15:47 EDT Tel , Service support ,
--- NOTE | 2019-10-28 15:39 | NURSING ---
DR ELLIS FOR DR KUO
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
--- NOTE | 2019-10-28 16:22 | CT_ITS ---
STUDY: CT CHEST WITH CONTRAST REASON FOR EXAM: Female, 83 years old. Left upper lobe nodule. History of breast cancer. History of thyroid cancer. RADIATION DOSAGE (If Supplied By Facility): CTDIvol = ( 13.93 ) mGy, DLP = ( 479.45 ) mGycm TECHNIQUE: Transaxial imaging was performed following intravenous administration of ml of 100mL Isovue-370 contrast material. Coronal and sagittal reformatted images were created. Individualized dose optimization techniques were used for this CT. COMPARISON: None FINDINGS: There is dependent atelectasis noted in the lungs. There are no pulmonary infiltrates or pleural effusions. There is a 1 cm nodule in the lingula. There is no pneumothorax. The heart and pericardium are within normal limits. There is no thoracic lymphadenopathy. There is no evidence of thoracic aortic aneurysm. Images through the upper abdomen demonstrate a large hiatal hernia.. There are no destructive osseous lesions. CT/Chest WITH Contrast IMPRESSION: 1 cm nodule in the lingula. Further evaluation with PET/CT is recommended. Dependent atelectasis. No pulmonary infiltrates or pleural effusions. Large hiatal hernia. Electronically Signed: Lexa Ferrer, at 17:42 EDT Tel , Service support ,
--- NOTE | 2019-10-28 16:22 | CDU_ITS ---
Reason For Study: TIA Rt. Velocities/BP Lt. Velocities/BP Prox CCA 196/17 cm/sec. Prox CCA 98/15 cm/sec. Mid CCA 101/153 cm/sec. Mid CCA 96/16 cm/sec. Dist CCA 94/19 cm/sec. Dist CCA 91/14 cm/sec. Prox ICA 71/7 cm/sec. Prox ICA 72/20 cm/sec. Mid ICA 61/13 cm/sec. Mid ICA 82/19 cm/sec. Dist ICA 56/15 cm/sec. Dist ICA 72/17 cm/sec. Rt. ICA/CCA = .7. Lt. ICA/CCA = .9. Prox ECA 85/0 cm/sec. Prox ECA 71/8 cm/sec. Rt. Vert. 37/11 cm/sec. Lt. Vert. 61/16 cm/sec. Right Extracranial There is homogeneous, smooth atherosclerotic plaque noted in the right common carotid artery. There is heterogeneous, irregular atherosclerotic plaque noted in the right internal carotid artery. There is homogeneous, smooth atherosclerotic plaque noted in the right external carotid artery. Antegrade flow is noted in the right vertebral artery. Left Extracranial There is homogeneous, smooth atherosclerotic plaque noted in the left common carotid artery. There is heterogeneous, irregular atherosclerotic plaque noted in the left internal carotid artery. There is homogeneous, smooth atherosclerotic plaque noted in the left external carotid artery. Antegrade flow is noted in the left vertebral artery. Procedure Carotid Duplex 85404. Exam performed portable in patient room. Interpretation Summary Irregular calcific plaque at the proximal right internal carotid artery with less than 50% stenosis. <50% stenosis right external carotid Minimal irregular calcific plaque at the proximal left internal carotid artery with less than 50% stenosis <50% stenosis left external carotid Patent and antegrade vertebrals bilaterally Ordering Physician: Raul Patricia Referring Physician: FOREST ZAMORA Performed By: Rocio Bravo, RDCS, RVT
--- NOTE | 2019-10-28 16:22 | ECHOD_ITS ---
Reason For Study: TIA/CVA Procedure This was a 2D Doppler, Color Flow transthoracic echocardiogram. Exam performed portable in patient room. Left Ventricle Normal size and thickness. The estimated ejection fraction is 65 %. Stage 1 diastolic dysfunction. No regional wall motion abnormalities noted. Right Ventricle Normal size and thickness. Normal systolic function. Atria Normal left atrium. Normal right atrium. Normal atrial septum. Bubble contrast study negative for right to left interatrial shunt. Mitral Valve The mitral valve is structurally normal. No prolapse or stenosis seen. Tricuspid Valve Normal tricuspid valve. Trivial tricuspid valve insufficiency. Right ventricular systolic pressure estimated to be 47 mmHg. Moderate pulmonary hypertension. Aortic Valve Normal aortic valve. Trisinus/trileaflet aortic valve. Pulmonic Valve Normal pulmonic valve. Great Vessels Normal aortic root. Normal arch. Pericardium/Pleural No pericardial effusion. Medication Performed a rapid injection of agitated mix of 9 cc saline and 1cc air to assess for atrial septal defect. MMode/2D Measurements & Calculations LVIDd: 3.7 cm IVSd: 1.3 cm Ao root diam: 2.9 cm LVIDs: 2.3 cm LVPWd: 1.2 cm RVDd: 3.4 cm FS: 37.5 % LAV(MOD-bp): 48.5 ml LVAd ap4: 27.2 cm2 SV(MOD-sp4): 54.3 ml LAV(MOD-bp) Indexed: 22.2 ml/m2 EDV(MOD-sp4): 73.4 ml LAV(MOD-sp2): 34.5 ml EDV(sp4-el): 77.1 ml LAV(MOD-sp4): 62.4 ml LVAs ap4: 11.9 cm2 ESV(MOD-sp4): 19.1 ml ESV(sp4-el): 19.7 ml EF(MOD-sp4): 74.0 % EF(sp4-el): 74.4 % SV(sp4-el): 57.4 ml LA A4 area: 21.9 cm2 LA dimension(2D): 4.0 cm RA A4 area: 11.5 cm2 Doppler Measurements & Calculations MV E max azam: 79.2 cm/sec Lat Peak E' Azam: 10.5 cm/sec Med Peak E' Azam: 5.5 cm/sec MV A max azam: 107.8 cm/sec E/E' lat: 7.6 E/E' med: 14.4 MV E/A: 0.74 Ao V2 max: 149.8 cm/sec LV V1 max: 114.3 cm/sec PA V2 max: 93.6 cm/sec Ao max P.0 mmHg LV V1 max P.2 mmHg Ao V2 mean: 105.9 cm/sec Ao mean P.9 mmHg Ao V2 VTI: 30.2 cm TR max azam: 324.1 cm/sec TR max P.0 mmHg Interpretation Summary The estimated ejection fraction is 65 %. Stage 1 diastolic dysfunction. Trivial tricuspid valve insufficiency. Right ventricular systolic pressure estimated to be 47 mmHg. Moderate pulmonary hypertension. Bubble contrast study negative for right to left interatrial shunt. Compared to echo report dated 07/21/2013, LV function has remained the same. RVSP not noted at that time. Ordering Physician: Raul Patricia Referring Physician: Terrell Villanueva Performed By: Nori Curry, KAITY, RVT
--- NOTE | 2019-10-28 16:22 | MRI_ITS ---
STUDY: MRI BRAIN WITHOUT CONTRAST REASON FOR EXAM: Female, 83 years old. RIGHT leg weakness, right foot numbness TECHNIQUE: Standardized multiplanar fat and water weighted pulse sequences were obtained. COMPARISON: CT same day FINDINGS: Normal size of the ventricles and extra-axial spaces for the patient''s age. There are a limited number of small white matter hyperintensities, distributed throughout the deep white matter tracts of the cerebral hemispheres, consistent with mild chronic white matter ischemic changes. Normal bilateral basal ganglia. Normal thalami. There is no extra-axial fluid accumulation. Normal flow voids within the major intracranial circulation suggesting patency by spin echo criteria. Normal sella turcica, pituitary gland, infundibular stalk, optic chiasm and hypothalamus. Normal tectal plate and pineal gland. Normal midbrain, lyudmila and medulla. Normal cerebellum. Normal basal cisterns. Normal bilateral temporal bones. Normal bilateral internal auditory canals. No demonstrated orbital abnormality, within the constraints of a routine brain study. Normal visualized paranasal sinuses. Hyperostosis frontalis interna. Normal visualized soft tissue structures. Normal visualized upper cervical spine. MRI/Brain without Contrast IMPRESSION: No evidence of acute infarct or hemorrhage. Electronically Signed: Husam Brooke MD at 21:08 EDT Tel , Service support ,
[2019-10-28 17:36] LABS: Cholesterol 174 mg/dL (200); High Density Lipoprotein 51 mg/dL; Triglycerides 115 mg/dL; Very Low Density Lipoprotein 23 mg/dL (5-40)
[2019-10-28] MEDS: 0.9% Normal Saline 1,000 ML 75 ML IV (18:14)
[2019-10-28] MEDS: 0.9% Saline Lock 10 ML Syringe IV ×2 (18:14→21:11)
[2019-10-28] MEDS: MELATONIN 10 MG TABLET PO (21:01)
[2019-10-28] MEDS: LORazepam 1 MG Tablet PO (21:01)
[2019-10-28] MEDS: Pramipexole Di-HCl 1 MG Tablet PO (21:02)
[2019-10-28] MEDS: Sertraline 50 MG Tablet PO (21:02)
[2019-10-28] MEDS: Acetaminophen 500 MG Tablet PO (21:02)
[2019-10-28] MEDS: Acetylcysteine (Mucomyst Oral) 20% SOLN 1200 MG PO (21:09)
[2019-10-29 02:43] VITALS: BP 116/55; PULSE 71; RESP 21; TEMP 36.4; O2SAT 96
[2019-10-29 03:00] VITALS: PULSE 70
[2019-10-29] MEDS: Levothyroxine 100 MCG Tablet PO (05:10)
[2019-10-29] MEDS: Pramipexole Di-HCl 1 MG Tablet PO (05:10)
[2019-10-29 06:05] LABS: Absolute Lymphocyte Count 1.97 X10^3/uL (0.83-4.51); Absolute Neutrophil Count 4.4 X10^3/uL (2.0-7.7); Basophil# 0.05 X10^3/uL; Basophil% 0.7 % (0-1); Eosinophil# 0.17 X10^3/uL; Eosinophils% 2.4 % (0-5); Hematocrit 33.8 % (37-47); Hemoglobin 11.2 g/dL (12.0-15.0); Lymphocyte # 1.97 X10^3/ul (4.0); Lymphocyte % 28.3 % (19-41); Mean Corp Hgb Conc 33.1 g/dL (32-36); Mean Corpuscular Hgb 28.5 pg (27.0-32.0); Mean Platelet Vol. 11.3 fl (6.2-12.0); Monocyte# 0.38 X10^3/uL; Monocyte% 5.5 % (0-10); NRBC Flagged by Analyzer 0 % (0-5); Neutrophil # 4.37 X10^3/uL (2.7-7.7); Neutrophil % 62.8 % (47-70); Platelet Count 161 K/mm3 (150-450); RBC Distribution Width CV 13.2 % (11.6-14.6); RBC Distribution Width SD 41.9 fl (35.1-43.9); Red Blood Count 3.93 M/mm3 (4.2-5.4)
[2019-10-29 06:33] LABS: Anion Gap 4 (5-15); BUN 24 mg/dL (7-18); BUN/Creat Ratio 28.7 RATIO (10-20); Calcium,Total 7.8 mg/dL (8.5-10.1); Chloride 102 mmol/L (98-107); Creatinine, Serum 0.84 mg/dL (0.55-1.02); EST Glomerular Filtration Rate 69 mL/min (>60); Est Glom Filt Rate - Afr Amer 84 mL/min (>60); Estimated Creatinine Clearance 44.59 ml/min; Glucose 83 mg/dL (74-106); Potassium 3.9 mmol/L (3.5-5.1); Sodium Level 131 mmol/L (136-145)
[2019-10-29 06:37] VITALS: O2SAT 98
[2019-10-29 07:02] VITALS: PULSE 67
[2019-10-29 09:17] VITALS: BP 122/61; PULSE 69; RESP 18; TEMP 36.7; O2SAT 98
[2019-10-29] MEDS: Enoxaparin 30 MG/0.3 ML Syringe SC (09:26)
[2019-10-29] MEDS: Acetaminophen 500 MG Tablet PO (09:26)
[2019-10-29] MEDS: Sertraline 50 MG Tablet PO (09:26)
[2019-10-29] MEDS: Aspirin 81 MG TAB.CHEW PO (09:26)
[2019-10-29] MEDS: Acetylcysteine (Mucomyst Oral) 20% SOLN 1200 MG PO (09:30)
[2019-10-29] MEDS: LORazepam 1 MG Tablet PO (09:30)
[2019-10-29 09:40] VITALS: BMI 44.6
[2019-10-29 09:58] LABS: AST(SGOT) 11 U/L (15-37); Alanine Aminotransfer ALT/SGPT 14 U/L (13-56); Albumin, Serum 2.7 g/dL (3.2-5.0); Alkaline Phosphatase 68 U/L (45-117); Bilirubin, Direct 0.13 mg/dL (0.00-0.30); Globulin 3.6 g/dL (2.2-4.2); Protein, Total 6.3 g/dL (6.4-8.2)
--- NOTE | 2019-10-29 10:22 | VDLE_ITS ---
Reason For Study: PAIN RIGHT GSV is normal. CFV is compressible, spontaneous, phasic, competent and demonstrates normal augmentation. FV is compressible, spontaneous, phasic, competent and demonstrates normal augmentation. POP V is compressible, spontaneous, phasic, competent and demonstrates normal augmentation. T/P Trunk is compressible. PTV is compressible. RT PerV is compressible. Procedure Exam performed portable in patient room. A preliminary report was called and/or faxed to [facility]. Interpretation Summary There is no evidence of right lower extremity deep vein thrombosis. Right great saphenous vein appears patent and compressible segmentally. Ordering Physician: Leana Olivia Referring Physician: FOREST ZAMORA Performed By: Rocio Bravo, MARYCS, RVT
--- NOTE | 2019-10-29 12:00 | DCINST_ITS ---
- Discharge Diagnoses Current Active Problems: Current Active and Chronic Problems (Last Updated 10/28/19 @ 15:[address] Raul Patricia MD) Left upper lobe pulmonary nodule (Acute) Anxiety and depression (Chronic) Restless leg syndrome (Chronic) History of thyroid cancer (Chronic) Status post thyroidectomy. You will use the following diet at home:: No restrictions Discharge Activity: Return to Normal Activity Call your doctor if you observe: Shortness of breath, Dizziness, Fainting spells, Chest pain Allergies/Adverse Reactions: Allergies nitrofurantoin [From Macrobid] Allergy (Intermediate, Verified 10/28/19 13:15) hives latex Allergy (Verified 10/28/19 13:15) Rash Penicillins Allergy (Verified 10/28/19 13:15) Swelling Medications to take at Discharge Sertraline HCl [Zoloft] 50 mg PO BID 01/08/13 Acetaminophen [Pain Reliever] 1 tab PO BID 08/15/13 Lorazepam [Ativan] 1 mg PO BID 09/20/14 Melatonin 10 mg PO QHS 04/09/19 Lactobacillus Acidophilus [Probiotic] 1 ea PO DAILY 07/07/19 Ropinirole HCl [Requip] 2 mg PO TID 07/07/19 cholecalciferol (vitamin D3) 1,250 mcg (50,000 unit) capsule 50,000 unit PO .twice/month cap 07/14/19 cyanocobalamin (vitamin B-12) 2,500 mcg tablet 1,000 mcg PO DAILY tab 07/14/19 levothyroxine 100 mcg capsule 100 mcg PO DAILY 07/14/19 hydrochlorothiazide 12.5 mg tablet 12.5 mg PO DAILY PRN #30 tab 09/23/19 Primary Care Physician: Terrell Villanueva DO [Primary Care Provider] - Please follow up with your Primary Care Physician in: 1 Week Test Results: Test results from this visit will be discussed in further detail at your follow- up appointment, if applicable. Please Follow Up With: David Rodney DO When: Call for follow up for lung nodule Proposed Discharge Date: 10/29/19
--- NOTE | 2019-10-29 12:01 | DS.PCM_ITS ---
<Leana Olivia - Last Filed: 10/29/19 13:25> Discharge Date and Diagnosis Date of Admission: 10/28/19 Date of Discharge: 10/29/19 - Primary Discharge Diagnosis Acute Problems: Active Problems (Last Updated 10/28/19 @ 15:[address] Raul Patricia MD) 1. Right lower extremity weakness/heaviness-CVA/TIA ruled out. 2. Left upper lung nodule 3. Mild dehydration with hyponatremia 4. Hyperlipidemia 5. History of breast cancer/thyroid cancer 6. Anxiety/depression 7. Restless leg syndrome - Secondary Discharge Diagnosis Chronic Problems: Chronic Problems (Last Updated 10/28/19 @ 15:[address] Raul Patricia MD) Anxiety and depression (Chronic) Restless leg syndrome (Chronic) History of thyroid cancer (Chronic) Status post thyroidectomy. Hyperlipidemia (Chronic) Breast cancer (Chronic) Status post right mastectomy. Hospital Course and Treatment Imaging Results: Diagnostic Data Brain CT 10/28/19 14:19 IMPRESSION: Chronic involutional changes of the brain. Electronically Signed: Sharyn Maya, at 15:15 EDT Tel , Service support , Chest X-Ray 10/28/19 15:00 IMPRESSION: There is an ill-defined nodule in the left leg upper lobe measures 2 cm was not present on the previous study may represent a neoplastic process. Further evaluation by CT scan would be helpful. Electronically Signed: Sharyn Maya at 15:47 EDT Tel , Service support , Brain MRI 10/28/19 16:22 IMPRESSION: No evidence of acute infarct or hemorrhage. Electronically Signed: Husam Brooke MD at 21:08 EDT Tel , Service support , Chest CT 10/28/19 16:22 IMPRESSION: 1 cm nodule in the lingula. Further evaluation with PET/CT is recommended. Dependent atelectasis. No pulmonary infiltrates or pleural effusions. Large hiatal hernia. Electronically Signed: Lexa Ferrer, at 17:42 EDT Tel , Service support , Operations: None Procedures: None Summary of Care Provided: The patient is a 83 year old F admitted 10/28/2019 due to right leg weakness and heaviness. 1. Right lower extremity weakness/heaviness-CVA/TIA ruled out. MRI of brain without acute process. Echocardiogram demonstrates an EF of 65%, stage I diastolic dysfunction, RVSP estimated to be 47 mmHg. Patient denies hip or back pain. PT recommending outpatient therapy. Right lower extremity duplex ultrasound due to right calf pain which was negative for DVT. Follow-up with primary care physician in 1 week. 2. Left upper lung nodule-chest CT demonstrates 1 cm nodule in the lingula. Referred to pulmonary medicine for further outpatient evaluation. Concern for malignancy given history of breast cancer and thyroid cancer. 3. Mild dehydration with hyponatremia-improved. Suspect secondary to HCTZ. 4. Hyperlipidemia-continue statin. 5. History of breast cancer/thyroid cancer 6. Anxiety/depression-continue Zoloft, Ativan. 7. Restless leg syndrome-continue Requip. Patient seen and examined prior to discharge. Physical assessment as noted below. Patient is stable for discharge with follow up recommendations as noted above. This patient was seen by NATALIYA Goncalves under the supervision of Dr. Hurtado. - Physical Exam Vitals/I&O's: Vital Signs Temp Pulse Resp BP Pulse Ox 98.1 F 69 18 122/61 H 98 10/29/19 09:17 10/29/19 09:17 10/29/19 09:17 10/29/19 09:17 10/29/19 09:17 Oxygen Delivery Method Room Air Weight: 260 lb 2.327 oz Body Mass Index (BMI) 44.6 Finger Stick Blood Glucose 81 Intake and Output for Last 24 Hours 10/27/19 10/28/19 10/29/19 23:59 23:59 23:59 Intake Total 326.25 / 326.25 1303.75 / 1303.75 Balance 326.25 / 326.25 1303.75 / 1303.75 General: Alert, Oriented x3, Cooperative HEENT: Atraumatic, PERRLA, EOMI, Normocephalic Neck: Supple, No JVD, Negative Carotid Bruits Lungs: Clear to auscultation, Normal air movement Cardiovascular: Regular rate, No murmurs Abdomen: Bowel Sounds Present, Soft, Non Tender, Non-Distended, Obese Extremities: No clubbing, No cyanosis, No edema, Capillary Refill Less than 3 Seconds Skin: No rashes, No breakdown Musculoskeletal: No Tenderness to Palpation of Joints or Extremities Neurological: Cranial nerves II-XII grossly intact, Neuro grossly intact Psych/Mental Status: Normal Affect, Appropriate Laboratory Results 10/28/19 14:31: WBC 8.3, RBC 4.39, Hgb 12.5, Hct 37.4, MCV 85.2, MCH 28.5, MCHC 33.4, RDW Std Deviation 42.1, RDW Coeff of Ania 13.4, Plt Count 196, MPV 11.4, Immature Gran % (Auto) 0.400, Neut % (Auto) 68.5, Lymph % (Auto) 23.2, [place] % (Auto) 5.8, Eos % (Auto) 1.3, Baso % (Auto) 0.8, Absolute Neuts (auto) 5.7, Absolute Lymphs (auto) 1.92, Nucleated RBC % 0 10/28/19 14:31: PT 13.0, INR 1.0, APTT 25.3 10/28/19 14:31: Sodium 131 L, Potassium 4.4, Chloride 99, Carbon Dioxide 29.0, Anion Gap 3 L, BUN 29 H, Creatinine 1.03 H, Estim Creat Clear Calc 36.36, Est GFR (MDRD) Af Amer 66, Est GFR (MDRD) Non-Af 54 L, BUN/Creatinine Ratio 28.2 H, Glucose 96, Calcium 9.2, Troponin I < 0.015 10/28/19 14:31: Triglycerides 115, Cholesterol 174, LDL Cholesterol 100, VLDL Cholesterol 23, HDL Cholesterol 51 10/28/19 14:42: POC Glucose 81 10/29/19 05:38: Sodium 131 L, Potassium 3.9, Chloride 102, Carbon Dioxide 25.0, Anion Gap 4 L, BUN 24 H, Creatinine 0.84, Estim Creat Clear Calc 44.59, Est GFR (MDRD) Af Amer 84, Est GFR (MDRD) Non-Af 69, BUN/Creatinine Ratio 28.7 H, Glucose 83, Calcium 7.8 L 10/29/19 05:38: WBC 7.0, RBC 3.93 L, Hgb 11.2 L, Hct 33.8 L, MCV 86.0, MCH 28.5, MCHC 33.1, RDW Std Deviation 41.9, RDW Coeff of Ania 13.2, Plt Count 161, MPV 11.3, Immature Gran % (Auto) 0.300, Neut % (Auto) 62.8, Lymph % (Auto) 28.3, [place] % (Auto) 5.5, Eos % (Auto) 2.4, Baso % (Auto) 0.7, Absolute Neuts (auto) 4.4, Absolute Lymphs (auto) 1.97, Nucleated RBC % 0 10/29/19 05:38: Total Bilirubin 0.30, Direct Bilirubin 0.13, AST 11 L, ALT 14, Alkaline Phosphatase 68, Total Protein 6.3 L, Albumin 2.7 L, Globulin 3.6 Current Medications Acetaminophen (Tylenol) 500 mg PO BID [facility] Last Admin: 10/29/19 09:26 Dose: 500 mg Documented by: Acetylcysteine (Mucomyst) 1,200 mg PO BID [facility] Stop: 10/30/19 10:01 Last Admin: 10/29/19 09:30 Dose: 1,200 mg Documented by: Aspirin (Aspirin, Baby) 81 mg PO DAILY@0800 [facility] Last Admin: 10/29/19 09:26 Dose: 81 mg Documented by: Atorvastatin Calcium (Lipitor) 80 mg PO QHS [facility] Last Admin: 10/28/19 21:01 Dose: Not Given Documented by: Enoxaparin Sodium (Lovenox) 30 mg SC DAILY [facility] Last Admin: 10/29/19 09:26 Dose: 30 mg Documented by: Sodium Chloride () 250 mls @ 15 mls/hr IV .[id number] PRN PRN Reason: Saline Flush Sodium Chloride () 250 mls @ 15 mls/hr IV .[id number] PRN PRN Reason: Additional IVPB Infusion Labetalol HCl (Trandate) 20 mg IV X1 PRN PRN Reason: Blood Pressure Levothyroxine Sodium (Synthroid) 100 mcg PO DAILY@0600 [facility] Last Admin: 10/29/19 05:10 Dose: 100 mcg Documented by: Lorazepam (Ativan) 1 mg PO BID [facility] Last Admin: 10/29/19 09:30 Dose: 1 mg Documented by: Magnesium Hydroxide (Milk Of Magnesia) 30 ml PO DAILY PRN PRN PRN Reason: Constipation Melatonin (Melatonin) 10 mg PO QHS [facility] Last Admin: 10/28/19 21:01 Dose: 10 mg Documented by: Ondansetron HCl (Zofran) 4 mg IV Q8H PRN PRN PRN Reason: NAUSEA/VOMITING Pramipexole Dihydrochloride (Mirapex) 1 mg PO TID [facility] Last Admin: 10/29/19 05:10 Dose: 1 mg Documented by: Senna/Docusate Sodium (Senokot-S, Court-Colace) 2 tablet PO BID PRN PRN PRN Reason: Constipation Sertraline HCl (Zoloft) 50 mg PO BID [facility] Last Admin: 10/29/19 09:26 Dose: 50 mg Documented by: Sodium Chloride () 10 - 40 ml IV UD PRN PRN Reason: SALINE FLUSH Last Admin: 10/28/19 21:11 Dose: 10 ml Documented by: Discharge Diet: No Restrictions Discharge Activity: Return to Normal Activity Call your doctor if you observe: Shortness of breath, Dizziness, Fainting spells, Chest pain Home Medications: Medications to take at Discharge Sertraline HCl [Zoloft] 50 mg PO BID 01/08/13 Acetaminophen [Pain Reliever] 1 tab PO BID 08/15/13 Lorazepam [Ativan] 1 mg PO BID 09/20/14 Melatonin 10 mg PO QHS 04/09/19 Lactobacillus Acidophilus [Probiotic] 1 ea PO DAILY 07/07/19 Ropinirole HCl [Requip] 2 mg PO TID 07/07/19 cholecalciferol (vitamin D3) 1,250 mcg (50,000 unit) capsule 50,000 unit PO .twice/month cap 07/14/19 cyanocobalamin (vitamin B-12) 2,500 mcg tablet 1,000 mcg PO DAILY tab 07/14/19 levothyroxine 100 mcg capsule 100 mcg PO DAILY 07/14/19 hydrochlorothiazide 12.5 mg tablet 12.5 mg PO DAILY PRN #30 tab 09/23/19 Primary Care Physician: Terrell Villanueva DO [Primary Care Provider] - Please follow up with your Primary Care Physician in: 1 Week Please Follow Up With: David Rodney DO When: Call for follow up for lung nodule Disposition: Home Minutes spent on discharge:: 35 Patient Condition:: Stable Medical Necessity - Tobacco Use Smoking Status: Former smoker Tobacco Use: Non-smoker Meaningful Use Info Meaningful Use Diagnoses (Choose all that apply): None applicable <Paintsil,Cabazon - Last Filed: 10/30/19 16:25> Discharge Date and Diagnosis - Secondary Discharge Diagnosis Chronic Problems: Chronic Problems (Last Updated 10/28/19 @ 15:[address] Raul Patricia MD) Anxiety and depression (Chronic) Restless leg syndrome (Chronic) History of thyroid cancer (Chronic) Status post thyroidectomy. Hyperlipidemia (Chronic) Breast cancer (Chronic) Status post right mastectomy. Hospital Course and Treatment Summary of Care Provided: This patient was seen in conjunction with Leana Olivia NP. I have independently interviewed and examined the patient and reviewed pertinent historical, laboratory, and other data. Please refer to her note for patient's presentation, findings, and recommendations. 83-year-old female with past medical history of anxiety/depression, restless syndrome presented with right leg weakness and heaviness that started in the morning of admission. Patient was driving and pulling to a parking space but could not lift her right foot from the stretcher. This was a still some numbness. Her symptoms continued for about 2 hours and started to improve gradually. At the time of being seen the ED, her weakness was resolved. CT of the head was unremarkable. She was admitted to the telemetry floor for work-up for possible acute stroke. All work-up was negative. Patient was seen by PT and OT and outpatient therapy recommended. Right lower extremity Dopplers was also negative for acute DVT. She has admitting CT scan showed a left upper lobe lung nodule, patient stated that she had a chronic lung nodule. Advised patient to follow-up with her primary care doctor in the outpatient on the lung nodule. On the day of discharge, patient was seen and examined. Denied any new complaints. No acute events overnight. Physical Exam: Gen: Morbidly obese, comfortable, not pale, not jaundiced, alert oriented x3 CVS:HS I +II, regular, no murmurs RESP: Clinically clear to auscultation GI: BS present and normal, nontender, no palpable organs EXT:No edema - Physical Exam Vitals/I&O's: Vital Signs Temp Pulse Resp BP Pulse Ox 98.1 F 69 18 122/61 H 98 10/29/19 09:17 10/29/19 09:17 10/29/19 09:17 10/29/19 09:17 10/29/19 09:17 Oxygen Delivery Method Room Air Weight: 118 kg Body Mass Index (BMI) 44.6 Finger Stick Blood Glucose 81 Intake and Output for Last 24 Hours 10/27/19 10/28/19 10/29/19 23:59 23:59 23:59 Intake Total 326.25 / 326.25 1303.75 / 1303.75 Balance 326.25 / 326.25 1303.75 / 1303.75 Laboratory Results 10/28/19 14:31: WBC 8.3, RBC 4.39, Hgb 12.5, Hct 37.4, MCV 85.2, MCH 28.5, MCHC 33.4, RDW Std Deviation 42.1, RDW Coeff of Ania 13.4, Plt Count 196, MPV 11.4, Immature Gran % (Auto) 0.400, Neut % (Auto) 68.5, Lymph % (Auto) 23.2, [place] % (Auto) 5.8, Eos % (Auto) 1.3, Baso % (Auto) 0.8, Absolute Neuts (auto) 5.7, Absolute Lymphs (auto) 1.92, Nucleated RBC % 0 10/28/19 14:31: PT 13.0, INR 1.0, APTT 25.3 10/28/19 14:31: Sodium 131 L, Potassium 4.4, Chloride 99, Carbon Dioxide 29.0, Anion Gap 3 L, BUN 29 H, Creatinine 1.03 H, Estim Creat Clear Calc 36.36, Est GFR (MDRD) Af Amer 66, Est GFR (MDRD) Non-Af 54 L, BUN/Creatinine Ratio 28.2 H, Glucose 96, Calcium 9.2, Troponin I < 0.015 10/28/19 14:31: Triglycerides 115, Cholesterol 174, LDL Cholesterol 100, VLDL Cholesterol 23, HDL Cholesterol 51 10/28/19 14:42: POC Glucose 81 10/29/19 05:38: Sodium 131 L, Potassium 3.9, Chloride 102, Carbon Dioxide 25.0, Anion Gap 4 L, BUN 24 H, Creatinine 0.84, Estim Creat Clear Calc 44.59, Est GFR (MDRD) Af Amer 84, Est GFR (MDRD) Non-Af 69, BUN/Creatinine Ratio 28.7 H, Glucose 83, Calcium 7.8 L 10/29/19 05:38: WBC 7.0, RBC 3.93 L, Hgb 11.2 L, Hct 33.8 L, MCV 86.0, MCH 28.5, MCHC 33.1, RDW Std Deviation 41.9, RDW Coeff of Ania 13.2, Plt Count 161, MPV 11.3, Immature Gran % (Auto) 0.300, Neut % (Auto) 62.8, Lymph % (Auto) 28.3, [place] % (Auto) 5.5, Eos % (Auto) 2.4, Baso % (Auto) 0.7, Absolute Neuts (auto) 4.4, Absolute Lymphs (auto) 1.97, Nucleated RBC % 0 10/29/19 05:38: Total Bilirubin 0.30, Direct Bilirubin 0.13, AST 11 L, ALT 14, Alkaline Phosphatase 68, Total Protein 6.3 L, Albumin 2.7 L, Globulin 3.6 Current Medications Acetaminophen (Tylenol) 500 mg PO BID [facility] Last Admin: 10/29/19 09:26 Dose: 500 mg Documented by: Acetylcysteine (Mucomyst) 1,200 mg PO BID [facility] Stop: 10/30/19 10:01 Last Admin: 10/29/19 09:30 Dose: 1,200 mg Documented by: Aspirin (Aspirin, Baby) 81 mg PO DAILY@0800 [facility] Last Admin: 10/29/19 09:26 Dose: 81 mg Documented by: Atorvastatin Calcium (Lipitor) 80 mg PO QHS [facility] Last Admin: 10/28/19 21:01 Dose: Not Given Documented by: Enoxaparin Sodium (Lovenox) 30 mg SC DAILY [facility] Last Admin: 10/29/19 09:26 Dose: 30 mg Documented by: Sodium Chloride () 250 mls @ 15 mls/hr IV .[id number] PRN PRN Reason: Saline Flush Sodium Chloride () 250 mls @ 15 mls/hr IV .[id number] PRN PRN Reason: Additional IVPB Infusion Labetalol HCl (Trandate) 20 mg IV X1 PRN PRN Reason: Blood Pressure Levothyroxine Sodium (Synthroid) 100 mcg PO DAILY@0600 [facility] Last Admin: 10/29/19 05:10 Dose: 100 mcg Documented by: Lorazepam (Ativan) 1 mg PO BID [facility] Last Admin: 10/29/19 09:30 Dose: 1 mg Documented by: Magnesium Hydroxide (Milk Of Magnesia) 30 ml PO DAILY PRN PRN PRN Reason: Constipation Melatonin (Melatonin) 10 mg PO QHS [facility] Last Admin: 10/28/19 21:01 Dose: 10 mg Documented by: Ondansetron HCl (Zofran) 4 mg IV Q8H PRN PRN PRN Reason: NAUSEA/VOMITING Pramipexole Dihydrochloride (Mirapex) 1 mg PO TID [facility] Last Admin: 10/29/19 05:10 Dose: 1 mg Documented by: Senna/Docusate Sodium (Senokot-S, Court-Colace) 2 tablet PO BID PRN PRN PRN Reason: Constipation Sertraline HCl (Zoloft) 50 mg PO BID [facility] Last Admin: 10/29/19 09:26 Dose: 50 mg Documented by: Sodium Chloride () 10 - 40 ml IV UD PRN PRN Reason: SALINE FLUSH Last Admin: 10/28/19 21:11 Dose: 10 ml Documented by: OBSV E&M: [id number] Observation care discharge
--- NOTE | 2019-10-29 12:59 | CASEMGMT ---
Addendum entered by Linda Herring 10/29/19 14:17: Per therapy verbally, pt does not need any further therapy at discharge. Pt states no need for any further resources at this time. Jessica GILBERT CM Original Note: OFELIA SANCHEZ assessment: Face to Face with patient for initial transition planning/care coordination assessment. OFELIA SANCHEZ introduced self and role at [facility], pt voices understanding and consents to assessment at this time. Pt is sitting up in chair in no distress at this time. Pt is A/Ox4 at this time and answers all questions appropriately at this time. Care providers, pharmacy, and demographics verified at this time. Presentation: Right foot feels 'asleep' for the past hour and a half; has had the same sx's before but resolved, this time not resolving Admitting dx: Right leg weakness/heaviness/TIA PCP: Kay Specialists: Sergio cardio Preferred Pharmacy: [facility] Insurance: [facility] Prescription Benefit: [facility] Living Will/HPOA: Pt states has LW/HPOA and states she brought in and copies were put on chart. Pt states her son, Sundeep Carmona, is HPOA. LNOK: Sundeep Carmona, son/HPOA; Maura Carmona, [id number] Living Arrangements: Pt states lives alone in 1 story apartment and states no concerns at home at this time. Pt states is independent with ADL's. Transportation: Pt states drives self and states no transportation concerns at this time. DME/HHC: Pt has the following DME: cane, walker, rollator, grab bars, and tub bench. Pt states no need for any further DME. Pt states no hx of HHC but has been to [facility] in the past. Pt states was active with [facility] but has not had contact with them for over 2 months as she did not want to sign up for Medicaid. Pt states no concerns with going home at time of discharge. Pt is retired. Pt states does not smoke or drink ETOH. Pt states no further concerns/needs at this time. CM to follow for any further discharge planning/needs. Advised pt to ask for CM if any further questions/concerns/needs arise, voices understanding. Pt Goal: Home Plan: Home Jessica GILBERT CM
--- NOTE | 2019-10-29 14:24 | CASEMGMT ---
SW did not complete a PHQ 9 as per physician patient did not have a Stroke or TIA. Roxy ULLOA MSW
--- NOTE | 2019-10-29 14:35 | CASEMGMT ---
Patient brought in copies of her Healthcare Power of Weight Engineer and Healthcare Living Will. Her son Sundeep is her Healthcare Power of Weight Engineer. Roxy ULLOA MSW
[2019-10-29 15:06] VITALS: BP 133/73; PULSE 77; RESP 16; TEMP 36.7; O2SAT 96
== END 2019-10-29 14:48 | disposition home or self-care (01) ==
LOC: ED 15:13 → PCU 10-29 07:14
PROVIDERS: Internal Medicine; Admitting Provider Hospitalist; Emergency Provider Emergency Medicine; PCP Family Medicine; Visit Provider Hospitalist
DX: R53.1 Weakness (principal); R91.1 Solitary pulmonary nodule; E86.0 Dehydration; E87.1 Hypo-osmolality and hyponatremia; E78.5 Hyperlipidemia, unspecified; F41.9 Anxiety disorder, unspecified; F32.9 Major depressive disorder, single episode, unspecified; G25.81 Restless legs syndrome; R20.0 Anesthesia of skin; R29.700 NIHSS score 0; E66.9 Obesity, unspecified; G47.33 Obstructive sleep apnea (adult) (pediatric); R60.0 Localized edema; E89.0 Postprocedural hypothyroidism; Z79.899 Other long term (current) drug therapy; Z87.891 Personal history of nicotine dependence; Z68.42 Body mass index [BMI] 45.0-49.9, adult; Z85.850 Personal history of malignant neoplasm of thyroid; Z85.3 Personal history of malignant neoplasm of breast
CPT/HCPCS: 36415; 70450; 70551; 71045; 71260; 80048; 80061; 80076; 82962; 84484; 85025; 85610; 85730; 93005; 93306; 93880; 93971; 96360; 96361; 96372; 97162; 97166; 99218; 99251; 99285; J7030; Q9957; Q9967; A4216; G0378; G0463

== ENCOUNTER 2019-12-26 07:15 | Emergency (ER) | payer MEDICARE, SELFPAY ==
[2019-11-04 05:41] VITALS: BMI 45.1
[2019-12-26 07:16] VITALS: BP 153/60; PULSE 81; RESP 16; TEMP 36.3; O2SAT 96; BMI 45.1
--- NOTE | 2019-12-26 07:43 | RAD_ITS ---
STUDY: X-RAY CHEST REASON FOR EXAM: Female, 84 years old. Intermittent SOB x couple months, worse this morning TECHNIQUE: Single AP portable view of the chest. COMPARISON: Comparison is made with prior examination dated 10/28/2019. FINDINGS: EKG electrodes are seen. Hyperinflation. Mild increased markings at the left lung base suggestive of linear atelectasis and/or scarring. The previously seen nodule in the left mid lung is not seen at this time. There is no demonstrated pleural abnormality. Normal size heart. Normal mediastinum and jimmie. Normal visualized pulmonary arteries. There is atherosclerotic tortuosity of the aortic arch and descending thoracic aorta. Normal visualized thoracic spine. Normal visualized ribs, clavicles, and shoulders. Moderate sized hiatal hernia. RAD/Chest 1 View (Portable) IMPRESSION: Mild increased markings at the left lung base suggestive of linear atelectasis and/or scarring. Electronically Signed: Andrei Vences, at 9:07 EDT , Service support ,
--- NOTE | 2019-12-26 07:43 | EKG12_ITS ---
Test Reason : SOB Blood Pressure : / mmHG Vent. Rate : 072 BPM Atrial Rate : 072 BPM P-R Int : 212 ms QRS Dur : 074 ms QT Int : 392 ms P-R-T Axes : -15 039 045 degrees QTc Int : 429 ms Sinus rhythm with 1st degree A-V block Otherwise normal ECG Confirmed by AJ SPAIN, AXEL ([id number]), editor magazine PONCE PATRICK ([id number]) on 01/08/2020 9:40:47 A M Referred By: NEFTALI Confirmed By:AMRIK ROCHA MD
--- NOTE | 2019-12-26 07:57 | ED.VISSUMM ---
- ER Visit Summary Date of Service: 12/26/19 Chief Complaint: Shortness of breath History of Present Illness: The patient is a [address] Saldana and Dr. Villanueva. She reports that she has had intermittent shortness of breath the past 2 months. Is much worse since yesterday. States that severe when she walks around. It is relieved by rest. She denies any shortness of breath now. She denies any chest pain, pressure, or tightness. No cough. No fever or chills. She reports this morning when she was very short of breath she was lightheaded. She did not pass out. She denies any palpitations. Patient denies sick contacts. She does wear a mask when she goes out. Patient reports that she had bilateral lower extremity edema for approximately 1 year. She was placed on hydrochlorothiazide without much relief. She was changed to Lasix twice a day a month ago and reports that she has had relief with this since then. Physical Examination: Vitals: Stable. Afebrile. General: Well-nourished and well-developed. Head: Normocephalic atraumatic. Neck: Supple, no lymphadenopathy. No JVD. Nontender. Cardiovascular: Regular rate and rhythm. No murmurs. Respiratory: No respiratory distress. Clear to auscultation bilaterally. Abdominal: Soft, nontender, nondistended, normal bowel sounds. No guarding, rebound, or peritoneal signs. Back: Nontender. Extremities: Nontender, 2+ pitting edema lower extremities bilaterally. Skin: Normal color, no rash. Neurologic: Alert and oriented ?3. Cranial nerves II through XII are intact. Normal strength and sensation. Psych: Normal affect. Test Results: EKG is sinus at 72 with first-degree AV block nonspecific ST changes. Troponin is negative. BNP is 61. Chem-7 shows sodium 133, BUN 25, creatinine 1.12, glucose 136. CBC shows an H&H 11.6 and 35.9, eosinophils of 6. COVID-19 is negative. Clinical Impression(s) from Imaging Studies Chest X-Ray 12/26/19 07:43 IMPRESSION: Mild increased markings at the left lung base suggestive of linear atelectasis and/or scarring. Electronically Signed: Andrei Vences, at 9:07 EDT , Service support , Emergency Department Course and Treatment: Patient is resting comfortably. She is ambulated to the bathroom without any difficulty. She feels well and would like to go home. Treatment Plan: I had a prolonged scratch the patient at this time I do not have an explanation for her shortness of breath. She has not used an inhaler in the past, but reports I wish somebody would give me one. Patient will be discharged with albuterol MDI and instructed to follow-up with her primary care physician in 1 to 2 days if not improving. Return to the emergency department for any worsening symptoms. Disposition: To home in improved and stable condition. Impression: 1 1. Dyspnea, uncertain cause. This note was generated with [employer] dictation software. It may contain incorrect words, spelling, and punctuation that were not noted in review of the chart prior to signing ED Disposition - Plan for ED Patient: Instructions: ED Dyspnea Prescriptions: Albuterol Inhaler [Ventolin Hfa] 2 puff INHALATION Q4H PRN PRN #1 inhaler PRN Reason: Wheezing Referrals: Terrell Villanueva DO [Primary Care Provider] - 1-2 Days if not improving
[2019-12-26 08:14] LABS: Absolute Lymphocyte Count 1.63 X10^3/uL (0.83-4.51); Absolute Neutrophil Count 5.5 X10^3/uL (2.0-7.7); Basophil# 0.07 X10^3/uL; Basophil% 0.9 % (0-1); Eosinophil# 0.46 X10^3/uL; Eosinophils% 5.7 % (0-5); Hematocrit 35.9 % (37-47); Hemoglobin 11.6 g/dL (12.0-15.0); Lymphocyte # 1.63 X10^3/ul (4.0); Mean Corp Hgb Conc 32.3 g/dL (32-36); Mean Corpuscular Hgb 27.9 pg (27.0-32.0); Mean Corpuscular Volume 86.3 fL (81-99); Mean Platelet Vol. 10.2 fl (6.2-12.0); Monocyte# 0.44 X10^3/uL; Monocyte% 5.4 % (0-10); NRBC Flagged by Analyzer 0 % (0-5); Neutrophil # 5.49 X10^3/uL (2.7-7.7); Neutrophil % 67.5 % (47-70); Platelet Count 247 K/mm3 (150-450); RBC Distribution Width CV 13.2 % (11.6-14.6); RBC Distribution Width SD 41.4 fl (35.1-43.9); Red Blood Count 4.16 M/mm3 (4.2-5.4); White Blood Count 8.1 K/mm3 (4.4-11.0)
[2019-12-26 08:34] LABS: Anion Gap 5 (5-15); BUN 25 mg/dL (7-18); BUN/Creat Ratio 22.3 RATIO (10-20); Calcium,Total 9.3 mg/dL (8.5-10.1); Chloride 101 mmol/L (98-107); Creatinine, Serum 1.12 mg/dL (0.55-1.02); EST Glomerular Filtration Rate 49 mL/min (>60); Est Glom Filt Rate - Afr Amer 60 mL/min (>60); Estimated Creatinine Clearance 32.86 ml/min; Glucose 136 mg/dL (74-106); Potassium 4.2 mmol/L (3.5-5.1); Sodium Level 133 mmol/L (136-145)
[2019-12-26 09:13] LABS: BNP,B-Type NATRIURETIC PEPTIDE 61.1 pg/mL (0-100)
[2019-12-26 10:04] VITALS: BP 114/63; PULSE 72; RESP 15; O2SAT 98
--- NOTE | 2019-12-26 11:06 | CM.ED ---
SOCIAL WORK Reason for Consult: Assistance with discharge Met with patient in room. Patient's ride from [employer] arrived. Coordinated time for discharge and ride as patient was not discharged at this time. Material Controller to return in 10-15 minutes. Staff marisol. Harleen Schaeffer MSW, PRODUCTION POSTING CLERK
[2019-12-26 11:11] VITALS: BP 115/74; PULSE 71; RESP 16; O2SAT 96
== END 2019-12-26 11:12 | disposition home or self-care (01) ==
PROVIDERS: Emergency Provider Emergency Medicine; PCP Family Medicine
DX: R60.0 Localized edema (principal); R06.00 Dyspnea, unspecified; E03.9 Hypothyroidism, unspecified; F32.9 Major depressive disorder, single episode, unspecified; F41.9 Anxiety disorder, unspecified; Z79.899 Other long term (current) drug therapy; Z87.891 Personal history of nicotine dependence
CPT/HCPCS: 71045; 80048; 83880; 84484; 85025; 87635; 93005; 94760; 99281; 99285; A4216; U0003

== ENCOUNTER → 2020-04-07 12:26 | Outpatient (CLI) | payer MEDICARE, MEDICAID, SELFPAY ==
--- NOTE | 2020-04-07 12:32 | CT_ITS ---
STUDY: CT CHEST WITH T WITHOUT CONTRAST REASON FOR EXAM: Female, 84 years old. LUNG NODULE AND AXILLARY LYMPH NODES. RIGHT MASTECTOMY. ? LYMPH NODES IN RIGHT AXILLARY RADIATION DOSAGE (If Supplied By Facility): CTDIvol = ( 25.33 ) mGy, DLP = ( 1322.18 ) mGycm TECHNIQUE: Transaxial imaging was performed pre-and post contrast administration of 100 ML ISOVUE 300. Multiplanar coronal and sagittal images were reformatted. Individualized dose optimization techniques were used for this CT. COMPARISON: Comparison is made with prior examination dated 10/28/2019. FINDINGS: Small benign-appearing bilateral axillary lymph nodes. Status post right mastectomy. Stable 1.3 cm lobulated nodule in the anterior lateral aspect of the left upper lobe. Mild degree of increased interstitial markings at the lung bases suggestive of scarring. There is no demonstrated pleural abnormality. There are calcifications of the coronary arteries. There are multiple small lymph nodes within the mediastinum, which are normal in size and morphology most compatible with reactive lymph hyperplasia. Normal hilar regions. Normal enhanced and unenhanced pulmonary arteries. There is atherosclerotic calcification of the aortic arch with tortuosity and elongation of the aortic arch and descending thoracic aorta. There are multi-level degenerative changes of the thoracic spine. 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 Increased kyphosis. Moderate sized hiatal hernia. CT/Chest W/WO Contrast IMPRESSION: Stable examination. Electronically Signed: Andrei Vences MD at 13:11 EST , Service support ,
[2020-04-07 12:46] LABS: CREATININE FINGERSTICK 0.9 mg/dL (0.55-1.02); EGFR FINGERSTICK > 60.0000 mL/min (>60)
== END ==
PROVIDERS: PCP Family Medicine; Referring Provider Internal Medicine Critical Care Medicine; Visit Provider Internal Medicine Critical Care Medicine
DX: R91.1 Solitary pulmonary nodule (principal)
CPT/HCPCS: 71270; Q9967

== ENCOUNTER → 2020-06-02 08:52 | Outpatient (CLI) | payer MEDICARE, MEDICAID, SELFPAY ==
--- NOTE | 2020-06-02 08:57 | RAD_ITS ---
STUDY: X-RAY - UNILATERAL RIBS ( RIGHT ) WITH CHEST REASON FOR EXAM: Female, 84 years old. RIB PAIN TECHNIQUE - RIBS: 4 view(s) of the ribs. TECHNIQUE - CHEST: Single AP portable view of the chest. COMPARISON: 12/26/2019. FINDINGS - RIBS: Normal visualized ribs without a demonstrated fracture. FINDINGS - CHEST: The lungs are clear and expanded. There is no demonstrated pleural abnormality. Normal size heart. Normal mediastinum and jimmie. Normal visualized pulmonary arteries. Normal visualized aortic arch and descending thoracic aorta. Moderate hiatal hernia. There are diffuse degenerative changes of the visualized thoracic spine. There is degenerative osteoarthritis of the bilateral shoulders. There is no demonstrated abnormality of the visualized soft tissue structures of the upper abdomen. RAD/Ribs Uni Min 3V w/PA Chest IMPRESSION: RIBS: Normal x-ray examination of the ribs. CHEST: No definite acute or significant abnormality seen. Electronically Signed: Bolivar Sheriff MD at 16:27 EDT , Service support ,
== END ==
PROVIDERS: PCP Family Medicine; Referring Provider Family Medicine; Visit Provider Family Medicine
DX: R07.9 Chest pain, unspecified (principal)
CPT/HCPCS: 71101

== ENCOUNTER → 2020-06-10 13:36 | Outpatient (CLI) | payer MEDICARE, MEDICAID, SELFPAY | PROVIDERS: Visit Provider Family Medicine | DX: Z20.828 Contact with and (suspected) exposure to other viral communicable diseases (principal) | CPT/HCPCS: 87635; U0002 ==

== ENCOUNTER 2020-08-03 14:00 | Outpatient (RCR) | payer MEDICARE, MEDICAID, SELFPAY ==
--- NOTE | 2020-06-23 11:21 | HP.PTEVAL ---
Patient's Visit Information AMILCAR KERN is a 84 year old F referred to Physical Therapy by Dr. Terrell Villanueva DO with a diagnosis of Repeated Falls. Date of Evaluation: 06/23/20 Physical Therapist: Regan Littlejohn, DPT, OCS, CSCS - Visit Plan Frequency: 2x /Week Duration: 4-6 Weeks Plan: 2x/week for 4-6 weeks for... 1. Nustep adn manageable LE machine/core machines in gym to progress to I silver sneakers program as tolerated and safety allows. 2. Balance ex working on weight shifts and gait progressing to I. 3. core strength on mat and progressing to HEP adn LB AROM. Pt sounds like she has been through all options with her back pain but does not describe pain management int he last 4years and may benefit fromt hat or a prescription for home TENS unit to help manage pain. - Subjective Has LBP worse when walking 8/10 with distance. Doctor thought surgery ws necessary but patient did not want it at her age. Uses rolaltor walker. Doctor sent because she has fallen a couple times. Fell on the ribs 05/26 ad had to cancel PT. At that time she had a new rug laid down and tripped on it at night. Had to call squad to get up off ground. Has had other falls due to moving quickly to get something off stove, fell when she turned and rubber on her shoe caught on the floor. 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 Gets injections for pain now and then from pain management. Takes tylenol 2x/day now. Was on morphine for long time but taken off by doctor. On oxycontin for rib pain since fall. Sleep is not great as she wears a cpap and that keeps her up. Legs can also hurt. Live alone, has no stairs, Needs cart to grocery shop and stepping up curb. Drives herself. Spends day with small house duties, has aid that helps her sweep and laundry. Dtr and law helps her shop. Exercise...are you kidding me. Uses rollator walker to get around out adn cane at home due to small house. Hobbies include housework , charcoal drawign adn coloring.Euchre. - Pain LBP Pain Intensity (Out of 10): 8 Pain Intensity Range: 2, 9 - Objective Waks with rollator safe but slow and hunched over, painful after 250 feet. Trasfners needing UE mod I. Steps unable today. LB AROM ext max limited, SB min limited, flexion is min limited. Pain with all motions. reflexes 0/3 patella and achilles B. Sensation LE at deficit in knees down B to gross light touch. Strength LE hips 3, knees 4- adn ankles 4- with good motor control distally. coordination ankles reciprocal is good. FGA is unable without walker today. Stance without support ec is 10 seconds adn tends posterio despite hunching FW. - slump test. - SLR. Flexibility adn ROM in hips and knees and ankles is WFL, pt is obese and core weakness makes it hard to move around. and trasnfers challening but able. - Balance Scores Functional Gait Assessment Score: 11 % Disability: 63.3400 - Goals Goal 1:: FGA to minimize fallr isk Goal Time Frame: 4-6 Weeks Goal 2:: Pt I in strengtha and balance ex in gym for silver sneakers without increasing back pain. Goal Time Frame: 4-6 Weeks Goal 3:: Pt feel 505 better overall energy adn pain and balance Goal Time Frame: 4-6 Weeks Goal 4:: LEFS 40/80 to show improved mobility. Goal Time Frame: 4-6 Weeks - Rehabilitation Potential Physical Therapy Diagnosis: Repeated falls from neuroapthy , sedentarism, weakness. Rehabilitation Potential: Fair - Anticipated Interventions Patient/Client Instruction: Educate patient on: Plan of Care For the Purpose of:: To decrease pain, To improve muscle performance and motor function, To improve ability of physical actions for home/community/work/leisure, To improve gait and locomotor functions Therapeutic Exercise to Include: Strength training, Balance training, Postural training, Gait and locomotor training, Passive ROM, Active ROM, Dynamic Lumbar Stabilization For the Purpose of:: To decrease pain, To improve nutrient delivery to tissue, To improve muscle performance and motor function, To increase tolerance to activity/condition/position, To improve gait and locomotor functions, To improve health of tissue, To improve balance Thank you for the opportunity to evaluate your patient. For Medicare and Medicare HMO plans, please review the plan of care and approve it. It will need to be FAXED BACK to us at [phone] for Medicare purposes. For Medicare only, by signing this I certify the plan of care. Please let me know if there are questions or concerns regarding this plan of care. Physician Signature: Date:
--- NOTE | 2020-07-19 15:49 | HP.PTREVAL_ITS ---
Dr. Terrell Villanueva, DO, It has been my pleasure to treat AMILCAR KERN over the last 5 visits for Repeated Falls. Please see the progress note below for an update on the physical therapy plan of care! Subjective: Tired but feeling better after that. No falls lately. Balance is feeling better. No f/u with doctor. Doing exercises at home with band and balance at counter. Objective/Function: FGA is +3 and patient doing better getting around. Safe without wha walker on firm flat surface but back hurts too much. Wants to finish learning set up of machines in gym for [employer] membership prior to thinking about getting in pool. Not yet I with gym ex. +19 on LEFS. Gols appropriate adn fair prognosis Plan Plan: 2x/week for 3-4 weeks to cotninue toward I with gym based strengthening adn progression of home based balance ex. Consider pool after I with gym if necessary(back pain) Goals Goal 1:: FGA to minimize fallr isk Goal Time Frame: 4-6 Weeks Goal Progress: Progressing Goal 2:: Pt I in strengtha and balance ex in gym for [employer] without increasing back pain. Goal Time Frame: 4-6 Weeks Goal Progress: home, not gym Goal 3:: Pt feel 505 better overall energy adn pain and balance Goal Time Frame: 4-6 Weeks Goal Progress: Goal Met Goal 4:: LEFS 40/80 to show improved mobility. Goal Time Frame: 4-6 Weeks Goal Progress: Progressing Anticipated Interventions Patient/Client Instruction: Educate patient on: Plan of Care For the Purpose of:: To decrease pain, To improve muscle performance and motor function, To improve ability of physical actions for home/community/work/leisure, To improve gait and locomotor functions Therapeutic Exercise to Include: Strength training, Balance training, Postural training, Gait and locomotor training, Passive ROM, Active ROM, Dynamic Lumbar Stabilization For the Purpose of:: To decrease pain, To improve nutrient delivery to tissue, To improve muscle performance and motor function, To increase tolerance to activity/condition/position, To improve gait and locomotor functions, To improve health of tissue, To improve balance Please do not hesitate to contact me at [phone] by phone or if you have questions or concerns regarding this new plan of care! Sincerely, Regan Littlejohn, DPT, OCS, CSCS
--- NOTE | 2020-10-05 12:18 | HP.PT.NRP ---
AMILCAR KERN was seen in my office for initial evaluation on 06/23/20. The following Plan of Care was established for this patient: Initial Frequency: 2x /Week Initial Duration: 4-6 Weeks Patient/Client Instruction: Educate patient on: Plan of Care For the Purpose of:: To decrease pain, To improve muscle performance and motor function, To improve ability of physical actions for home/community/work/leisure, To improve gait and locomotor functions Therapeutic Exercise to Include: Strength training, Balance training, Postural training, Gait and locomotor training, Passive ROM, Active ROM, Dynamic Lumbar Stabilization For the Purpose of:: To decrease pain, To improve nutrient delivery to tissue, To improve muscle performance and motor function, To increase tolerance to activity/condition/position, To improve gait and locomotor functions, To improve health of tissue, To improve balance This patient was last seen in our office 08/03/20. Pertinent comments regarding their Physical therapy will appear below: Pt seen for 7 visits of POC and was 50% better. she cancelled the last visit and neglected to schedule or attend any further visits. At this point, it has been over two months and I will discontinue from my care. At this point I will be discontinuing this patient from physical therapy. I would be happy to see this patient again in the future if found appropriate by the physician. Thank you! Regan Littlejohn, DPT, OCS, CSCS Balance/Gait/Functional tests - Balance/Special Test Scores Functional Gait Assessment Score: 14 % Disability: 53.3400
== END 2020-08-03 19:00 | disposition home or self-care (01) ==
LOC: PT 14:00
PROVIDERS: PCP Family Medicine; Referring Provider Family Medicine; Visit Provider Family Medicine
DX: R29.6 Repeated falls (principal)
CPT/HCPCS: 97110; 97162; 97164

== ENCOUNTER → 2020-09-14 13:00 | Outpatient (CLI) | payer MEDICARE, MEDICAID, SELFPAY | PROVIDERS: PCP Family Medicine; Visit Provider Family Medicine | DX: G47.33 Obstructive sleep apnea (adult) (pediatric) (principal) | CPT/HCPCS: 98960; G0463 ==

== ENCOUNTER → 2020-10-13 10:41 | Outpatient (CLI) | payer MEDICARE, MEDICAID, SELFPAY ==
[2020-10-08 08:32] VITALS: BMI 46.1
--- NOTE | 2020-10-13 10:46 | RAD_ITS ---
STUDY: X-RAY - ABDOMEN/PELVIS REASON FOR EXAM: Female, 84 years old. DIFFUSE ABD DISCOMFORT TECHNIQUE: 3 frontal images of the abdomen were obtained. COMPARISON: None. FINDINGS: Normal visualized lung bases. There are surgical clips within the right upper quadrant system with prior cholecystectomy. There is an unremarkable bowel gas pattern. There is no demonstrated free abdominal air. Normal soft tissue structures. There are diffuse degenerative changes of the visualized lumbar spine. There are bilateral hip arthroplasties that appear grossly anatomic alignment. RAD/Abdomen Single View IMPRESSION: Nonspecific bowel gas pattern. Electronically Signed: Erika Jolly MD at 12:43 EDT Tel , Service support ,
== END ==
PROVIDERS: PCP Family Medicine; Referring Provider Family Medicine; Visit Provider Family Medicine
DX: R10.9 Unspecified abdominal pain (principal)
CPT/HCPCS: 74018

== ENCOUNTER → 2020-10-15 13:50 | Outpatient (CLI) | payer MEDICARE, MEDICAID, SELFPAY ==
[2020-10-08 08:32] VITALS: BMI 46.1
[2020-10-15 15:35] LABS: Absolute Lymphocyte Count 2.48 X10^3/uL (0.83-4.51); Absolute Neutrophil Count 4.9 X10^3/uL (2.0-7.7); Basophil# 0.06 X10^3/uL; Basophil% 0.7 % (0-1); Eosinophil# 0.16 X10^3/uL; Hematocrit 38.7 % (37-47); Hemoglobin 12.2 g/dL (12.0-15.0); Lymphocyte # 2.48 X10^3/ul (0.83-4.51); Lymphocyte % 30.7 % (19-41); Mean Corp Hgb Conc 31.5 g/dL (32-36); Mean Corpuscular Hgb 27.6 pg (27.0-32.0); Mean Corpuscular Volume 87.6 fL (81-99); Mean Platelet Vol. 11.3 fl (6.2-12.0); Monocyte# 0.39 X10^3/uL; Monocyte% 4.8 % (0-10); NRBC Flagged by Analyzer 0 % (0-5); Neutrophil # 4.94 X10^3/uL (2.7-7.7); Neutrophil % 61.3 % (47-70); Platelet Count 215 K/mm3 (150-450); RBC Distribution Width CV 13.8 % (11.6-14.6); RBC Distribution Width SD 44.7 fl (35.1-43.9); Red Blood Count 4.42 M/mm3 (4.2-5.4); White Blood Count 8.1 K/mm3 (4.4-11.0)
[2020-10-15 15:36] LABS: ALB/GLOB Ratio 0.8 RATIO (0.9-2.4); AST(SGOT) 13 U/L (15-37); Alanine Aminotransfer ALT/SGPT 19 U/L (13-56); Albumin, Serum 3.6 g/dL (3.2-5.0); Alkaline Phosphatase 99 U/L (45-117); Anion Gap 5 (5-15); BUN 25 mg/dL (7-18); BUN/Creat Ratio 23.8 RATIO (10-20); Calcium,Total 9.1 mg/dL (8.5-10.1); Chloride 101 mmol/L (98-107); Creatinine, Serum 1.05 mg/dL (0.55-1.02); EST Glomerular Filtration Rate 53 mL/min (>60); Est Glom Filt Rate - Afr Amer 64 mL/min (>60); Globulin 4.3 g/dL (2.2-4.2); Glucose 112 mg/dL (74-106); Potassium 3.9 mmol/L (3.5-5.1); Protein, Total 7.9 g/dL (6.4-8.2); Sodium Level 134 mmol/L (136-145)
[2020-10-17 10:01] LABS: CA 15-3 13.8 U/mL (0.0-25.0); CA 27.29 18.7 U/mL (0.0-38.6); Carcinoembryonic Antigen 3.2 ng/mL (0.0-4.7)
== END ==
PROVIDERS: PCP Family Medicine; Referring Provider Family Medicine; Visit Provider Family Medicine
DX: R10.9 Unspecified abdominal pain (principal); R07.81 Pleurodynia; Z85.3 Personal history of malignant neoplasm of breast
CPT/HCPCS: 36415; 80053; 82378; 85025; 86300

== ENCOUNTER → 2021-01-03 | Outpatient (CLI) | payer MEDICARE, MEDICAID, SELFPAY | END | disposition home or self-care (01) | PROVIDERS: PCP Family Medicine; Referring Provider Family Medicine; Visit Provider Family Medicine | DX: Z20.822 Contact with and (suspected) exposure to COVID-19 (principal) | CPT/HCPCS: 87635; U0005; U0003 ==

== ENCOUNTER → 2021-01-24 07:44 | Outpatient (CLI) | payer MEDICARE, MEDICAID, SELFPAY ==
--- NOTE | 2021-01-24 07:47 | NM_ITS ---
CLINICAL: 85-year-old female with history of carcinoma of the breast and prior history of traumatic fall. WHOLE BODY 99m Tc MDP RADIONUCLIDE BONE SCINTIGRAPHY COMPARISON: Whole body bone scintigraphy report 01/23/2011 FINDINGS: Following the intravenous administration of 26.0 mCi of 99m Tc MDP, whole body bone images reveal: 1. Intense increased radiopharmaceutical concentration is defined in the distribution of the second-fourth thoracic vertebra. 2. An increase in tracer distribution is defined in the 10th thoracic vertebra posteriorly on the left, 12th thoracic vertebra posteriorly on the right, the acromioclavicular compartment of the right shoulder, glenohumeral compartment of the left shoulder, patellofemoral compartments of both knees, the left ankle, midfoot bilaterally, mid cervical spine posteriorly on the left, third lumbar vertebra posteriorly on the right. 3. The remaining skeletal structures are scintigraphically unremarkable with normal-appearing renal images and urinary bladder activity identified. Bilateral knee presumably asymptomatic arthroplasties are defined without evidence of significant increased tracer uptake. Right and left hip arthroplasties demonstrate mild increased tracer uptake in the distal femoral components most consistent with normal postsurgical change in the absence of pain-discomfort. Enhanced tracer uptake appears evident in the left zygoma which may be secondary to an inflammatory process-sinusitis or trauma fracture. Plain film x-ray correlation may be of benefit. NM/Bone Scan Whole Body IMPRESSION: 1. The increase in radiopharmaceutical concentration identified in the second-fourth thoracic vertebra warrants further investigation with plain film radiography in the setting of known breast carcinoma. 2. Degenerative arthritis appears expressed in the cervical, thoracic and lumbar spine, bilateral shoulders, patellofemoral compartments of both knees (in the absence of patellar hardware placement), left ankle, right and left midfoot. Electronically Signed: Miguel Shepherd DO at 23:10 EST Tel , Service support ,
== END ==
PROVIDERS: PCP Family Medicine; Referring Provider Family Medicine; Visit Provider Family Medicine
DX: R07.81 Pleurodynia (principal); Z85.3 Personal history of malignant neoplasm of breast
CPT/HCPCS: 78306; A9503

== ENCOUNTER → 2021-01-26 14:19 | Outpatient (CLI) | payer MEDICARE, MEDICAID, SELFPAY ==
--- NOTE | 2021-01-26 14:24 | RAD_ITS ---
EXAM: XR THORACIC SPINE, 3 VIEWS CLINICAL INDICATION: ABNORMAL BONE SCAN Technologist Notes ABNORMAL BONE SCAN. HX OF ca X 2 TIMES PER PATIENT. PAIN IN RIGHT SIDE INTO THORACIC SPINE. RECENT BONE SCAN DONE HERE A COUPLE OF DAYS AGO. TECHNIQUE: Frontal, lateral and swimmer''s views of the thoracic spine. This report was created using [employer] report generation technology. COMPARISON: Jan 24 2021 11:22am NM and CT chest 1 3721 FINDINGS: VERTEBRAE: Sclerotic lesion visualized the level of T3 and T12. This is concerning for metastatic focus. This was previously described. If of concern repeat CT chest or CT T-spine can evaluate. There is endplate spondylosis of the vertebral body. Loss of intervertebral disc height. Preserved vertebral body height. No fracture. Preservation of the normal thoracic kyphosis. No significant facet arthropathy. DISC SPACES: Unremarkable. Disc spaces are maintained. SOFT TISSUES: There are multiple metallic clips in the right upper quadrant. This is consistent for a cholecystectomy. RAD/Thoracic Spine 3 Views IMPRESSION: Sclerotic lesion visualized the level of T3 and T12. This is concerning for metastatic focus. This was previously described. If of concern repeat CT chest or CT T-spine can evaluate. Electronically Signed: Alonso Clark MD at 17:28 EST , Service support ,
== END ==
LOC: RAD.FUTURE 14:21 → MTRAD 14:22
PROVIDERS: PCP Family Medicine; Referring Provider Family Medicine; Visit Provider Family Medicine
DX: M54.9 Dorsalgia, unspecified (principal); R93.7 Abnormal findings on diagnostic imaging of other parts of musculoskeletal system
CPT/HCPCS: 72072

== ENCOUNTER 2021-02-06 09:08 | Emergency (ER) | payer MEDICARE, MEDICAID, SELFPAY ==
[2021-02-06 09:09] VITALS: BP 121/62; PULSE 74; RESP 14; TEMP 36.6; O2SAT 93; BMI 21.3
[2021-02-06 09:12] VITALS: BP 121/62; PULSE 74; RESP 14; TEMP 36.6; O2SAT 93
--- NOTE | 2021-02-06 09:47 | EKG12_ITS ---
Test Reason : Blood Pressure : / mmHG Vent. Rate : 067 BPM Atrial Rate : 067 BPM P-R Int : 216 ms QRS Dur : 076 ms QT Int : 392 ms P-R-T Axes : -23 043 048 degrees QTc Int : 414 ms Sinus rhythm with 1st degree A-V block Otherwise normal ECG Confirmed by RENA SPAIN, PRASHANT ([id number]), story editor PONCE PATRICK ([id number]) on 02/08/2021 9:14:54 AM Referred By: BRADEN Confirmed By:PRASHANT CHASE MD
--- NOTE | 2021-02-06 09:52 | CT_ITS ---
EXAM: CT THORACIC SPINE WITHOUT INTRAVENOUS CONTRAST : 1936 CLINICAL INDICATION: pain, ? mets TECHNIQUE: Helically acquired images were obtained of the thoracic spine without intravenous contrast. 2D reformats were reviewed. This CT exam was performed using one or more of the following dose reduction techniques: automated exposure control, adjustment of the mA and/or kV according to patient size, and/or use of iterative reconstruction technique. This report was created using [employer] report generation technology. COMPARISON: None. FINDINGS: VERTEBRAE: There are mixed lytic and blastic lesions at T2 and T3 as well as a sclerotic lesion in the anterior aspect of T12 compatible with metastatic disease. There is involvement of the posterior elements of T2 and T3 on the right. There are no fractures identified. No traumatic subluxation. DISCS/SPINAL CANAL/NEURAL FORAMINA: There is no bony central canal stenosis. There is multilevel degenerative change with disc space narrowing. VASCULATURE: Visualized thoracic aorta is not dilated. LYMPH NODES: Unremarkable. No retroperitoneal adenopathy. LUNGS AND PLEURAL SPACES: Unremarkable as visualized. No mass. No consolidation or edema. No pleural effusion or thickening. No pneumothorax. CT/Spine Thoracic without Contras IMPRESSION: Mixed lytic and blastic lesions in T2 and T3 with a blastic lesion in T12 compatible with metastatic disease. There is involvement of the posterior elements of T2 and 3. There are no fractures identified. If indicated further evaluation with MRI may be beneficial. Individualized dose optimization techniques were used for this CT. at 1108 Reported and signed by: Jose Garner MD Electronically Signed: Jose Garner MD at 11:07 EST Tel , Service support ,
--- NOTE | 2021-02-06 10:04 | EX.ED.DYSGE1 ---
HPI History of Present Illness Chief Complaint: Chest Other Informant: patient and family Narrative Narrative: History is somewhat limited by the patient. She seems very medicated at this time. She actually fell asleep and spilled her water on her blanket as we were talking initially. Patient came in by EMS due to pain in the right greater than left axilla. She states she has had these pains off and on for 25 years. She had breast cancer with surgery many years ago. She has had this exact same pain since then. It is increased over the last weeks. A bone scan was done about 2 weeks ago that was suspicious for metastatic disease to the spine. She then had x-rays that I looked at the results that were also suspicious. She states she got up this morning went to the bathroom. She was hurting which would be her typical. She took her codeine but she is only taking about a three-quarter dose and she is trying to stretch it out because she wants the meds to last. She states she took the medicine and it did not work for the pain but she took it just before calling EMS. She was also about to Lorazepam but dropped it on the floor at home. I cannot get a definitive answer from her if she was able to take this or not. She tells me she has no pain whatsoever at this time. [facility] Medical History (Updated 02/06/21 @ 11:[address] Adam Null MD) Breast cancer Chronic osteoarthritis Hyperlipidemia Obesity Obstructive sleep apnea Home Medications sertraline 50 mg PO BID 01/08/13 [History Last Taken 10/21/19 12:00] acetaminophen 1 tab PO BID 08/15/13 [History Last Taken 10/21/19 22:00] lorazepam 1 mg PO BID 09/20/14 [History Last Taken 10/21/19 22:00] melatonin 10 mg PO QHS 04/09/19 [History Last Taken 10/21/19 22:00] Lactobacillus acidophilus 1 ea PO DAILY 07/07/19 [History Last Taken 10/22/19 09:00] Ropinirole Hcl [Requip] 2 mg PO TID 07/07/19 [History Last Taken 10/22/19 08:00] cholecalciferol (vitamin D3) 1,250 mcg (50,000 unit) capsule 50,000 unit PO .twice/month cap 07/14/19 [History Last Taken Unknown] cyanocobalamin (vitamin B-12) 2,500 mcg tablet 1,000 mcg PO DAILY tab 07/14/19 [History Last Taken 10/22/19 09:00] levothyroxine 100 mcg capsule 100 mcg PO DAILY 07/14/19 [History Last Taken 10/22/19 06:00] hydrochlorothiazide 12.5 mg tablet 12.5 mg PO DAILY PRN #30 tab 09/23/19 [Rx Last Taken 10/22/19 09:00] furosemide 30 mg PO DAILY PRN PRN 12/26/19 [History Last Taken Unknown] metoclopramide HCl 10 mg PO DAILY PRN PRN 12/26/19 [History Last Taken Unknown] sulfamethoxazole-trimethoprim 1 tab PO DAILY 12/26/19 [History Last Taken Unknown] albuterol sulfate 90 mcg/actuation aerosol inhaler 2 puff INHALATION Q4H PRN PRN #1 inhaler 10/08/20 [Rx Last Taken Unknown] Allergy/AdvReac Type Severity Reaction Status Date / Time nitrofurantoin Allergy Intermediate hives Verified 02/06/21 09:16 [From Macrobid] latex Allergy Rash Verified 02/06/21 09:16 Penicillins Allergy Swelling Verified 02/06/21 09:16 Family History Father , Age 89 CVA (cerebral vascular accident) Cancer Hypertension Myocardial infarction Mother , Age 90 Cancer Brother Hypertension Diabetes Brother Diabetes Brother Hypertension Surgical History H/O colonoscopy H/O hemicolectomy H/O mastectomy H/O thyroidectomy H/O: hysterectomy History of bladder suspension procedure History of carpal tunnel surgery of right wrist History of hip replacement, total History of knee replacement History of left heart catheterization (06/2006) History of tonsillectomy and adenoidectomy Hx of cholecystectomy Social History Smoking Status: Former smoker how long ago did patient quit smoking: in the 's alcohol intake: current alcohol intake frequency: holidays/special occasions only Alcohol type: wine caffeine: Yes Type: tea ROS ROS ED Constitutional Constitutional ED: Denies chills or fever(s) Eyes Eyes: Denies blurry vision ENT ENT ED: Denies rhinorrhea Cardiovascular Cardiovascular: Reports chest pain and other Details: The pain she describes in her chest is what she has had for 25 years. It is not different or new. ; Denies palpitations Respiratory/Chest Respiratory/Chest: Denies cough or dyspnea Gastrointestinal Gastrointestinal: Denies abdominal pain, nausea or vomiting Genitourinary Genitourinary ED: Denies dysuria Musculoskeletal Musculoskeletal: Reports arthralgias, back pain and other Details: See history of present illness. ; Denies myalgias or neck pain Integumentary Denies rash Neurologic Neurologic: Denies headache(s) or weakness Psychiatric Psychiatric: Reports anxiety; Denies depression Endocrine Endocrinology: Denies polyuria Allergic/Immunologic Allergic/Immunologic ED: Denies mouth swelling or urticaria EXAM Physical Exam Const Vital Signs: 02/06/21 09:09 02/06/21 09:12 02/06/21 09:13 Temperature 97.9 F 97.9 F Temperature Source Oral Oral Pulse Rate 74 74 Respiratory Rate 14 14 Respiratory Effort Normal Non-Labored Respiratory Pattern Normal Blood Pressure 121/62 H 121/62 H Blood Pressure Mean 81 81 Pulse Ox 93 93 Oxygen Delivery Method Room Air Room Air 02/06/21 09:47 02/06/21 11:40 Temperature Temperature Source Pulse Rate 87 Respiratory Rate 18 Respiratory Effort Respiratory Pattern Blood Pressure 123/74 H Blood Pressure Mean 90 Pulse Ox 97 Oxygen Delivery Method Room Air Patient actually seems almost overmedicated at this time. She will doze off. Her eyes droop. She reaches up and scratches the upper portion of her nose and glabella area. She was holding a cup of water and just relaxed and spilled it. Positive well nourished, well developed and obese General Appearance ED: well developed and NAD Nutritional Appearance: obese HEENT Negative for tenderness Eyes General Eye ED: Negative for pale conjunctiva or scleral icterus Neck No no JVD Chest Wall inspection of chest normal Resp normal respiratory effort and clear to auscultation bilaterally Resp Narrative: I look in both axillas. I do not see any erythema or mass or local tenderness. I am not finding the source of her discomfort on exam. Effort and Inspection: Negative for pain with movement Cardio regular rate and regular rhythm GI normal to inspection, nondistended, normoactive bowel sounds and non-tender Palpation: soft Back/Spine no CVA tenderness Back/Spine Narrative: Patient has some mild nonspecific lumbar soreness but she states that is chronic and no different. I do not get any percussion tenderness in the central spine lumbar or thoracic. Extremity normal to inspection General Extremety ED: Negative for tenderness Psych mental status grossly normal Skin no rashes or lesions noted MDM MDM MDM Narrative Medical decision making narrative: Of note, while I am talking to the patient her family member type something into her phone and holds it up behind the patient's head. The word is hypochondriac. However, I am still going to pursue work-up on this patient with her age and past medical history. Patient's recheck. She is much more awake alert and conversant now. I think some of her pain meds are wearing off but she still has well-controlled pain. She needs nothing at this time. Her blood work showed no acute process. Troponin is negative. CT shows lytic and blastic lesions in teeth 2, T3 and T12. Patient evidently has an appointment with oncology by phone on Sunday and in the office on Sunday. She states she is comfortable going home. She has a cane. She has a Rollator walker. I did talk to her [id number] separately. She is concerned that this patient is sometimes overmedicating. I think we saw that when she came in. We will reaffirm with the patient to take minimal medication to control the pain. Do not mix the benzodiazepines with the opiates. Lab Data Attestation: I reviewed the patient's lab results. Labs: Laboratory Results - last 24 hr 02/06/21 02/06/21 10:03 10:03 WBC 7.2 RBC 4.59 Hgb 12.6 Hct 39.1 MCV 85.2 MCH 27.5 MCHC 32.2 RDW Std Deviation 42.7 RDW Coeff of Ania 13.7 Plt Count 194 MPV 10.7 Immature Gran % (Auto) 0.300 Neut % (Auto) 69.3 Lymph % (Auto) 22.8 [place] % (Auto) 4.6 Eos % (Auto) 2.2 Baso % (Auto) 0.8 Absolute Neuts (auto) 5.0 Absolute Lymphs (auto) 1.64 Nucleated RBC % 0 Sodium 138 Potassium 4.2 Chloride 105 Carbon Dioxide 29.0 Anion Gap 4 L BUN 15 Creatinine 0.89 Estim Creat Clear Calc 40.63 Est GFR (MDRD) Af Amer 78 Est GFR (MDRD) Non-Af 64 BUN/Creatinine Ratio 16.9 Glucose 110 H Calcium 9.7 Troponin I High Sens 7 Radiography Diagnostic Testing: Clinical Impression(s) from Imaging Studies Thoracic Spine CT 02/06/21 09:52 IMPRESSION: Mixed lytic and blastic lesions in T2 and T3 with a blastic lesion in T12 compatible with metastatic disease. There is involvement of the posterior elements of T2 and 3. There are no fractures identified. If indicated further evaluation with MRI may be beneficial. Individualized dose optimization techniques were used for this CT. at 1108 Reported and signed by: Jose Garner MD Electronically Signed: Jose Garner MD at 11:07 EST Tel , Service support , Chest X-Ray 02/06/21 10:25 IMPRESSION: Stable cardiomegaly, scarring and small hiatal hernia. No acute superimposed finding. Electronically Signed: Nando De La Cruz MD at 10:42 EST , Service support , Discharge Plan Triage Chief Complaint: Chest Other ED Provider: Adam Null Dx/Rx/DC Orders Clinical Impression: Bone metastasis Instructions: Understanding Bone Metastasis Prescriptions: No Action cholecalciferol (vitamin D3) 1,250 mcg (50,000 unit) capsule 50,000 unit PO .twice/month RF: 0 levothyroxine 100 mcg capsule 100 mcg capsule 100 mcg PO DAILY RF: 0 albuterol sulfate 90 mcg/actuation HFA aerosol inhaler 2 puff INHALATION Q4H PRN PRN (Reason: Wheezing) Qty: 1 RF: 2 sertraline 50 MG tablet 50 mg PO BID RF: 0 acetaminophen 500 MG tablet 1 tab PO BID RF: 0 lorazepam 1 MG tablet 1 mg PO BID RF: 0 melatonin 10 MG tablet 10 mg PO QHS RF: 0 cyanocobalamin (vitamin B-12) 2,500 mcg tablet 1,000 mcg PO DAILY RF: 0 Lactobacillus acidophilus 1 EACH capsule 1 ea PO DAILY RF: 0 Ropinirole Hcl [Requip] 2 MG tablet 2 mg PO TID RF: 0 furosemide 40 MG tablet 30 mg PO DAILY PRN PRN (Reason: edema) RF: 0 sulfamethoxazole-trimethoprim 1 TABLET tablet 1 tab PO DAILY RF: 0 metoclopramide HCl 10 MG tablet 10 mg PO DAILY PRN PRN (Reason: Nausea) RF: 0 hydrochlorothiazide 12.5 mg tablet 12.5 mg PO DAILY PRN (Reason: edema) Qty: 30 RF: 12 Primary Care Provider: Terrell Villanueva Referrals: Terrell Villanueva DO [Primary Care Provider] - As soon as possible Disposition Disposition: Home, Self Care
[2021-02-06 10:10] LABS: Absolute Lymphocyte Count 1.64 X10^3/uL (0.83-4.51); Basophil# 0.06 X10^3/uL; Basophil% 0.8 % (0-1); Eosinophil# 0.16 X10^3/uL; Eosinophils% 2.2 % (0-5); Hematocrit 39.1 % (37-47); Hemoglobin 12.6 g/dL (12.0-15.0); Lymphocyte # 1.64 X10^3/ul (0.83-4.51); Lymphocyte % 22.8 % (19-41); Mean Corp Hgb Conc 32.2 g/dL (32-36); Mean Corpuscular Hgb 27.5 pg (27.0-32.0); Mean Corpuscular Volume 85.2 fL (81-99); Mean Platelet Vol. 10.7 fl (6.2-12.0); Monocyte# 0.33 X10^3/uL; Monocyte% 4.6 % (0-10); NRBC Flagged by Analyzer 0 % (0-5); Neutrophil # 4.98 X10^3/uL (2.7-7.7); Neutrophil % 69.3 % (47-70); Platelet Count 194 K/mm3 (150-450); RBC Distribution Width CV 13.7 % (11.6-14.6); RBC Distribution Width SD 42.7 fl (35.1-43.9); Red Blood Count 4.59 M/mm3 (4.2-5.4); White Blood Count 7.2 K/mm3 (4.4-11.0)
--- NOTE | 2021-02-06 10:25 | RAD_ITS ---
STUDY: X-RAY CHEST REASON FOR EXAM: Female, 85 years old. Chest pain. TECHNIQUE: Single frontal view of the chest. COMPARISON: Chest CT dated 04/07/2020 and chest x-ray dated 12/26/2019. FINDINGS: Mild hyperexpansion with stable scarring at both bases. Stable cardiomegaly with aortic tortuosity. Small hiatal hernia unchanged. There is no demonstrated abnormality of the visualized soft tissue structures of the upper abdomen. RAD/Chest 1 View (Portable) IMPRESSION: Stable cardiomegaly, scarring and small hiatal hernia. No acute superimposed finding. Electronically Signed: Nando De La Cruz MD at 10:42 EST , Service support ,
[2021-02-06 10:27] LABS: Anion Gap 4 (5-15); BUN 15 mg/dL (7-18); BUN/Creat Ratio 16.9 RATIO (10-20); Calcium,Total 9.7 mg/dL (8.5-10.1); Chloride 105 mmol/L (98-107); Creatinine, Serum 0.89 mg/dL (0.55-1.02); EST Glomerular Filtration Rate 64 mL/min (>60); Est Glom Filt Rate - Afr Amer 78 mL/min (>60); Estimated Creatinine Clearance 40.63 ml/min; Glucose 110 mg/dL (74-106); Potassium 4.2 mmol/L (3.5-5.1); Sodium Level 138 mmol/L (136-145); Troponin-I HS 7 pg/mL (3.0-54.0)
[2021-02-06] MEDS: Aspirin 81 MG TAB.CHEW 324 MG PO (10:45)
[2021-02-06 11:40] VITALS: BP 123/74; PULSE 87; RESP 18; O2SAT 97
== END 2021-02-06 12:21 | disposition home or self-care (01) ==
PROVIDERS: Emergency Provider Emergency Medicine; PCP Family Medicine
DX: C79.51 Secondary malignant neoplasm of bone (principal); C80.1 Malignant (primary) neoplasm, unspecified; Z87.891 Personal history of nicotine dependence
CPT/HCPCS: 71045; 72128; 80048; 84484; 85025; 93005; 99285; A4216

== ENCOUNTER 2021-02-08 10:03 | Emergency (ER) | payer MEDICARE, MEDICAID, SELFPAY ==
[2021-02-08 10:08] VITALS: BP 157/69; PULSE 87; RESP 13; TEMP 36.4; O2SAT 96; BMI 46.5
--- NOTE | 2021-02-08 10:21 | EKG12_ITS ---
Test Reason : CP Blood Pressure : / mmHG Vent. Rate : 071 BPM Atrial Rate : 071 BPM P-R Int : 212 ms QRS Dur : 072 ms QT Int : 380 ms P-R-T Axes : -28 033 030 degrees QTc Int : 412 ms Sinus rhythm with 1st degree A-V block Low voltage QRS (Limb Leads) Confirmed by CHERIE SPAIN, MATT ([id number]), social media editor PONCE PATRICK ([id number]) on 02/10/2021 8:21:54 AM Referred By: Ruben Moon Confirmed By:MATT CRESPO MD
--- NOTE | 2021-02-08 10:57 | EDS_ITS ---
HPI History of Present Illness Chief Complaint: Chest Pain Onset/Context/Timing Quality: ache Location: back, chest Current Severity: Mild Maximum Severity: Severe Worsened by: movement. no worse w/ deep breathing. Relieved by: codeine. Associated Symptoms Associated Symptoms: none Narrative Narrative: chronic upper back and bilat axillary chest/ribs discomfort as well as in her sternum; same as visit 2d ago. hx metastatic dz in her spine. Seeing her oncologist tomorrow. In pain this AM that was severe, but took codeine 15mg 1.5 hrs ago and now is feeling much better although pain still present. 2d ago, seen for same but she was lethargic; can't remember what meds she took when then, but Rx'd codeine 30mg 2x/day. she has been taking 15mg x 4 spread over entire day since then without lethargy. [facility] Medical History (Updated 02/08/21 @ 11:[address] Rivas George MD) Breast cancer Chronic osteoarthritis Hyperlipidemia Obesity Obstructive sleep apnea Home Medications sertraline 50 mg PO BID 01/08/13 [History Last Taken 10/21/19 12:00] acetaminophen 1 tab PO BID 08/15/13 [History Last Taken 10/21/19 22:00] melatonin 10 mg PO QHS 04/09/19 [History Last Taken 10/21/19 22:00] Lactobacillus acidophilus 1 ea PO DAILY 07/07/19 [History Last Taken 10/22/19 09:00] Ropinirole Hcl [Requip] 2 mg PO TID 07/07/19 [History Last Taken 10/22/19 08:00] cholecalciferol (vitamin D3) 1,250 mcg (50,000 unit) capsule 50,000 unit PO .twice/month cap 07/14/19 [History Last Taken Unknown] cyanocobalamin (vitamin B-12) 2,500 mcg tablet 1,000 mcg PO DAILY tab 07/14/19 [History Last Taken 10/22/19 09:00] levothyroxine 100 mcg capsule 100 mcg PO DAILY 07/14/19 [History Last Taken 10/22/19 06:00] hydrochlorothiazide 12.5 mg tablet 12.5 mg PO DAILY PRN #30 tab 09/23/19 [Rx Last Taken 10/22/19 09:00] furosemide 30 mg PO DAILY PRN PRN 12/26/19 [History Last Taken Unknown] metoclopramide HCl 10 mg PO DAILY PRN PRN 12/26/19 [History Last Taken Unknown] sulfamethoxazole-trimethoprim 1 tab PO DAILY 12/26/19 [History Last Taken Unknown] albuterol sulfate 90 mcg/actuation aerosol inhaler 2 puff INHALATION Q4H PRN PRN #1 inhaler 10/08/20 [Rx Last Taken Unknown] lorazepam 0.5 mg PO BID #0 tab 02/08/21 [Rx Last Taken 10/21/19 22:00] Allergy/AdvReac Type Severity Reaction Status Date / Time nitrofurantoin Allergy Intermediate hives Verified 02/08/21 10:12 [From Macrobid] latex Allergy Rash Verified 02/08/21 10:12 Penicillins Allergy Swelling Verified 02/08/21 10:12 meloxicam AdvReac Nausea Verified 02/08/21 10:12 Family History Father , Age 89 CVA (cerebral vascular accident) Cancer Hypertension Myocardial infarction Mother , Age 90 Cancer Brother Hypertension Diabetes Brother Diabetes Brother Hypertension Surgical History H/O colonoscopy H/O hemicolectomy H/O mastectomy H/O thyroidectomy H/O: hysterectomy History of bladder suspension procedure History of carpal tunnel surgery of right wrist History of hip replacement, total History of knee replacement History of left heart catheterization (06/2006) History of tonsillectomy and adenoidectomy Hx of cholecystectomy Social History Smoking Status: Former smoker how long ago did patient quit smoking: in the 's alcohol intake: current alcohol intake frequency: holidays/special occasions only Alcohol type: wine caffeine: Yes Type: tea ROS ROS ED Constitutional Constitutional ED: Denies chills or fever(s) Cardiovascular Cardiovascular: Reports chest pain; Denies abdominal pain or dyspnea Gastrointestinal Gastrointestinal: Denies abdominal pain, constipation, fecal incontinence, nausea or vomiting Genitourinary Genitourinary ED: Reports other Details: no urinary retention ; Denies abdominal discomfort or urinary incontinence Musculoskeletal Musculoskeletal: Reports as per HPI and back pain; Denies neck pain Integumentary Denies rash or wounds Neurologic Neurologic: Denies headache(s), paresthesias or weakness Psychiatric Psychiatric: Reports anxiety; Denies suicidal thoughts EXAM Physical Exam Const Vital Signs: 02/08/21 10:08 02/08/21 10:12 Temperature 97.6 F L Temperature Source Oral Pulse Rate 87 Respiratory Rate 13 Respiratory Effort Normal Non-Labored Blood Pressure 157/69 H Blood Pressure Mean 98 Pulse Ox 96 Oxygen Delivery Method Room Air Positive well nourished and well developed General Appearance ED: well developed and NAD HEENT Negative for trauma or tenderness Eyes PERRL and EOMs intact bilaterally Neck full ROM and supple General: Negative for tenderness Chest Wall Chest Narrative: tender in sternum and anterior axillae bilat; no crepitance, step off, flail, or resp distress. Resp normal respiratory effort, normal air movement, no retractions, no use of accessory muscles and clear to auscultation bilaterally Cardio regular rate, regular rhythm, S1 normal heart sound, S2 normal heart sound and no murmurs Rate: Negative for tachycardic GI normal to inspection, nondistended, normoactive bowel sounds, soft to palpation and non-tender Back/Spine normal to inspection Back/Spine Narrative: hurts to move; no midline tenderness. no distress w/ moving. Thoracic Spine / Upper Back: paraspinal muscle tenderness bilateral Lumbar Spine / Lower Back: ROM limited Extremity normal to inspection, full ROM and no pedal edema Neuro oriented x3 and no sensory deficits noted Sensorium / Orientation: alert Motor Exam: strength 5/5 throughout and clonus absent Psych mental status grossly normal and thought process normal Skin no rashes or lesions noted and no wounds MDM MDM MDM Narrative Medical decision making narrative: Pt states codeine is working; she called family to bring her today before she took the medicine, but then she took the codeine and now pain well-controlled and not lethargic. Therefore, I would not change her analgesic. 15mg ev 4-6h prn is OK. I would recommend halving her lorazepam though, and actually taking just half a dose in AM and avoiding at night if able, not stopping altogether since she has been on it for a long time. EKG Initial EKG: Attestation: I personally reviewed and interpreted this EKG as follows: Interpretation: Sinus Rhythm and No Acute Injury Pattern Comments: normal EKG Discharge Plan Triage Chief Complaint: Chest Pain Other Complaint: Other, Pain/Inj ED Provider: Rivas George Dx/Rx/DC Orders Clinical Impression: Pain in thoracic spine, Bone metastasis, Acute chest wall pain Instructions: ED Back Pain (Acute or Chronic) Prescriptions: Continued cholecalciferol (vitamin D3) 1,250 mcg (50,000 unit) capsule 50,000 unit PO .twice/month RF: 0 levothyroxine 100 mcg capsule 100 mcg capsule 100 mcg PO DAILY RF: 0 albuterol sulfate 90 mcg/actuation HFA aerosol inhaler 2 puff INHALATION Q4H PRN PRN (Reason: Wheezing) Qty: 1 RF: 2 sertraline 50 MG tablet 50 mg PO BID RF: 0 acetaminophen 500 MG tablet 1 tab PO BID RF: 0 melatonin 10 MG tablet 10 mg PO QHS RF: 0 cyanocobalamin (vitamin B-12) 2,500 mcg tablet 1,000 mcg PO DAILY RF: 0 Lactobacillus acidophilus 1 EACH capsule 1 ea PO DAILY RF: 0 Ropinirole Hcl [Requip] 2 MG tablet 2 mg PO TID RF: 0 furosemide 40 MG tablet 30 mg PO DAILY PRN PRN (Reason: edema) RF: 0 sulfamethoxazole-trimethoprim 1 TABLET tablet 1 tab PO DAILY RF: 0 metoclopramide HCl 10 MG tablet 10 mg PO DAILY PRN PRN (Reason: Nausea) RF: 0 hydrochlorothiazide 12.5 mg tablet 12.5 mg PO DAILY PRN (Reason: edema) Qty: 30 RF: 12 Changed lorazepam 1 MG tablet 0.5 mg PO BID Qty: 0 RF: 0 Primary Care Provider: Terrell Villanueva Referrals: Terrell Villanueva DO [Primary Care Provider] - Disposition Disposition: Home, Self Care
[2021-02-08 11:17] VITALS: BP 147/75; PULSE 81; RESP 18; O2SAT 96
== END 2021-02-08 11:21 | disposition home or self-care (01) ==
PROVIDERS: Emergency Provider Emergency Medicine; PCP Family Medicine
DX: M54.6 Pain in thoracic spine (principal); C79.51 Secondary malignant neoplasm of bone; C80.1 Malignant (primary) neoplasm, unspecified; G47.33 Obstructive sleep apnea (adult) (pediatric); Z87.891 Personal history of nicotine dependence
CPT/HCPCS: 93005; 99285; A4216

== ENCOUNTER → 2021-02-18 12:33 | Outpatient (CLI) | payer MEDICARE, MEDICAID, SELFPAY ==
--- NOTE | 2021-02-18 12:34 | MRI_ITS ---
EXAM: MR HEAD WITHOUT INTRAVENOUS CONTRAST CLINICAL INDICATION: STAGING METASTATIC CANCER TECHNIQUE: Multiplanar and multisequence MR images of the brain were obtained without intravenous contrast. This report was created using [email or web address] report generation technology. COMPARISON: PET scan done 3 days ago FINDINGS: BRAIN AND EXTRA-AXIAL SPACES: Unremarkable. No intra- or extra-axial hemorrhage. No evidence of acute infarct. No intracranial mass or mass effect. There is preservation of the uribe/white matter interface. Posterior fossa structures are unremarkable. Ventricles are appropriate for age. No hydrocephalus. Basal cisterns are patent. SELLA: Unremarkable. Normal sella turcica, pituitary gland, infundibular stalk, optic chiasm and hypothalamus. AUDITORY SYSTEM: Unremarkable. The internal auditory canals are patent. BONES/JOINTS: Unremarkable. No discrete lytic or blastic abnormalities. SINUSES: Unremarkable as visualized. Clear. MASTOID AIR CELLS: Unremarkable as visualized. Clear. ORBITS: Unremarkable as visualized. Both globes, extraocular muscles, optic nerves and retrobulbar fat appear unremarkable. VASCULATURE: Unremarkable as visualized. Normal flow voids in the major intracranial circulation. MRI/Brain without Contrast IMPRESSION: Negative MRI brain without intravenous contrast. Electronically Signed: Alonso Clark MD at 14:20 EST , Service support ,
== END ==
PROVIDERS: PCP Family Medicine; Referring Provider Internal Medicine Medical Oncology; Visit Provider Internal Medicine Medical Oncology
DX: R41.0 Disorientation, unspecified (principal); M54.6 Pain in thoracic spine; C50.411 Malignant neoplasm of upper-outer quadrant of right female breast; C79.51 Secondary malignant neoplasm of bone; Z85.850 Personal history of malignant neoplasm of thyroid
CPT/HCPCS: 70551; 87077; 87086; 87088; 87186

== ENCOUNTER 2021-02-22 07:01 | Emergency (ER) | payer MEDICARE, MEDICAID, SELFPAY ==
[2021-02-22 07:04] VITALS: BP 134/74; PULSE 70; RESP 14; TEMP 36.3; O2SAT 97; BMI 47.8
--- NOTE | 2021-02-22 07:22 | ED.VIS.CHEST ---
HPI History of Present Illness Chief Complaint: Chest Other Informant: patient Onset/Context/Timing Onset: Month(s) Activity at onset: gradual Timing: Continuous Quality: Positive for Aching Location: Right Chest and Left Chest Current Severity: Mild Maximum Severity: Mild Worsened By: Movement of Torso Relieved By: Remaining Still Associated Symptoms: Negative for Nausea, Vomiting, Diaphoresis, Dyspnea, Cough, Fever, Lightheadedness, Acid Reflux and Palpitations Narrative Narrative: 85-year-old female known history of breast cancer more than 20 years ago with recurrent thoracic metastases. She also has a history of thyroid cancer in the past. Patient states that for months she has had recurrent pain that either starts in her back and wraps around to her chest or starts on the right side of her sternum and wraps around both sides to her back. Not associated with exertion. No shortness of breath. It is there all the time with movement of her chest wall or looking up or down it causes increase of the pain. She denies any exertional dyspnea. No hemoptysis. No history of DVT or PE. She has no cardiac history and has had that worked up in the past. Prior Similar Symptoms: Yes Recent Illness/Hospitalization: No CVD Risk Factors: Negative for Diabetes PE Risk Factors: Positive for Cancer; Negative for Recent Travel/Surgery, Prior DVT or PE and OCP + Smoking + >/=35 TAD Risk Factors: Negative for Marfan's Syndrome and Hypertension [facility] Medical History (Updated 02/22/21 @ 07:[address] Phoenix Dailey MD) Breast cancer Chronic osteoarthritis Hyperlipidemia Obesity Obstructive sleep apnea Home Medications sertraline 50 mg PO BID 01/08/13 [History Last Taken 10/21/19 12:00] acetaminophen 1 tab PO BID 08/15/13 [History Last Taken 10/21/19 22:00] melatonin 10 mg PO QHS 04/09/19 [History Last Taken 10/21/19 22:00] Lactobacillus acidophilus 1 ea PO DAILY 07/07/19 [History Last Taken 10/22/19 09:00] Ropinirole Hcl [Requip] 2 mg PO TID 07/07/19 [History Last Taken 10/22/19 08:00] cholecalciferol (vitamin D3) 1,250 mcg (50,000 unit) capsule 50,000 unit PO .twice/month cap 07/14/19 [History Last Taken Unknown] cyanocobalamin (vitamin B-12) 2,500 mcg tablet 1,000 mcg PO DAILY tab 07/14/19 [History Last Taken 10/22/19 09:00] levothyroxine 100 mcg capsule 100 mcg PO DAILY 07/14/19 [History Last Taken 10/22/19 06:00] hydrochlorothiazide 12.5 mg tablet 12.5 mg PO DAILY PRN #30 tab 09/23/19 [Rx Last Taken 10/22/19 09:00] furosemide 30 mg PO DAILY PRN PRN 12/26/19 [History Last Taken Unknown] metoclopramide HCl 10 mg PO DAILY PRN PRN 12/26/19 [History Last Taken Unknown] sulfamethoxazole-trimethoprim 1 tab PO DAILY 12/26/19 [History Last Taken Unknown] albuterol sulfate 90 mcg/actuation aerosol inhaler 2 puff INHALATION Q4H PRN PRN #1 inhaler 10/08/20 [Rx Last Taken Unknown] lorazepam 0.5 mg PO BID #0 tab 02/08/21 [Rx Last Taken 10/21/19 22:00] dexamethasone 4 mg tablet 4 mg PO DAILY #20 tab 02/09/21 [Rx Last Taken Unknown] hydrocodone-acetaminophen 1 tab PO Q6H PRN 4 Days #10 tab 02/22/21 [Rx Last Taken Unknown] Allergy/AdvReac Type Severity Reaction Status Date / Time nitrofurantoin Allergy Intermediate hives Verified 02/22/21 07:03 [From Macrobid] latex Allergy Rash Verified 02/22/21 07:03 Penicillins Allergy Swelling Verified 02/22/21 07:03 meloxicam AdvReac Nausea Verified 02/22/21 07:03 Family History Father , Age 89 CVA (cerebral vascular accident) Cancer Hypertension Myocardial infarction Mother , Age 90 Cancer Brother Hypertension Diabetes Brother Diabetes Brother Hypertension Surgical History H/O colonoscopy H/O hemicolectomy H/O mastectomy H/O thyroidectomy H/O: hysterectomy History of bladder suspension procedure History of carpal tunnel surgery of right wrist History of hip replacement, total History of knee replacement History of left heart catheterization (06/2006) History of tonsillectomy and adenoidectomy Hx of cholecystectomy Social History Smoking Status: Former smoker how long ago did patient quit smoking: in the 's alcohol intake: current alcohol intake frequency: holidays/special occasions only Alcohol type: wine caffeine: Yes Type: tea ROS ROS ED ROS Narrative Chest wall pain for months. Review of Systems ROS Unobtainable: Denies due to encephalopathy Constitutional Constitutional ED: Denies fever(s) Eyes Eyes: Denies none ENT ENT ED: Denies ear pain Cardiovascular Cardiovascular: Reports chest pain; Denies as per HPI Respiratory/Chest Respiratory/Chest: Denies dyspnea Gastrointestinal Gastrointestinal: Denies abdominal pain, diarrhea, nausea or vomiting Genitourinary Genitourinary ED: Denies dysuria Musculoskeletal Musculoskeletal: Denies myalgias Integumentary Denies rash Neurologic Neurologic: Denies headache(s) Psychiatric Psychiatric: Denies depression Endocrine Endocrinology: Denies polyuria Hematologic/Lymphatic Hematologic/Lymphatic: Denies easy bruising Allergic/Immunologic Allergic/Immunologic ED: Denies urticaria EXAM Physical Exam Narrative Exam Narrative: 85-year-old female no acute distress vital signs are stable afebrile. Pulse ox 97% on room air no signs of hypoxia. HEENT exam unremarkable. Neck nontender. Lungs clear to auscultation bilaterally. Heart regular rhythm rate about 70 no murmur. She has some mild reproducible chest wall tenderness on her right lower sternum. There is no ecchymosis or bruising. No subcu air crepitus. No redness. No bony deformity. Abdomen soft nontender normal bowel sounds. Pelvic girdle intact. Moving all 4 extremities. Trace edema both legs. Back exam is nontender at this time. Neurologically she is awake alert with no focal motor deficits. Const Vital Signs: 02/22/21 07:04 02/22/21 07:06 Temperature 97.3 F L Temperature Source Oral Pulse Rate 70 Respiratory Rate 14 Respiratory Effort Normal Non-Labored Respiratory Pattern Normal Blood Pressure 134/74 H Blood Pressure Mean 94 Pulse Ox 97 Oxygen Delivery Method Room Air Positive well nourished, well developed and obese; Negative for cachectic, contractures or unkempt General Appearance ED: well developed and NAD; Negative for unkempt, cachectic, contractures or pallor Nutritional Appearance: obese; Negative for cachectic HEENT Reports moist mucous membranes; Denies TM's clear normocephalic and atraumatic; Negative for trauma or tenderness Tympanic Membrane ED: Negative for TM's clear Eyes PERRL and EOMs intact bilaterally Neck no lymphadenopathy, supple and no JVD General: Negative for tenderness Chest Wall inspection of chest normal; Negative for palpation of chest normal Chest: tenderness Resp normal respiratory effort and clear to auscultation bilaterally Effort and Inspection: respiratory distress Auscultation: Negative for rales, rhonchi or wheezes Cardio regular rate, regular rhythm, S1 normal heart sound and S2 normal heart sound GI normal to inspection, nondistended, normoactive bowel sounds, soft to palpation, non-tender, non-distended and no masses Auscultation: Negative for hyperactive bowel sounds Back/Spine no CVA tenderness and no thoracic nor lumbar tenderness General Back: CVA tenderness Extremity Negative for normal to inspection General Extremety ED: Yes edema; Negative for tenderness General Extremity: edema Neuro oriented x3 Sensorium / Orientation: awake, alert, oriented to person, oriented to place and oriented to time Motor Exam: strength 5/5 throughout Psych mental status grossly normal Appearance: Negative for unkempt Attitude: No agitated Mood & Affect: Negative for depressed or tearful Skin no rashes or lesions noted and no wounds General Skin Exam: Negative for jaundice or pallor Rashes: No rashes noted MDM MDM MDM Narrative Medical decision making narrative: 85-year-old female with prior history of breast cancer with thoracic mets. Has constant pain of her back and chest wall. This does not sound cardiac. Has been worked up in the past. He does not Celli of pulmonary emboli is also been worked up in the past is also negative. Sounds like she really just needs something for pain. She states she wants to get some sleep. Her exam otherwise is benign. She will be given 2 [place]. I do not think she needs is reevaluated. I did do an EKG which is unremarkable. Rhythm Strip Rhythm Strip: Sinus Rhythm Rate: 67 Ectopy: None EKG Initial EKG: Attestation: I personally reviewed and interpreted this EKG as follows: Interpretation: Sinus Rhythm Comments: Normal sinus rhythm rate of 67. No acute signs of PA nor ischemia. Prior EKG tracings: available for review Prior: Unchanged Discharge Plan Triage Chief Complaint: Chest Other ED Provider: Phoenix Dailey Dx/Rx/DC Orders Clinical Impression: Acute chest wall pain Instructions: ED Chest Pain, Noncardiac Prescriptions: New hydrocodone-acetaminophen 5-325 mg tablet 1 tab PO Q6H PRN (Reason: pain) 4 Days Qty: 10 RF: 0 No Action cholecalciferol (vitamin D3) 1,250 mcg (50,000 unit) capsule 50,000 unit PO .twice/month RF: 0 levothyroxine 100 mcg capsule 100 mcg capsule 100 mcg PO DAILY RF: 0 albuterol sulfate 90 mcg/actuation HFA aerosol inhaler 2 puff INHALATION Q4H PRN PRN (Reason: Wheezing) Qty: 1 RF: 2 dexamethasone [Decadron] 4 mg tablet 4 mg PO DAILY Qty: 20 RF: 0 sertraline 50 MG tablet 50 mg PO BID RF: 0 acetaminophen 500 MG tablet 1 tab PO BID RF: 0 melatonin 10 MG tablet 10 mg PO QHS RF: 0 cyanocobalamin (vitamin B-12) 2,500 mcg tablet 1,000 mcg PO DAILY RF: 0 Lactobacillus acidophilus 1 EACH capsule 1 ea PO DAILY RF: 0 Ropinirole Hcl [Requip] 2 MG tablet 2 mg PO TID RF: 0 furosemide 40 MG tablet 30 mg PO DAILY PRN PRN (Reason: edema) RF: 0 sulfamethoxazole-trimethoprim 1 TABLET tablet 1 tab PO DAILY RF: 0 metoclopramide HCl 10 MG tablet 10 mg PO DAILY PRN PRN (Reason: Nausea) RF: 0 lorazepam 1 MG tablet 0.5 mg PO BID Qty: 0 RF: 0 hydrochlorothiazide 12.5 mg tablet 12.5 mg PO DAILY PRN (Reason: edema) Qty: 30 RF: 12 Primary Care Provider: Terrell Villanueva Referrals: Terrell Villanueva, [Primary Care Provider] - 3-5 Days if not improving Activity Restrictions/Additional Instructions: [place] as needed for pain. Follow-up with your oncologist and/or primary care physician. Disposition Disposition: Home, Self Care
[2021-02-22] MEDS: HYDROcodone Bitartrate/Apap 5/325 Tablet PO (07:41)
== END 2021-02-22 07:49 | disposition home or self-care (01) ==
LOC: ED 07:36
PROVIDERS: Emergency Provider Emergency Medicine; PCP Family Medicine
DX: R07.89 Other chest pain (principal); E78.5 Hyperlipidemia, unspecified; G47.33 Obstructive sleep apnea (adult) (pediatric); M19.90 Unspecified osteoarthritis, unspecified site; E66.9 Obesity, unspecified; Z79.52 Long term (current) use of systemic steroids; Z79.890 Hormone replacement therapy; Z85.850 Personal history of malignant neoplasm of thyroid; Z85.3 Personal history of malignant neoplasm of breast; Z87.891 Personal history of nicotine dependence
CPT/HCPCS: 93005; 99284

== ENCOUNTER → 2021-02-25 08:49 | Outpatient (CLI) | payer MEDICARE, MEDICAID, SELFPAY ==
[2021-02-25] VITALS (11 sets, daily range): BP systolic 116–142; BP diastolic 53–72; PULSE 63–72; RESP 16–19; TEMP 36.2; O2SAT 92–97; BMI 44.8
--- NOTE | 2021-02-25 | IMM_PTH ---
PATIENT: AMILCAR KERN LOC: CT U#:[id number] AGE/SX: 89/F ROOM: RE02/25/[address]: Dr. Ruben Moon MD : 1935 BED: DIS: SPEC #: [id number] RECD: 02/28/21 14:36 STATUS: SURINDER REQ #: [id number] SADE: 02/25/21 00:[address]: Ruben Moon DEPT: IMMUNOHISTOCHEMISTRY RECD BY: Linda Dowell ENTERED: 02/28/21 14:42 SP TYPE: IMMUNO OTHR DR: Dr. Terrell Villanueva DO Tissues: Intervertebral disc, NOS Procedures: RCC (add) Thyroglobulin (add) NAPSIN A (add) CK14 (add) CK20 (add) CK7 (add) CK8 (add) SANDOVAL-2 (add) HEP PAR (add) HER2 SUSI (add) KI-67 (add) MAMM (add) P53 (add) ID (add) TTF1 (add) Vimentin (add) 34BE12 (add) Pankeratin (add) GATA3 (add) P40 (add) CDX2 (add) ER (initial) S-100 (add) PHYSICIAN & INSTITUTION [place] [id number] SPECIMEN INFORMATION: Tissue Source: Thoracic spine Clinical Info: Thoracic spine lesion Specimen Number: [id number] CPT code: 96766, 33937 x22 METHODOLOGY: Deparaffinized sections of prefer/formalin-fixed tissue or PAP/DQ stained slides are incubated with monoclonal/polyclonal antibodies/oligonucleotide probes. Localization is made via biotin free immunoperoxidase method. Appropriate controls are performed and reacted as expected. Results on target cell population are indicated in the following table: RESULTS: ANTIBODY / CLONE RESULT ER (6F11) positive ID (1E2) positive Her-2neu (CB11) negative Mammaglobin (31A5) positive, focal, dim GATA3 (L50-823) positive AE1-3 (AE1/AE3/PCK26) positive CK7 (OV-TL12/30) positive CK8 (12wmtxO37) positive CK20 (KS20.8) negative SANDOVAL-2 (SP21) positive CDX2 ([id number]) negative Vimentin (V9) negative 34BE12 (34BE12) positive S-100 (4C4.9) negative TTF-1 (8G7G3/1) negative Napsin A (Rabbit Polyclonal) negative HepPar (OCh1E5) negative RCC (PN-15) positive Thyro (2H11+6E1) negative CK14 (LL002) negative P40 (BC28) negative P53 (DO-7) positive, rare tumor cell Ki-67 (30-9) positive, 1% These tests were developed and their performance characteristics determined by [facility]. They may not have been cleared or approved by the U.S. Food and Drug Administration. The FDA has determined that such clearance or approval is not necessary. The above immunohistochemical/dualISH markers are ordered and reviewed by the Pathologist. INTERPRETATION: Thoracic spine, CT-guided biopsy: Metastatic carcinoma consistent with breast primary. AM:fatimah 03/01/2021
--- NOTE | 2021-02-25 | ASPIGT_PTH ---
PATIENT: AMILCAR KERN LOC: CT U#:[id number] AGE/SX: 89/F ROOM: RE02/25/[address]: Dr. Ruben Moon MD : 1935 BED: DIS: SPEC #: [id number] RECD: 02/25/21 11:52 STATUS: SURINDER REAngelica #: [id number] SADE: 02/25/21 00:[address]: Ruben Moon DEPT: SURGICAL PATHOLOGY RECD BY: Porfirio Emery ENTERED: 02/25/21 11:53 SP TYPE: ASP RAD OTHR DR: Dr. Terrell Villanueva DO Tissues: Thoracic cavity, NOS Procedures: FNA Specimen Adequacy Special Stain Group II Surgery Specimen Level IV Imprint (control) HEADER OPERATION: CT-guided thoracic biopsy PRE-OP DIAGNOSIS: Thoracic spine lesion TISSUE SUBMITTED: Thoracic spine 18-gauge core biopsy x4 MICROSCOPIC DIAGNOSIS Thoracic spine, CT-guided needle core biopsy: Metastatic non-small cell carcinoma consistent with breast primary. See comment. AM:fatimah 02/28/2021 COMMENT The specimen is evaluated at the time of biopsy by Dr. Rajput. Immediate Evaluation = Positive for malignant cells, non-small cell carcinoma. Immunohistochemistry ([id number]) supports the above diagnosis. MICROSCOPIC DESCRIPTION Slides are reviewed. GROSS DESCRIPTION Received in fixative is one container labeled with the patient's name and designated thoracic spine. The specimen consists of multiple elongated fragments of green tissue that in aggregate measure 1 x 0.1 x <0.1 cm. The specimen is totally submitted in one cassette. / AM:fatimah 02/25/21 TC:0 CPT: 83101, 00838
--- NOTE | 2021-02-25 09:11 | CT_ITS ---
PROCEDURE: CT GUIDED biopsy of the right pedicle of the T3 vertebrae. DATE: 02/25/2021. INDICATION: Female, 85 years old. Bony destruction. PHYSICIAN: Andrei Vences M.D. RADIATION DOSAGE (If Supplied By Facility): CTDIvol = ( 12.5 ) mGy, DLP = ( 378.79 ) mGycm. Individualized dose optimization techniques were utilized. PROCEDURE: The risks, benefits, and alternatives to the procedure were explained to the patient. The specific risk of hemorrhage requiring further treatment or intervention was detailed and accepted. Follow-up instructions were discussed with the patient as well. Written informed consent was obtained. The patient was brought into the CT suite and placed in the prone position. . An appropriate entry site was identified. The overlying skin was prepped and draped in the usual sterile fashion. 1% lidocaine was administered subcutaneously for local anesthesia. Conscious sedation was performed. The patient received 2 mg of VERSED and 20 mcg of FENTANYL intravenously. Conscious sedation was started at 10:43 AM and terminated at 10:51 AM. The patient was independently monitored by the department nurse. Under CT guidance, a total of 4 passes were performed utilizing an 18-gauge core biopsy needle system The specimens were then placed in the appropriate fluid and transported to the laboratory for analysis. Hemostasis was obtained. The patient tolerated the procedure well without immediate complications. CT/Biopsy/Inj or Needle Placement IMPRESSION: Successful CT guided biopsy of the right T3 pedicle, as described above. The conscious sedation protocol was followed. Electronically Signed: Andrei Vences MD at 12:33 EST , Service support ,
[2021-02-25 09:14] LABS: Absolute Lymphocyte Count 2.36 X10^3/uL (0.83-4.51); Absolute Neutrophil Count 7.7 X10^3/uL (2.0-7.7); Basophil# 0.07 X10^3/uL; Basophil% 0.6 % (0-1); Eosinophil# 0.18 X10^3/uL; Eosinophils% 1.6 % (0-5); Hematocrit 39.1 % (37-47); Hemoglobin 12.8 g/dL (12.0-15.0); Lymphocyte # 2.36 X10^3/ul (0.83-4.51); Lymphocyte % 21.1 % (19-41); Mean Corp Hgb Conc 32.7 g/dL (32-36); Mean Corpuscular Hgb 27.9 pg (27.0-32.0); Mean Corpuscular Volume 85.2 fL (81-99); Mean Platelet Vol. 10.5 fl (6.2-12.0); Monocyte# 0.79 X10^3/uL; Monocyte% 7.1 % (0-10); NRBC Flagged by Analyzer 0 % (0-5); Neutrophil # 7.72 X10^3/uL (2.7-7.7); Neutrophil % 68.9 % (47-70); Platelet Count 275 K/mm3 (150-450); RBC Distribution Width CV 13.9 % (11.6-14.6); RBC Distribution Width SD 43.1 fl (35.1-43.9); Red Blood Count 4.59 M/mm3 (4.2-5.4); White Blood Count 11.2 K/mm3 (4.4-11.0)
[2021-02-25 09:24] LABS: Partial Thromboplast Time 25.3 Seconds (24.1-36.2); Prothrombin Time (Protime)PT. 12.3 SECONDS (11.7-14.9)
[2021-02-25] MEDS: Midazolam 2 MG/2 ML Syringe IV (10:43)
[2021-02-25] MEDS: fentaNYL 100 MCG/2 ML Ampul IV ×2 (10:45→11:02)
[2021-02-25] MEDS: Lidocaine 2% (20 ml mdv) 20 ML Vial INFILT (10:45)
[2021-02-25] MEDS: 0.9% Saline Lock 10 ML Syringe IV (10:48)
== END ==
PROVIDERS: PCP Family Medicine; Referring Provider Internal Medicine Medical Oncology; Visit Provider Internal Medicine Medical Oncology
DX: C79.51 Secondary malignant neoplasm of bone (principal); M19.90 Unspecified osteoarthritis, unspecified site; E78.5 Hyperlipidemia, unspecified; G47.33 Obstructive sleep apnea (adult) (pediatric); E66.9 Obesity, unspecified; Z79.890 Hormone replacement therapy; Z79.899 Other long term (current) drug therapy; Z85.3 Personal history of malignant neoplasm of breast; Z85.850 Personal history of malignant neoplasm of thyroid; Z86.73 Personal history of transient ischemic attack (TIA), and cerebral infarction without residual deficits; Z87.891 Personal history of nicotine dependence; Z96.649 Presence of unspecified artificial hip joint; Z96.659 Presence of unspecified artificial knee joint
CPT/HCPCS: 20225; 36415; 77012; 85025; 85610; 85730; 88172; 88305; 88313; 88341; 88342; J7040; A4216

== ENCOUNTER 2021-03-05 05:45 | Observation (INO) | payer MEDICARE, MEDICAID, SELFPAY ==
[2021-03-05] VITALS (8 sets, daily range): BP systolic 96–164; BP diastolic 55–74; PULSE 66–82; RESP 13–20; TEMP 36.4–37; O2SAT 92–98; BMI 47.2; BMI 45.4
--- NOTE | 2021-03-05 05:54 | CT_ITS ---
STUDY: CT THORACIC SPINE WITHOUT CONTRAST REASON FOR EXAM: Female, 85 years old. Upper back pain, recent thoracic biopsy, history of breast cancer RADIATION DOSAGE (If Supplied By Facility): CTDIvol = ( 28.49 ) mGy, DLP = ( 941.58 ) mGycm TECHNIQUE: The patient was scanned in a multi detector CT scanner. High resolution imaging was performed. Images were obtained from the lower cervical spine to the upper lumbar spine. Sagittal and coronal images were reconstructed. Individualized dose optimization techniques were used for this CT. COMPARISON: None. FINDINGS: There is endplate spondylosis of the visualized lower cervical spine. Metastatic lesions at T2, T3, and T12 redemonstrated. No finding of hematoma about T3 biopsy site. There is an increased kyphosis of the thoracic spine. There is no substantial scoliosis. There is multilevel endplate spondylosis of the thoracic spine. There is multilevel degenerative disc disease with loss of the disc space heights. Bilateral lung base atelectasis. Hiatal hernia. CT/Spine Thoracic without Contras IMPRESSION: No finding of hematoma about the T3 biopsy site. No acute abnormal finding. Electronically Signed: Toni Zeng MD at 7:29 EST Tel , Service support ,
--- NOTE | 2021-03-05 05:54 | EKG12_ITS ---
Test Reason : BACK Blood Pressure : / mmHG Vent. Rate : 068 BPM Atrial Rate : 068 BPM P-R Int : 194 ms QRS Dur : 070 ms QT Int : 388 ms P-R-T Axes : -12 029 040 degrees QTc Int : 412 ms Normal sinus rhythm Normal ECG Confirmed by PRASHANT CHASE MD ([id number]), dictionary editor PONCE PATRICK ([id number]) on 03/08/2021 9:43:20 AM Referred By: MAX Confirmed By:PRASHANT CHASE MD
--- NOTE | 2021-03-05 05:54 | CT_ITS ---
STUDY: CTA CHEST REASON FOR EXAM: Female, 85 years old. Back pain since recent upper thoracic spine biopsy. RADIATION DOSAGE (If Supplied By Facility): CTDIvol = ( 13.37 ) mGy, DLP = ( 472.85 ) mGycm TECHNIQUE: The examination was performed with the intravenous administration of IV 100mL Isovue-370. Post-processing of the angiographic images was performed, with multiplanar reformation and 3D reconstruction. Individualized dose optimization techniques were used for this CT. COMPARISON: 02/15/2021 PET/CT FINDINGS: Normal enhancement of the main pulmonary artery and right and left pulmonary arteries. Normal enhancement of the bilateral peripheral pulmonary arteries. There is no demonstrated pulmonary embolism. Normal thoracic aorta and visualized great vessels. There is no demonstrated aortic dissection. Normal heart and pericardium. No finding of right heart strain. Normal mediastinum. Normal hilar regions. Normal visualized trachea and bronchi. The lungs are well expanded. Bilateral lung base atelectasis. 1.5 cm anterior right upper lobe lung nodule was not FDG avid on recent PET. Normal pleura. The patient is status post right mastectomy. There are degenerative changes of thoracic spine. Bony lesions as on 02/15/2021 PET/CT. Moderate hiatal hernia. CT/CTA Chest W/WO Contrast IMPRESSION: Normal CTA chest examination, without a demonstrated pulmonary embolism or arterial dissection. Bilateral lung base atelectasis. Electronically Signed: Toni Zeng MD at 7:42 EST Tel , Service support ,
--- NOTE | 2021-03-05 05:57 | ED.VIS.BACK ---
HPI History of Present Illness Chief Complaint: Back Narrative Narrative: Patient presents from assisted with thoracic back pain that she has had for the last 5 days. 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 She is supposed to have radiation therapy. She had a biopsy performed either 5 days ago or 3 days ago on Sunday or , she cannot remember which. Ever since her biopsy she states she has had pain in her back that radiates under both arms. Pain is worse with movement. She denies any fevers or chills, or any other symptoms. She states that she was given oxycodone with acetaminophen and took her first dose this morning, but cannot have any other Tylenol products. She states that she is having continued pain and has had it for days. It is worse when she sits up or moves her thoracic back. She states she also has problems with her lumbar spine, but this is chronic. She states that the pain goes to both sides under her arms. [facility] Medical History Breast cancer Chronic osteoarthritis Hyperlipidemia Obesity Obstructive sleep apnea Home Medications sertraline 50 mg PO BID 01/08/13 [History Last Taken 10/21/19 12:00] acetaminophen 1 tab PO BID 08/15/13 [History Last Taken 10/21/19 22:00] cholecalciferol (vitamin D3) 1,250 mcg (50,000 unit) capsule 50,000 unit PO .twice/month cap 07/14/19 [History Last Taken Unknown] cyanocobalamin (vitamin B-12) 2,500 mcg tablet 1,000 mcg PO DAILY tab 07/14/19 [History Last Taken 10/22/19 09:00] levothyroxine 100 mcg capsule 100 mcg PO DAILY 07/14/19 [History Last Taken 10/22/19 06:00] hydrochlorothiazide 12.5 mg tablet 12.5 mg PO DAILY PRN #30 tab 09/23/19 [Rx Last Taken 10/22/19 09:00] furosemide 30 mg PO DAILY PRN PRN 12/26/19 [History Last Taken Unknown] metoclopramide HCl 10 mg PO DAILY PRN PRN 12/26/19 [History Last Taken Unknown] sulfamethoxazole-trimethoprim 1 tab PO DAILY 12/26/19 [History Last Taken Unknown] lorazepam 0.5 mg PO BID #0 tab 02/08/21 [Rx Last Taken 10/21/19 22:00] hydrocodone-acetaminophen 1 tab PO Q6H PRN 4 Days #10 tab 02/22/21 [Rx Last Taken Unknown] dexamethasone 4 mg tablet 4 mg PO DAILY #20 tab 02/23/21 [Rx Last Taken Unknown] Allergy/AdvReac Type Severity Reaction Status Date / Time nitrofurantoin Allergy Intermediate hives Verified 03/05/21 05:55 [From Macrobid] latex Allergy Rash Verified 03/05/21 05:55 Penicillins Allergy Swelling Verified 03/05/21 05:55 meloxicam AdvReac Nausea Verified 03/05/21 05:55 Family History Father , Age 89 CVA (cerebral vascular accident) Cancer Hypertension Myocardial infarction Mother , Age 90 Cancer Brother Hypertension Diabetes Brother Diabetes Brother Hypertension Surgical History H/O colonoscopy H/O hemicolectomy H/O mastectomy H/O thyroidectomy H/O: hysterectomy History of bladder suspension procedure History of carpal tunnel surgery of right wrist History of hip replacement, total History of knee replacement History of left heart catheterization (06/2006) History of tonsillectomy and adenoidectomy Hx of cholecystectomy Social History Smoking Status: Former smoker how long ago did patient quit smoking: in the 's alcohol intake: current alcohol intake frequency: holidays/special occasions only Alcohol type: wine caffeine: Yes Type: tea ROS ROS ED ROS Narrative Constitutional: No fever, no chills. HEENT: No sore throat. No neck pain. No loss of vision. No rhinorrhea. Cardiovascular: No chest pain. No palpitations. No pedal edema. Respiratory: No cough, no shortness of breath. Abdominal: No abdominal pain. No nausea. No vomiting. Genitourinary: No dysuria. No hematuria. Musculoskeletal: No myalgias. No arthralgias. Thoracic back pain. Radiates to under both arms. Neurologic: No headaches. No dizziness. No lightheadedness. Skin: No rash. No change in color. Psychiatric: No depression. No anxiety. EXAM Physical Exam Narrative Exam Narrative: Afebrile. Vital signs noted. HEENT: Normocephalic. Atraumatic. PERRL, EOMI. Neck soft and supple. No point tenderness or step off. Cardiovascular: Regular rate and rhythm. No murmurs, rubs, or gallops appreciated. Respiratory: No tachypnea. Lungs clear to auscultation bilaterally. Gastrointestinal: Abdomen soft, nontender, with normoactive bowel sounds. No rebound or guarding. Neurological: Awake. Alert. Nonfocal, nonlateralizing. Skin: No rash. Normal color. No pallor. Musculoskeletal: No pedal edema. Full range of motion extremities. Diffuse tenderness to palpation thoracic spine, no step-off. Const Vital Signs: 03/05/21 05:46 03/05/21 05:54 03/05/21 06:34 Temperature 98.6 F Temperature Source Temporal Pulse Rate 82 66 Respiratory Rate 20 H 16 Blood Pressure 162/74 H 150/62 H Blood Pressure Mean 103 91 Pulse Ox 96 98 Oxygen Delivery Method Room Air Room Air Room Air MDM MDM MDM Narrative Medical decision making narrative: Comprehensive work-up was pursued. She was administered morphine for analgesia. She sounds as if she is having thoracic radiculopathy that is bilateral. I will obtain CT imaging of her thoracic spine given her history of tumor. I obtained an EKG which demonstrates normal sinus rhythm at 68 bpm without ectopy or acute ST changes. She has an elevated white count of 12.6 which think is nonspecific, and her hemoglobin is stable at 12.0. Platelet count normal at 258. Her sodium is slightly low at 133. BUN of 25 with a normal creatinine of 0.8. Her high-sensitivity troponin is negative at 10. Given her recent biopsy, and her complaint of thoracic back pain radiating to her underarms, and the differential diagnosis is also aortic dissection. I will obtain a CT a of the chest with IV contrast also. At this point in time, the patient will be signed out to the oncoming physician to review the CT scans and the readings and make final disposition on this patient with thoracic back pain with known tumor/bone metastasis. She is in stable condition. Lab Data Attestation: I reviewed the patient's lab results. Labs: Laboratory Results - last 24 hr 03/05/21 03/05/21 06:04 06:04 WBC 12.6 H RBC 4.26 Hgb 12.0 Hct 36.3 L MCV 85.2 MCH 28.2 MCHC 33.1 RDW Std Deviation 43.8 RDW Coeff of Ania 14.1 Plt Count 258 MPV 9.9 Immature Gran % (Auto) 0.600 Neut % (Auto) 70.0 Lymph % (Auto) 21.7 [place] % (Auto) 6.0 Eos % (Auto) 1.2 Baso % (Auto) 0.5 Absolute Neuts (auto) 8.8 H Absolute Lymphs (auto) 2.73 Nucleated RBC % 0 Sodium 133 L Potassium 3.9 Chloride 97 L Carbon Dioxide 29.0 Anion Gap 7 BUN 25 H Creatinine 0.80 Estim Creat Clear Calc 45.20 Est GFR (MDRD) Af Amer 87 Est GFR (MDRD) Non-Af 72 BUN/Creatinine Ratio 31.1 H Glucose 96 Calcium 9.4 Troponin I High Sens 10 Discharge Plan Triage Chief Complaint: Back ED Provider: Donald Almendarez Dx/Rx/DC Orders Prescriptions: No Action cholecalciferol (vitamin D3) 1,250 mcg (50,000 unit) capsule 50,000 unit PO .twice/month RF: 0 levothyroxine 100 mcg capsule 100 mcg capsule 100 mcg PO DAILY RF: 0 dexamethasone [Decadron] 4 mg tablet 4 mg PO DAILY Qty: 20 RF: 0 sertraline 50 MG tablet 50 mg PO BID RF: 0 acetaminophen 500 MG tablet 1 tab PO BID RF: 0 cyanocobalamin (vitamin B-12) 2,500 mcg tablet 1,000 mcg PO DAILY RF: 0 furosemide 40 MG tablet 30 mg PO DAILY PRN PRN (Reason: edema) RF: 0 sulfamethoxazole-trimethoprim 1 TABLET tablet 1 tab PO DAILY RF: 0 metoclopramide HCl 10 MG tablet 10 mg PO DAILY PRN PRN (Reason: Nausea) RF: 0 lorazepam 1 MG tablet 0.5 mg PO BID Qty: 0 RF: 0 hydrocodone-acetaminophen 5-325 mg tablet 1 tab PO Q6H PRN (Reason: pain) 4 Days Qty: 10 RF: 0 hydrochlorothiazide 12.5 mg tablet 12.5 mg PO DAILY PRN (Reason: edema) Qty: 30 RF: 12 Primary Care Provider: Terrell Villanueva
[2021-03-05] MEDS: Morphine 4 MG/ML Syringe IV (06:03)
[2021-03-05 06:07] LABS: Absolute Lymphocyte Count 2.73 X10^3/uL (0.83-4.51); Absolute Neutrophil Count 8.8 X10^3/uL (2.0-7.7); Basophil# 0.06 X10^3/uL; Basophil% 0.5 % (0-1); Eosinophil# 0.15 X10^3/uL; Eosinophils% 1.2 % (0-5); Hematocrit 36.3 % (37-47); Lymphocyte # 2.73 X10^3/ul (0.83-4.51); Lymphocyte % 21.7 % (19-41); Mean Corp Hgb Conc 33.1 g/dL (32-36); Mean Corpuscular Hgb 28.2 pg (27.0-32.0); Mean Corpuscular Volume 85.2 fL (81-99); Mean Platelet Vol. 9.9 fl (6.2-12.0); Monocyte# 0.76 X10^3/uL; NRBC Flagged by Analyzer 0 % (0-5); Neutrophil # 8.82 X10^3/uL (2.7-7.7); Platelet Count 258 K/mm3 (150-450); RBC Distribution Width CV 14.1 % (11.6-14.6); RBC Distribution Width SD 43.8 fl (35.1-43.9); Red Blood Count 4.26 M/mm3 (4.2-5.4); White Blood Count 12.6 K/mm3 (4.4-11.0)
[2021-03-05 06:25] LABS: Anion Gap 7 (5-15); BUN 25 mg/dL (7-18); BUN/Creat Ratio 31.1 RATIO (10-20); Calcium,Total 9.4 mg/dL (8.5-10.1); Chloride 97 mmol/L (98-107); EST Glomerular Filtration Rate 72 mL/min (>60); Est Glom Filt Rate - Afr Amer 87 mL/min (>60); Glucose 96 mg/dL (74-106); Potassium 3.9 mmol/L (3.5-5.1); Sodium Level 133 mmol/L (136-145); Troponin-I HS 10 pg/mL (3.0-54.0)
--- NOTE | 2021-03-05 06:55 | RAD_ITS ---
EXAM: XR CHEST, 1 VIEW : 1935 CLINICAL INDICATION: chest pain TECHNIQUE: Frontal view of the chest. This report was created using [employer] report generation technology. COMPARISON: 02/06/21 FINDINGS: LUNGS AND PLEURAL SPACES: Unremarkable. No consolidation or edema. No pneumothorax. No effusion. HEART: Mild enlargement of the cardiac silhouette. MEDIASTINUM: Central airways and mediastinal contour are unremarkable. BONES/JOINTS: Degenerative changes of the spine. SOFT TISSUES: Unremarkable. RAD/Chest 1 View (Portable) IMPRESSION: No acute findings in the chest. at 0715 Reported and signed by: Alonos Justice MD Electronically Signed: Alonso Justice MD at 7:15 EST Tel , Service support ,
[2021-03-05 07:12] LABS: BNP,B-Type NATRIURETIC PEPTIDE 78.5 pg/mL (0-100)
[2021-03-05] MEDS: HYDROmorphone 1 MG/ML Syringe IV (07:20)
--- NOTE | 2021-03-05 07:47 | NURSING ---
pt spo2 on 3l dropped to 83%. pt encouraged deep breathing and o2 increased to 4l and now 96%. mouth swabbed for c/o dryness after medications. still c/o that no change in my pain under my arms and back
--- NOTE | 2021-03-05 07:55 | HP.PCM_ITS ---
HPI - General General Date of Admission: 03/05/21 HPI Narrative AMILCAR KERN, is a 85 F with an extensive PMH as outlined including breast cancer. She came in to the ED with a complaint of back pain for ~ 4-5 days. Patient had been having the back pain for some days and says she had a biopsy performed about 2 to 3 days prior to admission, results of which were pending. Biopsy was of her spine at T3.. Since the biopsy, she had had intractable back pain which was not improving in any way. Pain was worsened with movement. She denied any urinary or fecal incontinence and denied any weakness or numbness in her lower extremity. Pain was completely intractable so she was brought into the ED. She denied any nausea, fever, chills, vomiting, chest pain, palpitations, dizziness, or any other symptoms. Review of systems otherwise negative. Vitals were blood pressure of 139/60, pulse rate of 66, respiratory rate of 16 and temperature of 98 Fahrenheit with oxygen sats of 98% on room air. CBC showed WBC of 12.6 with hemoglobin of 12 and platelets of 258. Chemistry shows sodium of 133 with creatinine of 0.8. CTA of the chest showed no evidence of PE or aortic dissection and thoracic spine CT showed no finding of hematoma at the T3 biopsy site and showed metastatic lesions at T2 and T3 as well as T12. She has been admitted to be managed for intractable back pain l ikely due to metastatic malignancy most likely primary being the breast. [facility] Medical History (Updated 03/05/21 @ 13:[address] Zoe Fry MD) Anxiety Breast cancer Cancer Chronic osteoarthritis CPAP (continuous positive airway pressure) dependence Depression Diverticulitis Hyperlipidemia Obesity Obstructive sleep apnea Home Medications sertraline 50 mg PO BID 01/08/13 [History Last Taken 03/04/21] cholecalciferol (vitamin D3) 1,250 mcg (50,000 unit) capsule 50,000 unit PO .twice/month cap 07/14/19 [History Last Taken 03/03/21] cyanocobalamin (vitamin B-12) 2,500 mcg tablet 1,000 mcg PO DAILY tab 07/14/19 [History Last Taken 03/04/21] levothyroxine 100 mcg capsule 100 mcg PO DAILY 07/14/19 [History Last Taken 03/04/21] furosemide 30 mg PO DAILY 12/26/19 [History Last Taken 02/26/21] lorazepam 0.5 mg PO BID #0 tab 02/08/21 [Rx Last Taken 03/04/21] hydrocodone-acetaminophen 1 tab PO Q6H PRN 4 Days #10 tab 02/22/21 [Rx Last Taken 03/05/21] dexamethasone 4 mg tablet 4 mg PO DAILY #20 tab 02/23/21 [Rx Last Taken 03/04/21] Allergy/AdvReac Type Severity Reaction Status Date / Time nitrofurantoin Allergy Intermediate hives Verified 03/05/21 05:55 [From Macrobid] latex Allergy Rash Verified 03/05/21 05:55 Penicillins Allergy Swelling Verified 03/05/21 05:55 meloxicam AdvReac Nausea Verified 03/05/21 05:55 Family History Father , Age 89 CVA (cerebral vascular accident) Cancer Hypertension Myocardial infarction Mother , Age 90 Cancer Brother Hypertension Diabetes Brother Diabetes Brother Hypertension Surgical History H/O colonoscopy H/O hemicolectomy H/O mastectomy H/O thyroidectomy H/O: hysterectomy History of bladder suspension procedure History of carpal tunnel surgery of right wrist History of hip replacement, total History of knee replacement History of left heart catheterization (06/2006) History of tonsillectomy and adenoidectomy Hx of cholecystectomy Social History Smoking Status: Former smoker how long ago did patient quit smoking: in the s alcohol intake: current alcohol intake frequency: holidays/special occasions only Alcohol type: wine caffeine: Yes Type: tea ROS Constitutional Constitutional: Reports chills; Denies anorexia, fatigue or fever(s) Eyes Eyes: Denies change in vision ENT HEENT: Reports hearing loss; Denies dysphagia or epistaxis Cardiovascular Cardiovascular: Denies chest pain, edema or orthopnea Respiratory/Chest Respiratory/Chest: Denies cough, shortness of breath at rest or shortness of breath with exertion Gastrointestinal Gastrointestinal: Denies abdominal pain, constipation or diarrhea Genitourinary Genitourinary: Denies dysuria, urinary frequency, urinary hesitancy, urinary incontinence or urinary urgency Musculoskeletal Musculoskeletal: Reports back pain, joint stiffness and limited range of motion; Denies extremity pain, joint pain, joint swelling, muscle weakness, neck pain or stiffness Neurologic Neurologic: Denies abnormal gait, confusion, dizziness, focal weakness or headache(s) Psychiatric Psychiatric: Denies anxiety or depression Endocrine Endocrinology: Denies change in body appearance Vital Signs Vital Signs Vital Signs: 03/05/21 05:46 03/05/21 05:54 03/05/21 06:34 Temperature 98.6 F Temperature Source Temporal Pulse Rate 82 66 Respiratory Rate 20 H 16 Blood Pressure 162/74 H 150/62 H Blood Pressure Mean 103 91 Pulse Ox 96 98 Oxygen Delivery Method Room Air Room Air Room Air Weight Weight: 275 lb 5.718 oz Body Mass Index (BMI) 47.2 Physical Exam Const alert and oriented x3 Constitutional Narrative: patient very uncomfortable due to pain General Appearance: cooperative HEENT head/scalp atraumatic Eyes PERRL and EOMs intact bilaterally Neck supple and no JVD Lymph Lymphatic: no lymphadenopathy noted Resp normal respiratory effort, normal air movement and clear to auscultation bilaterally Cardio regular rate, regular rhythm, S1 normal heart sound, S2 normal heart sound and no murmurs GI normal to inspection, nondistended, normoactive bowel sounds, soft to palpation, non-tender and non-distended Extremity no clubbing, cyanosis or edema Skin General Skin Exam: turgor normal Rashes: no rashes Neuro CN's II-XII intact bilaterally Motor Exam: strength 5/5 throughout Psych Psych Narrative: patient tearful and very uncomfortable due to severe back pain Results Lab / Micro Data Result Diagrams: 03/05/21 06:04 03/05/21 06:04 Labs: Laboratory Results - last 24 hr 03/05/21 06:04: WBC 12.6 H, RBC 4.26, Hgb 12.0, Hct 36.3 L, MCV 85.2, MCH 28.2, MCHC 33.1, RDW Std Deviation 43.8, RDW Coeff of Ania 14.1, Plt Count 258, MPV 9.9, Immature Gran % (Auto) 0.600, Neut % (Auto) 70.0, Lymph % (Auto) 21.7, [place] % (Auto) 6.0, Eos % (Auto) 1.2, Baso % (Auto) 0.5, Absolute Neuts (auto) 8.8 H, Absolute Lymphs (auto) 2.73, Nucleated RBC % 0 03/05/21 06:04: Sodium 133 L, Potassium 3.9, Chloride 97 L, Carbon Dioxide 29.0, Anion Gap 7, BUN 25 H, Creatinine 0.80, Estim Creat Clear Calc 45.20, Est GFR (MDRD) Af Amer 87, Est GFR (MDRD) Non-Af 72, BUN/Creatinine Ratio 31.1 H, Glucose 96, Calcium 9.4, Troponin I High Sens 10 03/05/21 06:04: B-Natriuretic Peptide 78.5 Radiology Impression Chest CTA 03/05/21 05:54 IMPRESSION: Normal CTA chest examination, without a demonstrated pulmonary embolism or arterial dissection. Bilateral lung base atelectasis. Electronically Signed: Toni Zeng MD at 7:42 EST Tel , Service support , Thoracic Spine CT 03/05/21 05:54 IMPRESSION: No finding of hematoma about the T3 biopsy site. No acute abnormal finding. Electronically Signed: Toni Zeng MD at 7:29 EST Tel , Service support , Chest X-Ray 03/05/21 06:55 IMPRESSION: No acute findings in the chest. at 0715 Reported and signed by: Alonso Justice MD Electronically Signed: Alonso Justice MD at 7:15 EST Tel , Service support , Assessment & Plan Assessment/Plan (1) Bone metastasis: (2) Intractable back pain: PLAN: #Intractable back pain due to bony metastases * Breast is unlikely primary as patient does have a history of breast cancer. * She had a biopsy at T3 a few days ago when biopsy results are still pending. She has no associated urinary or fecal incontinence. Put on IV morphine as needed * p.o. [place] and IV Toradol as needed for pain * Consult PT OT. Consult radiation oncology as patient will benefit from radiat ion to help with the pain * Fall precautions * flexeril to help with muscle spasm * #Hypothyroidism: on synthroid #History of breast cancer * had right breast cancer in 1996, and had modified radical mastectomy in February 1997, with pathology showing well differentiated ducatl carcinoma, with 16 out of 16 lymph nodes negative. * She had a bone scan on 01/16/2021 which showed sclerotic lesion at the level of T3 and T12. * Consult oncology in light of severe back pain due to probable mets * . Radiation oncology also consulted. 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 S/p thyroidectomy. * DVT prophylaxis: Lovenox Charges/Coding Visit Charges OBSV E&M: 52703 Initial observation care L3
[2021-03-05] MEDS: LORazepam 0.5 MG Tablet PO ×2 (10:41→20:59)
[2021-03-05] MEDS: Cyanocobalamin 500 MCG Tablet 1000 MCG PO (10:42)
[2021-03-05] MEDS: Sertraline 50 MG Tablet PO ×2 (10:42→20:59)
[2021-03-05] MEDS: dexAMETHasone 4 MG Tablet PO (10:42)
[2021-03-05] MEDS: Enoxaparin 40 MG/0.4 ML Syringe SC (10:43)
[2021-03-05] MEDS: Ketorolac 15 MG/ML Vial IV ×3 (10:50→22:58)
[2021-03-05] MEDS: cycloBENZAPRine HCl 10 MG Tablet PO (10:51)
[2021-03-05] MEDS: 0.9% Saline Lock 10 ML Syringe IV ×2 (11:00→22:58)
[2021-03-05] MEDS: Calcium Carbonate 500 MG Tablet PO (20:56)
[2021-03-06] MEDS: cycloBENZAPRine HCl 10 MG Tablet PO (00:43)
[2021-03-06] MEDS: HYDROcodone Bitartrate/Apap 5/325 Tablet PO ×2 (01:30→20:22)
[2021-03-06 03:32] VITALS: BP 134/59; PULSE 62; RESP 18; TEMP 36.3; O2SAT 96
[2021-03-06] MEDS: 0.9% Saline Lock 10 ML Syringe IV ×3 (05:04→19:54)
[2021-03-06] MEDS: Levothyroxine 100 MCG Tablet PO (05:04)
[2021-03-06] MEDS: Morphine 4 MG/ML Syringe IV (05:04)
[2021-03-06 05:24] LABS: Absolute Lymphocyte Count 1.66 X10^3/uL (0.83-4.51); Absolute Neutrophil Count 7.1 X10^3/uL (2.0-7.7); Basophil# 0.03 X10^3/uL; Basophil% 0.3 % (0-1); Hematocrit 33.3 % (37-47); Hemoglobin 11.1 g/dL (12.0-15.0); Lymphocyte # 1.66 X10^3/ul (0.83-4.51); Lymphocyte % 17.3 % (19-41); Mean Corp Hgb Conc 33.3 g/dL (32-36); Mean Corpuscular Hgb 28.1 pg (27.0-32.0); Mean Corpuscular Volume 84.3 fL (81-99); Mean Platelet Vol. 9.9 fl (6.2-12.0); Monocyte# 0.62 X10^3/uL; Monocyte% 6.5 % (0-10); NRBC Flagged by Analyzer 0 % (0-5); Neutrophil # 7.11 X10^3/uL (2.7-7.7); Neutrophil % 74.3 % (47-70); Platelet Count 202 K/mm3 (150-450); RBC Distribution Width CV 13.7 % (11.6-14.6); RBC Distribution Width SD 42.5 fl (35.1-43.9); Red Blood Count 3.95 M/mm3 (4.2-5.4); White Blood Count 9.6 K/mm3 (4.4-11.0)
[2021-03-06 05:54] LABS: Anion Gap 6 (5-15); BUN 24 mg/dL (7-18); BUN/Creat Ratio 30.8 RATIO (10-20); Calcium,Total 8.7 mg/dL (8.5-10.1); Chloride 98 mmol/L (98-107); Creatinine, Serum 0.78 mg/dL (0.55-1.02); EST Glomerular Filtration Rate 75 mL/min (>60); Est Glom Filt Rate - Afr Amer 90 mL/min (>60); Estimated Creatinine Clearance 36.16 ml/min; Glucose 98 mg/dL (74-106); Potassium 4.3 mmol/L (3.5-5.1); Sodium Level 132 mmol/L (136-145)
[2021-03-06] MEDS: Sertraline 50 MG Tablet PO ×2 (09:23→20:22)
[2021-03-06] MEDS: dexAMETHasone 4 MG Tablet PO (09:23)
[2021-03-06] MEDS: Enoxaparin 40 MG/0.4 ML Syringe SC (09:23)
[2021-03-06] MEDS: LORazepam 0.5 MG Tablet PO ×2 (09:23→20:24)
[2021-03-06] MEDS: Cyanocobalamin 500 MCG Tablet 1000 MCG PO (09:24)
[2021-03-06 09:30] VITALS: BP 142/66; PULSE 80; RESP 18; TEMP 36.4; O2SAT 96
--- NOTE | 2021-03-06 10:00 | PN.HOSP_ITS ---
Subjective Subjective Patient seen and examined. Pain was much better today. She was sitting up in her chair. She expressed frustration with the fact that her quality of life had decreased due to her recent onset of pain, as she was unable to carry out her activities of daily living. REview of systems is otherwise negative. Objective Data Objective Data Vital Signs: Vital Signs Temp Pulse Resp BP Pulse Ox 97.3 F L 62 18 134/59 H 96 03/06/21 03:32 03/06/21 03:32 03/06/21 03:32 03/06/21 03:32 03/06/21 03:32 Oxygen Flow Rate (L/min) 2 Oxygen Delivery Method Nasal Cannula Weight: 265 lb Body Mass Index (BMI) 45.4 Intake & Output: Intake and Output for Last 24 Hours 03/04/21 03/05/21 03/06/21 23:59 23:59 23:59 Intake Total 350 / 350 Output Total 600 / 825 225 / 225 Balance -250 / -475 -225 / -225 Lab / Micro Data Result Diagrams: 03/06/21 05:16 03/06/21 05:16 Labs: Laboratory Results - last 24 hr 03/06/21 05:16: WBC 9.6, RBC 3.95 L, Hgb 11.1 L, Hct 33.3 L, MCV 84.3, MCH 28.1, MCHC 33.3, RDW Std Deviation 42.5, RDW Coeff of Ania 13.7, Plt Count 202, MPV 9.9, Immature Gran % (Auto) 0.600, Neut % (Auto) 74.3 H, Lymph % (Auto) 17.3 L, [place] % (Auto) 6.5, Eos % (Auto) 1.0, Baso % (Auto) 0.3, Absolute Neuts (auto) 7.1, Absolute Lymphs (auto) 1.66, Nucleated RBC % 0 03/06/21 05:16: Sodium 132 L, Potassium 4.3, Chloride 98, Carbon Dioxide 28.0, Anion Gap 6, BUN 24 H, Creatinine 0.78, Estim Creat Clear Calc 36.16, Est GFR (MDRD) Af Amer 90, Est GFR (MDRD) Non-Af 75, BUN/Creatinine Ratio 30.8 H, Glucose 98, Calcium 8.7 Micro: Microbiology 03/05/21 08:20 Nasal Secretion SARS-CoV-2 Antigen (Rapid) - Final Physical Exam Const alert, oriented x3 and no apparent distress General Appearance: cooperative Exam Limitations: no limitations HEENT head/scalp atraumatic Head and Scalp: normocephalic Eyes PERRL and EOMs intact bilaterally Neck no lymphadenopathy, supple and no JVD Lymph Lymphatic: no lymphadenopathy noted Resp normal respiratory effort, normal air movement, no retractions, no use of accessory muscles and clear to auscultation bilaterally Cardio regular rate, regular rhythm, S1 normal heart sound, S2 normal heart sound and no murmurs GI normal to inspection, nondistended, normoactive bowel sounds, soft to palpation, non-tender and non-distended Extremity normal to inspection, full ROM and no clubbing, cyanosis or edema Peripheral Pulses: Yes pulses 2+ throughout Skin General Skin Exam: turgor normal Rashes: no rashes Neuro oriented x3, CN's II-XII intact bilaterally and moves all extremities Sensorium / Orientation: awake and alert Motor Exam: strength 5/5 throughout Psych affect normal Assessment & Plan Assessment/Plan (1) Bone metastasis: (2) Intractable back pain: PLAN: #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 * on PO norco, IV morphine and IV toradol prn for pain. * on flexeril for muscle pain. * PT/OT on board * fall precautions. * Breast is likely primary as patient does have a history of breast cancer. * She had a biopsy at T3 a few days ago; biopsy results showiing metastatic carcinoma consistent with breast primary. * Radiation oncology consulted. Await rec's. * flexeril to help with muscle spasm * #Hypothyroidism: on synthroid #History of breast cancer * had right breast cancer in 1996, and had modified radical mastectomy in February 1997, with pathology showing well differentiated ductal carcinoma, with 16 out of 16 lymph nodes negative. * She had a bone scan on 01/16/2021 which showed sclerotic lesion at the level of T3 and T12. 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 S/p thyroidectomy. * DVT prophylaxis: Lovenox Charges/Coding Visit Charges Inpatient E&M: 80573 Subs Hosp L2
[2021-03-06] MEDS: Ketorolac 15 MG/ML Vial IV ×2 (10:52→19:53)
--- NOTE | 2021-03-06 11:37 | NURSING ---
Update given to Maura per patients request. Maura to update Adolfo zeinab son per pts request.
[2021-03-06] MEDS: Calcium Carbonate 500 MG Tablet PO (13:51)
[2021-03-06 15:10] VITALS: BP 132/48; PULSE 73; RESP 18; TEMP 36.8; O2SAT 94
[2021-03-06 20:02] VITALS: BP 144/61; PULSE 80; RESP 20; TEMP 36.5; O2SAT 94
[2021-03-06 20:09] VITALS: RESP 22
[2021-03-06] MEDS: Tamoxifen 10 MG Tablet 20 MG PO (20:26)
[2021-03-06 23:34] VITALS: BP 123/68; PULSE 70; RESP 20; TEMP 36.6; O2SAT 93
[2021-03-07] MEDS: cycloBENZAPRine HCl 10 MG Tablet PO ×2 (00:59→13:26)
[2021-03-07] MEDS: 0.9% Saline Lock 10 ML Syringe IV ×4 (02:13→20:33)
[2021-03-07] MEDS: Ketorolac 15 MG/ML Vial IV ×3 (02:13→15:03)
[2021-03-07] MEDS: HYDROcodone Bitartrate/Apap 5/325 Tablet PO ×3 (06:32→20:20)
[2021-03-07 06:38] VITALS: BP 154/104; PULSE 70; RESP 20; TEMP 36.5; O2SAT 95
[2021-03-07] MEDS: Levothyroxine 100 MCG Tablet PO (06:40)
[2021-03-07 07:16] VITALS: O2SAT 94
--- NOTE | 2021-03-07 07:46 | NURSING ---
Patient asked for pain meds. (Farson was given about an hour ago.) Patient said her pain was 10/10 when reassessed and then fell asleep during the conversation. Not awakened. Sleeping in chair.
[2021-03-07] MEDS: Cyanocobalamin 500 MCG Tablet 1000 MCG PO (08:25)
[2021-03-07] MEDS: Sertraline 50 MG Tablet PO ×2 (08:25→20:24)
[2021-03-07] MEDS: Tamoxifen 10 MG Tablet 20 MG PO ×2 (08:25→20:23)
[2021-03-07] MEDS: dexAMETHasone 4 MG Tablet PO (08:25)
[2021-03-07] MEDS: LORazepam 0.5 MG Tablet PO ×2 (08:27→20:23)
[2021-03-07 08:35] LABS: Absolute Lymphocyte Count 1.83 X10^3/uL (0.83-4.51); Absolute Neutrophil Count 7.7 X10^3/uL (2.0-7.7); Basophil# 0.05 X10^3/uL; Basophil% 0.5 % (0-1); Eosinophil# 0.21 X10^3/uL; Hematocrit 35.1 % (37-47); Hemoglobin 11.8 g/dL (12.0-15.0); Lymphocyte # 1.83 X10^3/ul (0.83-4.51); Lymphocyte % 17.3 % (19-41); Mean Corp Hgb Conc 33.6 g/dL (32-36); Mean Corpuscular Hgb 28.4 pg (27.0-32.0); Mean Corpuscular Volume 84.6 fL (81-99); Mean Platelet Vol. 10.1 fl (6.2-12.0); Monocyte% 6.6 % (0-10); NRBC Flagged by Analyzer 0 % (0-5); Neutrophil # 7.66 X10^3/uL (2.7-7.7); Neutrophil % 72.7 % (47-70); Platelet Count 217 K/mm3 (150-450); RBC Distribution Width CV 13.9 % (11.6-14.6); RBC Distribution Width SD 42.6 fl (35.1-43.9); Red Blood Count 4.15 M/mm3 (4.2-5.4); White Blood Count 10.6 K/mm3 (4.4-11.0)
[2021-03-07 08:51] LABS: Anion Gap 6 (5-15); BUN 31 mg/dL (7-18); Calcium,Total 9.3 mg/dL (8.5-10.1); Chloride 101 mmol/L (98-107); Creatinine, Serum 0.84 mg/dL (0.55-1.02); EST Glomerular Filtration Rate 69 mL/min (>60); Est Glom Filt Rate - Afr Amer 83 mL/min (>60); Estimated Creatinine Clearance 43.05 ml/min; Glucose 89 mg/dL (74-106); Potassium 4.5 mmol/L (3.5-5.1); Sodium Level 135 mmol/L (136-145)
--- NOTE | 2021-03-07 10:18 | PN.HOSP_ITS ---
Subjective Subjective Patient seen and examined today. She had no active complaints and had an uneventful night. Pain is better controlled today. She was started on tamoxifen yesterday per discussion with her oncologist Dr. Moon. Her nurse informs me today that her [id number] who is patient's POA said they are concerned that patient has been taking more pain meds than usual. Patient admitted that sometimes she does take more pain meds than usual at home because she is in such severe pain and is hopeful that radiation will help with her severe pain. Objective Data Objective Data Vital Signs: Vital Signs Temp Pulse Resp BP Pulse Ox 97.7 F L 70 20 H 154/104 H 94 03/07/21 06:38 03/07/21 06:38 03/07/21 06:38 03/07/21 06:38 03/07/21 07:16 Oxygen Flow Rate (L/min) 2 Oxygen Delivery Method Nasal Cannula Weight: 265 lb Body Mass Index (BMI) 45.4 Intake & Output: Intake and Output for Last 24 Hours 03/05/21 03/06/21 03/07/21 23:59 23:59 23:59 Intake Total 350 / 350 550 / 1350 800 / 800 Output Total 600 / 825 825 / 1050 1675 / 1675 Balance -250 / -475 -275 / 300 -875 / -875 Lab / Micro Data Result Diagrams: 03/07/21 08:15 03/07/21 08:15 Labs: Laboratory Results - last 24 hr 03/07/21 08:15: WBC 10.6, RBC 4.15 L, Hgb 11.8 L, Hct 35.1 L, MCV 84.6, MCH 28.4, MCHC 33.6, RDW Std Deviation 42.6, RDW Coeff of Ania 13.9, Plt Count 217, MPV 10.1, Immature Gran % (Auto) 0.900, Neut % (Auto) 72.7 H, Lymph % (Auto) 17.3 L, [place] % (Auto) 6.6, Eos % (Auto) 2.0, Baso % (Auto) 0.5, Absolute Neuts (auto) 7.7, Absolute Lymphs (auto) 1.83, Nucleated RBC % 0 03/07/21 08:15: Sodium 135 L, Potassium 4.5, Chloride 101, Carbon Dioxide 28.0, Anion Gap 6, BUN 31 H, Creatinine 0.84, Estim Creat Clear Calc 43.05, Est GFR (MDRD) Af Amer 83, Est GFR (MDRD) Non-Af 69, BUN/Creatinine Ratio 37.0 H, Glucose 89, Calcium 9.3 Micro: Microbiology 03/05/21 08:20 Nasal Secretion SARS-CoV-2 Antigen (Rapid) - Final Physical Exam Const alert, oriented x3 and no apparent distress General Appearance: cooperative Exam Limitations: no limitations Nutritional Appearance: morbidly obese HEENT head/scalp atraumatic Head and Scalp: normocephalic Eyes PERRL and EOMs intact bilaterally Neck no lymphadenopathy, supple and no JVD Lymph Lymphatic: no lymphadenopathy noted Resp normal respiratory effort, normal air movement, no retractions, no use of accessory muscles and clear to auscultation bilaterally Cardio regular rate, regular rhythm, S1 normal heart sound, S2 normal heart sound and no murmurs GI normal to inspection, nondistended, normoactive bowel sounds, soft to palpation, non-tender and non-distended Extremity normal to inspection, full ROM and no clubbing, cyanosis or edema Skin General Skin Exam: turgor normal Rashes: no rashes Neuro oriented x3, CN's II-XII intact bilaterally and moves all extremities Sensorium / Orientation: awake and alert Motor Exam: strength 5/5 throughout Psych affect normal Psych Narrative: patient tearful and very uncomfortable due to severe back pain Assessment & Plan Assessment/Plan (1) Bone metastasis: (2) Intractable back pain: PLAN: #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 * on PO norco, IV morphine and IV toradol prn for pain. * on flexeril for muscle pain. * PT/OT on board * fall precautions. * Breast is likely primary as patient does have a history of breast cancer. * She had a biopsy at [facility] a few days ago; biopsy results showing metastatic carcinoma consistent with breast primary. * Radiation oncology consulted. For evaluation by radiation oncology today * discussed with Dr Moon her oncologist on phone yesterday, and patient started on PO tamoxifen bid, as per oncology her breast cancer is ER positive * flexeril to help with muscle spasm * #Hypothyroidism: on synthroid #History of breast cancer * had right breast cancer in 1996, and had modified radical mastectomy in February 1997, with pathology showing well differentiated ductal carcinoma, with 16 out of 16 lymph nodes negative. * She had a bone scan on 01/16/2021 which showed sclerotic lesion at the level of T3 and T12. * for evaluation by radiation oncology today due to thoracic spine mets from breast cancer. 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 S/p thyroidectomy. * DVT prophylaxis: Lovenox Charges/Coding Visit Charges Inpatient E&M: 69203 Subs Hosp L2
[2021-03-07 11:00] VITALS: BP 150/58; PULSE 71; RESP 18; TEMP 36.8; O2SAT 97
--- NOTE | 2021-03-07 12:32 | NURSING ---
LATE ENTRY - 1120 - PT TO OUTPT PAVILION VIA W/C FOR APPOINTMENT WITH RADIATION PHYSICIAN
--- NOTE | 2021-03-07 13:01 | CASEMGMT ---
Addendum entered by Mikayla Cruz 03/07/21 15:42: Spoke with ELECTRICAL SUBCONTRACTOR who states pt was agreeable to s/t therapy post hospitalization. Discussed with Lynda Gusman concerns of pt dil as well as ELECTRICAL SUBCONTRACTOR stating pt was agreeable to s/t therapy. Addendum entered by Mikayla Cruz 03/07/21 15:02: TC from Shamir nurse at [facility]. She states pt meds are set up by the nurse and last she set up pt was getting tylenol 3x/day. She states that pt was recently ordered norco. RN CM in to pt room, pt states she is aware of the concern from her dil about her medication. She states years ago she was on morphine and ativan and had to stop them. She states her pain is so bad that she needs to take more meds. She reports her dil now has her med box and is looking into buying a locked box and she is ok with that. Pt would like to resume her SN at [facility]. She is agreeable to also having PT and OT added for safety eval. Pt has an aide through [facility] 5 days per week for 4 hours a day. She thinks her passport case folder is Catie as she states it was recently changed. TC to Princess at [facility] to make aware of adding PT and OT to orders. TC to pt maria r who states that pt is overmedicating herself. She states that she counted pt norco and pt had taken two days worth. She states pt is constantly worrying about when it is time for her next pain med. She also states that pt is unable to care for herself at home but she does not want to be the person to state this as the patient will blame her. She states pt has multiple neighbors who assist pt with dressing and ADL's. She states she has ordered a locked med box and it is to arrive today but pt has extra meds on top of her refrigerator. Made her aware that they need to have a discussion with the pt to see if she is agreeable to these meds being removed. DIL states pt calls her at all hours of the night and morning. States she called this morning at 5am to ask her to pay a bill. Again, reinforced that this is a conversation that she needs to have with the patient on what is acceptable to her. MARIA R states she does this as well to her son who lives out of state. He is planning on coming home in March. DIL reports pt was fine until she received the diagnosis of cancer. States pt is a hypochondriac. Pt dil aware that therapy is currently working with patient and this assessment is used as a factor in pt disposition. She states she will call her mil to see what is decided. She denies further needs. Original Note: RN DANIEL received note that pt dtr is worried that pt is overmedicating herself on pain meds at home. Noted pt is active with [facility] SN. TC to intake, left message requesting call back from pt nurse or clinical data deliverables manager regarding this prior to calling pt dtrMaura.
[2021-03-07] MEDS: Enoxaparin 40 MG/0.4 ML Syringe SC (13:28)
--- NOTE | 2021-03-07 14:59 | CASEMGMT ---
OFELIA CM in to discuss GONSALVES form with patient. RN CM explained GONSALVES form, patient voiced understanding. Pt signed form and filed in chart. Pt provided with a copy of signed GONSALVES form. Patient had no further questions or concerns at this time.
--- NOTE | 2021-03-07 15:46 | CASEMGMT ---
Social Work Note SW updated that PT is recommending SNF. CARMEN also updated that pt admitted that she does take her pain medications more than prescribed. Pt does have CM Catie through [facility]. CARMEN placed a call to [facility] and spoke with Coby in coverage. Pt's CM is Catie ([phone]). CARMEN updated Coby that pt is currently admitted to [facility]. Coby states pt has Home Delivered Meals through [employer], 7 meals every other week. Pt has Aide services through [facility] every Sunday and for 3 hours. Pt goes to [facility] 2x a week on Sunday and Sunday. SW in to speak with pt. SW introduced self and role at [facility]. Pt is alert and orientated, engages appropriately in conversation. Pt states that she is doing ok. SW spoke with pt about recommendation of SNF. Patient was provided a list of SNF providers including quality and resource use data and consistent with the patient?s preferred geographic region, medical needs, and insurance network. At first pt seemed agreeable to either [facility] or [facility] but then later states she is adamant about going home. Pt asked why can't I just go home? SW informed pt that the recommendation is SNF. Pt states her son is coming home on the and wants to spend the entire weekend with her so she needs to go home. SW informed pt that she could go to SNF, stay about a week, and then make it home in time to see her son. Pt not agreeable to SNF, states she will be going home. Pt also states that she has a cat at home. Pt states currently her DIL is taking care of the cat. SW informed pt that if she goes to a SNF, her DIL may still take care of the cat. Pt states no she has 17 grandchildren. SW informed pt that maybe the cat can stay at [facility] house and pt states no she doesn't want animals in the house. Pt confirms that she has aide services that assist her, home delivered meals, HHC and goes to Adult Day Care at [facility]. Pt again states she is going home. SW asked pt about Mental Health Hx. Pt confirms she has Anxiety and Depression. Pt states that she currently takes medications (PRN Ativan and Zoloft) and medications are prescribed through [facility]. Pt states that about 20 [address] Reeves for MH. Pt states he was at the time and she and her moved around [address] pt [address] Reeves regarding her moving around so much. Pt denied currently seeing a counselor. SW offered to provide pt with counseling resources and pt denied. Pt states you act like I am going to be out driving around. SW informed pt that counseling sessions could be done over the phone. Pt states I don't know how to do that, I always mess up my phone. Pt states that currently she thinks her Anxiety and Depression are well managed. Pt denied any history of suicidal thoughts/plans/ideations. Pt denied any current suicidal thoughts/plans/ideations. SW asked pt about taking too much pain medication. Pt confirms she does this. Pt denied intent to harm self by taking too much pain medications. Pt states she just wants the pain to go away. Pt denied any current suicidal thoughts/plans/ideations. Support System: Pt states that she has a group of friends that are good support for her. Pt states she lives alone and will sometimes get depressed but pt states she will call one of her friends. Pt states that she goes to [facility] twice a week, goes to [employer] every and 1x a month goes out to breakfast at [employer] with her friends. Pt states she also likes to cook. SW spent time with pt offering support to pt and discussing discharge plans. At this time, pt is stating she will be returning home with [facility]. Pt denied additional needs or concerns at this time. SW to continue to follow should additional needs or concerns arise. Plan: Pt wishes to discharge home with resumption of Aide Services, Homes Delivered Meals and C Linda Gusman TAX INVESTIGATOR, YOUTH COUNSELOR
[2021-03-07 17:00] VITALS: BP 140/58; PULSE 71; RESP 18; TEMP 36.3; O2SAT 95
--- NOTE | 2021-03-07 17:36 | NURSING ---
PT REQUESTING LAXATIVE - DOES NOT HAVE ANYTHING ORDERED - CORTEXT TO DR SIMMS REGARDING SAME - NEW ORDER RECEIVED
[2021-03-07 20:19] VITALS: BP 141/60; PULSE 77; RESP 22; TEMP 36.4; O2SAT 96
[2021-03-07] MEDS: Docusate Sodium 100 MG Capsule PO (20:23)
[2021-03-07 20:33] VITALS: RESP 22
[2021-03-07] MEDS: Morphine 4 MG/ML Syringe IV (23:22)
[2021-03-08 01:55] VITALS: BP 148/70; PULSE 66; RESP 20; TEMP 36.7; O2SAT 96
[2021-03-08] MEDS: Ketorolac 15 MG/ML Vial IV ×2 (03:08→17:19)
[2021-03-08] MEDS: cycloBENZAPRine HCl 10 MG Tablet PO (03:12)
[2021-03-08] MEDS: 0.9% Saline Lock 10 ML Syringe IV ×2 (03:13→17:19)
[2021-03-08] MEDS: Levothyroxine 100 MCG Tablet PO (05:30)
[2021-03-08] MEDS: HYDROcodone Bitartrate/Apap 5/325 Tablet PO ×2 (05:34→12:43)
[2021-03-08 05:36] VITALS: BP 156/69; PULSE 61; RESP 18; TEMP 36.4; O2SAT 93
[2021-03-08 06:46] LABS: Absolute Lymphocyte Count 1.67 X10^3/uL (0.83-4.51); Absolute Neutrophil Count 7.6 X10^3/uL (2.0-7.7); Basophil# 0.04 X10^3/uL; Basophil% 0.4 % (0-1); Eosinophil# 0.24 X10^3/uL; Eosinophils% 2.3 % (0-5); Hematocrit 34.9 % (37-47); Hemoglobin 11.5 g/dL (12.0-15.0); Lymphocyte # 1.67 X10^3/ul (0.83-4.51); Lymphocyte % 16.2 % (19-41); Mean Corpuscular Volume 85.1 fL (81-99); Mean Platelet Vol. 10.2 fl (6.2-12.0); Monocyte# 0.65 X10^3/uL; Monocyte% 6.3 % (0-10); NRBC Flagged by Analyzer 0 % (0-5); Neutrophil % 73.5 % (47-70); Platelet Count 218 K/mm3 (150-450); RBC Distribution Width CV 13.8 % (11.6-14.6); RBC Distribution Width SD 42.6 fl (35.1-43.9); White Blood Count 10.3 K/mm3 (4.4-11.0)
[2021-03-08 07:17] LABS: Anion Gap 5 (5-15); BUN 27 mg/dL (7-18); BUN/Creat Ratio 40.1 RATIO (10-20); Chloride 101 mmol/L (98-107); Creatinine, Serum 0.67 mg/dL (0.55-1.02); EST Glomerular Filtration Rate 89 mL/min (>60); Est Glom Filt Rate - Afr Amer 107 mL/min (>60); Estimated Creatinine Clearance 36.16 ml/min; Glucose 97 mg/dL (74-106); Potassium 4.2 mmol/L (3.5-5.1); Sodium Level 134 mmol/L (136-145)
[2021-03-08 07:52] VITALS: O2SAT 94
[2021-03-08 08:51] VITALS: BP 151/66; PULSE 57; RESP 18; TEMP 36.8; O2SAT 95
[2021-03-08 08:52] VITALS: RESP 20
--- NOTE | 2021-03-08 09:11 | CASEMGMT ---
Addendum entered by Mikayla Cruz 03/08/21 12:16: Pt nurse Linda asked this nurse to speak to pt DIL on phone. Pt dil upset that pt is going home. She states that pt cannot care for herself. Made her aware pt is declining to go to a SNF and what arrangements have been made. She asks if SN will come out today to set up pill box. Made her aware that typically HHC does not come same day as dc. Other questions answered. TC to [facility] and added FULL SERVICE VENDING DRIVER to the referral for pt. Addendum entered by Mikayla Cruz 03/08/21 12:01: RN CM in to pt room, AEROSPACE PROJECT MANAGER finishing up. Asked pt if she has decided if she prefers to go home or for additional therapy in a facility. Pt states I am not going anywhere but home. Made pt aware that this RN CM set her up for therapy in addition to the SN. She states she is supposed to have radiation today and I cannot go home. Pt states You cannot spring this on me like this. Made pt aware that her dc plan was discussed yesterday and now she is stating she is only going home. Pt very upset. Notified pt nurse Linda to verify if pt is to have radiation this date. SW Yocasta ready to come in room as RN CM leaving. Addendum entered by Mikayla Cruz 03/08/21 09:57: Received tc from Cindy tran [facility] who states they were already involved with pt. States they were trying to set up a time to meet pt at her home to sign consents but was unable to reach pt on her phone. Palliative will plan on seeing pt here while at [facility]. Original Note: Pt screened using [facility] Palliative Care Screening Tool, pt met criteria. Order received, referral emailed at this time.
[2021-03-08] MEDS: LORazepam 0.5 MG Tablet PO (10:59)
[2021-03-08] MEDS: Docusate Sodium 100 MG Capsule PO (10:59)
[2021-03-08] MEDS: Tamoxifen 10 MG Tablet 20 MG PO (10:59)
[2021-03-08] MEDS: Sertraline 50 MG Tablet PO (10:59)
[2021-03-08] MEDS: Cyanocobalamin 500 MCG Tablet 1000 MCG PO (11:00)
[2021-03-08] MEDS: Enoxaparin 40 MG/0.4 ML Syringe SC (11:00)
[2021-03-08] MEDS: dexAMETHasone 4 MG Tablet PO (11:00)
--- NOTE | 2021-03-08 11:36 | PCM.DC.SUM ---
Providers Date of Admission: 03/05/21 Primary Care Physician: Dr. Terrell Villanueva, DO Reason For Visit: INTRACTABLE PAIN DUE TO METASTATIC BREAST CANCER Diagnosis Discharge Diagnosis (1) Bone metastasis: Status: Acute Code(s): C79.51 - Secondary malignant neoplasm of bone (2) Intractable back pain: Status: Acute Code(s): M54.9 - Dorsalgia, unspecified Medications at Discharge Home Medications sertraline 50 mg PO BID 01/08/13 cholecalciferol (vitamin D3) 1,250 mcg (50,000 unit) capsule 50,000 unit PO .twice/month cap 07/14/19 cyanocobalamin (vitamin B-12) 2,500 mcg tablet 1,000 mcg PO DAILY tab 07/14/19 levothyroxine 100 mcg capsule 100 mcg PO DAILY 07/14/19 furosemide 30 mg PO DAILY 12/26/19 lorazepam 0.5 mg PO BID #0 tab 02/08/21 dexamethasone 4 mg tablet 4 mg PO DAILY #20 tab 02/23/21 hydrocodone-acetaminophen 1 tab PO Q4H PRN 5 Days #30 tab 03/08/21 tamoxifen 20 mg PO BID #60 tab 03/08/21 Hospital Course Operations None Summary of Care Provided Minutes Spent on Discharge: 45 Hospital Course: AMILCAR KERN, is a 85 F with an extensive PMH as outlined including breast cancer. She came in to the ED with a complaint of back pain for ~ 4-5 days. Patient had been having the back pain for some days and says she had a biopsy performed about 2 to 3 days prior to admission, results of which were pending. Biopsy was of her spine at T3.. Since the biopsy, she had had intractable back pain which was not improving in any way. Pain was worsened with movement. She denied any urinary or fecal incontinence and denied any weakness or numbness in her lower extremity. Pain was completely intractable so she was brought into the ED. She denied any nausea, fever, chills, vomiting, chest pain, palpitations, dizziness, or any other symptoms. Review of systems otherwise negative. Vitals were blood pressure of 139/60, pulse rate of 66, respiratory rate of 16 and temperature of 98 Fahrenheit with oxygen sats of 98% on room air. CBC showed WBC of 12.6 with hemoglobin of 12 and platelets of 258. Chemistry shows sodium of 133 with creatinine of 0.8. CTA of the chest showed no evidence of PE or aortic dissection and thoracic spine CT showed no finding of hematoma at the T3 biopsy site and showed metastatic lesions at T2 and T3 as well as T12. She was admitted to be managed for intractable back pain likely due to metastatic malignancy most likely primary being the breast. She was given IV morphine, oxycodone and acetaminophen prn for pain. the T3 biopsy results showed metastatic carcinoma consistent with breast primary. Radiation oncology was consulted, and per discussion with her oncologist she was also started on PO tamoxifen as the cancer was ER positive. Pain subsequently improved and she did much better was able to ambulate with physical therapy. She was commenced on radiation therapy on 03/08/2021. Patient was discharged home with home PT OT and is to follow-up with her primary care doctor and oncology as well as radiation oncology. She was also discharged with a script for PO acetaminophen-oxycodone 5-325 mg every 4 hours as needed for a total of 30 days, for 5 days. OARRS score was checked, no red flags were seen. Patient was seen and examined prior to discharge. She had no active complaints and felt well. Review of systems otherwise negative. Labs and vitals reviewed. Home medication reviewed and reconciled. Physical Exam Const alert, oriented x3 and no apparent distress General Appearance: cooperative, comfortable and well kempt Exam Limitations: no limitations Nutritional Appearance: morbidly obese HEENT normocephalic and head/scalp atraumatic Eyes PERRL and EOMs intact bilaterally Neck no lymphadenopathy, supple and no JVD Lymph Lymphatic: no lymphadenopathy noted Resp normal respiratory effort, normal air movement, no retractions, no use of accessory muscles and clear to auscultation bilaterally Cardio regular rate, regular rhythm, S1 normal heart sound, S2 normal heart sound and no murmurs GI normal to inspection, nondistended, normoactive bowel sounds, soft to palpation, non-tender and non-distended Extremity normal to inspection, full ROM and no clubbing, cyanosis or edema Skin no rashes or lesions noted General Skin Exam: turgor normal Rashes: no rashes Neuro oriented x3, CN's II-XII intact bilaterally and moves all extremities Sensorium / Orientation: awake and alert Motor Exam: strength 5/5 throughout Psych affect normal Weight / BMI Weight Weight: 265 lb Body Mass Index (BMI) 45.4 ABG / Lab / Microbiology Data Result Diagrams: 03/08/21 06:20 03/08/21 06:20 Laboratory: Laboratory Results - last 24 hr 03/08/21 06:20: WBC 10.3, RBC 4.10 L, Hgb 11.5 L, Hct 34.9 L, MCV 85.1, MCH 28.0, MCHC 33.0, RDW Std Deviation 42.6, RDW Coeff of Ania 13.8, Plt Count 218, MPV 10.2, Immature Gran % (Auto) 1.300 H, Neut % (Auto) 73.5 H, Lymph % (Auto) 16.2 L, [place] % (Auto) 6.3, Eos % (Auto) 2.3, Baso % (Auto) 0.4, Absolute Neuts (auto) 7.6, Absolute Lymphs (auto) 1.67, Nucleated RBC % 0 03/08/21 06:20: Sodium 134 L, Potassium 4.2, Chloride 101, Carbon Dioxide 28.0, Anion Gap 5, BUN 27 H, Creatinine 0.67, Estim Creat Clear Calc 36.16, Est GFR (MDRD) Af Amer 107, Est GFR (MDRD) Non-Af 89, BUN/Creatinine Ratio 40.1 H, Glucose 97, Calcium 9.0 Microbiology: Microbiology 03/05/21 08:20 Nasal Secretion SARS-CoV-2 Antigen (Rapid) - Final D/C Instructions Discharge Diet: Low fat / Low cholesterol Discharge Activity: Return to Normal Activity Weight Bearing Status: Weight bearing as tolerated Call your doctor if you observe: Fever of 101 or Higher and Uncontrolled pain Meaningful Use Info Meaningful Use Diagnoses (Choose all that apply): None applicable Discharge Plan Admission Admit Date/Time: 03/05/21 07:56 Primary Reason for Your Visit: intractable back pain due to metastatic breast cancer Attending Provider: Zoe Fry Primary Care Provider: Terrell Villanueva Discharge Orders/Prescriptions Prescriptions: New hydrocodone-acetaminophen 5-325 mg tablet 1 tab PO Q4H PRN (Reason: pain) 5 Days Qty: 30 RF: 0 tamoxifen 20 mg tablet 20 mg PO BID Qty: 60 RF: 1 Continued cholecalciferol (vitamin D3) 1,250 mcg (50,000 unit) capsule 50,000 unit PO .twice/month RF: 0 levothyroxine 100 mcg capsule 100 mcg capsule 100 mcg PO DAILY RF: 0 dexamethasone [Decadron] 4 mg tablet 4 mg PO DAILY Qty: 20 RF: 0 sertraline 50 MG tablet 50 mg PO BID RF: 0 cyanocobalamin (vitamin B-12) 2,500 mcg tablet 1,000 mcg PO DAILY RF: 0 furosemide 40 MG tablet 30 mg PO DAILY RF: 0 lorazepam 1 MG tablet 0.5 mg PO BID Qty: 0 RF: 0 Discontinued hydrocodone-acetaminophen 5-325 mg tablet 1 tab PO Q6H PRN (Reason: pain) 4 Days Qty: 10 RF: 0 Referrals / Follow Up: Terrell Villanueva DO [Primary Care Provider] - Disposition Disposition (needs filled in before D/C Order can be placed): Home Health Service Charges/Coding Visit Charges Inpatient E&M: 04355 [facility] Hosp L3
--- NOTE | 2021-03-08 12:16 | CM.ED ---
CARMEN Note Referral Source: MS3 CARMEN Referral Reason: Counseling Resources CARMEN spoke to Mikayla GILBERT who confirmed patient is linked with palliative care. CARMEN met briefly with patient. Patient was upset as she learned she was leaving today. CARMEN introduced self and that this life insurance underwriter was providing her resources for counseling. Patient stated I don't want it anymore.. and related it was due to her being discharged today. SW encouraged her to contact counselor to see if they take her insurance and to schedule appointments. CARMEN advised that family member may be able to assist patient with making these contact phone numbers.CARMEN advised that telehealth is very popular now. Patient then focused on her being discharged today. CARMEN provided counseling list for patient and crisis team phone number. CARMEN updated CARMEN Mckeon. Plan: Provided counseling resources.
--- NOTE | 2021-03-08 12:57 | CASEMGMT ---
Addendum entered by Linda Gusman 03/08/21 13:59: CARMEN placed a call to pt's DANIEL Haddad at [facility] and left message updating her that pt is being discharged today. SW also updated Catie that pt is requesting assistance with making appointments. Original Note: Social Work Note SW placed a call to Omid at [facility] and left message regarding APS referral for pt. APS referral made. Linda Gusman MANAGER BALANCE, MOLD MAKER PLASTIC MOLDS
[2021-03-08 17:28] VITALS: BP 120/65; PULSE 77; RESP 18; TEMP 36.6; O2SAT 98
== END 2021-03-08 17:47 | disposition home health service (06) ==
LOC: ED 08:04 → MS3 08:23
PROVIDERS: Admitting Provider Student in an Organized Health Care Education/Training Program; Emergency Provider Emergency Medicine; PCP Family Medicine; Visit Provider Student in an Organized Health Care Education/Training Program
DX: G89.3 Neoplasm related pain (acute) (chronic) (principal); C79.51 Secondary malignant neoplasm of bone; M19.90 Unspecified osteoarthritis, unspecified site; E78.5 Hyperlipidemia, unspecified; E66.9 Obesity, unspecified; F41.9 Anxiety disorder, unspecified; F32.A Depression, unspecified; G47.33 Obstructive sleep apnea (adult) (pediatric); Z68.42 Body mass index [BMI] 45.0-49.9, adult; Z79.52 Long term (current) use of systemic steroids; Z79.899 Other long term (current) drug therapy; Z87.891 Personal history of nicotine dependence; Z79.890 Hormone replacement therapy; E03.9 Hypothyroidism, unspecified; Z85.3 Personal history of malignant neoplasm of breast
CPT/HCPCS: 36415; 71045; 71275; 72128; 77014; 77290; 77300; 77334; 80048; 83880; 84484; 85025; 87426; 93005; 96372; 96374; 96375; 96376; 97110; 97162; 97166; 97530; 97535; 99218; 99285; Q9967; A4216; G0378

== ENCOUNTER 2021-03-09 20:02 | Observation (INO) | payer MEDICARE, MEDICAID, SELFPAY ==
[2021-03-09 20:07] VITALS: BP 142/68; PULSE 72; RESP 18; TEMP 36.1; O2SAT 95; BMI 47.5
--- NOTE | 2021-03-09 20:15 | RAD_ITS ---
STUDY: X-RAY - LEFT KNEE REASON FOR EXAM: Female, 85 years old. injury TECHNIQUE: 3 view(s) of the knee. COMPARISON: None. FINDINGS: Knee prosthesis is noted in anatomic alignment and position.. No evidence for acute fracture RAD/Knee 3 Views IMPRESSION: Postsurgical changes status post knee prosthesis placement Electronically Signed: Art Ramirez MD at 21:40 EST , Service support ,
--- NOTE | 2021-03-09 20:15 | RAD_ITS ---
STUDY: X-RAY - LEFT ANKLE REASON FOR EXAM: Female, 85 years old. injury TECHNIQUE: 3 view(s) of the ankle. COMPARISON: None. FINDINGS: Normal visualized distal tibia and fibula. Normal medial and lateral malleoli. Normal tibiotalar articulation and ankle mortise. Normal visualized talus and calcaneus. The visualized subtalar, talonavicular, calcaneocuboid and tarsal articulations are normal. Bimalleolar soft tissue swelling.. RAD/Ankle min 3 Views IMPRESSION: Bimalleolar sprain. No acute fracture or dislocation. Electronically Signed: Art Ramirez MD at 21:39 EST , Service support ,
--- NOTE | 2021-03-09 20:45 | EX.ED.DYSGE1 ---
HPI History of Present Illness Chief Complaint: Lower Extremity Injury Detail of Chief Complaint: Fall with injury to left knee and left ankle Informant: patient Narrative Narrative: Patient presents to the emergency department via EMS from home. Patient had a fall this afternoon while walking with her Rollator. Patient states that she felt her legs getting weak and she tried to hold on the couch but she slid down to the ground and twisted the knee. Patient unable to get up afterwards so she screamed for help and somebody hurt her outside. 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 Patient was offered transitional care unit stay however she refused. Patient now thinks better of that decision. Patient denies striking her head or loss of consciousness. Patient also tells me she fell earlier this morning and had to have EMS come help her up after she was getting out of the bathroom with her Rollator. Patient denies head or neck pain. She denies chest pain. She denies abdominal pain. Prior similar symptoms: Yes PFSH PFSH Medical History (Updated 03/09/21 @ 22:[address] Duy Garcia, ) Anxiety Breast cancer Cancer Chronic osteoarthritis CPAP (continuous positive airway pressure) dependence Depression Diverticulitis Hyperlipidemia Metastasis to bone Obesity Obstructive sleep apnea Home Medications sertraline 50 mg PO BID 01/08/13 [History Last Taken 03/04/21] cholecalciferol (vitamin D3) 1,250 mcg (50,000 unit) capsule 50,000 unit PO .twice/month cap 07/14/19 [History Last Taken 03/03/21] cyanocobalamin (vitamin B-12) 2,500 mcg tablet 1,000 mcg PO DAILY tab 07/14/19 [History Last Taken 03/04/21] levothyroxine 100 mcg capsule 100 mcg PO DAILY 07/14/19 [History Last Taken 03/04/21] furosemide 30 mg PO DAILY 12/26/19 [History Last Taken 02/26/21] lorazepam 0.5 mg PO BID #0 tab 02/08/21 [Rx Last Taken 03/04/21] dexamethasone 4 mg tablet 4 mg PO DAILY #20 tab 02/23/21 [Rx Last Taken 03/04/21] hydrocodone-acetaminophen 1 tab PO Q4H PRN 5 Days #30 tab 03/08/21 [Rx Last Taken Unknown] tamoxifen 20 mg PO BID #60 tab 03/08/21 [Rx Last Taken Unknown] MAGIC MOUTH WASH (BMX) 180 mL suspension 10 ml PO .QID PRN #180 ml 03/09/21 [Rx Last Taken Unknown] Allergy/AdvReac Type Severity Reaction Status Date / Time nitrofurantoin Allergy Intermediate hives Verified 03/09/21 20:11 [From Macrobid] latex Allergy Rash Verified 03/09/21 20:11 Penicillins Allergy Swelling Verified 03/09/21 20:11 meloxicam AdvReac Nausea Verified 03/09/21 20:11 Family History Father , Age 89 CVA (cerebral vascular accident) Cancer Hypertension Myocardial infarction Mother , Age 90 Cancer Brother Hypertension Diabetes Brother Diabetes Brother Hypertension Surgical History H/O colonoscopy H/O hemicolectomy H/O mastectomy H/O thyroidectomy H/O: hysterectomy History of bladder suspension procedure History of carpal tunnel surgery of right wrist History of hip replacement, total History of knee replacement History of left heart catheterization (06/2006) History of tonsillectomy and adenoidectomy Hx of cholecystectomy Social History Smoking Status: Former smoker how long ago did patient quit smoking: in the 80's alcohol intake: current alcohol intake frequency: holidays/special occasions only Alcohol type: wine caffeine: Yes Type: tea ROS ROS ED ROS Narrative Falls Constitutional Constitutional ED: Reports systems reviewed and no addt'l complaints, except as documented; Denies body ache(s), change in weight or chills Eyes Eyes: Denies acute decrease in peripheral vision, change in vision, double vision or loss of vision ENT ENT ED: Reports none; Denies ear pain, lip swelling, loss taste/smell, neck pain, otalgia or sore throat Cardiovascular Cardiovascular: Reports none; Denies abdominal pain, chest pain with activity, leg edema, lightheadedness, palpitations, rapid heart rate or syncope Respiratory/Chest Respiratory/Chest: Reports none; Denies change in mental status, dry cough, dyspnea, hemoptysis, shortness of breath at rest or shortness of breath with exertion Gastrointestinal Gastrointestinal: Reports none; Denies abdominal pain, change in stool character, diarrhea, hematemesis, hematochezia, melena, rectal bleeding or vomiting Genitourinary Genitourinary ED: Reports none; Denies abdominal discomfort, anuria, dysuria, genital pain or polyuria Musculoskeletal Musculoskeletal: Reports none and other Details: Pain left knee and left ankle ; Denies arthralgias, back pain, difficulty walking, extremity pain, muscle weakness or myalgias Integumentary Reports none; Denies abscess or rash Neurologic Neurologic: Reports none; Denies abnormal gait, confusion, focal weakness, frequent falls, headache(s), loss of vision, numbness, paresthesias, radicular pain, vertigo or weakness Psychiatric Psychiatric: Reports systems reviewed and no addt'l complaints, except as documented and none; Denies behavioral changes, confusion, difficulty concentrating, hallucinations, suicidal ideation, tactile hallucinations or visual hallucinations Endocrine Endocrinology: Denies none, cold intolerance, excessive sweating, fatigue or heat intolerance Hematologic/Lymphatic Hematologic/Lymphatic: Reports none; Denies anemia, easy bleeding or easy bruising Allergic/Immunologic Allergic/Immunologic ED: Denies as per HPI, none, lip swelling, mouth swelling, throat swelling, tongue swelling or hives EXAM Physical Exam Const Vital Signs: 03/09/21 20:07 Temperature 97 F L Temperature Source Temporal Pulse Rate 72 Respiratory Rate 18 Blood Pressure 142/68 H Blood Pressure Mean 92 Pulse Ox 95 Oxygen Delivery Method Room Air Positive well nourished and well developed General Appearance ED: well developed and NAD HEENT Reports TM's clear and moist mucous membranes normocephalic and atraumatic; Negative for trauma or tenderness Tympanic Membrane ED: Yes TM's clear Eyes PERRL and EOMs intact bilaterally General Eye ED: Negative for pale conjunctiva or scleral icterus Neck no lymphadenopathy, supple and no JVD General: Negative for tenderness Chest Wall inspection of chest normal and palpation of chest normal Chest: Negative for tenderness Resp normal respiratory effort and clear to auscultation bilaterally Effort and Inspection: Negative for respiratory distress or pain with movement Auscultation: Negative for rhonchi, wheezes or diminished lung sounds Cardio regular rate, regular rhythm, S1 normal heart sound, S2 normal heart sound and no murmurs Peripheral Pulses: pulses 2+ throughout GI normal to inspection, nondistended, normoactive bowel sounds, soft to palpation, non-tender, non-distended and no masses Back/Spine no CVA tenderness and no thoracic nor lumbar tenderness Extremity Extremity Narrative: Evaluation of the left knee reveals no obvious deformity. Patient has pain with flexion extension of the knee. Ligamentous exam very difficult because of pain and patient's body habitus. Patient also has diffuse tenderness about the left ankle with some mild soft tissue swelling noted over the lateral malleolus. No significant ecchymosis or bruising noted. She is neurovascular intact distally. General Extremety ED: Negative for edema General Extremity: Negative for edema Neuro oriented x3, CN's II-XII intact bilaterally, no sensory deficits noted and gait normal Sensorium / Orientation: awake, alert, oriented to person, oriented to place and oriented to time Motor Exam: strength 5/5 throughout and strength abnormal Psych mental status grossly normal Skin no rashes or lesions noted and no wounds MDM MDM MDM Narrative Medical decision making narrative: IV line established on arrival. Patient was medicated with morphine and Zofran for the pain. Case will be discussed with hospitalist to evaluate patient for admission as she is not safe to go home with 2 falls today. I feel patient will require ongoing physical therapy and recommend admission to transitional care unit. Lab Data Attestation: I reviewed the patient's lab results. Labs: Laboratory Results - last 24 hr 03/09/21 03/09/21 21:00 21:00 WBC 15.3 H RBC 4.40 Hgb 12.4 Hct 37.3 MCV 84.8 MCH 28.2 MCHC 33.2 RDW Std Deviation 43.9 RDW Coeff of Ania 14.2 Plt Count 238 MPV 9.9 Immature Gran % (Auto) 1.400 H Neut % (Auto) 77.5 H Lymph % (Auto) 12.8 L Jefferson % (Auto) 7.2 Eos % (Auto) 0.8 Baso % (Auto) 0.3 Absolute Neuts (auto) 11.9 H Absolute Lymphs (auto) 1.97 Nucleated RBC % 0 Sodium 133 L Potassium 4.0 Chloride 98 Carbon Dioxide 25.0 Anion Gap 10 BUN 36 H Creatinine 1.05 H Estim Creat Clear Calc 34.44 Est GFR (MDRD) Af Amer 64 Est GFR (MDRD) Non-Af 53 L BUN/Creatinine Ratio 34.3 H Glucose 92 Calcium 9.6 Radiography Diagnostic Testing: Clinical Impression(s) from Imaging Studies Ankle X-Ray 03/09/21 20:15 IMPRESSION: Bimalleolar sprain. No acute fracture or dislocation. Electronically Signed: Art Ramirez MD at 21:39 EST , Service support , Knee X-Ray 03/09/21 20:15 IMPRESSION: Postsurgical changes status post knee prosthesis placement Electronically Signed: Art Ramirez MD at 21:40 EST , Service support , Three-view x-rays of the left ankle obtained interpreted by myself as no acute fractures or dislocations. Radiology was in agreement. Patient also had three-view x-rays of the left knee interpreted by myself as no acute fractures or displacement of the components of the knee replacement. Radiology in agreement. Discharge Plan Dx/Rx/DC Orders Clinical Impression: Falls, Weakness, Left knee sprain Disposition Disposition: Acute Care Hospital [facility]
[2021-03-09 21:09] LABS: Absolute Lymphocyte Count 1.97 X10^3/uL (0.83-4.51); Absolute Neutrophil Count 11.9 X10^3/uL (2.0-7.7); Basophil# 0.04 X10^3/uL; Basophil% 0.3 % (0-1); Eosinophil# 0.13 X10^3/uL; Eosinophils% 0.8 % (0-5); Hematocrit 37.3 % (37-47); Hemoglobin 12.4 g/dL (12.0-15.0); Lymphocyte # 1.97 X10^3/ul (0.83-4.51); Lymphocyte % 12.8 % (19-41); Mean Corp Hgb Conc 33.2 g/dL (32-36); Mean Corpuscular Hgb 28.2 pg (27.0-32.0); Mean Corpuscular Volume 84.8 fL (81-99); Mean Platelet Vol. 9.9 fl (6.2-12.0); Monocyte# 1.11 X10^3/uL; Monocyte% 7.2 % (0-10); NRBC Flagged by Analyzer 0 % (0-5); Neutrophil # 11.87 X10^3/uL (2.7-7.7); Neutrophil % 77.5 % (47-70); Platelet Count 238 K/mm3 (150-450); RBC Distribution Width CV 14.2 % (11.6-14.6); RBC Distribution Width SD 43.9 fl (35.1-43.9); White Blood Count 15.3 K/mm3 (4.4-11.0)
[2021-03-09] MEDS: Ondansetron 4 MG/2 ML Vial IV (21:27)
[2021-03-09] MEDS: Morphine 4 MG/ML Syringe IV (21:28)
[2021-03-09 21:41] LABS: Anion Gap 10 (5-15); BUN 36 mg/dL (7-18); BUN/Creat Ratio 34.3 RATIO (10-20); Calcium,Total 9.6 mg/dL (8.5-10.1); Chloride 98 mmol/L (98-107); Creatinine, Serum 1.05 mg/dL (0.55-1.02); EST Glomerular Filtration Rate 53 mL/min (>60); Est Glom Filt Rate - Afr Amer 64 mL/min (>60); Estimated Creatinine Clearance 34.44 ml/min; Glucose 92 mg/dL (74-106); Sodium Level 133 mmol/L (136-145)
--- NOTE | 2021-03-09 22:43 | PCM.HP.STD ---
HPI - General General Date of Admission: 03/09/21 Date of Service: 03/09/21 Chief Complaint: Debility/fall/left lower extremity pain HPI Narrative AMILCAR KERN, is a 85 F who presented to the emergency department at [facility] on 03/09/2021 after she had suffered 2 falls today. She states the first 1 occurred in the bathroom this morning and she had to call the squad to get her up. The second fall occurred late this afternoon. Both were mechanical in nature and related to her weak legs. She states this afternoon she was ambulating with a Rollator walker and she felt her legs beginning to get weak and tried to grab onto a chair but the chair slid forward and she fell to the ground and twisted her left knee and ankle. She states the leg was underneath her for some time. The patient was discharged from this hospital yesterday, 03/08/2021 after presenting with back pain that had been ongoing for 4 to 5 days. A biopsy of her T3 vertebral body was performed 2 to 3 days prior to admission and she was having intractable back pain. A CT of her spine at that time showed no hematoma at the biopsy site and showed metastatic lesions at T2, T3, and T12. The biopsy results were reported during her hospitalization and showed metastatic carcinoma consistent with a breast primary. Radiation oncology was consulted and per discussion with her oncologist she was started on oral tamoxifen. Her pain was improved and she was able to ambulate although therapy recommended TCU versus detention facility at discharge. The patient declined and insisted on going home. She was discharged home as noted above on 03/08/2021. She was able to follow-up with her radiation oncology appointment today and have her initial radiation. In the emergency department her vital signs were stable. Her CBC showed a mild leukocytosis with a white count of 15.3 which is elevated when compared to yesterday however anticipate this is reactive and hemoconcentrated. Her BMP shows mild hyponatremia with an elevated BUN and serum creatinine at 36 and 1.05 respectively. Her serum creatinine on the day of discharge was 0.67. Her other laboratory data is unremarkable. An x-ray of her left knee and ankle were performed and her left ankle shows soft tissue swelling suggestive of possible sprain but no fracture and her left knee x-ray shows an intact prosthesis. Upon my evaluation her pain had improved. In the emergency department she was treated with 4 mg of IV morphine x1 dose and Zofran 4 mg x 1 dose and request for admission was made. The patient is now agreeable to placement upon discharge. [facility] Medical History Anxiety Breast cancer Cancer Chronic osteoarthritis CPAP (continuous positive airway pressure) dependence Depression Diverticulitis Hyperlipidemia Metastasis to bone Obesity Obstructive sleep apnea Home Medications sertraline 50 mg PO BID 01/08/13 [History Last Taken 03/04/21] cholecalciferol (vitamin D3) 1,250 mcg (50,000 unit) capsule 50,000 unit PO .twice/month cap 07/14/19 [History Last Taken 03/03/21] cyanocobalamin (vitamin B-12) 2,500 mcg tablet 1,000 mcg PO DAILY tab 07/14/19 [History Last Taken 03/04/21] levothyroxine 100 mcg capsule 100 mcg PO DAILY 07/14/19 [History Last Taken 03/04/21] furosemide 30 mg PO DAILY 12/26/19 [History Last Taken 02/26/21] lorazepam 0.5 mg PO BID #0 tab 02/08/21 [Rx Last Taken 03/04/21] dexamethasone 4 mg tablet 4 mg PO DAILY #20 tab 02/23/21 [Rx Last Taken 03/04/21] hydrocodone-acetaminophen 1 tab PO Q4H PRN 5 Days #30 tab 03/08/21 [Rx Last Taken Unknown] tamoxifen 20 mg PO BID #60 tab 03/08/21 [Rx Last Taken Unknown] MAGIC MOUTH WASH (BMX) 180 mL suspension 10 ml PO .QID PRN #180 ml 03/09/21 [Rx Last Taken Unknown] Allergy/AdvReac Type Severity Reaction Status Date / Time nitrofurantoin Allergy Intermediate hives Verified 03/09/21 20:11 [From Macrobid] latex Allergy Rash Verified 03/09/21 20:11 Penicillins Allergy Swelling Verified 03/09/21 20:11 meloxicam AdvReac Nausea Verified 03/09/21 20:11 Family History Father , Age 89 CVA (cerebral vascular accident) Cancer Hypertension Myocardial infarction Mother , Age 90 Cancer Brother Hypertension Diabetes Brother Diabetes Brother Hypertension Surgical History H/O colonoscopy H/O hemicolectomy H/O mastectomy H/O thyroidectomy H/O: hysterectomy History of bladder suspension procedure History of carpal tunnel surgery of right wrist History of hip replacement, total History of knee replacement History of left heart catheterization (06/2006) History of tonsillectomy and adenoidectomy Hx of cholecystectomy Social History Smoking Status: Former smoker how long ago did patient quit smoking: in the 's alcohol intake: current alcohol intake frequency: holidays/special occasions only Alcohol type: wine caffeine: Yes Type: tea ROS Constitutional Constitutional: Reports weakness; Denies anorexia, change in weight, chills, fatigue, fever(s), malaise, night sweats or other Eyes Eyes: Denies blurry vision, change in eye color, change in vision, discharge from eye(s), double vision, erythema, eye pain, loss of vision or other ENT HEENT: Denies abnormal hearing, dysphagia, ear pain, epistaxis, headache(s), hearing loss, nasal congestion, nasal discharge, post nasal drip, sinus pressure, sore throat or other Cardiovascular Cardiovascular: Denies chest pain, claudication, dyspnea on exertion, edema, lightheadedness, orthopnea, palpitations, paroxysmal nocturnal dyspnea, rapid heart rate, syncope or other Respiratory/Chest Respiratory/Chest: Denies cough, dyspnea, excessive phlegm production, hemoptysis, productive cough, shortness of breath at rest, shortness of breath with exertion, wheezing or other Gastrointestinal Gastrointestinal: Denies abdominal pain, coffee ground emesis, constipation, diarrhea, dyspepsia, hematemesis, hematochezia, loose stools, melena, nausea, vomiting or other Genitourinary Genitourinary: Denies burning urination, difficulty urinating, dysuria, hematuria, nocturia, urinary frequency, urinary hesitancy, urinary incontinence, urinary urgency or other Musculoskeletal Musculoskeletal: Reports back pain, joint pain, joint swelling and other Details: Generalized weakness without focal deficits ; Denies arthralgias, joint stiffness, myalgias or neck pain Neurologic Neurologic: Denies abnormal gait, abnormal speech, confusion, disequilibrium, dizziness, focal weakness, headache(s), numbness, paresthesias, seizure-like activity, seizures, syncope, tingling, tremor(s) or other Psychiatric Psychiatric: Reports anxiety; Denies depression, homicidal ideation, suicidal ideation or other Endocrine Endocrinology: Denies change in body appearance, cold intolerance, excessive sweating, heat intolerance, polydipsia, polyuria or other Hematologic/Lymphatic Hematologic/Lymphatic: Denies anemia, easy bleeding, easy bruising, lymphadenopathy or other Allergic/Immunologic Allergic/Immunologic: Denies rhinitis, hives, eczemia, asthma or other Vital Signs Vital Signs Vital Signs: 03/09/21 20:07 Temperature 97 F L Temperature Source Temporal Pulse Rate 72 Respiratory Rate 18 Blood Pressure 142/68 H Blood Pressure Mean 92 Pulse Ox 95 Oxygen Delivery Method Room Air Weight Weight: 125.7 kg Body Mass Index (BMI) 47.5 Physical Exam Const alert, oriented x3, no apparent distress and well nourished Constitutional Narrative: Morbidly obese white elderly female sitting up in bed, appears comfortable, nontoxic, watching television General Appearance: cooperative HEENT normocephalic, head/scalp atraumatic and moist oral mucous membranes HEENT Narrative: Mildly hard of hearing Eyes PERRL, EOMs intact bilaterally and conjunctivae normal Eyes Narrative: No scleral icterus Resp normal respiratory effort, no retractions, no use of accessory muscles and clear to auscultation bilaterally Auscultation: Negative for crackles, rales, rhonchi or wheezes Cardio regular rate, regular rhythm, S1 normal heart sound, S2 normal heart sound, no murmurs, no rub, no gallops, no clicks and no JVD GI normal to inspection, nondistended, normoactive bowel sounds, soft to palpation, non-tender and non-distended Extremity no clubbing, cyanosis or edema Extremity Narrative: Mild ecchymosis left ankle with mild swelling, but no deformity Peripheral Pulses: Yes pulses 2+ throughout Neuro oriented x3, CN's II-XII intact bilaterally, moves all extremities and no focal motor deficits Neuro Narrative: Marked generalized weakness Sensorium / Orientation: awake and alert Speech: speech normal Results Lab / Micro Data Result Diagrams: 03/09/21 21:00 03/09/21 21:00 Labs: Laboratory Results - last 24 hr 03/09/21 21:00: WBC 15.3 H, RBC 4.40, Hgb 12.4, Hct 37.3, MCV 84.8, MCH 28.2, MCHC 33.2, RDW Std Deviation 43.9, RDW Coeff of Ania 14.2, Plt Count 238, MPV 9.9, Immature Gran % (Auto) 1.400 H, Neut % (Auto) 77.5 H, Lymph % (Auto) 12.8 L, Elbert % (Auto) 7.2, Eos % (Auto) 0.8, Baso % (Auto) 0.3, Absolute Neuts (auto) 11.9 H, Absolute Lymphs (auto) 1.97, Nucleated RBC % 0 03/09/21 21:00: Sodium 133 L, Potassium 4.0, Chloride 98, Carbon Dioxide 25.0, Anion Gap 10, BUN 36 H, Creatinine 1.05 H, Estim Creat Clear Calc 34.44, Est GFR (MDRD) Af Amer 64, Est GFR (MDRD) Non-Af 53 L, BUN/Creatinine Ratio 34.3 H, Glucose 92, Calcium 9.6 Radiology Impression Ankle X-Ray 03/09/21 20:15 IMPRESSION: Bimalleolar sprain. No acute fracture or dislocation. Electronically Signed: Art Ramirez MD at 21:39 EST , Service support , Knee X-Ray 03/09/21 20:15 IMPRESSION: Postsurgical changes status post knee prosthesis placement Electronically Signed: Art Ramirez MD at 21:40 EST , Service support , Assessment & Plan Assessment/Plan (1) Debility: (2) Generalized weakness: (3) Falls: (4) Left leg pain: (5) Dehydration: PLAN: Debility/generalized weakness/falls -Falls have been mechanical and related to generalized weakness -Skilled placement was recommended on discharge 03/08/2021-day patient declined and went home at that time -Patient is now agreeable to TCU/skilled discharge -Consult PT/OT -Case management consulted for placement Left lower extremity pain -No fractures or abnormalities noted on x-rays -Patient with some soft tissue swelling in the left ankle and suspect sprain -Continue home pain medication -Avoid IV narcotics given goal for skilled discharge soon -Bowel regimen -PT Metastatic ER positive breast CA -Patient with mets to the bone -T2, T3, T12 lesions noted on recent admission -Tamoxifen per oncology -Radiation therapy for bony metastatic lesions -Continue Decadron Dehydration -Baseline serum creatinine appears to be 0.6-0.7 -1.05 on admission with an elevated BUN -Hold home Lasix -1 L IV fluids -Need to consider decreasing Lasix at discharge or change dosing to every other day Hypothyroidism -Continue levothyroxine JENNIFER -Continue CPAP at at bedtime -Discussed with patient and recommend she have family bring in her home CPAP unit especially for discharge to skilled facility/TCU Vitamin D deficiency -Restart ergocalciferol on discharge Anxiety/depression -Continue lorazepam/sertraline DVT prophylactics -Lovenox 40 mg daily CODE STATUS -Full code as per discussed with the patient the emergency department Charges/Coding Visit Charges Inpatient E&M: 02735 Init Hosp L2
[2021-03-09 22:44] VITALS: BP 142/68; PULSE 72; RESP 18; TEMP 36.1; O2SAT 95
--- NOTE | 2021-03-09 23:14 | PCS.PANDOC ---
PANDEMIC DOCUMENTATION INITIATED: Date: 03/09/2021 Time: 6792
[2021-03-09 23:15] VITALS: BMI 45.3
[2021-03-09] MEDS: Senna/Docusate Sodium 1 Tablet 2 TABLET PO (23:40)
[2021-03-09] MEDS: LORazepam 0.5 MG Tablet PO (23:41)
[2021-03-09] MEDS: Lactated Ringers 1,000 ML 70 ML IV (23:41)
[2021-03-09] MEDS: HYDROcodone Bitartrate/Apap 5/325 Tablet PO (23:41)
[2021-03-09] MEDS: Sertraline 50 MG Tablet PO (23:41)
[2021-03-09 23:44] VITALS: BP 130/60; PULSE 69; RESP 18; TEMP 36.5; O2SAT 94
[2021-03-10] MEDS: Levothyroxine 100 MCG Tablet PO (05:34)
[2021-03-10] MEDS: HYDROcodone Bitartrate/Apap 5/325 Tablet PO ×3 (05:34→14:15)
[2021-03-10 05:38] VITALS: BP 129/59; PULSE 74; RESP 18; TEMP 36.8; O2SAT 98
[2021-03-10 07:04] LABS: Absolute Lymphocyte Count 1.84 X10^3/uL (0.83-4.51); Absolute Neutrophil Count 8.6 X10^3/uL (2.0-7.7); Basophil# 0.08 X10^3/uL; Basophil% 0.7 % (0-1); Eosinophil# 0.31 X10^3/uL; Eosinophils% 2.6 % (0-5); Hematocrit 31.2 % (37-47); Hemoglobin 10.3 g/dL (12.0-15.0); Lymphocyte # 1.84 X10^3/ul (0.83-4.51); Lymphocyte % 15.7 % (19-41); Mean Corpuscular Hgb 28.1 pg (27.0-32.0); Mean Corpuscular Volume 85.2 fL (81-99); Mean Platelet Vol. 9.9 fl (6.2-12.0); Monocyte# 0.83 X10^3/uL; Monocyte% 7.1 % (0-10); NRBC Flagged by Analyzer 0 % (0-5); Neutrophil % 73.2 % (47-70); Platelet Count 192 K/mm3 (150-450); RBC Distribution Width CV 14.4 % (11.6-14.6); RBC Distribution Width SD 44.7 fl (35.1-43.9); Red Blood Count 3.66 M/mm3 (4.2-5.4); White Blood Count 11.7 K/mm3 (4.4-11.0)
[2021-03-10 07:12] VITALS: O2SAT 92
[2021-03-10 07:51] LABS: Anion Gap 7 (5-15); BUN 32 mg/dL (7-18); BUN/Creat Ratio 40.3 RATIO (10-20); Calcium,Total 8.7 mg/dL (8.5-10.1); Chloride 98 mmol/L (98-107); Creatinine, Serum 0.79 mg/dL (0.55-1.02); EST Glomerular Filtration Rate 73 mL/min (>60); Est Glom Filt Rate - Afr Amer 89 mL/min (>60); Estimated Creatinine Clearance 36.16 ml/min; Glucose 90 mg/dL (74-106); Potassium 4.3 mmol/L (3.5-5.1); Sodium Level 131 mmol/L (136-145)
[2021-03-10] MEDS: dexAMETHasone 4 MG Tablet PO (08:28)
[2021-03-10 08:52] VITALS: BP 127/45; PULSE 80; RESP 16; TEMP 36.9; O2SAT 94
--- NOTE | 2021-03-10 09:21 | CASEMGMT ---
CARMEN met with patient, introduced self and role at [facility]. Patient confirmed she wants to go to [facility] TCU. Patient asked SW to cancel her radiation appt and her taxi transport through [employer]. CARMEN had spoken to Moira in TCU prior and they can take patient. Moira does not think Maged is still waiving pre-certs. oMira will start pre-cert as soon as therapy is able to see patient. CARMEN called [employer] and canceled the noon merchandise pickup/receiving associate. CARMEN will talk with RN DANIEL to see if physician wants patient to have radiation today. Plan: [facility] TCU pending insurance approval unless CARMEN hears otherwise. Roxy Blood MSW LAILA
[2021-03-10] MEDS: Sertraline 50 MG Tablet PO (09:40)
[2021-03-10] MEDS: Tamoxifen 10 MG Tablet 20 MG PO (09:40)
[2021-03-10] MEDS: Enoxaparin 40 MG/0.4 ML Syringe SC (09:40)
[2021-03-10] MEDS: Cyanocobalamin 500 MCG Tablet 1000 MCG PO (09:40)
[2021-03-10] MEDS: LORazepam 0.5 MG Tablet PO (09:45)
--- NOTE | 2021-03-10 09:58 | CASEMGMT ---
Social Work Telephone from [facility], Brenda Morrison, Patient active with services. Brenda originally calling to inquire about discharge information from visit that patient discharge on 03/08/2021. This social science analyst updated Brenda that patient has been readmitted as of 03/09/2021. Brenda thanked this social science analyst and provided this social science analyst with patient critical care nurse practitioner number: Catie Lubin [phone]. Brenda request for Catie to be updated on discharge plan when established. Randy Blood, following social science analyst updated on above information. Johnny WILKERSON, JARETT
--- NOTE | 2021-03-10 10:44 | CT_ITS ---
CT Lower Extremity W/ Contrast Injection INDICATION:85 years old Female presenting with knee pain. TECHNIQUE: Sequential axial 2.5 mm collimated images are obtained through the left knee. 0.625 mm images were obtained through the right knee. 100 mL of [id number] intravenous contrast was administered. Images were reformatted in sagittal and coronal planes and forwarded for interpretation. COMPARISON: None. FINDINGS: Contiguous axial images of the left knee were obtained after the uneventful administration of intravenous contrast material. Left knee femoral and tibial prosthesis are visualized and demonstrates unremarkable alignment, Limited evaluation due to extensive artifact from the prosthesis however there is no evidence of surrounding lucency is seen. No evidence of cortical irregularities or lucencies to suggest fractures, no evidence of lytic or sclerotic bone lesions is seen. Small suprapatellar effusion is seen. Mild stranding of the soft tissues is seen along the medial aspect of the proximal tibia with subtle fluid visualized but no evidence of localized fluid collection is seen best visualized on axial series 2 image 100, no evidence of underlying osseous abnormality, no evidence of periosteal reaction is visualized. No evidence of stranding in the intramuscular fat planes, no abnormal density visualized within the muscles. The visualized vessels demonstrate unremarkable enhancement, no evidence of occlusive lesion is seen. No abnormal density visualized in the overlying soft tissues. IMPRESSION: Unremarkable alignment of the left knee prosthesis. Mild stranding visualized along the medial aspect of the proximal tibia, no evidence of underlying osseous abnormality, the adjacent muscles are unremarkable. Electronically Signed: Arnoldo Corona MD at 11:35 EST Tel , Service support , CT/Extremity Lower WITH Contrast
[2021-03-10 11:33] VITALS: BP 122/78; PULSE 70; RESP 16; TEMP 36.9; O2SAT 97
[2021-03-10] MEDS: Senna/Docusate Sodium 1 Tablet 2 TABLET PO (14:00)
--- NOTE | 2021-03-10 14:06 | DS.PCM_ITS ---
Providers Date of Admission: 03/09/21 Primary Care Physician: Dr. Terrell Villanueva, DO Reason For Visit: FALLS/DEBILITY Diagnosis Discharge Diagnosis (1) Debility: Status: Acute Code(s): R53.81 - Other malaise (2) Generalized weakness: Status: Acute Code(s): R53.1 - Weakness (3) Falls: Status: Acute Code(s): W19.XXXA - Unspecified fall, initial encounter (4) Left leg pain: Status: Acute Code(s): M79.605 - Pain in left leg (5) Dehydration: Status: Acute Code(s): E86.0 - Dehydration Medications at Discharge Home Medications sertraline 50 mg PO BID 01/08/13 cholecalciferol (vitamin D3) 1,250 mcg (50,000 unit) capsule 50,000 unit PO .twice/month cap 07/14/19 cyanocobalamin (vitamin B-12) 2,500 mcg tablet 1,000 mcg PO DAILY tab 07/14/19 levothyroxine 100 mcg capsule 100 mcg PO DAILY 07/14/19 furosemide 30 mg PO DAILY 12/26/19 lorazepam 0.5 mg PO BID #0 tab 02/08/21 dexamethasone 4 mg tablet 4 mg PO DAILY #20 tab 02/23/21 hydrocodone-acetaminophen 1 tab PO Q4H PRN 5 Days #30 tab 03/08/21 tamoxifen 20 mg PO BID #60 tab 03/08/21 MAGIC MOUTH WASH (BMX) 180 mL suspension 10 ml PO .QID PRN #180 ml 03/09/21 Hospital Course Operations None Procedures None Summary of Care Provided Minutes Spent on Discharge: 45 Hospital Course: Patient is an 85-year-old female with a past medical history as outlined was admitted through the ED on 03/09/2021 with a complaint of mechanical falls x2. She fell initially in the bathroom and called the squad to get her up. She subsequently fell down again after her legs gave way. Patient was just discharged in the hospital on 03/08/2021 after presenting for back pain which have been going on for about 4 to 5 days before she had had a biopsy of a T3 vertebral body on outpatient basis. 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 She also had metastatic lesions at T2, T3 and T12 per imaging. Radiation oncology was consulted and patient had had her first session of radiation before she was discharged. X-ray of her left knee and ankle show soft tissue swelling but no evidence of fracture. CT of the left lower extremity showed mild stranding visualized along the medial aspect of the proximal tibia with no evidence of underlying osseous abnormality and unremarkable alignment of the left knee prosthesis. Patient was agreeable to placement this time and so [facility]. She is to follow-up with her primary care doctor and radiation oncology as well as oncology in 1 to 2 weeks. Patient was seen and examined prior to discharge. She had no active complaints and felt well. Review of systems otherwise negative. Labs and vitals reviewed. Home medication reviewed and reconciled. Physical Exam Const alert, oriented x3, no apparent distress and well nourished General Appearance: cooperative, comfortable and well kempt Orientation / Consciousness: awake and oriented to person Exam Limitations: no limitations HEENT normocephalic, head/scalp atraumatic and moist oral mucous membranes Eyes PERRL, EOMs intact bilaterally and conjunctivae normal Resp normal respiratory effort, no retractions, no use of accessory muscles and clear to auscultation bilaterally Auscultation: Negative for crackles, rales, rhonchi or wheezes Cardio regular rate, regular rhythm, S1 normal heart sound, S2 normal heart sound, no murmurs, no rub, no gallops, no clicks and no JVD GI normal to inspection, nondistended, normoactive bowel sounds, soft to palpation, non-tender and non-distended Extremity no clubbing, cyanosis or edema Extremity Narrative: Mild ecchymosis left ankle with mild swelling, but no deformity Skin no rashes or lesions noted Neuro oriented x3, CN's II-XII intact bilaterally, moves all extremities and no focal motor deficits Sensorium / Orientation: awake and alert Speech: speech normal Psych affect normal Weight / BMI Weight Weight: 264 lb 1.82 oz Body Mass Index (BMI) 45.3 ABG / Lab / Microbiology Data Result Diagrams: 03/10/21 06:35 03/10/21 06:35 Laboratory: Laboratory Results - last 24 hr 03/09/21 21:00: WBC 15.3 H, RBC 4.40, Hgb 12.4, Hct 37.3, MCV 84.8, MCH 28.2, MCHC 33.2, RDW Std Deviation 43.9, RDW Coeff of Ania 14.2, Plt Count 238, MPV 9.9, Immature Gran % (Auto) 1.400 H, Neut % (Auto) 77.5 H, Lymph % (Auto) 12.8 L , [place] % (Auto) 7.2, Eos % (Auto) 0.8, Baso % (Auto) 0.3, Absolute Neuts (auto) 11.9 H, Absolute Lymphs (auto) 1.97, Nucleated RBC % 0 03/09/21 21:00: Sodium 133 L, Potassium 4.0, Chloride 98, Carbon Dioxide 25.0, Anion Gap 10, BUN 36 H, Creatinine 1.05 H, Estim Creat Clear Calc 34.44, Est GFR (MDRD) Af Amer 64, Est GFR (MDRD) Non-Af 53 L, BUN/Creatinine Ratio 34.3 H, Glucose 92, Calcium 9.6 03/10/21 06:35: WBC 11.7 H, RBC 3.66 L, Hgb 10.3 L, Hct 31.2 L, MCV 85.2, MCH 28.1, MCHC 33.0, RDW Std Deviation 44.7 H, RDW Coeff of Ania 14.4, Plt Count 192, MPV 9.9, Immature Gran % (Auto) 0.700, Neut % (Auto) 73.2 H, Lymph % (Auto) 15.7 L, [place] % (Auto) 7.1, Eos % (Auto) 2.6, Baso % (Auto) 0.7, Absolute Neuts (auto) 8.6 H, Absolute Lymphs (auto) 1.84, Nucleated RBC % 0 03/10/21 06:35: Sodium 131 L, Potassium 4.3, Chloride 98, Carbon Dioxide 26.0, Anion Gap 7, BUN 32 H, Creatinine 0.79, Estim Creat Clear Calc 36.16, Est GFR (MDRD) Af Amer 89, Est GFR (MDRD) Non-Af 73, BUN/Creatinine Ratio 40.3 H, G lucose 90, Calcium 8.7 Radiography Diagnostic Testing: Radiology Impression Ankle X-Ray 03/09/21 20:15 IMPRESSION: Bimalleolar sprain. No acute fracture or dislocation. Electronically Signed: Art Ramirez MD at 21:39 EST , Service support , Knee X-Ray 03/09/21 20:15 IMPRESSION: Postsurgical changes status post knee prosthesis placement Electronically Signed: Art Ramirez MD at 21:40 EST , Service support , Lower Extremity CT 03/10/21 10:44 D/C Instructions Discharge Diet: Low fat / Low cholesterol Discharge Activity: Return to Normal Activity Weight Bearing Status: Weight bearing as tolerated Call your doctor if you observe: Fever of 101 or Higher, Shortness of breath, Swelling in the ankles and Increased palpitations (irregular heartbeat) Meaningful Use Info Meaningful Use Diagnoses (Choose all that apply): None applicable Discharge Plan Admission Admit Date/Time: 03/09/21 22:31 Primary Reason for Your Visit: debility due to mechanical fall Attending Provider: Zoe Fry Primary Care Provider: Terrell Villanueva Instructions Patient Instructions: ED Fall Dizziness Weakn Balance Discharge Orders/Prescriptions Prescriptions: Continued cholecalciferol (vitamin D3) 1,250 mcg (50,000 unit) capsule 50,000 unit PO .twice/month RF: 0 levothyroxine 100 mcg capsule 100 mcg capsule 100 mcg PO DAILY RF: 0 dexamethasone [Decadron] 4 mg tablet 4 mg PO DAILY Qty: 20 RF: 0 MAGIC MOUTH WASH (BMX) 180 mL suspension 10 ml PO .QID PRN (Reason: PAINFUL SWALLOWING) Qty: 180 RF: 1 sertraline 50 MG tablet 50 mg PO BID RF: 0 cyanocobalamin (vitamin B-12) 2,500 mcg tablet 1,000 mcg PO DAILY RF: 0 furosemide 40 MG tablet 30 mg PO DAILY RF: 0 lorazepam 1 MG tablet 0.5 mg PO BID Qty: 0 RF: 0 hydrocodone-acetaminophen 5-325 mg tablet 1 tab PO Q4H PRN (Reason: pain) 5 Days Qty: 30 RF: 0 tamoxifen 20 mg tablet 20 mg PO BID Qty: 60 RF: 1 Referrals / Follow Up: Ruben Moon MD [NON-STAFF] - Within 2 Weeks Terrell Villanueva DO [Primary Care Provider] - Within 2 Weeks Adolfo Duarte DO [NON-STAFF] - Within 2 Weeks Disposition Disposition (needs filled in before D/C Order can be placed): [facility] Charges/Coding Visit Charges OBSV E&M: 64258 Observation care discharge
--- NOTE | 2021-03-10 14:14 | PCM.TXEXTCAR ---
Diet 03/09/21 23:26 Diet: Regular - General Food consistency:: Regular Liquid Consistency:: Regular/Thin Routine Orders/Code Status Enema Type: Fleetz Enema Frequency: Daily PRN Suppository Type: Dulcolax 10mg Suppository Frequency: Daily PRN O2 Frequency: PRN Keep PO Greater than or Equal to (%): 92 Therapies Weight Bearing: Weight bearing as tolerated Physical Therapy: Eval and Treat Occupational Therapy: Eval and Treat Problem/Diagnosis (1) Debility: Status: Acute (2) Generalized weakness: Status: Acute (3) Falls: Status: Acute (4) Left leg pain: Status: Acute (5) Dehydration: Status: Acute Allergies/Procedures Done in Hospital Allergies nitrofurantoin [From Macrobid] Allergy (Intermediate, Verified 03/09/21 20:11) hives latex Allergy (Verified 03/09/21 20:11) Rash Penicillins Allergy (Verified 03/09/21 20:11) Swelling meloxicam Adverse Reaction (Verified 03/09/21 20:11) Nausea fatigue Procedures: None Type of Care/Length of Stay Estimated LOS: Convalescent Care Less Than 30 days Type of Care Needed: Skilled Rehab Potential: Fair Prognosis: Fair Additional Orders/Day of Discharge Day of Discharge: 03/10/21 Discharge Plan Admission Admit Date/Time: 03/09/21 22:31 Primary Reason for Your Visit: debility due to mechanical fall Attending Provider: Zoe Fry Primary Care Provider: Terrell Villanueva Instructions Patient Instructions: ED Fall Dizziness Weakn Balance Discharge Orders/Prescriptions Prescriptions: Continued cholecalciferol (vitamin D3) 1,250 mcg (50,000 unit) capsule 50,000 unit PO .twice/month RF: 0 levothyroxine 100 mcg capsule 100 mcg capsule 100 mcg PO DAILY RF: 0 dexamethasone [Decadron] 4 mg tablet 4 mg PO DAILY Qty: 20 RF: 0 MAGIC MOUTH WASH (BMX) 180 mL suspension 10 ml PO .QID PRN (Reason: PAINFUL SWALLOWING) Qty: 180 RF: 1 sertraline 50 MG tablet 50 mg PO BID RF: 0 cyanocobalamin (vitamin B-12) 2,500 mcg tablet 1,000 mcg PO DAILY RF: 0 furosemide 40 MG tablet 30 mg PO DAILY RF: 0 lorazepam 1 MG tablet 0.5 mg PO BID Qty: 0 RF: 0 hydrocodone-acetaminophen 5-325 mg tablet 1 tab PO Q4H PRN (Reason: pain) 5 Days Qty: 30 RF: 0 tamoxifen 20 mg tablet 20 mg PO BID Qty: 60 RF: 1 Referrals / Follow Up: Ruben Moon MD [NON-STAFF] - Within 2 Weeks Terrell Villanueva DO [Primary Care Provider] - Within 2 Weeks Adolfo Duarte DO [NON-STAFF] - Within 2 Weeks Disposition Disposition (needs filled in before D/C Order can be placed): [facility] Facility
--- NOTE | 2021-03-10 14:30 | CASEMGMT ---
CARMEN spoke with Moira in TCU and patient does not need insurance approval. SW notified physician. SW went to talk with patient, but she was out of the room. SW will try and check in with patient again. Plan: [facility] TCU under skilled level of care. Roxy ULLOA
== END 2021-03-10 14:20 | disposition skilled nursing facility (03) ==
LOC: ED 22:25 → MS2 22:45
PROVIDERS: Admitting Provider Internal Medicine; Emergency Provider Emergency Medicine; PCP Family Medicine; Visit Provider Student in an Organized Health Care Education/Training Program
DX: R53.81 Other malaise (principal); E86.0 Dehydration; M79.605 Pain in left leg; C79.51 Secondary malignant neoplasm of bone; F41.9 Anxiety disorder, unspecified; S83.92XA Sprain of unspecified site of left knee, initial encounter; M19.90 Unspecified osteoarthritis, unspecified site; E78.5 Hyperlipidemia, unspecified; F32.A Depression, unspecified; E66.9 Obesity, unspecified; G47.33 Obstructive sleep apnea (adult) (pediatric); C50.919 Malignant neoplasm of unspecified site of unspecified female breast; E03.9 Hypothyroidism, unspecified; E55.9 Vitamin D deficiency, unspecified; X50.1XXA Overexertion from prolonged static or awkward postures, initial encounter; W19.XXXA Unspecified fall, initial encounter; Y93.01 Activity, walking, marching and hiking; Y92.009 Unspecified place in unspecified non-institutional (private) residence as the place of occurrence of the external cause; Z79.899 Other long term (current) drug therapy; Z87.891 Personal history of nicotine dependence; Z68.42 Body mass index [BMI] 45.0-49.9, adult; Z17.0 Estrogen receptor positive status [ER+]; Z79.890 Hormone replacement therapy
CPT/HCPCS: 36415; 73562; 73610; 73701; 80048; 85025; 87426; 96372; 96374; 96375; 97162; 97166; 99218; 99251; 99285; J7120; Q9967; A4216; G0378; G0463; J2405

== ENCOUNTER 2021-03-10 15:30 | Inpatient (IN) | payer MEDICARE, MEDICAID, SELFPAY ==
[2021-03-10 16:04] VITALS: O2SAT 92
[2021-03-10 16:09] VITALS: BP 163/64; PULSE 88; RESP 18; TEMP 37.2; O2SAT 92
[2021-03-10 16:10] VITALS: BMI 46.4
--- NOTE | 2021-03-10 18:30 | HP.PCM_ITS ---
HPI - General General Date of Admission: 03/10/21 HPI Narrative 03/08/2021 Discharged from [facility] for intractable back pain secondary to thoracic spine metastasis from breast cancer. 03/09/2021 AMILCAR KERN, is a 85 Female who presents to [facility] Emergency Department with fall, left knee injury, left ankle injury. Fall while walking with rollator, unable to get up, offered TCU placement 1 day prior, patient refused. Morphine, Zofran given, X-ray left knee negative, X-ray left ankle negative. 03/09/2021 Admit to Hospital. PT/OT for [facility] facility, patient now amenable to TCU. Pain control. Tamoxifen for breast cancer. Decadron, radiation, for T2, T3, T12 bony metastasis. IV Fluids given for dehydration. 03/10/2021 Admit to TCU with debility, here for rehabilitation, strengthening, prior to discharge home alone. [facility] Medical History Anxiety Breast cancer Cancer Chronic osteoarthritis CPAP (continuous positive airway pressure) dependence Depression Diverticulitis Hyperlipidemia Metastasis to bone Obesity Obstructive sleep apnea Home Medications sertraline 50 mg PO BID 01/08/13 [History Last Taken 03/04/21] cholecalciferol (vitamin D3) 1,250 mcg (50,000 unit) capsule 50,000 unit PO .twice/month cap 07/14/19 [History Last Taken 03/03/21] cyanocobalamin (vitamin B-12) 2,500 mcg tablet 1,000 mcg PO DAILY tab 07/14/19 [History Last Taken 03/04/21] levothyroxine 100 mcg capsule 100 mcg PO DAILY 07/14/19 [History Last Taken 03/04/21] furosemide 30 mg PO DAILY 12/26/19 [History Last Taken 02/26/21] lorazepam 0.5 mg PO BID #0 tab 02/08/21 [Rx Last Taken 03/04/21] hydrocodone-acetaminophen 1 tab PO Q4H PRN 5 Days #30 tab 03/08/21 [Rx Last Taken Unknown] MAGIC MOUTH WASH (BMX) 180 mL suspension 10 ml PO .QID PRN #180 ml 03/09/21 [Rx Last Taken Unknown] dexamethasone [Decadron] 4 mg PO DAILY 03/10/21 [History Last Taken Unknown] tamoxifen 20 mg PO BID 03/10/21 [History Last Taken Unknown] Allergy/AdvReac Type Severity Reaction Status Date / Time nitrofurantoin Allergy Intermediate hives Verified 03/09/21 20:11 [From Macrobid] latex Allergy Rash Verified 03/09/21 20:11 Penicillins Allergy Swelling Verified 03/09/21 20:11 meloxicam AdvReac Nausea Verified 03/09/21 20:11 Family History Father , Age 89 CVA (cerebral vascular accident) Cancer Hypertension Myocardial infarction Mother , Age 90 Cancer Brother Hypertension Diabetes Brother Diabetes Brother Hypertension Surgical History H/O colonoscopy H/O hemicolectomy H/O mastectomy H/O thyroidectomy H/O: hysterectomy History of bladder suspension procedure History of carpal tunnel surgery of right wrist History of hip replacement, total History of knee replacement History of left heart catheterization (06/2006) History of tonsillectomy and adenoidectomy Hx of cholecystectomy Social History (Updated 03/10/21 @ 18:[address] Andrea Fam MD) household members: none Smoking Status: Former smoker how long ago did patient quit smoking: in the 's alcohol intake: current alcohol intake frequency: holidays/special occasions only Alcohol type: wine caffeine: Yes Type: tea ROS Constitutional Constitutional: Denies chills, fever(s) or weight gain ENT HEENT: Denies headache(s), nasal congestion or nasal discharge Cardiovascular Cardiovascular: Denies chest pain or palpitations Respiratory/Chest Respiratory/Chest: Denies cough, excessive phlegm production or shortness of breath with exertion Gastrointestinal Gastrointestinal: Denies abdominal pain, nausea or vomiting Genitourinary Genitourinary: Denies dysuria Musculoskeletal Musculoskeletal: Denies joint pain or joint swelling Integumentary Integumentary: Denies rash or wounds Neurologic Neurologic: Denies focal weakness, numbness or tingling Psychiatric Psychiatric: Denies anxiety, auditory hallucinations, depression, homicidal ideation or suicidal ideation Vital Signs Vital Signs Vital Signs: 03/10/21 16:04 03/10/21 16:09 Temperature 99.0 F Temperature Source Temporal Pulse Rate 88 Pulse Rhythm Regular Pulse Strength Normal (2+) Respiratory Rate 18 Respiratory Effort Normal Non-Labored Respiratory Depth Normal Respiratory Pattern Normal Blood Pressure 163/64 H Blood Pressure Mean 97 Blood Pressure Source Monitor Blood Pressure Position Semi-Fowlers Blood Pressure Location Left Arm Pulse Ox 92 92 Oxygen Delivery Method Room Air Room Air Weight Weight: 122.697 kg Body Mass Index (BMI) 46.4 Physical Exam Const alert and oriented x3 General Appearance: cooperative HEENT normocephalic Eyes PERRL and EOMs intact bilaterally Neck supple, no JVD and no carotid bruits Resp normal respiratory effort, normal air movement and clear to auscultation bilaterally Cardio regular rate and regular rhythm GI normal to inspection, nondistended, normoactive bowel sounds, non-tender and non-distended Extremity normal capillary refill General Extremity: Negative for edema Skin no rashes or lesions noted General Skin Exam: no breakdown Psych affect normal Appearance: appropriate Assessment & Plan Assessment/Plan (1) Debility: (2) Thoracic back pain: (3) Dehydration: (4) Breast cancer metastasized to bone: (5) Depression: (6) Vitamin D deficiency: (7) Vitamin B12 deficiency: (8) Hypothyroidism: (9) Edema: (10) Anxiety: PLAN: 85 year old female with below past medical history hospitalized for fall, thoracic back pain from breast cancer with bony metastasis, complicated by dehydration, admitted to TCU with debility, here for rehabilitation, strengthening, prior to discharge home alone. * Debility - PT/OT. * Pain - Tylenol 1000mg q6h prn pain (1-3), Tramadol 50mg q6h prn pain (4-5), Oxycodone 5mg q4h prn pain (6-10). * Bowel - Miralax 17gm daily, Senna/colace 2 tablets bid, Dulcolax 10mg daily prn. * Adult immunization - Administer prevnar 13, pneumovax 23, fluzone, covid19 vaccine as appropriate. * DVT prophylaxis - Lovenox 30mg sc daily. * Sore throat - BMX 10ml 4x/day prn. * Vitamin B12 deficiency - B12 1000mcg daily. * Breast cancer - Tamoxifen 20mg bid. * Thoracic spine bony metastasis - Decadron 4mg daily, radiation per Dr. Duarte. * Vitamin D deficiency - D2 1.25mg Q14 days. * Edema - Lasix 30mg daily. * Hypothyroidism - Levothyroxine 100mcg daily. * Anxiety - Ativan 0.5mg bid, stable chronic snf use, GDR not recommended. * Skin irritation - Calmoseptine topical bid. * Tinea Corporis - Nystatin topical bid. 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
[2021-03-10] MEDS: Nystatin Powder 15gm Bottle 1 APPLIC TOPICAL (20:11)
[2021-03-10] MEDS: Menthol/Lanolin/Calamine/Znox 113 GM Tube 1 APPLIC TOPICAL (20:11)
[2021-03-10] MEDS: Senna/Docusate Sodium 1 Tablet 2 TABLET PO (20:12)
[2021-03-10] MEDS: Sertraline 50 MG Tablet PO (20:12)
[2021-03-10] MEDS: Polyethylene Glycol 3350 17 GM PACKET PO (20:12)
[2021-03-10] MEDS: Tamoxifen 10 MG Tablet 20 MG PO (20:13)
[2021-03-10] MEDS: LORazepam 0.5 MG Tablet PO (20:14)
[2021-03-10] MEDS: oxyCODONE 5 MG Tablet PO (20:15)
--- NOTE | 2021-03-10 22:32 | RAD_ITS ---
HISTORY: Hip pain, internally rotated. EXAMINATION/TECHNIQUE: XR Hip Unilateral with Pelvis when performed; 2-3 Views: COMPARISON: September 10, 2012 FINDINGS: BONES/JOINTS: No acute fracture. Right hip prosthesis unchanged. Superior and posterior dislocation of the right hip prosthesis. No pathologic lucency RAD/HIP, UNI W/ Pelvis 2-3 Views IMPRESSION: Dislocation of the left hip prosthesis. at 0001 Reported and signed by: Montrell Busby MD Electronically Signed: Montrell Busby MD at 0:00 EST Tel , Service support ,
[2021-03-10] MEDS: traMADol 50 MG Tablet PO (23:19)
--- NOTE | 2021-03-11 00:02 | NURSING ---
Patient had x-rays of pelvis and hip per Dr. Fam.
[2021-03-11] MEDS: oxyCODONE 5 MG Tablet PO ×2 (01:12→20:56)
--- NOTE | 2021-03-11 01:18 | NURSING ---
contacted via telephone regarding xray result. New order received for consult in AM
[2021-03-11] MEDS: Enoxaparin 30 MG/0.3 ML Syringe SC (06:07)
[2021-03-11] MEDS: Senna/Docusate Sodium 1 Tablet 2 TABLET PO ×2 (06:08→17:42)
[2021-03-11] MEDS: Polyethylene Glycol 3350 17 GM PACKET PO (06:08)
[2021-03-11] MEDS: Furosemide 20 MG Tablet 30 MG PO (06:08)
[2021-03-11] MEDS: LORazepam 0.5 MG Tablet PO ×2 (06:08→19:09)
[2021-03-11] MEDS: Cyanocobalamin 500 MCG Tablet 1000 MCG PO (06:10)
[2021-03-11] MEDS: Levothyroxine 100 MCG Tablet PO (06:10)
[2021-03-11] MEDS: Tamoxifen 10 MG Tablet 20 MG PO ×2 (06:10→17:41)
[2021-03-11] MEDS: Sertraline 50 MG Tablet PO ×2 (06:10→17:43)
[2021-03-11] MEDS: Menthol/Lanolin/Calamine/Znox 113 GM Tube 1 APPLIC TOPICAL ×2 (06:14→17:43)
[2021-03-11] MEDS: Nystatin Powder 15gm Bottle 1 APPLIC TOPICAL ×2 (06:15→17:43)
[2021-03-11 07:18] VITALS: BP 108/61; PULSE 75; RESP 18; TEMP 36.2; O2SAT 90
[2021-03-11 07:33] VITALS: O2SAT 90
[2021-03-11 07:39] LABS: Absolute Lymphocyte Count 2.26 X10^3/uL (0.83-4.51); Absolute Neutrophil Count 8.5 X10^3/uL (2.0-7.7); Basophil# 0.05 X10^3/uL; Basophil% 0.4 % (0-1); Eosinophil# 0.31 X10^3/uL; Eosinophils% 2.6 % (0-5); Hematocrit 33.7 % (37-47); Hemoglobin 10.7 g/dL (12.0-15.0); Lymphocyte # 2.26 X10^3/ul (0.83-4.51); Lymphocyte % 18.6 % (19-41); Mean Corp Hgb Conc 31.8 g/dL (32-36); Mean Corpuscular Hgb 27.5 pg (27.0-32.0); Mean Corpuscular Volume 86.6 fL (81-99); Mean Platelet Vol. 10.3 fl (6.2-12.0); Monocyte# 0.86 X10^3/uL; Monocyte% 7.1 % (0-10); NRBC Flagged by Analyzer 0 % (0-5); Neutrophil # 8.54 X10^3/uL (2.7-7.7); Neutrophil % 70.3 % (47-70); Platelet Count 230 K/mm3 (150-450); RBC Distribution Width CV 14.4 % (11.6-14.6); RBC Distribution Width SD 45.2 fl (35.1-43.9); Red Blood Count 3.89 M/mm3 (4.2-5.4); White Blood Count 12.1 K/mm3 (4.4-11.0)
[2021-03-11 08:12] LABS: Anion Gap 5 (5-15); BUN 25 mg/dL (7-18); BUN/Creat Ratio 30.5 RATIO (10-20); Calcium,Total 9.2 mg/dL (8.5-10.1); Chloride 95 mmol/L (98-107); Creatinine, Serum 0.82 mg/dL (0.55-1.02); EST Glomerular Filtration Rate 71 mL/min (>60); Est Glom Filt Rate - Afr Amer 85 mL/min (>60); Glucose 92 mg/dL (74-106); Potassium 4.9 mmol/L (3.5-5.1); Sodium Level 130 mmol/L (136-145)
[2021-03-11] MEDS: dexAMETHasone 4 MG Tablet PO (08:30)
--- NOTE | 2021-03-11 10:40 | NURSING ---
Paged Dr. Steiner d/t pt's hip dislocation. Dr. Steiner stated that we should send her down to the ER to get it put back into place. Dr. Fam updated and Okayed to send to ER. Report called and Family updated.
[2021-03-11 14:54] VITALS: BP 124/71; PULSE 79; RESP 18; TEMP 36.4; O2SAT 96
--- NOTE | 2021-03-11 15:40 | NURSING ---
Pt back from ER after reinsertion of left Hip. Pt to have Immobilizer to left knee and Partial weight bearing. Will need to follow up with Dr. Richie Steiner. Updated Family
--- NOTE | 2021-03-11 15:42 | NURSING ---
Pt returned to Floor with Darnell Cath. Cath Care orders entered.
[2021-03-11] MEDS: Tuberculin,Purif.prot.deriv. 50 TU/ML Vial 0.1 ML ID (15:47)
--- NOTE | 2021-03-11 18:15 | NURSING ---
Pt brought own CPAP in.
[2021-03-11] MEDS: 0.9% Saline Lock 10 ML Syringe IV (18:21)
[2021-03-11 21:03] VITALS: PULSE 78; RESP 14; O2SAT 96
[2021-03-12] MEDS: oxyCODONE 5 MG Tablet PO ×4 (02:12→20:56)
[2021-03-12] MEDS: Bisacodyl 5 MG Tablet 10 MG PO (02:17)
[2021-03-12] MEDS: LORazepam 0.5 MG Tablet PO ×2 (06:33→17:25)
[2021-03-12] MEDS: Menthol/Lanolin/Calamine/Znox 113 GM Tube 1 APPLIC TOPICAL ×2 (06:34→17:20)
[2021-03-12] MEDS: Furosemide 20 MG Tablet 30 MG PO (06:34)
[2021-03-12] MEDS: Enoxaparin 30 MG/0.3 ML Syringe SC (06:35)
[2021-03-12] MEDS: Levothyroxine 100 MCG Tablet PO (06:36)
[2021-03-12] MEDS: Polyethylene Glycol 3350 17 GM PACKET PO (06:36)
[2021-03-12] MEDS: Nystatin Powder 15gm Bottle 1 APPLIC TOPICAL ×2 (06:36→17:21)
[2021-03-12] MEDS: Tamoxifen 10 MG Tablet 20 MG PO ×2 (06:36→17:21)
[2021-03-12] MEDS: Senna/Docusate Sodium 1 Tablet 2 TABLET PO ×2 (06:36→17:22)
[2021-03-12] MEDS: Sertraline 50 MG Tablet PO ×2 (06:37→17:22)
[2021-03-12] MEDS: Cyanocobalamin 500 MCG Tablet 1000 MCG PO (06:37)
[2021-03-12] MEDS: Ergocalciferol 1.25 MG (50, 000 UNIT) Capsule PO (09:15)
[2021-03-12] MEDS: dexAMETHasone 4 MG Tablet PO (09:15)
[2021-03-12] MEDS: Acetaminophen 500 MG Tablet 1000 MG PO ×2 (12:26→20:55)
[2021-03-12 15:37] VITALS: BP 117/62; PULSE 80; RESP 20; TEMP 36.1; O2SAT 93
--- NOTE | 2021-03-12 16:49 | NURSING ---
Informed (dtr in law) 2 employees and 1 patient positive for Covid
--- NOTE | 2021-03-12 18:26 | PCA ---
LUMP ROLLER offered to help patient wash up for the night and help with ADLS. Patient stated that they had got washed up real good this morning and would rather wait until later and was good for the night. call light left within reach and told patient to call if they needed anything
[2021-03-12 21:00] VITALS: PULSE 76; RESP 16; O2SAT 93
[2021-03-12] MEDS: 0.9% Saline Lock 10 ML Syringe IV (21:17)
[2021-03-13] MEDS: Ondansetron ODT 4 MG Tablet PO ×2 (00:10→10:29)
[2021-03-13] MEDS: oxyCODONE 5 MG Tablet PO ×2 (02:16→16:29)
[2021-03-13] MEDS: Menthol/Lanolin/Calamine/Znox 113 GM Tube 1 APPLIC TOPICAL ×2 (05:30→17:33)
[2021-03-13] MEDS: Levothyroxine 100 MCG Tablet PO (05:32)
[2021-03-13] MEDS: Cyanocobalamin 500 MCG Tablet 1000 MCG PO (05:32)
[2021-03-13] MEDS: Senna/Docusate Sodium 1 Tablet 2 TABLET PO ×2 (05:32→17:32)
[2021-03-13] MEDS: Furosemide 20 MG Tablet 30 MG PO (05:33)
[2021-03-13] MEDS: Polyethylene Glycol 3350 17 GM PACKET PO (05:33)
[2021-03-13] MEDS: Tamoxifen 10 MG Tablet 20 MG PO ×2 (05:34→17:34)
[2021-03-13] MEDS: Enoxaparin 30 MG/0.3 ML Syringe SC (05:35)
[2021-03-13] MEDS: Sertraline 50 MG Tablet PO ×2 (05:35→17:32)
[2021-03-13] MEDS: traMADol 50 MG Tablet PO ×2 (05:38→20:13)
[2021-03-13] MEDS: LORazepam 0.5 MG Tablet PO ×2 (05:38→17:32)
[2021-03-13 06:34] VITALS: O2SAT 93
[2021-03-13] MEDS: Nystatin Powder 15gm Bottle 1 APPLIC TOPICAL ×2 (07:26→17:32)
[2021-03-13] MEDS: dexAMETHasone 4 MG Tablet PO (07:29)
--- NOTE | 2021-03-13 07:44 | NURSING ---
Patient calling out to get off bed cruz around 0615. She was unable to have BM, yelling, having abdominal and rectal pain/pressure. Saying she needs enema. On assessment patient has formed stool she's unable to pass. Updated Dr. Fam, order for soap suds enema. Enema given, small amount formed stool passed.
[2021-03-13] MEDS: Acetaminophen 500 MG Tablet 1000 MG PO ×2 (10:34→20:11)
[2021-03-13 10:35] VITALS: O2SAT 95
--- NOTE | 2021-03-13 11:46 | NURSING ---
Adolfo James, called in for update, given update.
[2021-03-13 15:37] VITALS: BP 97/48; PULSE 77; RESP 16; TEMP 36.2; O2SAT 96
[2021-03-13] MEDS: 0.9% Saline Lock 10 ML Syringe IV (17:37)
--- NOTE | 2021-03-14 | NURSING ---
Attempted to call consult to [facility] staff. Voicemail is not identifiable and no message left. Will report to oncoming nurse.
[2021-03-14] MEDS: oxyCODONE 5 MG Tablet PO ×5 (01:04→20:16)
[2021-03-14] MEDS: Acetaminophen 500 MG Tablet 1000 MG PO ×3 (04:58→23:23)
[2021-03-14] MEDS: Sertraline 50 MG Tablet PO ×2 (04:59→16:50)
[2021-03-14] MEDS: Cyanocobalamin 500 MCG Tablet 1000 MCG PO (04:59)
[2021-03-14] MEDS: LORazepam 0.5 MG Tablet PO ×2 (04:59→16:47)
[2021-03-14] MEDS: Furosemide 20 MG Tablet 30 MG PO (05:00)
[2021-03-14] MEDS: Senna/Docusate Sodium 1 Tablet 2 TABLET PO ×2 (05:01→16:49)
[2021-03-14] MEDS: Levothyroxine 100 MCG Tablet PO (05:01)
[2021-03-14] MEDS: Polyethylene Glycol 3350 17 GM PACKET PO (05:01)
[2021-03-14] MEDS: Enoxaparin 30 MG/0.3 ML Syringe SC (05:02)
[2021-03-14] MEDS: Tamoxifen 10 MG Tablet 20 MG PO ×2 (05:02→16:49)
[2021-03-14] MEDS: Nystatin Powder 15gm Bottle 1 APPLIC TOPICAL ×2 (05:07→16:53)
[2021-03-14] MEDS: Menthol/Lanolin/Calamine/Znox 113 GM Tube 1 APPLIC TOPICAL ×2 (05:07→16:53)
[2021-03-14 05:09] VITALS: BP 114/42; PULSE 69
[2021-03-14 07:00] VITALS: O2SAT 98
[2021-03-14] MEDS: dexAMETHasone 4 MG Tablet PO (08:19)
--- NOTE | 2021-03-14 09:00 | NURSING ---
Addendum entered by Maggy Browne 03/14/21 17:00: updated son, Sundeep about appt date/time and transportation. Addendum entered by Maggy Browne 03/14/21 16:38: Martha will not see pt, wants her to follow up with [facility] because Dr Umanzor is the one who did her surgery in yrs past. appt made with Dr Steiner on Sun03/16/20 10am in [place], earliest available. Therapy needs to know orders for ROM. Will need cot transport. Original Note: left message with Dr Thomas office to see if he would see pt on unit d/t hip dislocation on 03/12 and sent to ER to put back in place.
--- NOTE | 2021-03-14 10:57 | PCM.CONS.P ---
Assessment & Plan Assessment/Plan (1) Anxiety: (2) Vitamin B12 deficiency: (3) Breast cancer metastasized to bone: (4) Thoracic back pain: (5) Debility: (6) Dyspnea: QUALIFIERS: Dyspnea type: dyspnea on exertion Qualified Code(s): R06.00 - Dyspnea, unspecified PLAN: 85 year old female with below past medical history referred to [facility] for symptom management related to hospitalization for falls, thoracic back pain from breast cancer with bony metastasis, complicated by dehydration, left hip dislocation and admitted to TCU with debility, here for rehabilitation, strengthening, prior to discharge. Patient has agreed to Palliative services at discharge and plan is as follows: 1) Debility: Patient is weak with multiple falls. Will need continued PT/OT inpatient at TCU and most likely at home. Options for life alert may be a good option due to patient living alone with [facility] or facility placement if is not able to progress with therapy. Continue Vitamin D and B12. Caution with Decadron and repetitive falling.F/u with ortho. 2) Dyspnea: Currently on O2 per nasal cannula at 4 liters continuous. No dyspnea at rest. O2 sat currently 98%. Most likely will not require O2 at discharge 3) Pain related to bone mets: Current pain regimen of Tylenol, Tramadol and Oxycodone appear to be effective. Heating pad also added during visit and patient voices relief. Palliative will follow closely for management of pain during radiation and ongoing oncology treatments. Caution with opioid management. Good oversight will be needed to monitor adherence. Patient may progress better in a skilled care or AL, pending therapy outcomes. 4) Anxiety and depression: Counseling could be helpful. Palliative would be willing to provide additional emotional support during her cancer journey. Continue PRN Ativan and Celexa. 5) Constipation: Multifactorial related to decreased mobility, pain and opioids. Continue Miralax and Senna as ordered. 6) Nausea: 2 episodes of nausea since admission. No current issues at this time. Has Zofran 4mg every 8 hours PRN. Palliative can support and provide other options if Zofran is ineffective. Decadron is also helpful with nausea and appetite. Thank you for the opportunity to participate in this patient's care, please do not hesitate to contact [facility] with any further questions or concerns. Palliative direct line is [phone]. We will follow up with son and provide care and follow up at discharge if not able to assist while at TCU Greater than 50% of F2F visit dedicated to education and counseling of palliative care services, medications, comorbid conditions and potential assistance with management, and plan of care moving forward. Start time: 1015 AM End time: 11:30 AM HPI Consult Data Date of Consult: 03/14/21 HPI Narrative HPI Narrative: AMILCAR KERN, is an 85 female who was referred to [facility] for management of symptom control related to metastatic breast cancer. Past medical history listed below. Patient presented to the emergency department at [facility] on 03/09/2021 after she had suffering 2 falls. She states the first 1 occurred in the bathroom that morning and she had to call the squad to get her up. The second fall occurred in the late afternoon. Both were related to mechanical failure of her weak legs. The afternoon fall occurred while ambulating with her rollator and she felt bilateral leg weakness and tried to grab onto a chair but the chair slid forward and she fell to the ground and twisted her left knee and ankle. She states the leg was underneath her for some time. She was able to yell out to a neighbor outside and get help. The patient was discharged from this hospital the day before on 03/08/2021 after presenting with back pain for 4 to 5 days. A biopsy of her T3 vertebral body was performed on 02/25/21 and she was having intractable back pain. A CT of her spine at that time showed no hematoma at the biopsy site and showed metastatic lesions at T2, T3, and T12 on 03/02/21. Biopsy results were reported during her hospitalization and showed metastatic carcinoma consistent with breast as primary. Radiation oncology was consulted and after discussion Dr Moon, she was started on oral tamoxifen. At the time, her pain was improved and she was able to ambulate although therapy was recommended to include either TCU or [facility] facility at discharge. The patient declined and insisted on going home. She was discharged home as noted above on 03/08/2021. In the emergency department her vital signs were stable and labs mainly unremarkable. CBC showed a mild leukocytosis with a white count of 15.3. Her BMP showed mild hyponatremia with an elevated BUN and serum creatinine at 36 and 1.05 respectively. An x-ray of her left knee and ankle were performed and her left ankle shows soft tissue swelling suggestive of possible sprain but no fracture and her left knee x-ray shows an intact prosthesis. She had been agreeable to Palliative care but had not returned phone calls and Palliative to contact patient while inpatient. Patient has agreed to transfer to TCU for rehab, but was experiencing increased pain in left leg and increased immobility. She was noted to have a superior posterior dislocation of the left hip. Patient was given fentanyl and was consented for conscious sedation with propofol and closed reduction. Patient tolerated procedure well and was placed in a knee immobilizer. Patient will follow-up with Dr. Steiner. Seen today in her TCU room. Alert and oriented, pleasant obese female UMAIR. Reports that her pain is better controlled than previous. Describes pain as 7/10 sharp from her chest/sternum under each arm pit to her back/thoracic area. Tramadol and Tylenol take the pain down to 3/10 and Oxycodone puts her to sleep. Heating pad initiated today with good effect. Uses a Trapeze to help position herself in bed. Grimacing noted during positioning. Concerned about her therapy and leg weakness with left leg currently in the immobilizer. Currently wearing oxygen per nasal cannula at 4 liters , but denies dyspnea or chest pain. Reports that she has 4 radiation treatments with the 3rd treatment today. Bowels have been an issue and has trouble using the bedpan. Required assistive lift to use bedside commode and was able to move bowels. Currently has bowel regimen in place. Has only had 2 episodes of nausea since admission and has Zofran PRN. Patient agreeable to Palliative services. Son, Sundeep called and questions answered about Palliative services. Voices concern about not being able to get updates until he can get to the hospital on Sunday. Pt lives at home alone and has services through [facility]. Pt family day care provider is Catie Dia ([phone]) and pt receives aid services through [facility] 5 days a week or 4 hours. Pt also receives [employer], 7 per week. Pt is also current with [facility]. Pt is hopeful she can return to her home but is uncertain if this will be possible. No alternate d/c plan in place at this time. . [facility] Medical History Anxiety Breast cancer Cancer Chronic osteoarthritis CPAP (continuous positive airway pressure) dependence Depression Diverticulitis Hyperlipidemia Metastasis to bone Obesity Obstructive sleep apnea Home Medications sertraline 50 mg PO BID 01/08/13 [History Last Taken 03/04/21] cholecalciferol (vitamin D3) 1,250 mcg (50,000 unit) capsule 50,000 unit PO .twice/month cap 07/14/19 [History Last Taken 03/03/21] cyanocobalamin (vitamin B-12) 2,500 mcg tablet 1,000 mcg PO DAILY tab 07/14/19 [History Last Taken 03/04/21] levothyroxine 100 mcg capsule 100 mcg PO DAILY 07/14/19 [History Last Taken 03/04/21] furosemide 30 mg PO DAILY 12/26/19 [History Last Taken 02/26/21] lorazepam 0.5 mg PO BID #0 tab 02/08/21 [Rx Last Taken 03/04/21] hydrocodone-acetaminophen 1 tab PO Q4H PRN 5 Days #30 tab 03/08/21 [Rx Last Taken Unknown] MAGIC MOUTH WASH (BMX) 180 mL suspension 10 ml PO .QID PRN #180 ml 03/09/21 [Rx Last Taken Unknown] dexamethasone [Decadron] 4 mg PO DAILY 03/10/21 [History Last Taken Unknown] tamoxifen 20 mg PO BID 03/10/21 [History Last Taken Unknown] Allergy/AdvReac Type Severity Reaction Status Date / Time nitrofurantoin Allergy Intermediate hives Verified 03/11/21 10:12 [From Macrobid] latex Allergy Rash Verified 03/11/21 10:12 Penicillins Allergy Swelling Verified 03/11/21 10:12 meloxicam AdvReac Nausea Verified 03/11/21 10:12 Family History Father , Age 89 CVA (cerebral vascular accident) Cancer Hypertension Myocardial infarction Mother , Age 90 Cancer Brother Hypertension Diabetes Brother Diabetes Brother Hypertension Surgical History H/O colonoscopy H/O hemicolectomy H/O mastectomy H/O thyroidectomy H/O: hysterectomy History of bladder suspension procedure History of carpal tunnel surgery of right wrist History of hip replacement, total History of knee replacement History of left heart catheterization (06/2006) History of tonsillectomy and adenoidectomy Hx of cholecystectomy Social History household members: none Smoking Status: Former smoker how long ago did patient quit smoking: in the 80's alcohol intake: current alcohol intake frequency: holidays/special occasions only Alcohol type: wine caffeine: Yes Type: tea ROS Constitutional Constitutional: Reports frequent falls; Denies fever(s) Eyes Eyes: Denies burning, change in vision, double vision or irritation ENT HEENT: Reports abnormal hearing; Denies dizziness, dry mouth, dysphagia, headache(s), mouth pain or nasal congestion Cardiovascular Cardiovascular: Denies chest pain, cyanosis, dyspnea at rest or palpitations Respiratory/Chest Respiratory/Chest: Denies chest tightness, difficulty clearing secretions, dry cough, shortness of breath at rest or shortness of breath with exertion Gastrointestinal Gastrointestinal: Reports change in bowel habits; Denies abdominal pain, cramping or nausea Genitourinary Genitourinary: Denies dysuria Musculoskeletal Musculoskeletal: Reports back pain, difficulty walking and muscle weakness Integumentary Integumentary: Denies new lesions, rash or wounds Neurologic Neurologic: Reports frequent falls; Denies abnormal speech, behavior changes, headache(s) or memory loss Psychiatric Psychiatric: Denies abnormal sleep pattern, anxiety, depression or hallucinations Physical Exam Const alert, oriented x3 and no apparent distress General Appearance: cooperative Nutritional Appearance: morbidly obese HEENT normocephalic and head/scalp atraumatic Nose: nares normal General Ear: hearing grossly impaired Mouth: oral and palatal mucosa normal Eyes EOMs intact bilaterally, conjunctivae normal and no scleral icterus General Eye: normal appearance of both eyes Chest Breast/Axilla Palpation: other Other Details: right mastectomy Resp normal respiratory effort and normal air movement Effort and Inspection: able to speak in complete sentences Auscultation: clear to auscultation bilaterally Cardio regular rate, regular rhythm, S1 normal heart sound, S2 normal heart sound and no murmurs GI normal to inspection, nondistended, normoactive bowel sounds, soft to palpation, non-tender and non-distended Bladder / Kidney Exam: catheter in place and no CVA tenderness Back/Spine Thoracic Spine / Upper Back: ROM limited and thoracic spinal tenderness Extremity Extremity Narrative: Trace edema to right LE with JULIANA wrap in place. Immobilizer to left leg General Extremity: Negative for cyanosis Neuro oriented x3, CN's II-XII intact bilaterally, moves all extremities, no focal motor deficits and no sensory deficits noted
[2021-03-14] MEDS: traMADol 50 MG Tablet PO ×2 (12:54→21:58)
[2021-03-14 13:57] VITALS: BP 118/56; PULSE 77; RESP 18; TEMP 36.1; O2SAT 95
--- NOTE | 2021-03-14 14:54 | PHA.CONS1_ITS ---
Progress Note - Pharmacy Subjective: TCU Admission Objective: Allergies nitrofurantoin [From Macrobid] Allergy (Intermediate, Verified 03/11/21 10:12) hives latex Allergy (Verified 03/11/21 10:12) Rash Penicillins Allergy (Verified 03/11/21 10:12) Swelling meloxicam Adverse Reaction (Verified 03/11/21 10:12) Nausea fatigue Current Medications Generic Name Dose Route Start Last Admin Trade Name Freq PRN Reason Stop Dose Admin Acetaminophen 1,000 mg 03/10/21 18:47 03/14/21 04:58 Acetaminophen 500 Mg Tablet PO 1,000 mg Q6H PRN PRN Administration Pain Score 1-3 Bisacodyl 10 mg 03/10/21 16:17 03/12/21 02:17 Bisacodyl 5 Mg Tablet PO 10 mg DAILY PRN Administration Constipation Calamine/Phenol 1 applic 03/10/21 18:00 03/14/21 05:07 Menthol/Lanolin/Calamine/Znox 113 Gm Tube TOPICAL 1 applic BID CASE Administration Protocol Cyanocobalamin 1,000 mcg 03/11/21 06:00 03/14/21 04:59 Cyanocobalamin 500 Mcg Tablet PO 1,000 mcg DAILY CASE Administration Dexamethasone 4 mg 03/11/21 08:00 03/14/21 08:19 Dexamethasone 4 Mg Tablet PO 4 mg 0800 CASE Administration Enoxaparin Sodium 30 mg 03/11/21 06:00 03/14/21 05:02 Enoxaparin 30 Mg/0.3 Ml Syringe SC 30 mg DAILY@0600 CASE Administration Ergocalciferol 1.25 mg 03/12/21 10:00 03/12/21 09:15 Ergocalciferol 1.25 Mg (50, 000 Unit) Capsule PO 1.25 mg Q14D CASE Administration Furosemide 30 mg 03/11/21 06:00 03/14/21 05:00 Furosemide 20 Mg Tablet PO 30 mg DAILY CASE Administration Levothyroxine Sodium 100 mcg 03/11/21 06:00 03/14/21 05:01 Levothyroxine 100 Mcg Tablet PO 100 mcg DAILY@0600 CASE Administration Lidocaine/Diphenhydr/Alum/Mg/Simeth 10 ml 03/10/21 18:18 Bmx Liquid 180 Ml PO 4X/DAY PRN PAINFUL SWALLOWING Lorazepam 0.5 mg 03/10/21 18:00 03/14/21 04:59 Lorazepam 0.5 Mg Tablet PO 0.5 mg BID CASE Administration Nystatin 1 applic 03/10/21 18:00 03/14/21 05:07 Nystatin Powder 15gm Bottle TOPICAL 1 applic BID CASE Administration Protocol Ondansetron HCl 4 mg 03/13/21 00:06 03/13/21 10:29 Ondansetron Odt 4 Mg Tablet PO 4 mg Q8H PRN PRN Administration NAUSEA Oxycodone HCl 5 mg 03/10/21 18:47 03/14/21 14:52 Oxycodone 5 Mg Tablet PO 5 mg Q4H PRN PRN Administration Pain Score 6-10 Polyethylene Glycol 17 gm 03/10/21 16:30 03/14/21 05:01 Polyethylene Glycol 3350 17 Gm Packet PO 17 gm DAILY CASE Administration Senna/Docusate Sodium 2 tablet 03/10/21 18:00 03/14/21 05:01 Senna/Docusate Sodium 1 Tablet PO 2 tablet BID CASE Administration Sertraline HCl 50 mg 03/10/21 18:00 03/14/21 04:59 Sertraline 50 Mg Tablet PO 50 mg BID CASE Administration Sodium Chloride 10 - 40 ml 03/10/21 16:33 03/13/21 17:37 0.9% Saline Lock 10 Ml Syringe IV 10 ml UD PRN Administration SALINE FLUSH Tamoxifen Citrate 20 mg 03/10/21 18:00 03/14/21 05:02 Tamoxifen 10 Mg Tablet PO 20 mg BID CASE Administration Tramadol HCl 50 mg 03/10/21 18:47 03/14/21 12:54 Tramadol 50 Mg Tablet PO 50 mg Q6H PRN PRN Administration Pain Score 4-5 Tuberculin PPD 0.1 ml 03/18/21 10:00 Tuberculin,Purif.Prot.Deriv. 50 Tu/Ml Vial ID 03/18/21 10:01 X1 ONE Problem List (Last Reviewed 03/11/21 @ 20:[address] Adams Starr, DO) Anxiety (Acute) Edema (Acute) Hypothyroidism (Acute) Vitamin B12 deficiency (Acute) Vitamin D deficiency (Acute) Depression (Acute) Breast cancer metastasized to bone (Acute) Thoracic back pain (Acute) Debility (Acute) Dehydration (Acute) Dyspnea (Acute) Vital Signs Temp Pulse Resp BP Pulse Ox 97.0 F L 77 18 118/56 L 95 03/14/21 13:57 03/14/21 13:57 03/14/21 13:57 03/14/21 13:57 03/14/21 13:57 Oxygen Flow Rate (L/min) 4 Oxygen Delivery Method Nasal Cannula Weight: 122.697 kg Body Mass Index (BMI) 46.4 Sodium 130 mmol/L (136-145) L 03/11/21 07:20 Potassium 4.9 mmol/L (3.5-5.1) 03/11/21 07:20 Chloride 95 mmol/L (98-107) L 03/11/21 07:20 Carbon Dioxide 30.0 mmol/L (21.0-32.0) 03/11/21 07:20 Anion Gap 5 (5-15) 03/11/21 07:20 BUN 25 mg/dL (7-18) H 03/11/21 07:20 Creatinine 0.82 mg/dL (0.55-1.02) 03/11/21 07:20 Est GFR (MDRD) Af Amer 85 mL/min (>60) 03/11/21 07:20 Est GFR (MDRD) Non-Af 71 mL/min (>60) 03/11/21 07:20 BUN/Creatinine Ratio 30.5 RATIO (10-20) H 03/11/21 07:20 Glucose 92 mg/dL (74-106) 03/11/21 07:20 Assessment/Plan: 1. Pain: acetaminophen 1000mg PO Q6H PRN pain 1-3/10, tramadol 50mg PO Q6H PRN pain 4-5/10 and oxycodone 5mg PO Q4H PRN pain 6-10/10. Please continue to monitor for increased pain, PRN usage, constipation and respiratory depression. *2. DVT prophylaxis: enoxaparin 30mg SC daily. Patient's CrCl is >30mL/min so patient is eligible for 40mg dose. Please consider increasing to 40mg. Thanks. Please continue to monitor for S/S of bleeding, hemoglobin (last 10.7g/dL), platelets (last 230,000) and renal function. 3. Breast cancer: tamoxifen 20mg PO BID. Please continue to monitor for fatigue, flushing and edema. 4. 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 Please continue to monitor for upset stomach and WBC. 5. Edema: furosemide 30mg PO daily. Please continue to monitor for edema, potassium (last 4.9mmol/L), sodium (last 130mmol/L) and renal function. *6. Hypothyroidism: levothyroxine 100mcg PO daily. Please consider ordering a TSH level if clinically appropriate. Last from 03/27/2019. Thanks. Please co ntinue to monitor for S/S of hypo/hyperthyroidisim. 7. Sore throat: BMX 10mL PO 4x/day PRN painful swallowing. Please continue to monitor for PRN usage. *8. Vitamin B12 and vitamin D deficiencies: cyanocobalamin 1000mcg PO daily and ergocalciferol 1.25mg PO every 2 weeks. Please consider ordering a vitamin B12 and a vitamin D level if clinically appropriate. Last levels from 03/27/2019. Thanks. 9. Nausea: ondansetron 4mg PO Q8H PRN nausea. Please continue to monitor for nausea and PRN usage. Psychotropic Medications: 1. Anxiety: lorazepam 0.5mg PO BID. Please see physician note regarding GDR. 2. Depression: sertraline 50mg PO BID. Please see physician note regarding GDR. Unnecessary Medications: None Bowel Regimen: Miralax 17gm PO daily, senna/docusate 2T PO BID and bisacodyl 10mg PO daily PRN constipation. Please continue to monitor for S/S of constipation and PRN usage. Date of Note:: 03/14/21
--- NOTE | 2021-03-14 15:00 | NURSING ---
pt off floor via bed to radiation appt, pain med given before leaving.
--- NOTE | 2021-03-14 15:07 | CASEMGMT ---
Social Work SW met with pt and completed psychosocial assessment. SW discussed code status with pt and assisted pt with completing MOLST form. Pt wishes for full code with intubation. MOLST form communicated to physician and placed in pt chart. Physician requesting Palliative referral and information emailed to [facility]. Palliative OLIVE KNOCKER here to see pt today. SW explained [place] Medicare benefit with NRD of 03/21 and continued stay is not guaranteed. Pt lives at home alone and has services through [facility]. Pt morning caregiver is Catie Dia ([phone]) and pt receives aid services through [facility] 5 days a week or 4 hours. Pt also receives [employer], 7 per week. Pt is also current with [facility]. left for [facility] for followup. Pt is hopeful she can return to her home but is uncertain if this will be possible. No alternate d/c plan in place at this time. CARMEN will continue to follow. JOSE Cullen
[2021-03-14] MEDS: 0.9% Saline Lock 10 ML Syringe IV (20:18)
[2021-03-14 22:00] VITALS: PULSE 78; RESP 14; O2SAT 98
[2021-03-15] MEDS: oxyCODONE 5 MG Tablet PO (02:49)
[2021-03-15] MEDS: traMADol 50 MG Tablet PO (06:10)
[2021-03-15] MEDS: LORazepam 0.5 MG Tablet PO ×2 (06:11→18:18)
[2021-03-15] MEDS: Levothyroxine 100 MCG Tablet PO (06:12)
[2021-03-15] MEDS: Furosemide 20 MG Tablet 30 MG PO (06:12)
[2021-03-15] MEDS: Polyethylene Glycol 3350 17 GM PACKET PO (06:12)
[2021-03-15] MEDS: Enoxaparin 30 MG/0.3 ML Syringe SC (06:12)
[2021-03-15] MEDS: Senna/Docusate Sodium 1 Tablet 2 TABLET PO ×2 (06:13→18:18)
[2021-03-15] MEDS: Tamoxifen 10 MG Tablet 20 MG PO ×2 (06:13→18:18)
[2021-03-15] MEDS: Cyanocobalamin 500 MCG Tablet 1000 MCG PO (06:13)
[2021-03-15] MEDS: Sertraline 50 MG Tablet PO ×2 (06:14→18:18)
[2021-03-15] MEDS: Acetaminophen 500 MG Tablet 1000 MG PO ×2 (06:17→15:56)
[2021-03-15] MEDS: Nystatin Powder 15gm Bottle 1 APPLIC TOPICAL ×2 (06:25→18:19)
[2021-03-15] MEDS: Menthol/Lanolin/Calamine/Znox 113 GM Tube 1 APPLIC TOPICAL ×2 (06:33→18:19)
[2021-03-15 07:28] VITALS: O2SAT 99
[2021-03-15] MEDS: dexAMETHasone 4 MG Tablet PO (09:22)
[2021-03-15] MEDS: BMX LIQUID 180 ML 10 ML PO (09:23)
[2021-03-15] MEDS: oxyCODONE 5 MG Tablet 10 MG PO ×3 (09:38→19:12)
[2021-03-15 09:45] VITALS: BP 116/55; PULSE 71; RESP 16; TEMP 36.1; O2SAT 93
--- NOTE | 2021-03-15 16:00 | CASEMGMT ---
Social Work CARMEN spoke with [facility] regarding pt. Catie states that she did have concerns with pt safety in the home alone for the last month and has concerns with pt returning home alone. Catie did speak with pt home health provider who states an aid will be available for pt upon discharge from the hospital. CARMEN will continue to follow for discharge planning and will notify Catie with d/c plan. JOSE Prakash
[2021-03-16] MEDS: LORazepam 1 MG Tablet PO (00:15)
[2021-03-16] MEDS: oxyCODONE 5 MG Tablet 10 MG PO ×3 (01:29→12:50)
[2021-03-16] MEDS: 0.9% Saline Lock 10 ML Syringe IV (01:30)
[2021-03-16] MEDS: LORazepam 0.5 MG Tablet PO (05:44)
[2021-03-16] MEDS: Cyanocobalamin 500 MCG Tablet 1000 MCG PO (05:58)
[2021-03-16] MEDS: Furosemide 20 MG Tablet 30 MG PO (05:59)
[2021-03-16] MEDS: Senna/Docusate Sodium 1 Tablet 2 TABLET PO (05:59)
[2021-03-16] MEDS: Levothyroxine 100 MCG Tablet PO (05:59)
[2021-03-16] MEDS: Enoxaparin 30 MG/0.3 ML Syringe SC (05:59)
[2021-03-16] MEDS: Tamoxifen 10 MG Tablet 20 MG PO (06:00)
[2021-03-16] MEDS: Nystatin Powder 15gm Bottle 1 APPLIC TOPICAL (06:00)
[2021-03-16] MEDS: Polyethylene Glycol 3350 17 GM PACKET PO (06:01)
[2021-03-16] MEDS: Sertraline 50 MG Tablet PO (06:02)
[2021-03-16 06:58] VITALS: O2SAT 95
[2021-03-16] MEDS: traMADol 50 MG Tablet PO (08:03)
[2021-03-16] MEDS: dexAMETHasone 4 MG Tablet PO (08:03)
--- NOTE | 2021-03-16 09:45 | NURSING ---
pt off unit to appt with cot transport.
--- NOTE | 2021-03-16 11:28 | NURSING ---
Dr Steiner called and reported that pt c/o not being able to move her legs. He feels pt needs to go to Emergency dept. to be evaluated since this is recently new from lastnight. Dr. Fam updated, new order to send pt directly to ER on return from Dr Beavers office and cancel order for CT scan TLS since pt needs prior authorization.
--- NOTE | 2021-03-16 11:43 | NURSING ---
updated son, Sundeep that pt will be going to ER on return from appt. Cathy in ER was given report.
--- NOTE | 2021-03-16 12:15 | NURSING ---
pt returned from dr partida, notified ED and they stated they have no beds, returned pt to room and will monitor. Will contact ED in a half hour.
[2021-03-16] MEDS: Acetaminophen 500 MG Tablet 1000 MG PO (12:51)
--- NOTE | 2021-03-16 12:51 | NURSING ---
ER ready to accept pt, pt being transferred via bed.
[2021-03-16 12:55] VITALS: BP 73/41; PULSE 86; RESP 20; TEMP 36.2; O2SAT 91
--- NOTE | 2021-03-16 14:38 | NURSING ---
Resident and son, Sundeep, notified of 3 staff members testing positive for COVID.
--- NOTE | 2021-03-16 19:33 | DS.PCM_ITS ---
Providers Date of Admission: 03/10/21 Primary Care Physician: Dr. Terrell Villanueva, Consultations 03/13/21 22:27 Consult: Hospice / Palliative Care Routine Consulting Provider: [facility] Reason for Consult: Palliative consult: poor symptoms control, advanced disease process EMERGENT Consult: No MD Notified: Yes Date Notified: 03/13/21 Time Notified: 22:27 Method of Notification: Verbal Reason For Visit: FALLS/DEBILITY Diagnosis Discharge Diagnosis (1) Anxiety: Status: Acute Code(s): F41.9 - Anxiety disorder, unspecified (2) Vitamin B12 deficiency: Status: Acute Code(s): E53.8 - Deficiency of other specified B group vitamins (3) Breast cancer metastasized to bone: Status: Acute Code(s): C50.919 - Malignant neoplasm of unspecified site of unspecified female breast; C79.51 - Secondary malignant neoplasm of bone Qualifiers: Laterality: unspecified laterality Qualified Code(s): C50.919 - Malignant neoplasm of unspecified site of unspecified female breast; C79.51 - Secondary malignant neoplasm of bone (4) Thoracic back pain: Status: Acute Code(s): M54.6 - Pain in thoracic spine (5) Debility: Status: Acute Code(s): R53.81 - Other malaise (6) Dyspnea: Status: Acute Code(s): R06.00 - Dyspnea, unspecified Qualifiers: Dyspnea type: dyspnea on exertion Qualified Code(s): R06.00 - Dyspnea, unspecified Medications at Discharge Home Medications dexamethasone [Decadron] 4 mg PO DAILY 03/10/21 Hospital Course Operations None Procedures None Summary of Care Provided Minutes Spent on Discharge: 30 Hospital Course: 85 year old female with below past medical history hospitalized for fall, thoracic back pain from breast cancer with bony metastasis, complicated by dehydration, admitted to TCU with debility, here for rehabilitation, strengthening, prior to discharge home alone. 03/11/2021 Resident transferred to [facility] ED for reduction of dislocated left prosthetic hip. 03/16/2021 Resident unable to move legs, MRI of spine requires insurance authorization while on TCU. 03/16/2021 Discharge to [facility] for new onset paraplegia with known breast cancer with thoracic bony mets. Weight / BMI Weight Weight: 122.697 kg Body Mass Index (BMI) 46.4 ABG / Lab / Microbiology Data Result Diagrams: 03/11/21 07:20 03/11/21 07:20 D/C Instructions Discharge Diet: No restrictions Weight Bearing Status: No weight bearing Call your doctor if you observe: Fever of 101 or Higher, Inability to urinate, Inability to have a bowel movement, Shortness of breath, Dizziness, Fainting spells, Swelling in the ankles, Chest pain and Uncontrolled pain Additional Instructions: 03/16/2021 Discharge to [facility] for new onset paraplegia with known breast cancer with thoracic bony mets. Please Follow Up With: Hill Steiner Meaningful Use Info Meaningful Use Diagnoses (Choose all that apply): None applicable Discharge Plan Admission Admit Date/Time: 03/10/21 15:30 Primary Reason for Your Visit: Debility. Attending Provider: Andrea Fam Chi Primary Care Provider: Terrell Villanueva Consulting Providers: Rosanna Sawyer ; Jose Stock ; Renée Horowitz ; Radha Littlejohn ; Kendra Myers ; Marie Villanueva UTILITIES MANAGER Instructions Additional Instructions / Restrictions: 03/16/2021 Discharge to [facility] for new onset paraplegia with known breast cancer with thoracic bony mets. Discharge Orders/Prescriptions Prescriptions: Continued dexamethasone [Decadron] 4 mg tablet 4 mg PO DAILY RF: 0 Discontinued cholecalciferol (vitamin D3) 1,250 mcg (50,000 unit) capsule 50,000 unit PO .twice/month RF: 0 levothyroxine 100 mcg capsule 100 mcg capsule 100 mcg PO DAILY RF: 0 MAGIC MOUTH WASH (BMX) 180 mL suspension 10 ml PO .QID PRN (Reason: PAINFUL SWALLOWING) Qty: 180 RF: 1 sertraline 50 MG tablet 50 mg PO BID RF: 0 cyanocobalamin (vitamin B-12) 2,500 mcg tablet 1,000 mcg PO DAILY RF: 0 furosemide 40 MG tablet 30 mg PO DAILY RF: 0 lorazepam 1 MG tablet 0.5 mg PO BID Qty: 0 RF: 0 hydrocodone-acetaminophen 5-325 mg tablet 1 tab PO Q4H PRN (Reason: pain) 5 Days Qty: 30 RF: 0 tamoxifen 20 mg tablet 20 mg PO BID RF: 0 Referrals / Follow Up: Terrell Villanueva DO [Primary Care Provider] - Adolfo Duarte DO [NON-STAFF] - (April 12 @ 2pm) Disposition Disposition (needs filled in before D/C Order can be placed): [facility]
--- NOTE | 2021-03-22 12:53 | MDS.RN ---
Information for the mds was obtained from review of the clinical record, interview of resident, staff, and direct observation of resident's care.
== END 2021-03-16 19:05 | disposition short-term general hospital (02) | DRG 543 ==
PROVIDERS: Admitting Provider Family Medicine Geriatric Medicine; PCP Family Medicine; Visit Provider Family Medicine Geriatric Medicine
DX: C79.51 Secondary malignant neoplasm of bone (principal); Z68.42 Body mass index [BMI] 45.0-49.9, adult; G82.20 Paraplegia, unspecified; T84.021A Dislocation of internal left hip prosthesis, initial encounter; C50.919 Malignant neoplasm of unspecified site of unspecified female breast; M19.90 Unspecified osteoarthritis, unspecified site; F41.9 Anxiety disorder, unspecified; G47.33 Obstructive sleep apnea (adult) (pediatric); E78.5 Hyperlipidemia, unspecified; F32.A Depression, unspecified; E66.9 Obesity, unspecified; E55.9 Vitamin D deficiency, unspecified; E53.8 Deficiency of other specified B group vitamins; B35.4 Tinea corporis; E03.9 Hypothyroidism, unspecified; G89.3 Neoplasm related pain (acute) (chronic); Z79.899 Other long term (current) drug therapy; Z87.891 Personal history of nicotine dependence; Z79.890 Hormone replacement therapy; R29.6 Repeated falls
CPT/HCPCS: 36415; 73502; 80048; 85025; 97110; 97163; 97166; 97530; 97802; A4216

== ENCOUNTER 2021-03-11 10:09 | Emergency (ER) | payer MEDICARE, MEDICAID, SELFPAY ==
[2021-03-11] VITALS (7 sets, daily range): BP systolic 98–138; BP diastolic 52–84; PULSE 71–81; RESP 12–18; TEMP 36.7; O2SAT 95–100; BMI 47.7
[2021-03-11] MEDS: fentaNYL 100 MCG/2 ML Ampul 25 MCG IV (11:35)
[2021-03-11] MEDS: 0.9% Normal Saline 1,000 ML 999 ML IV (11:35)
--- NOTE | 2021-03-11 11:59 | EDS_ITS ---
HPI History of Present Illness Chief Complaint: Lower Extremity Injury Narrative Narrative: 85-year-old female presenting from TCU with a left hip dislocation. She has had this replaced but it was many years ago by what she believes is Dr. Uamnzor. Patient had a fall a few days ago and was seen in the ER and had knee pain and ankle pain and these x-rays were negative. Patient continued to have intractable pain and was admitted to the hospital. Eventually she was sent to the TCU where an x-ray of the left hip was obtained and it shows that the left hip is dislocated. She states she has not fallen again since then. She states that she has been to be lifted and moved and she is not sure if this is because the problem either. Patient does state that she did not have any hip pain when she was admitted to the hospital [facility] Medical History Anxiety Breast cancer Cancer Chronic osteoarthritis CPAP (continuous positive airway pressure) dependence Depression Diverticulitis Hyperlipidemia Metastasis to bone Obesity Obstructive sleep apnea Home Medications sertraline 50 mg PO BID 01/08/13 [History Last Taken 03/04/21] cholecalciferol (vitamin D3) 1,250 mcg (50,000 unit) capsule 50,000 unit PO .twice/month cap 07/14/19 [History Last Taken 03/03/21] cyanocobalamin (vitamin B-12) 2,500 mcg tablet 1,000 mcg PO DAILY tab 07/14/19 [History Last Taken 03/04/21] levothyroxine 100 mcg capsule 100 mcg PO DAILY 07/14/19 [History Last Taken 03/04/21] furosemide 30 mg PO DAILY 12/26/19 [History Last Taken 02/26/21] lorazepam 0.5 mg PO BID #0 tab 02/08/21 [Rx Last Taken 03/04/21] hydrocodone-acetaminophen 1 tab PO Q4H PRN 5 Days #30 tab 03/08/21 [Rx Last Taken Unknown] MAGIC MOUTH WASH (BMX) 180 mL suspension 10 ml PO .QID PRN #180 ml 03/09/21 [Rx Last Taken Unknown] dexamethasone [Decadron] 4 mg PO DAILY 03/10/21 [History Last Taken Unknown] tamoxifen 20 mg PO BID 03/10/21 [History Last Taken Unknown] Allergy/AdvReac Type Severity Reaction Status Date / Time nitrofurantoin Allergy Intermediate hives Verified 03/11/21 10:12 [From Macrobid] latex Allergy Rash Verified 03/11/21 10:12 Penicillins Allergy Swelling Verified 03/11/21 10:12 meloxicam AdvReac Nausea Verified 03/11/21 10:12 Family History Father , Age 89 CVA (cerebral vascular accident) Cancer Hypertension Myocardial infarction Mother , Age 90 Cancer Brother Hypertension Diabetes Brother Diabetes Brother Hypertension Surgical History H/O colonoscopy H/O hemicolectomy H/O mastectomy H/O thyroidectomy H/O: hysterectomy History of bladder suspension procedure History of carpal tunnel surgery of right wrist History of hip replacement, total History of knee replacement History of left heart catheterization (06/2006) History of tonsillectomy and adenoidectomy Hx of cholecystectomy Social History household members: none Smoking Status: Former smoker how long ago did patient quit smoking: in the 's alcohol intake: current alcohol intake frequency: holidays/special occasions only Alcohol type: wine caffeine: Yes Type: tea ROS ROS ED Constitutional Constitutional ED: Denies fever(s) or subjective Eyes Eyes: Denies blurry vision or diplopia ENT ENT ED: Denies rhinorrhea or sore throat Cardiovascular Cardiovascular: Denies chest pain or palpitations Respiratory/Chest Respiratory/Chest: Denies cough or dyspnea Gastrointestinal Gastrointestinal: Denies abdominal pain or nausea Genitourinary Genitourinary ED: Denies dysuria or hematuria Musculoskeletal Musculoskeletal: Reports back pain and other Details: Left hip pain Integumentary Denies abscess or rash Neurologic Neurologic: Denies headache(s) or paresthesias Psychiatric Psychiatric: Denies anxiety or depression EXAM Physical Exam Const Vital Signs: 03/11/21 10:10 03/11/21 11:37 03/11/21 12:54 Temperature 98.1 F Temperature Source Oral Pulse Rate 78 81 Pulse Rate [1 (Initial Baseline)] Pulse Rate [2] Respiratory Rate 12 16 Respiratory Rate [1 (Initial Baseline)] Respiratory Rate [2] Blood Pressure 130/52 H 110/57 L Blood Pressure [1 (Initial Baseline)] Blood Pressure [2] Blood Pressure Mean 78 Pulse Ox 95 98 Oxygen Delivery Method Room Air Nasal Cannula Nasal Cannula Oxygen Delivery Method [1 (Initial Baseline)] Oxygen Delivery Method [2] Oxygen Flow Rate (L/min) 96 6 Oxygen Flow Rate (L/min) [1 (Initial Baseline)] Oxygen Flow Rate (L/min) [2] 03/11/21 12:57 03/11/21 13:08 03/11/21 13:13 Temperature Temperature Source Pulse Rate 71 74 Pulse Rate [1 (Initial Baseline)] 80 Pulse Rate [2] 71 Respiratory Rate 17 17 Respiratory Rate [1 (Initial Baseline)] 16 Respiratory Rate [2] 17 Blood Pressure 104/58 L 132/67 H Blood Pressure [1 (Initial Baseline)] 110/84 H Blood Pressure [2] 98/59 L Blood Pressure Mean Pulse Ox 98 97 Oxygen Delivery Method Nasal Cannula Nasal Cannula Oxygen Delivery Method [1 (Initial Baseline)] Nasal Cannula Oxygen Delivery Method [2] Nasal Cannula Oxygen Flow Rate (L/min) 4 4 Oxygen Flow Rate (L/min) [1 (Initial Baseline)] 6 Oxygen Flow Rate (L/min) [2] 6 03/11/21 13:18 03/11/21 13:45 Temperature Temperature Source Pulse Rate 78 72 Pulse Rate [1 (Initial Baseline)] Pulse Rate [2] Respiratory Rate 15 18 Respiratory Rate [1 (Initial Baseline)] Respiratory Rate [2] Blood Pressure 138/65 H 137/75 H Blood Pressure [1 (Initial Baseline)] Blood Pressure [2] Blood Pressure Mean Pulse Ox 95 99 Oxygen Delivery Method Nasal Cannula Oxygen Delivery Method [1 (Initial Baseline)] Oxygen Delivery Method [2] Oxygen Flow Rate (L/min) 4 Oxygen Flow Rate (L/min) [1 (Initial Baseline)] Oxygen Flow Rate (L/min) [2] Positive obese General Appearance ED: NAD Nutritional Appearance: obese HEENT Reports moist mucous membranes normocephalic and atraumatic Resp normal respiratory effort and clear to auscultation bilaterally Cardio regular rate and regular rhythm Extremity Extremity Narrative: Left hip is internally rotated and the left lower extremity is shortened. Patient still has pain around the knee and also has pain at the hip. Sensation is intact in the left lower extremity. Neuro oriented x3 Sensorium / Orientation: alert Psych mental status grossly normal Skin no wounds Rashes: no rashes MDM MDM MDM Narrative Medical decision making narrative: Patient seen and examined the x-ray of her hip was reviewed. She does have a superior posterior dislocation of the left hip on my interpretation. Patient was given fentanyl and was consented for conscious sedation with propofol and closed reduction. I was assisted by Dr. Lomeli. Please see procedure note. Sedation time about 6 minutes. Patient was given 80 cc of propofol. Patient tolerated procedure well. She recovered well in the emergency room. Postreduction x-ray on my interpretation shows satisfactory reduction of the dislocation and radiologist agree. She is placed in a knee immobilizer. Patient will be given follow-up with Dr. Steiner. Patient discharged back to the TCU. Impression: 1. Left hip dislocation Radiography Diagnostic Testing: Clinical Impression(s) from Imaging Studies Hip/Pelvis X-Ray 03/11/21 12:35 Procedures Other Procedures Procedure(s): Closed left hip reduction: Patient consented for conscious sedation with propofol for close reduction of left hip dislocation. Timeout was called. Patient sedated with initial bolus of 40 cc of propofol with increasing doses of 20 until sedation is complete. Countertraction was used by myself. Dr. Lomeli was able to pull traction on the left lower extremity in order to reduce the left hip. Patient tolerated p.o. well. She is placed in a knee immobilizer. Patient monitored until awake. Conscious sedation time about 6 minutes Discharge Plan Triage Chief Complaint: Lower Extremity Injury ED Provider: Adams Starr Dx/Rx/DC Orders Instructions: ED Hip Replace Dislocation Reduc Prescriptions: No Action cholecalciferol (vitamin D3) 1,250 mcg (50,000 unit) capsule 50,000 unit PO .twice/month RF: 0 levothyroxine 100 mcg capsule 100 mcg capsule 100 mcg PO DAILY RF: 0 MAGIC MOUTH WASH (BMX) 180 mL suspension 10 ml PO .QID PRN (Reason: PAINFUL SWALLOWING) Qty: 180 RF: 1 sertraline 50 MG tablet 50 mg PO BID RF: 0 cyanocobalamin (vitamin B-12) 2,500 mcg tablet 1,000 mcg PO DAILY RF: 0 furosemide 40 MG tablet 30 mg PO DAILY RF: 0 lorazepam 1 MG tablet 0.5 mg PO BID Qty: 0 RF: 0 hydrocodone-acetaminophen 5-325 mg tablet 1 tab PO Q4H PRN (Reason: pain) 5 Days Qty: 30 RF: 0 dexamethasone [Decadron] 4 mg tablet 4 mg PO DAILY RF: 0 tamoxifen 20 mg tablet 20 mg PO BID RF: 0 Primary Care Provider: Terrell Villanueva Referrals: Terrell Villanueva DO [Primary Care Provider] - Hill Steiner MD [STAFF PHYSICIAN] - 3-5 Days Disposition Disposition: Home, Self Care Discharge Date/Time: 03/11/21 13:52
--- NOTE | 2021-03-11 12:35 | RAD_ITS ---
History: Post reduction Left hip 2 views: Comparison: March 10, 2021 Findings: Previously noted superior dislocation of the femoral portion of the left hip prosthesis has been reduced. No acute fracture. No soft tissue abnormality. IMPRESSION: Satisfactory reduction of the left hip dislocation. at 1341 Reported and signed by: Kaz Mercedes MD Electronically Signed: Kaz Mercedes MD at 13:40 EST Tel , Service support , RAD/HIP, UNI W/ Pelvis 2-3 Views
[2021-03-11] MEDS: Propofol 200 MG/20 ML Vial IV BOLUS (12:57)
--- NOTE | 2021-03-11 13:48 | ED.RN ---
REPORT CALLED TO TCU NURSE RAFA, ALL QUESTIONS ANSWERED
--- NOTE | 2021-03-11 13:50 | ED.RN ---
DE JESUS AND IV LEFT IN PLACE PER TCU NURSE RAFA
== END 2021-03-11 13:52 | disposition home or self-care (01) ==
PROVIDERS: Emergency Provider Student in an Organized Health Care Education/Training Program; PCP Family Medicine
DX: S73.005A Unspecified dislocation of left hip, initial encounter (principal); G47.33 Obstructive sleep apnea (adult) (pediatric); E66.9 Obesity, unspecified; Z87.891 Personal history of nicotine dependence; W19.XXXA Unspecified fall, initial encounter
CPT/HCPCS: 51702; 73502; 96360; 96361; 99284; J7030; A4216

== ENCOUNTER 2021-03-16 13:07 | Inpatient (IN) | payer MEDICARE, MEDICAID, SELFPAY ==
[2021-03-16] VITALS (7 sets, daily range): BP systolic 79–134; BP diastolic 51–73; PULSE 75–91; RESP 16–18; TEMP 36.2; O2SAT 94–98; BMI 46.0; BMI 44.9
--- NOTE | 2021-03-16 13:27 | MRI_ITS ---
EXAM: MR THORACIC SPINE WITHOUT AND WITH INTRAVENOUS CONTRAST CLINICAL INDICATION: leg paralysis since last P.M., arm pain, burning, Hx of breast CA with joanna mets TECHNIQUE: Multiplanar and multisequence MR images of the thoracic spine without and with intravenous contrast. This report was created using [employer] report generation technology. CONTRAST: IV 24ml Dotarem COMPARISON: cta chest 03.05.21 PET scan 02/15/2021. FINDINGS: VERTEBRAE: T2, T3, T4, T9, and T12 destructive osseous lesion. This is consistent for metastatic disease. T12 pathologic compression fracture. DISCS/SPINAL CANAL/NEURAL FORAMINA: At T2-3, there is posterior expansion of the mass in the dural space. Enhancement of the dural space and spinous processes of T3 T2 and T4. Mass is causing severe spinal stenosis at this level. Invasion into the spinal cord is difficult to asses due to motion artifact. Findings consistent for metastatic disease to the bones and dural extension of the neoplasm. SPINAL CORD: Unremarkable. Normal in signal and morphology. Normal conus medullaris. SOFT TISSUES: Unremarkable. MRI/Spine Thoracic W/WO Contrast IMPRESSION: 1. T2, T3, T4, T9, and T12 destructive osseous lesion. This is consistent for metastatic disease. 2. At T2-3, there is posterior expansion of the mass in the dural space. Enhancement of the dural space and spinous processes of T3 T2 and T4. Mass is causing severe spinal stenosis at this level. Invasion into the spinal cord is difficult to asses due to motion artifact. Findings consistent for metastatic disease to the bones and dural extension of the neoplasm. 3. T12 pathologic compression fracture. Electronically Signed: Alonso Clark MD at 16:21 EST , Service support ,
--- NOTE | 2021-03-16 13:27 | MRI_ITS ---
STUDY: MRI LUMBAR SPINE WITH AND WITHOUT CONTRAST REASON FOR EXAM: Female, 85 years old. leg paralysis, arm pain, burning, Hx of breast CA with joanna mets TECHNIQUE: Standardized fat and water weighted pulse sequences were obtained in the sagittal and axial planes. Pre and post 24ml of Dotarem contrast material was administered for the contrast portion of the examination. COMPARISON: cta chest 03.05.21 PET scan 02/15/2021. FINDINGS: T12-L1: T12 pathologic compression fracture. 2.5 mm retropulsion of a fracture fragment into the spinal canal. Abnormal enhancement of the T12 vertebral body consistent for metastatic focus. Normal lumbar lordosis. There is no substantial scoliosis. L1-2: Loss of intervertebral disc height. There is endplate spondylosis of the vertebral body. Normal central canal and intervertebral neuroforamina. There is bilateral facet arthropathy. There is bilateral ligamentum flavum thickening. L2-3: Loss of intervertebral disc height. There is endplate spondylosis of the vertebral body. Normal central canal and intervertebral neuroforamina. There is bilateral facet arthropathy. There is bilateral ligamentum flavum thickening. Narrowing of the lateral recess. L3-4: Loss of intervertebral disc height. There is endplate spondylosis of the vertebral body. Narrowing of the bilateral intervertebral neuroforamina. Compression of exiting right L3 nerve root. There is bilateral facet arthropathy. There is bilateral ligamentum flavum thickening. Posterior disc bulge osteophyte complex. Narrowing of the right lateral recess. L4-5: Loss of intervertebral disc height. There is endplate spondylosis of the vertebral body. Narrowing of the right intervertebral neuroforamina. There is bilateral facet arthropathy. There is bilateral ligamentum flavum thickening. L5-S1: Loss of intervertebral disc height. There is endplate spondylosis of the vertebral body. Narrowing of the bilateral intervertebral neuroforamina. There is bilateral facet arthropathy. There is bilateral ligamentum flavum thickening. Normal visualized sacral ala. Normal visualized paraspinous soft tissue structures. MRI/Spine Lumbar W/WO Contrast IMPRESSION: Multilevel degenerative changes, as described above. Mild T12 pathologic compression fracture. Abnormal enhancement of the T12 vertebral body consistent for metastatic focus. Electronically Signed: Alonso Clark MD at 16:27 EST , Service support ,
--- NOTE | 2021-03-16 13:27 | MRI_ITS ---
EXAM: MR CERVICAL SPINE WITHOUT AND WITH INTRAVENOUS CONTRAST CLINICAL INDICATION: eg paralysis since last P.M., arm pain, burning, Hx of breast CA with joanna mets TECHNIQUE: Multiplanar and multisequence MR images of the cervical spine without and with intravenous contrast were performed. This report was created using [employer] report [employer] technology. CONTRAST: IV 24ml of Dotarem COMPARISON: None. FINDINGS: VERTEBRAE: Regarding the Findings of the thoracic spine. Please see MRI T spine of the same day. SPINAL CORD: Unremarkable in signal and morphology. SOFT TISSUES: Unremarkable. No prevertebral soft tissue swelling. LYMPH NODES: Unremarkable. There is no cervical adenopathy. DISCS/SPINAL CANAL/NEURAL FORAMINA: C2-3: Loss of intervertebral disc height. There is endplate spondylosis of the vertebral body. Normal central canal and intervertebral neuroforamina. There is bilateral facet arthropathy. C3-4: Loss of intervertebral disc height. There is endplate spondylosis of the vertebral body. Narrowing of the intervertebral neuroforamina. There is bilateral facet arthropathy. Posterior disc bulge. No spinal stenosis. C4-5: Loss of intervertebral disc height. There is endplate spondylosis of the vertebral body. Narrowing of the intervertebral neuroforamina. There is bilateral facet arthropathy. Posterior disc herniation. Narrowing of the lateral recess. No spinal stenosis. C5-6: Loss of intervertebral disc height. There is endplate spondylosis of the vertebral body. Narrowing of the intervertebral neuroforamina. There is bilateral facet arthropathy. Posterior disc herniation. Narrowing of the lateral recess. No spinal stenosis. C6-7: Loss of intervertebral disc height. There is endplate spondylosis of the vertebral body. Narrowing of the intervertebral neuroforamina. There is bilateral facet arthropathy. Posterior disc herniation. Narrowing of the lateral recess. No spinal stenosis. C7-T1: Loss of intervertebral disc height. There is endplate spondylosis of the vertebral body. Normal central canal and intervertebral neuroforamina. There is bilateral facet arthropathy. MRI/Spine Cervical W/WO Contrast IMPRESSION: Multilevel degenerative changes with, as described above. Electronically Signed: Alonso Clark MD at 16:52 EST , Service support ,
--- NOTE | 2021-03-16 13:33 | EDS_ITS ---
HPI History of Present Illness Chief Complaint: Other, Pain/Inj Detail of Chief Complaint: Paralysis of lower extremities Informant: patient Narrative Narrative: Patient presents to the emergency department complaining that she cannot move her legs since last evening around 10 PM. Patient states she has no sensation from her lower abdomen to her legs. Patient has history of cancer with bone mets. Patient was in the transitional care unit as she has been having pain related to the bony metastasis. She has had a prior biopsy of a thoracic vertebrae. Patient had a fall about a week ago and was admitted to the hospital and subsequently found to have a dislocated left hip that was then reduced. Patient states her pain in her leg at that time seem to resolve with that. Patient also states that she has not had a bowel movement in 3 days. It is not unusual for her to go this long without a bowel movement. She denies any abdominal pain. She denies vomiting. Prior similar symptoms: No PFSH PFSH Medical History Anxiety Breast cancer Cancer Chronic osteoarthritis CPAP (continuous positive airway pressure) dependence Depression Diverticulitis Hyperlipidemia Metastasis to bone Obesity Obstructive sleep apnea Home Medications sertraline 50 mg PO BID 01/08/13 [History Last Taken 03/04/21] cholecalciferol (vitamin D3) 1,250 mcg (50,000 unit) capsule 50,000 unit PO .twice/month cap 07/14/19 [History Last Taken 03/03/21] cyanocobalamin (vitamin B-12) 2,500 mcg tablet 1,000 mcg PO DAILY tab 07/14/19 [History Last Taken 03/04/21] levothyroxine 100 mcg capsule 100 mcg PO DAILY 07/14/19 [History Last Taken 03/04/21] furosemide 30 mg PO DAILY 12/26/19 [History Last Taken 02/26/21] lorazepam 0.5 mg PO BID #0 tab 02/08/21 [Rx Last Taken 03/04/21] hydrocodone-acetaminophen 1 tab PO Q4H PRN 5 Days #30 tab 03/08/21 [Rx Last Taken Unknown] MAGIC MOUTH WASH (BMX) 180 mL suspension 10 ml PO .QID PRN #180 ml 03/09/21 [Rx Last Taken Unknown] dexamethasone [Decadron] 4 mg PO DAILY 03/10/21 [History Last Taken Unknown] tamoxifen 20 mg PO BID 03/10/21 [History Last Taken Unknown] Allergy/AdvReac Type Severity Reaction Status Date / Time nitrofurantoin Allergy Intermediate hives Verified 03/11/21 10:12 [From Macrobid] latex Allergy Rash Verified 03/11/21 10:12 Penicillins Allergy Swelling Verified 03/11/21 10:12 meloxicam AdvReac Nausea Verified 03/11/21 10:12 Family History Father , Age 89 CVA (cerebral vascular accident) Cancer Hypertension Myocardial infarction Mother , Age 90 Cancer Brother Hypertension Diabetes Brother Diabetes Brother Hypertension Surgical History H/O colonoscopy H/O hemicolectomy H/O mastectomy H/O thyroidectomy H/O: hysterectomy History of bladder suspension procedure History of carpal tunnel surgery of right wrist History of hip replacement, total History of knee replacement History of left heart catheterization (06/2006) History of tonsillectomy and adenoidectomy Hx of cholecystectomy Social History household members: none Smoking Status: Former smoker how long ago did patient quit smoking: in the 's alcohol intake: current alcohol intake frequency: holidays/special occasions only Alcohol type: wine caffeine: Yes Type: tea ROS ROS ED Constitutional Constitutional ED: Reports systems reviewed and no addt'l complaints, except as documented; Denies body ache(s), change in weight or chills Eyes Eyes: Denies acute decrease in peripheral vision, change in vision, double vision or loss of vision ENT ENT ED: Reports none; Denies ear pain, lip swelling, loss taste/smell, neck pain, otalgia or sore throat Cardiovascular Cardiovascular: Reports none; Denies abdominal pain, chest pain with activity, leg edema, lightheadedness, palpitations, rapid heart rate or syncope Respiratory/Chest Respiratory/Chest: Reports none; Denies change in mental status, dry cough, dyspnea, hemoptysis, shortness of breath at rest or shortness of breath with exertion Gastrointestinal Gastrointestinal: Reports none and constipation; Denies abdominal pain, change in stool character, diarrhea, hematemesis, hematochezia, melena, rectal bleeding or vomiting Genitourinary Genitourinary ED: Reports none; Denies abdominal discomfort, anuria, dysuria, genital pain or polyuria Musculoskeletal Musculoskeletal: Reports none; Denies arthralgias, back pain, difficulty wal coretta, extremity pain, muscle weakness or myalgias Integumentary Reports none; Denies abscess or rash Neurologic Neurologic: Reports none, weakness and other Details: Unable to move legs ; Denies abnormal gait, confusion, focal weakness, frequent falls, headache(s), loss of vision, numbness, paresthesias, radicular pain or vertigo Psychiatric Psychiatric: Reports systems reviewed and no addt'l complaints, except as documented and none; Denies behavioral changes, confusion, difficulty concentrating, hallucinations, suicidal ideation, tactile hallucinations or visual hallucinations Endocrine Endocrinology: Denies none, cold intolerance, excessive sweating, fatigue or heat intolerance Hematologic/Lymphatic Hematologic/Lymphatic: Reports none; Denies anemia, easy bleeding or easy bruising Allergic/Immunologic Allergic/Immunologic ED: Denies as per HPI, none, lip swelling, mouth swelling, throat swelling, tongue swelling or hives EXAM Physical Exam Const Vital Signs: 03/16/21 13:08 03/16/21 13:22 Temperature 97.2 F L 97.2 F L Temperature Source Oral Oral Pulse Rate 91 85 Respiratory Rate 18 18 Respiratory Pattern Normal Blood Pressure 134/64 H 115/72 Blood Pressure Mean 87 86 Pulse Ox 94 94 Oxygen Delivery Method Nasal Cannula Nasal Cannula Oxygen Flow Rate (L/min) 4 4 Positive well nourished and well developed General Appearance ED: well developed and NAD HEENT Reports TM's clear and moist mucous membranes normocephalic and atraumatic; Negative for trauma or tenderness Tympanic Membrane ED: Yes TM's clear Eyes PERRL and EOMs intact bilaterally General Eye ED: Negative for pale conjunctiva or scleral icterus Neck no lymphadenopathy, supple and no JVD General: Negative for tenderness Chest Wall inspection of chest normal and palpation of chest normal Chest: Negative for tenderness Resp normal respiratory effort and clear to auscultation bilaterally Effort and Inspection: Negative for respiratory distress or pain with movement Auscultation: Negative for rhonchi, wheezes or diminished lung sounds Cardio regular rate, regular rhythm, S1 normal heart sound, S2 normal heart sound and no murmurs Peripheral Pulses: pulses 2+ throughout GI normal to inspection, nondistended, normoactive bowel sounds, soft to palpation, non-tender, non-distended and no masses Back/Spine no CVA tenderness and no thoracic nor lumbar tenderness Extremity normal to inspection General Extremety ED: Negative for edema General Extremity: Negative for edema Neuro oriented x3, CN's II-XII intact bilaterally, no sensory deficits noted and gait normal Neuro Narrative: Patient has no movement of the lower extremities. She has upgoing Babinski's bilaterally. She has some's faint sensation to the tops of her feet. Sensorium / Orientation: awake, alert, oriented to person, oriented to place and oriented to time Motor Exam: strength 5/5 throughout and strength abnormal Psych mental status grossly normal Skin no rashes or lesions noted and no wounds MDM MDM MDM Narrative Medical decision making narrative: IV line established on arrival. I ordered MRI of C-spine, T-spine, and LS-spine to evaluate patient's complaint further. Given her history of breast cancer with bone mets concerned about metastatic lesion compressing the spinal cord potentially. Care of patient turned over to evening physician awaiting results and final disposition Lab Data Attestation: I reviewed the patient's lab results. Labs: Laboratory Results - last 24 hr 03/16/21 03/16/21 13:50 13:50 WBC 10.2 RBC 3.76 L Hgb 10.8 L Hct 32.3 L MCV 85.9 MCH 28.7 MCHC 33.4 RDW Std Deviation 43.2 RDW Coeff of Ania 13.7 Plt Count 254 MPV 10.3 Immature Gran % (Auto) 1.700 H Neut % (Auto) 83.7 H Lymph % (Auto) 10.2 L [place] % (Auto) 3.8 Eos % (Auto) 0.1 Baso % (Auto) 0.5 Absolute Neuts (auto) 8.5 H Absolute Lymphs (auto) 1.04 Nucleated RBC % 0 Sodium 130 L Potassium 4.7 Chloride 94 L Carbon Dioxide 29.0 Anion Gap 7 BUN 30 H Creatinine 1.04 H Estim Creat Clear Calc 34.77 Est GFR (MDRD) Af Amer 65 Est GFR (MDRD) Non-Af 54 L BUN/Creatinine Ratio 28.8 H Glucose 171 H Calcium 9.0 Discharge Plan Triage Chief Complaint: Other, Pain/Inj ED Provider: Ungur,Remus Dx/Rx/DC Orders Clinical Impression: Lower extremity paralysis Prescriptions: No Action cholecalciferol (vitamin D3) 1,250 mcg (50,000 unit) capsule 50,000 unit PO .twice/month RF: 0 levothyroxine 100 mcg capsule 100 mcg capsule 100 mcg PO DAILY RF: 0 MAGIC MOUTH WASH (BMX) 180 mL suspension 10 ml PO .QID PRN (Reason: PAINFUL SWALLOWING) Qty: 180 RF: 1 sertraline 50 MG tablet 50 mg PO BID RF: 0 cyanocobalamin (vitamin B-12) 2,500 mcg tablet 1,000 mcg PO DAILY RF: 0 furosemide 40 MG tablet 30 mg PO DAILY RF: 0 lorazepam 1 MG tablet 0.5 mg PO BID Qty: 0 RF: 0 hydrocodone-acetaminophen 5-325 mg tablet 1 tab PO Q4H PRN (Reason: pain) 5 Days Qty: 30 RF: 0 dexamethasone [Decadron] 4 mg tablet 4 mg PO DAILY RF: 0 tamoxifen 20 mg tablet 20 mg PO BID RF: 0 Primary Care Provider: Terrell Villanueva Referrals: Terrell Villanueva DO [Primary Care Provider] -
[2021-03-16 14:01] LABS: Absolute Lymphocyte Count 1.04 X10^3/uL (0.83-4.51); Absolute Neutrophil Count 8.5 X10^3/uL (2.0-7.7); Basophil# 0.05 X10^3/uL; Basophil% 0.5 % (0-1); Eosinophil# 0.01 X10^3/uL; Eosinophils% 0.1 % (0-5); Hematocrit 32.3 % (37-47); Hemoglobin 10.8 g/dL (12.0-15.0); Lymphocyte # 1.04 X10^3/ul (0.83-4.51); Lymphocyte % 10.2 % (19-41); Mean Corp Hgb Conc 33.4 g/dL (32-36); Mean Corpuscular Hgb 28.7 pg (27.0-32.0); Mean Corpuscular Volume 85.9 fL (81-99); Mean Platelet Vol. 10.3 fl (6.2-12.0); Monocyte# 0.39 X10^3/uL; Monocyte% 3.8 % (0-10); NRBC Flagged by Analyzer 0 % (0-5); Neutrophil % 83.7 % (47-70); Platelet Count 254 K/mm3 (150-450); RBC Distribution Width CV 13.7 % (11.6-14.6); RBC Distribution Width SD 43.2 fl (35.1-43.9); Red Blood Count 3.76 M/mm3 (4.2-5.4); White Blood Count 10.2 K/mm3 (4.4-11.0)
[2021-03-16 14:18] LABS: Anion Gap 7 (5-15); BUN 30 mg/dL (7-18); BUN/Creat Ratio 28.8 RATIO (10-20); Chloride 94 mmol/L (98-107); Creatinine, Serum 1.04 mg/dL (0.55-1.02); EST Glomerular Filtration Rate 54 mL/min (>60); Est Glom Filt Rate - Afr Amer 65 mL/min (>60); Estimated Creatinine Clearance 34.77 ml/min; Glucose 171 mg/dL (74-106); Potassium 4.7 mmol/L (3.5-5.1); Sodium Level 130 mmol/L (136-145)
[2021-03-16] MEDS: 0.9% Normal Saline 1,000 ML 999 ML IV (18:02)
--- NOTE | 2021-03-16 18:37 | CM.ED ---
SOCIAL WORK Discussed case with Dr. Dailey and nursing. Per notes from TCU, Palliative referral was done on 03/14. Patient to be admitted with oncology consulted. Son to be in town on Sunday per Dr. Dailey. SonSundeep can be reached at . SW will follow up. Plan: Admit Harleen Schaeffer, NURSING DEPARTMENT CHAIRPERSON, SHAKE CUTTER
--- NOTE | 2021-03-16 19:02 | ED.RN ---
TCU aware of patient being admitted to [facility], also patient requested TCU to locate cell etl informatica developer and glasses and have them sent to patient admitted room.
--- NOTE | 2021-03-16 19:07 | PCM.HP.STD ---
HPI - General General Date of Admission: 03/16/21 HPI Narrative AMILCAR KERN, is a 85 F who presents with sudden onset of lower extremity paralysis. Patient was in rehab and just underwent a radiation therapy to to T2-T3 for metastatic breast cancer. Patient had an MRI performed that showed T2, T3, T4, T9 and T12 destructive osseous lesions consistent with metastatic disease. At T2-3 there is posterior expansion of the mass in the dural space. Mass is causing severe spinal stenosis at that level with concern for invasion of the spinal cord. This was brought up to the patient and the patient states that she does not want to undergo any additional radiation treatments nor have any surgery. She is requesting hospice services. [facility] Medical History Anxiety Bone metastasis Breast cancer Cancer Chronic osteoarthritis CPAP (continuous positive airway pressure) dependence Debility Depression Diverticulitis Falls Generalized weakness Hyperlipidemia Intractable back pain Left knee sprain Metastasis to bone Obesity Obstructive sleep apnea Weakness Home Medications sertraline 50 mg PO BID 01/08/13 [History Last Taken 03/04/21] cholecalciferol (vitamin D3) 1,250 mcg (50,000 unit) capsule 50,000 unit PO .twice/month cap 07/14/19 [History Last Taken 03/03/21] cyanocobalamin (vitamin B-12) 2,500 mcg tablet 1,000 mcg PO DAILY tab 07/14/19 [History Last Taken 03/04/21] levothyroxine 100 mcg capsule 100 mcg PO DAILY 07/14/19 [History Last Taken 03/04/21] furosemide 30 mg PO DAILY 12/26/19 [History Last Taken 02/26/21] lorazepam 0.5 mg PO BID #0 tab 02/08/21 [Rx Last Taken 03/04/21] hydrocodone-acetaminophen 1 tab PO Q4H PRN 5 Days #30 tab 03/08/21 [Rx Last Taken Unknown] MAGIC MOUTH WASH (BMX) 180 mL suspension 10 ml PO .QID PRN #180 ml 03/09/21 [Rx Last Taken Unknown] dexamethasone [Decadron] 4 mg PO DAILY 03/10/21 [History Last Taken Unknown] tamoxifen 20 mg PO BID 03/10/21 [History Last Taken Unknown] Allergy/AdvReac Type Severity Reaction Status Date / Time nitrofurantoin Allergy Intermediate hives Verified 03/11/21 10:12 [From Macrobid] latex Allergy Rash Verified 03/11/21 10:12 Penicillins Allergy Swelling Verified 03/11/21 10:12 meloxicam AdvReac Nausea Verified 03/11/21 10:12 Family History Father , Age 89 CVA (cerebral vascular accident) Cancer Hypertension Myocardial infarction Mother , Age 90 Cancer Brother Hypertension Diabetes Brother Diabetes Brother Hypertension Surgical History H/O colonoscopy H/O hemicolectomy H/O mastectomy H/O thyroidectomy H/O: hysterectomy History of bladder suspension procedure History of carpal tunnel surgery of right wrist History of hip replacement, total History of knee replacement History of left heart catheterization (06/2006) History of tonsillectomy and adenoidectomy Hx of cholecystectomy Social History household members: none Smoking Status: Former smoker how long ago did patient quit smoking: in the 's alcohol intake: current alcohol intake frequency: holidays/special occasions only Alcohol type: wine caffeine: Yes Type: tea ROS ROS Narrative Cannot move her lower extremities. No sensation from her abdomen through her lower extremities. All review of systems were negative except as mentioned above in the history of present illness and the other review of systems. Vital Signs Vital Signs Vital Signs: 03/16/21 13:08 03/16/21 13:22 03/16/21 16:49 Temperature 36.2 C L 36.2 C L Temperature Source Oral Oral Pulse Rate 91 85 Respiratory Rate 18 18 Respiratory Pattern Normal Blood Pressure 134/64 H 115/72 90/56 L Blood Pressure Mean 87 86 67 Pulse Ox 94 94 94 Oxygen Delivery Method Nasal Cannula Nasal Cannula Nasal Cannula Oxygen Flow Rate (L/min) 4 4 4 03/16/21 17:46 03/16/21 18:04 03/16/21 18:33 Temperature Temperature Source Pulse Rate 81 78 Respiratory Rate 16 16 Respiratory Pattern Blood Pressure 79/51 L 99/73 100/57 L Blood Pressure Mean 60 81 71 Pulse Ox 96 98 Oxygen Delivery Method Nasal Cannula Room Air Oxygen Flow Rate (L/min) 5 Weight Weight: 121.6 kg Body Mass Index (BMI) 46.0 Physical Exam Const alert General Appearance: cooperative HEENT normocephalic Resp normal respiratory effort, no retractions, no use of accessory muscles and clear to auscultation bilaterally Cardio regular rate, regular rhythm, S1 normal heart sound and S2 normal heart sound GI normal to inspection, nondistended, normoactive bowel sounds, soft to palpation, non-distended and hepatosplenomegaly GI Narrative: No sensation on palpating her abdomen Extremity normal to inspection Skin no rashes or lesions noted Neuro Neuro Narrative: Cannot move her lower extremities. Absent sensation in her lower extremities Results Lab / Micro Data Attestation: I reviewed the patient's lab results. Result Diagrams: 03/16/21 13:50 03/16/21 13:50 Labs: Laboratory Results - last 24 hr 03/16/21 13:50: WBC 10.2, RBC 3.76 L, Hgb 10.8 L, Hct 32.3 L, MCV 85.9, MCH 28.7, MCHC 33.4, RDW Std Deviation 43.2, RDW Coeff of Ania 13.7, Plt Count 254, MPV 10.3, Immature Gran % (Auto) 1.700 H, Neut % (Auto) 83.7 H, Lymph % (Auto) 10.2 L, [place] % (Auto) 3.8, Eos % (Auto) 0.1, Baso % (Auto) 0.5, Absolute Neuts (auto) 8.5 H, Absolute Lymphs (auto) 1.04, Nucleated RBC % 0 03/16/21 13:50: Sodium 130 L, Potassium 4.7, Chloride 94 L, Carbon Dioxide 29.0, Anion Gap 7, BUN 30 H, Creatinine 1.04 H, Estim Creat Clear Calc 34.77, Est GFR (MDRD) Af Amer 65, Est GFR (MDRD) Non-Af 54 L, BUN/Creatinine Ratio 28.8 H, Glucose 171 H, Calcium 9.0 Radiology Impression Cervical Spine MRI 03/16/21 13:27 IMPRESSION: Multilevel degenerative changes with, as described above. Electronically Signed: Alonso Clark MD at 16:52 EST , Service support , Lumbar Spine MRI 03/16/21 13:27 IMPRESSION: Multilevel degenerative changes, as described above. Mild T12 pathologic compression fracture. Abnormal enhancement of the T12 vertebral body consistent for metastatic focus. Electronically Signed: Alonso Clark MD at 16:27 EST , Service support , Thoracic Spine MRI 03/16/21 13:27 IMPRESSION: 1. T2, T3, T4, T9, and T12 destructive osseous lesion. This is consistent for metastatic disease. 2. At T2-3, there is posterior expansion of the mass in the dural space. Enhancement of the dural space and spinous processes of T3 T2 and T4. Mass is causing severe spinal stenosis at this level. Invasion into the spinal cord is difficult to asses due to motion artifact. Findings consistent for metastatic disease to the bones and dural extension of the neoplasm. 3. T12 pathologic compression fracture. Electronically Signed: Alonso Clark MD at 16:21 EST , Service support , Assessment & Plan Assessment/Plan (1) Paraplegia: (2) Breast cancer metastasized to bone: QUALIFIERS: Laterality: unspecified laterality Qualified Code(s): C50.919 - Malignant neoplasm of unspecified site of unspecified female breast; C79.51 - Secondary malignant neoplasm of bone PLAN: 1. Paraplegia At the T2-3 level Patient does not want any additional treatments This is from her metastatic breast cancer Continue with the dexamethasone that she was taking previously 2. Stage IV metastatic breast cancer Patient does not want any additional treatments for this 3. Prognosis overall is poor though not imminent Patient is agreeing to hospice services 4. Advanced care planning: Patient is DNR [facility]. Will commence with hospice services. Will consult hospice to see what the best mode of hospice services is when she is discharged from the hospital. Patient was at the transitional care unit but that would not be a viable option now that she has no need for further rehab services. I suspected either home with hospice or hospice care center. Will place Darnell catheter since patient is not able to move at all in her lower extremities. Charges/Coding Visit Charges Inpatient E&M: 54758 Init Hosp L2
[2021-03-16] MEDS: LORazepam 0.5 MG Tablet PO (21:27)
[2021-03-16] MEDS: Sertraline 50 MG Tablet PO (21:29)
[2021-03-16] MEDS: morphine (oral solution) 10MG/0.5ML Syringe 5 MG SL/PO (22:32)
[2021-03-17] MEDS: morphine (oral solution) 10MG/0.5ML Syringe 5 MG SL/PO ×7 (00:32→21:08)
[2021-03-17 05:00] VITALS: RESP 14
[2021-03-17] MEDS: Levothyroxine 100 MCG Tablet PO (05:08)
[2021-03-17 05:21] VITALS: BP 85/47; PULSE 71; RESP 16; TEMP 37.1; O2SAT 98
[2021-03-17 08:21] VITALS: BP 74/47; PULSE 73; RESP 16; TEMP 36.7; O2SAT 92
[2021-03-17] MEDS: dexAMETHasone 4 MG Tablet PO (08:30)
[2021-03-17] MEDS: Sertraline 50 MG Tablet PO ×2 (10:20→21:08)
[2021-03-17] MEDS: LORazepam 0.5 MG Tablet PO ×2 (10:25→21:08)
--- NOTE | 2021-03-17 13:51 | CASEMGMT ---
Social Work Referral from physician for Hospice referral. CARMEN spoke with Luz GILBERT who states referral was made to [facility] earlier this morning. CARMEN met with pt in room. Pt received news that mets on spine have increased and pt states she does not want to pursue any further treatment. Pt is agreeable to referral to hospice. CARMEN explained Inpaitent Unit at hospice but that hospice staff would have to determine if pt would qualify. Other options are to return home with 24 hour care or go to [facility] with hospice care. Pt would prefer inpatient unit. Support provided surrounding cancer diagnosis and prognosis. Phone call to [facility] and spoke to Dandy. Dandy states that referral is in the system but has not been moved to scheduling yet. CARMEN requested referral be moved to scheduling. Updated clinicals faxed to [facility]. Phone call to pt DESTINY Lorenzo who is pt daughter in law and discussed referral to hospice and pt discharge options. Pt's son Sundeep lives in [place]. He will arrive here tomorrow at noon and Maura states he should be involved in all decision making. Nursing updated regarding hospice and request to move pt to be scheduled. CARMEN will continue to follow. JOSE Prakash
--- NOTE | 2021-03-17 15:42 | CHAPLAIN ---
Type of Pastoral Visit _x__ Initial Visit ___ Follow-up Visit ___ On-call Visit ___ General Patient Visit ___ Spiritual Assessment ___ Family Conference ___ Bereavement ___ Rapid Response ___ Code Blue ___ Other (describe below) Pastoral Care Referral From _x__ Patient ___ Family ___ Nurse ___ Physician ___ Fire Extinguisher Repairer Inspector ___ Coil Winder Hand ___ Other (describe below) Sacrament/Intervention _x__ Active listening ___ Anointing ___ Restorationist ___ Bereavement ___ Communion _x__ Aida exploration ___ ___ Life review _x__ Prayer ___ Reconciliation ___ Sacrament of Sick ___ Supportive presence ___ Wedding ___ Other (describe below) Pastoral Comments patient welcomes spiritual care and support; pt states that she has called her brothers to tell them goodbye because they can't come to the hospital to see her and that her son will be coming soon from out of state to be with her; pt says that she has decided to stop any further treatments and she will go with hospice; pt appears very content and states the same; pt reports being a person of aida, has a local hindu connection, and that her family are believers and we will be together again one day; pt requests prayer support; pt states that there are no other needs
--- NOTE | 2021-03-17 16:37 | PCM.PN.HOSP ---
Subjective Subjective Patient is currently denying any pain at this time. Had a bout of confusion approximately 45 minutes after her Roxanol was given this morning. Her blood pressure was borderline at this time as well. Her symptoms seem improved upon my exam. She appears comfortable at this time. She again expresses a desire to go to hospice and not pursue any more aggressive treatments with regards to her metastatic breast cancer. Objective Data Objective Data Vital Signs: Vital Signs Temp Pulse Resp BP Pulse Ox 98.1 F 73 16 74/47 L 92 03/17/21 08:21 03/17/21 08:21 03/17/21 08:21 03/17/21 08:21 03/17/21 08:21 Oxygen Flow Rate (L/min) 2 Oxygen Delivery Method Room Air Weight: 118.7 kg Body Mass Index (BMI) 44.9 Intake & Output: Intake and Output for Last 24 Hours 03/15/21 03/16/21 03/17/21 23:59 23:59 23:59 Intake Total 1000 / 1000 Output Total 450 / 450 Balance 1000 / 1000 -450 / -450 Lab / Micro Data Result Diagrams: 03/16/21 13:50 03/16/21 13:50 Radiography Diagnostic Testing: Radiology Impression Cervical Spine MRI 03/16/21 13:27 IMPRESSION: Multilevel degenerative changes with, as described above. Electronically Signed: Alonso Clark MD at 16:52 EST , Service support , Physical Exam Const alert Constitutional Narrative: Pleasant elderly morbidly obese white female lying comfortably in bed, nursing at bedside, patient appears comfortable and nontoxic, mild confusion Exam Limitations: altered mental status Nutritional Appearance: morbidly obese HEENT head/scalp atraumatic and moist oral mucous membranes HEENT Narrative: No thrush, Mallampati 3 Head and Scalp: normocephalic Resp normal respiratory effort, no retractions, no use of accessory muscles and clear to auscultation bilaterally Cardio regular rate, regular rhythm, S1 normal heart sound, S2 normal heart sound, no murmurs, no rub, no gallops, no clicks and no JVD GI normal to inspection, nondistended, normoactive bowel sounds, soft to palpation, non-tender and non-distended Extremity no clubbing, cyanosis or edema Peripheral Pulses: Yes pulses 2+ throughout Neuro CN's II-XII intact bilaterally Neuro Narrative: Patient with bilateral paraplegia in the lower extremities, no upper extremity deficits noted, decreased sensation bilateral lower extremities Sensorium / Orientation: awake and alert Assessment & Plan Assessment/Plan (1) Paraplegia: (2) Breast cancer metastasized to bone: QUALIFIERS: Laterality: unspecified laterality Qualified Code(s): C50.919 - Malignant neoplasm of unspecified site of unspecified female breast; C79.51 - Secondary malignant neoplasm of bone (3) Debility: (4) Thoracic back pain: PLAN: 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 -Patient with new high level paraplegia -No options for medical treatment -Patient desiring hospice -Waiting hospice eval at this time Metastatic ER positive breast CA -Patient with mets to the bone -T2, T3, T12 lesions noted on recent admission -Now with new paraplegia and mass extension into the T2-T3 region -Continue pain medication as ordered -Continue bowel regimen -Continue steroids Hypothyroidism -Continue levothyroxine Anxiety/depression -Continue lorazepam/sertraline CODE STATUS -DNR CC given new findings and plans for hospice --> I suspect she is going to not need acute inpatient unit as she has no acute needs other than pain management which seems to be fairly well managed with current regimen Charges/Coding Visit Charges Inpatient E&M: 83178 Subs Hosp L2
[2021-03-17 20:17] VITALS: BP 105/52; PULSE 73; RESP 16; TEMP 36.6; O2SAT 96
[2021-03-17] MEDS: Acetaminophen 325 MG Tablet 650 MG PO (20:32)
[2021-03-18] MEDS: morphine (oral solution) 10MG/0.5ML Syringe 5 MG SL/PO ×7 (01:17→21:25)
[2021-03-18 03:45] VITALS: BP 117/60; PULSE 69; RESP 16; TEMP 36.6; O2SAT 94
[2021-03-18] MEDS: Levothyroxine 100 MCG Tablet PO (05:14)
[2021-03-18] MEDS: Acetaminophen 325 MG Tablet 650 MG PO (07:40)
[2021-03-18] MEDS: dexAMETHasone 4 MG Tablet PO (07:56)
[2021-03-18 07:57] VITALS: BP 90/47; PULSE 60; RESP 16; TEMP 36.6; O2SAT 96
[2021-03-18 09:50] VITALS: O2SAT 96
--- NOTE | 2021-03-18 10:21 | CASEMGMT ---
Addendum entered by Zoie Ahn 03/18/21 17:07: Social Work D/C plan: [facility], intermediate Level of care with hospice services. JOSE Vinson Addendum entered by Zoie Ahn 03/18/21 16:41: Social Work [facility] beds, referral faxed and they are able to accept on Sunday. CARMEN met with pt, son and hospice superintendent to discuss discharge plan. Pt is going to sign papers for hospice which will start once pt get to [facility]. PassRR completed and green sheet placed on chart for Sunday Discharge. Pt and son agreeable to d/c plan. Physician and nursing updated. JOSE Prakash Original Note: Social Work SW placed phone call [facility] and inquired about referral submitted yesterday. Meeting has been arranged for 3:[address] [facility] with pt and Daughter in law. Son from out of town should be here at that time as well. SW met with pt and informed that meeting would be at 3:30. Pt is agreeable and aware. SW spoke with pt regarding [facility] and that she may not qualify. SW also explained that if she does not get accepted to [facility] she would need to go to SNF. SW provided list of SNF providers including quality and resource use data and in network with insurance. Pt preferred provider is [facility]. Second choice is [facility]. Emotional support provided to pt. Phone call to [facility] and they do no have bed availability. VM left with the [facility] to check on bed availability. JOSE Prakash
[2021-03-18] MEDS: oxyCODONE CR 15 MG Tablet PO ×2 (10:24→21:25)
[2021-03-18] MEDS: Sertraline 50 MG Tablet PO ×2 (10:24→21:25)
[2021-03-18] MEDS: Gabapentin 300 MG Capsule PO ×2 (10:24→16:02)
[2021-03-18] MEDS: Polyethylene Glycol 3350 17 GM PACKET PO (10:24)
[2021-03-18] MEDS: LORazepam 0.5 MG Tablet PO ×2 (10:24→21:25)
--- NOTE | 2021-03-18 16:22 | PN.HOSP_ITS ---
Subjective Subjective Patient is complaining of continued pain. Currently pain is 7 out of 10. Roxanol was increased throughout the night every hour as needed. I discussed adding a long-acting pain medication for the patient and she was agreeable to this and thought it was a good idea. Patient to meet with hospice later today. She states her son is coming in this afternoon. States her pain is in the back of her arms today. Objective Data Objective Data Vital Signs: Vital Signs Temp Pulse Resp BP Pulse Ox 97.8 F 60 16 90/47 L 96 03/18/21 07:57 03/18/21 07:57 03/18/21 07:57 03/18/21 07:57 03/18/21 09:50 Oxygen Flow Rate (L/min) 2 Oxygen Delivery Method Room Air Weight: 118.7 kg Body Mass Index (BMI) 44.9 Intake & Output: Intake and Output for Last 24 Hours 03/16/21 03/17/21 03/18/21 23:59 23:59 23:59 Intake Total 1000 / 1000 Output Total 450 / 700 850 / 850 Balance 1000 / 1000 -450 / -700 -850 / -850 Lab / Micro Data Result Diagrams: 03/16/21 13:50 03/16/21 13:50 Physical Exam Const alert, oriented x3 and no apparent distress Constitutional Narrative: Pleasant elderly morbidly obese white female lying comfortably in bed, patient appears comfortable although complains of pain 7 out of 10 pain, no acute distress, no confusion today and patient is alert and or iented x3 General Appearance: cooperative Exam Limitations: altered mental status Nutritional Appearance: morbidly obese HEENT normocephalic, head/scalp atraumatic and moist oral mucous membranes Head and Scalp: normocephalic Resp normal respiratory effort, no retractions, no use of accessory muscles and clear to auscultation bilaterally Cardio regular rate, regular rhythm, S1 normal heart sound, S2 normal heart sound, no murmurs, no rub, no gallops, no clicks and no JVD GI normal to inspection, nondistended, normoactive bowel sounds, soft to palpation, non-tender, non-distended and hepatosplenomegaly GI Narrative: No sensation on palpating her abdomen Extremity normal to inspection and no clubbing, cyanosis or edema Skin no rashes or lesions noted Neuro CN's II-XII intact bilaterally Neuro Narrative: Patient with bilateral paraplegia in the lower extremities, no upper extremity deficits noted, decreased sensation bilateral lower extremities up to mid thorax region, sensation and movement normal in bilateral upper ext remities Sensorium / Orientation: awake and alert Assessment & Plan Assessment/Plan (1) Paraplegia: (2) Breast cancer metastasized to bone: QUALIFIERS: Laterality: unspecified laterality Qualified Code(s): C50.919 - Malignant neoplasm of unspecified site of unspecified female breast; C79.51 - Secondary malignant neoplasm of bone (3) Debility: (4) Thoracic back pain: PLAN: 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 -Patient with new high level paraplegia -No options for medical treatment -Patient desiring hospice -Hospice discharge on Sunday to the [facility] Metastatic ER positive breast CA -Patient with mets to the bone -T2, T3, T12 lesions noted on recent admission -Now with new paraplegia and mass extension into the T2-T3 region -Continue pain medication as ordered -Add OxyContin 15 mg twice daily extended release -Continue current bowel regimen and add MiraLAX 17 mg twice daily -Continue steroids -Add gabapentin 300 mg 3 times daily Hypothyroidism -Continue levothyroxine Anxiety/depression -Continue lorazepam/sertraline CODE STATUS -Patient is DNR CC and met with hospice today -Plan is for discharge on 03/20/2021 to the [facility] with hospice services -We will discuss further with son when he is here tomorrow Charges/Coding Visit Charges Inpatient E&M: 16148 Subs Hosp L2
--- NOTE | 2021-03-18 17:18 | CASEMGMT ---
Social Work Pt's Direction home health care coordinator Catie updated on discharge plan. JOSE Vinson
[2021-03-18 21:32] VITALS: BP 95/49; PULSE 59; RESP 18; TEMP 36.7; O2SAT 96
[2021-03-18 21:40] VITALS: RESP 18
[2021-03-19] MEDS: morphine (oral solution) 10MG/0.5ML Syringe 5 MG SL/PO ×7 (00:54→23:34)
[2021-03-19] MEDS: Levothyroxine 100 MCG Tablet PO (03:53)
[2021-03-19] MEDS: Gabapentin 300 MG Capsule PO ×3 (07:44→17:09)
[2021-03-19] MEDS: dexAMETHasone 4 MG Tablet PO (07:44)
[2021-03-19 08:52] VITALS: BP 100/65; PULSE 62; RESP 18; TEMP 37; O2SAT 97
[2021-03-19] MEDS: Polyethylene Glycol 3350 17 GM PACKET PO (09:05)
[2021-03-19] MEDS: LORazepam 0.5 MG Tablet PO ×2 (09:05→21:05)
[2021-03-19] MEDS: Sertraline 50 MG Tablet PO ×2 (09:06→21:06)
[2021-03-19] MEDS: oxyCODONE CR 15 MG Tablet PO (09:06)
--- NOTE | 2021-03-19 14:31 | PN.HOSP_ITS ---
Subjective Subjective Patient states her pain was overall better but feels that we may be able to get her a little bit better controlled with a slightly higher dose of OxyContin. She states she would like to be able to mentate well and not sleep as much but make sure her pain is controlled. Objective Data Objective Data Vital Signs: Vital Signs Temp Pulse Resp BP Pulse Ox 98.6 F 62 18 100/65 97 03/19/21 08:52 03/19/21 08:52 03/19/21 08:52 03/19/21 08:52 03/19/21 08:52 Oxygen Flow Rate (L/min) 2 Oxygen Delivery Method Nasal Cannula Weight: 118.7 kg Body Mass Index (BMI) 44.9 Intake & Output: Intake and Output for Last 24 Hours 03/17/21 03/18/21 03/19/21 23:59 23:59 23:59 Output Total 450 / 700 1300 / 1300 350 / 350 Balance -450 / -700 -1300 / -1300 -350 / -350 Lab / Micro Data Result Diagrams: 03/16/21 13:50 03/16/21 13:50 Physical Exam Const alert, oriented x3 and no apparent distress Constitutional Narrative: Pleasant elderly morbidly obese white female lying comfortably in bed, patient appears comfortable at this time, son is at bedside, patient remains alert and oriented x3 without any confusion General Appearance: cooperative Exam Limitations: no limitations Nutritional Appearance: morbidly obese HEENT normocephalic, head/scalp atraumatic and moist oral mucous membranes HEENT Narrative: Mildly hard of hearing Head and Scalp: normocephalic Resp normal respiratory effort, no retractions, no use of accessory muscles and clear to auscultation bilaterally Cardio regular rate, regular rhythm, S1 normal heart sound, S2 normal heart sound, no murmurs, no rub, no gallops, no clicks and no JVD GI normal to inspection, nondistended, normoactive bowel sounds, soft to palpation, non-tender, non-distended and hepatosplenomegaly GI Narrative: No sensation on palpating her abdomen Extremity no clubbing, cyanosis or edema Peripheral Pulses: Yes pulses 2+ throughout Neuro CN's II-XII intact bilaterally Neuro Narrative: Patient with bilateral paraplegia in the lower extremities, no upper extremity deficits noted, decreased sensation bilateral lower extremities up to mid thorax region, sensation and movement normal in bilateral upper extremities Sensorium / Orientation: awake and alert Assessment & Plan Assessment/Plan (1) Paraplegia: (2) Breast cancer metastasized to bone: QUALIFIERS: Laterality: unspecified laterality Qualified Code(s): C50.919 - Malignant neoplasm of unspecified site of unspecified female breast; C79.51 - Secondary malignant neoplasm of bone (3) Debility: (4) Thoracic back pain: PLAN: 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 -Patient with new high level paraplegia -No options for medical treatment -Patient desiring hospice -Hospice discharge on Sunday to the [facility] Metastatic ER positive breast CA -Patient with mets to the bone -T2, T3, T12 lesions noted on recent admission -Now with new paraplegia and mass extension into the T2-T3 region -Continue pain medication as ordered -Increase OxyContin 20 mg twice daily extended release -Continue current bowel regimen with as needed senna and scheduled MiraLAX -Continue steroids -Continue gabapentin 300 mg 3 times daily Hypothyroidism -Continue levothyroxine Anxiety/depression -Continue lorazepam/sertraline CODE STATUS -Patient is DNR CC and met with hospice today -Plan is for discharge on 03/20/2021 to the [facility] with hospice services -Son was at bedside and I did have an extensive discussion with him with regards to what to expect and what changes have been made in her pain regimen. His biggest goal is to keep her comfortable. He is concerned about potential developing of wounds related to pressure. I did confirm that this would be a significant risk for her given the fact that she no longer has sensation in her buttocks and that frequent turning would be required. Every 2 hour repositioning will be needed after discharge. Charges/Coding Visit Charges Inpatient E&M: 27093 Subs Hosp L2
--- NOTE | 2021-03-19 18:47 | CM.ED ---
CARMEN Note shop router said that patient's son wanted to speak to social media coordinator. Son inquired about patient's social security check while patient is at [facility] and also what belongings she can bring to the [facility] including furnishing, pictures and clothes. SW advised son to call the [facility] and request information regarding their policies and procedures and speak to the social media coordinator about questions regarding social security check. CARMEN provided patient with name of social media coordinator and number for the [facility]. CARMEN remains available Yocasta Addis HERR
[2021-03-19] MEDS: oxyCODONE HCl Cr 10 MG Tablet 20 MG PO (21:06)
[2021-03-20] MEDS: morphine (oral solution) 10MG/0.5ML Syringe 5 MG SL/PO ×4 (04:46→11:32)
[2021-03-20] MEDS: Levothyroxine 100 MCG Tablet PO (04:47)
[2021-03-20] MEDS: Gabapentin 300 MG Capsule PO ×2 (08:46→11:32)
[2021-03-20] MEDS: dexAMETHasone 4 MG Tablet PO (08:46)
[2021-03-20 09:04] VITALS: O2SAT 89
--- NOTE | 2021-03-20 09:04 | CPS ---
When i walked into room O2 was of checked SPO2 was 80% placed O2 back on
[2021-03-20] MEDS: LORazepam 0.5 MG Tablet PO (09:09)
[2021-03-20] MEDS: Sertraline 50 MG Tablet PO (09:10)
[2021-03-20] MEDS: oxyCODONE HCl Cr 10 MG Tablet 20 MG PO (09:10)
[2021-03-20] MEDS: Polyethylene Glycol 3350 17 GM PACKET PO (09:10)
--- NOTE | 2021-03-20 10:00 | TREXTCAR_ITS ---
Diet 03/16/21 19:57 Diet: Regular - General Routine Orders/Code Status Suppository Frequency: Daily PRN Change Darnell Catheter: q monthly O2 Frequency: PRN Keep PO Greater than or Equal to (%): 92 Code Status: DNRCC Suggestions for Active Care Change Position every (hours): 2 Positions to Avoid: high risk for skin breakdown Therapies Weight Bearing: Non weight bearing Extremity Affected:: Bilateral Lower Problem/Diagnosis (1) Paraplegia: Status: Acute (2) Breast cancer metastasized to bone: Status: Acute (3) Debility: Status: Acute (4) Thoracic back pain: Status: Acute Allergies/Procedures Done in Hospital Allergies nitrofurantoin [From Macrobid] Allergy (Intermediate, Verified 03/11/21 10:12) hives latex Allergy (Verified 03/11/21 10:12) Rash Penicillins Allergy (Verified 03/11/21 10:12) Swelling meloxicam Adverse Reaction (Verified 03/11/21 10:12) Nausea fatigue Procedures: None Type of Care/Length of Stay Estimated LOS: More Than 30 Days Type of Care Needed: Intermediate Rehab Potential: Poor Prognosis: Poor Additional Orders/Day of Discharge Additional Orders: Hospice Care Bowel regimen for Spinal Cord Injury Day of Discharge: 03/20/21 Discharge Plan Admission Admit Date/Time: 03/16/21 18:52 Attending Provider: Tessa Sanchez Primary Care Provider: Terrell Villanueva Consulting Providers: Rosanna Sawyer ; Jose Stock ; Renée Horowitz ; Radha Littlejohn ; Kendra Myers ; Marie Villanueva PATHOLOGIST ASSISTANT Discharge Orders/Prescriptions Prescriptions: No Action dexamethasone [Decadron] 4 mg tablet 4 mg PO DAILY RF: 0 hydrocodone-acetaminophen 5-325 mg tablet 1 tab PO Q6H PRN PRN (Reason: Pain) RF: 0 levothyroxine 100 mcg tablet 100 mcg PO DAILY RF: 0 cyanocobalamin (vitamin B-12) 1,000 mcg tablet, sublingual 1,000 mcg PO DAILY RF: 0 furosemide 20 mg tablet 20 mg PO DAILY RF: 0 lorazepam 1 mg tablet 1 mg PO BID RF: 0 sertraline 50 mg tablet 50 mg PO BID RF: 0 cholecalciferol (vitamin D3) 1,250 mcg (50,000 unit) capsule 50,000 unit PO QWEEK RF: 0 Referrals / Follow Up: Terrell Villanueva DO [Primary Care Provider] -
--- NOTE | 2021-03-20 10:03 | PCM.DC.SUM ---
Providers Date of Admission: 03/16/21 Primary Care Physician: Dr. Terrell Villanueva, DO Consultations 03/16/21 19:57 Consult: Hospice / Palliative Care Routine Consulting Provider: [facility] Reason for Consult: paralysis. verterbral metastasis. EMERGENT Consult: No MD Notified: Yes Date Notified: 03/17/21 Time Notified: 08:58 Method of Notification: Answering Service Reason For Visit: PARALYSIS, SPINAL LESION, HOSPICE Diagnosis Discharge Diagnosis (1) Paraplegia: Status: Acute Code(s): G82.20 - Paraplegia, unspecified (2) Breast cancer metastasized to bone: Status: Acute Code(s): C50.919 - Malignant neoplasm of unspecified site of unspecified female breast; C79.51 - Secondary malignant neoplasm of bone Qualifiers: Laterality: unspecified laterality Qualified Code(s): C50.919 - Malignant neoplasm of unspecified site of unspecified female breast; C79.51 - Secondary malignant neoplasm of bone (3) Debility: Status: Acute Code(s): R53.81 - Other malaise (4) Thoracic back pain: Status: Acute Code(s): M54.6 - Pain in thoracic spine Medications at Discharge Home Medications dexamethasone [Decadron] 4 mg PO DAILY 03/10/21 cholecalciferol (vitamin D3) 50,000 unit PO QWEEK 03/16/21 cyanocobalamin (vitamin B-12) 1,000 mcg PO DAILY 03/16/21 furosemide 20 mg PO DAILY 03/16/21 levothyroxine 100 mcg PO DAILY 03/16/21 sertraline 50 mg PO BID 03/16/21 acetaminophen [Tylenol] 650 mg PO Q4H PRN PRN #0 tab 03/20/21 albuterol sulfate 2.5 mg INHALATION Q4H PRN PRN #0 ml 03/20/21 alum-mag hydroxide-simeth [Mag-Al Plus Extra Strength] 30 ml PO Q4H PRN PRN #0 ml 03/20/21 gabapentin 300 mg PO TIDCM #0 cap 03/20/21 lorazepam 1 mg PO BID #2 tab 03/20/21 morphine concentrate 5 mg PO/SL Q1H PRN PRN 1 Days #50 ea 03/20/21 oxycodone [OxyContin] 20 mg PO BID 1 Days #4 tab 03/20/21 peg [id number] [Artificial Tears([id number])] 2 drp EACH EYE Q1H PRN #0 ml 03/20/21 polyethylene glycol 3350 17 g PO BID #0 ea 03/20/21 sennosides-docusate sodium [Stool Softener-Stimulant Laxat] 1 tab PO BID PRN PRN #0 tab 03/20/21 Hospital Course Operations None Procedures None Summary of Care Provided Minutes Spent on Discharge: 38 Hospital Course: Mrs. Carmona is an 85-year-old white female who presented to the emergency department from the TCU on 03/16/2021 with acute onset bilateral lower extremity paralysis. She was recently diagnosed with metastatic breast CA that had metastasized to her spine at T2 and T3 and had been undergoing radiation therapy to this area. She had tried to go home after diagnosis to pursue outpatient therapy was having trouble with falls secondary to pain and generalized weakness. She therefore he presented to the emergency department and was admitted to the TCU on 03/10/2021. On 03/16/2019 when she developed acute onset lower extremity paralysis and she was sent to the emergency department. In the ED spinal imaging via MRI was performed. Her MRI of her cervical spine showed multilevel degenerative changes. The MRI of her lumbar spine showed multilevel degenerative changes that were mild as well as a T12 pathologic compression fracture and abnormal enhancement at the T12 vertebral body that was consistent with metastatic foci. Her thoracic MRI showed T2, T3, T4, T9, and T12 destructive osseous lesions consistent with metastatic disease, at T2-3 there was a posterior expansion of a mass on the dural space and enhancement of the dural space and spinous processes of T3 T2 and T4. The mass was causing severe spinal stenosis at that level and invasion into the spinal cord was suspected with clinical findings. The results were discussed with the patient emergency department and she indicated that she did not want to undergo any further radiation or treatments nor have any surgery and was requesting hospice services on admission. She was admitted to the medical surgical floor and pain medications were titrated for improved comfort. She was initiated on OxyContin 15 mg twice daily which was uptitrated to 20 mg twice daily as well as as needed IR morphine concentrate that was available up to every 1 hour for her. She was able to decrease utilization of the liquid IR morphine with the addition of the OxyContin and her comfort had improved. Gabapentin was also added. She was placed on a bowel regimen with as needed senna and scheduled MiraLAX. She had persistent paralysis from the trunk down. She was seen by hospice and plan for discharge was to the [facility] with hospice services. She is aware she is at increased risk for pressure sores and respiratory infections based on her level of injury. Her son was involved in her care but she did make decisions that she is completely capable of making decisions independently. CODE STATUS was changed to DNR CC and she was discharged to the [facility] in stable condition on 03/20/2021. She had no skin lesions on discharge and her pain was controlled fairly well. 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 Metastatic breast cancer Acute on chronic pain Hypothyroidism JENNIFER Vitamin D deficiency Anxiety Depression Physical Exam Const alert, oriented x3 and no apparent distress Constitutional Narrative: Pleasant elderly morbidly obese white female lying comfortably in bed, patient appears comfortable at this time, nursing is at the bedside repositioning the patient and cleaning her up, patient is alert and oriented x3 General Appearance: cooperative, comfortable, well kempt and well developed Orientation / Consciousness: awake Exam Limitations: no limitations Nutritional Appearance: morbidly obese HEENT normocephalic, head/scalp atraumatic and moist oral mucous membranes HEENT Narrative: Mildly hard of hearing, Mallampati 2-3, no thrush Eyes PERRL, EOMs intact bilaterally and conjunctivae normal Eyes Narrative: No scleral icterus Neck no lymphadenopathy, supple and no JVD Neck Narrative: Trachea midline, no thyroid enlargement Resp normal respiratory effort, no retractions, no use of accessory muscles and clear to auscultation bilaterally Resp Narrative: Difficulty with deep breathing secondary to paralysis--> inability to recruit accessory muscles Cardio regular rate, regular rhythm, S1 normal heart sound, S2 normal heart sound, no murmurs, no rub, no gallops, no clicks and no JVD GI normal to inspection, nondistended, normoactive bowel sounds, soft to palpation, non-tender, non-distended and hepatosplenomegaly GI Narrative: No sensation on palpating her abdomen Extremity no clubbing, cyanosis or edema Skin no rashes or lesions noted, no wounds, skin turgor normal and no jaundice Neuro CN's II-XII intact bilaterally Neuro Narrative: Patient with bilateral paraplegia in the lower extremities, no upper extremity deficits noted, decreased sensation bilateral lower extremities up to mid thorax region, sensation and movement normal in bilateral upper extremities Sensorium / Orientation: awake and alert Psych affect normal Psych Narrative: Patient is very appropriate very pleasant Weight / BMI Weight Weight: 118.7 kg Body Mass Index (BMI) 44.9 ABG / Lab / Microbiology Data Result Diagrams: 03/16/21 13:50 03/16/21 13:50 Microbiology: Microbiology 03/20/21 07:48 Nasal Secretion SARS-CoV-2 Antigen (Rapid) - Final D/C Instructions Discharge Diet: No restrictions Meaningful Use Info Meaningful Use Diagnoses (Choose all that apply): None applicable Discharge Plan Admission Admit Date/Time: 03/16/21 18:52 Primary Reason for Your Visit: New Paraplegia Attending Provider: Tessa Sanchez Primary Care Provider: Terrell Villanueva Consulting Providers: Rosanna Sawyer ; Jose Stock ; Renée Horowitz ; Radha Littlejohn ; Kendra Myers ; Marie Villanueva [employer] AD[employer]ER Discharge Orders/Prescriptions Prescriptions: New acetaminophen [Tylenol] 325 mg Tablet 650 mg PO Q4H PRN PRN (Reason: PAIN 1-10/FEVER) Qty: 0 RF: 0 morphine concentrate 10 mg/0.5 mL Syringe 5 mg PO/SL Q1H PRN PRN (Reason: PAIN 1-10/ SOB) 1 Days Qty: 50 RF: 0 oxycodone [OxyContin] 10 mg Tablet,Oral Only,Ext.Rel.12 Hr 20 mg PO BID 1 Days Qty: 4 RF: 0 albuterol sulfate 2.5 mg /3 mL (0.083 %) Solution For Nebulization 2.5 mg inhalation Q4H PRN PRN (Reason: DYSPNEA) Qty: 0 RF: 0 polyethylene glycol 3350 17 gram Powder In Packet 17 g PO BID Qty: 0 RF: 0 sennosides-docusate sodium [Stool Softener-Stimulant Laxat] 8.6-50 mg Tablet 1 tab PO BID PRN PRN (Reason: Constipation) Qty: 0 RF: 0 gabapentin 300 mg Capsule 300 mg PO TIDCM Qty: 0 RF: 0 alum-mag hydroxide-simeth [Mag-Al Plus Extra Strength] 400-400-40 mg/5 mL Suspension 30 ml PO Q4H PRN PRN (Reason: Indigestion) Qty: 0 RF: 0 Artificial Tears([id number]) 1-0.2-0.2 % Drops 2 drp EACH EYE Q1H PRN (Reason: DRY EYES) Qty: 0 RF: 0 Continued dexamethasone [Decadron] 4 mg tablet 4 mg PO DAILY RF: 0 levothyroxine 100 mcg tablet 100 mcg PO DAILY RF: 0 cyanocobalamin (vitamin B-12) 1,000 mcg tablet, sublingual 1,000 mcg PO DAILY RF: 0 furosemide 20 mg tablet 20 mg PO DAILY RF: 0 sertraline 50 mg tablet 50 mg PO BID RF: 0 cholecalciferol (vitamin D3) 1,250 mcg (50,000 unit) capsule 50,000 unit PO QWEEK RF: 0 lorazepam 1 mg tablet 1 mg PO BID Qty: 2 RF: 0 Discontinued hydrocodone-acetaminophen 5-325 mg tablet 1 tab PO Q6H PRN PRN (Reason: Pain) RF: 0 Referrals / Follow Up: Terrell Villanueva DO [Primary Care Provider] - None Disposition Disposition (needs filled in before D/C Order can be placed): Shelter Facility Charges/Coding Visit Charges Inpatient E&M: 07894 SNF Disch >30 Min
[2021-03-20 11:03] VITALS: BP 134/68; PULSE 82; RESP 16; TEMP 36.8; O2SAT 97
== END 2021-03-20 11:43 | DRG 52 ==
LOC: ED 13:23 → MS2 19:14
PROVIDERS: Emergency Provider Emergency Medicine; PCP Family Medicine; Visit Provider Internal Medicine
DX: G82.20 Paraplegia, unspecified (principal); C79.51 Secondary malignant neoplasm of bone; S73.005A Unspecified dislocation of left hip, initial encounter; M48.54XA Collapsed vertebra, not elsewhere classified, thoracic region, initial encounter for fracture; C50.919 Malignant neoplasm of unspecified site of unspecified female breast; E03.9 Hypothyroidism, unspecified; G47.33 Obstructive sleep apnea (adult) (pediatric); M54.6 Pain in thoracic spine; E78.5 Hyperlipidemia, unspecified; F41.9 Anxiety disorder, unspecified; F32.A Depression, unspecified; Z92.3 Personal history of irradiation; Z91.040 Latex allergy status; Z87.891 Personal history of nicotine dependence; Z66 Do not resuscitate; G89.29 Other chronic pain
CPT/HCPCS: 72156; 72157; 72158; 77412; 80048; 85025; 87426; 99281; A9575; J7030; A4216